=== PATIENT | male | born 1970 | race Native Hawaiian/Other Pacific Islander ===

== ENCOUNTER 2019-01-24 14:39 | Emergency (ER) | payer OTHER, MEDICAID, SELFPAY ==
[2019-01-24 15:06] VITALS: BP 133/84; PULSE 111; RESP 16; TEMP 36.8; O2SAT 97; BMI 33.9
--- NOTE | 2019-01-24 15:09 | DI.RAD.S_ITS ---
PROCEDURE: XR KNEE LT 3V INDICATIONS: knee pain TECHNIQUE: 3 views of the knee were acquired. COMPARISON: None. FINDINGS: Bones: No fractures or dislocations. Mild medial compartment joint space narrowing. Tricompartmental osteoarthrosis. No suspicious bony lesions. Soft tissues: A joint effusion is present. No suspicious soft tissue calcifications. IMPRESSION: No fracture or dislocation. Moderate degenerative change of the knee. Dictated by: Florentino Nguyễn M.D. on 01/24/2019 at 15:41 Approved by: Florentino Nguyễn M.D. on 01/24/2019 at 15:42
--- NOTE | 2019-01-24 15:43 | ED_ITS ---
HPI - Extremity Problem <Meena Stearns PA-C - Last Filed: 01/24/19 19:12> General Chief complaint: Extremity Problem,Nontraumatic Stated complaint: left knee swelling/pain/chills x3 day Time Seen by Provider: 01/24/19 15:17 Source: patient Mode of arrival: Wheelchair Limitations: no limitations History of Present Illness HPI Narrative: This 48-year-old male comes in due to 3 day history of gradually worsening left knee pain and swelling. He states it is painful to walk and bend the knee. 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 He denies any bites or wounds known. He states that he has had some pain in his left hip where he can't sleep on that side, but this was going on well prior to the knee pain. He has not had pain in other joints, nor any swelling in other joints. He states he has not had fever that he knows of, but did have chills last night, and feels a little bit cold today. He has not had sweats. He denies any recent illness. He did take 800 mg ibuprofen earlier this morning. States this is not helping pain much at this point. He denies any other new symptoms on systems review aside from some gradual urinary hesitancy, no dysuria or discharge. He notes that he does have a history of gout, taking an herbal supplement go-out, because allopurinol was ineffective. He did have some dental work not long ago, no other procedures. He notes that he had a remote history of bleeding ulcer when taking high doses of ibuprofen many years ago, tolerates naproxen well. He lat er admits he stopped his colchicine just about 3 weeks ago and had not had a gout exacerbation in some time Related Data Previous Rx's Medication Instructions Recorded colchicine 0.6 mg PO DAILY #2 tab 01/24/19 naproxen 500 mg PO BID #14 tab 01/24/19 Allergies Allergy/AdvReac Type Severity Reaction Status Date / Time No Known Drug Allergies Allergy Verified 01/24/19 15:06 Review of Systems <Meena Stearns PA-C - Last Filed: 01/24/19 19:12> Review of Systems ROS Unobtainable: All systems reviewed & are unremarkable except as noted in HPI and below PFSH <Meena Stearns PA-C - Last Filed: 01/24/19 19:12> Medical History (Updated 01/24/19 @ 18:49 by Meena Stearns PA-C) Diabetes mellitus, insulin dependent (IDDM), controlled (Chronic) Fibromyalgia (Chronic) Gout (Chronic) HTN (hypertension) (Chronic) Surgical History (Updated 01/24/19 @ 16:11 by Meena Stearns PA-C) History of brain shunt (Resolved) Social History (Updated 01/24/19 @ 16:11 by Meena Stearns PA-C) Smoking Status: Never smoker Social History (Updated 01/24/19 @ 16:11 by Meena Stearns PA-C) Smoking Status: Never smoker Exam <Meena Stearns PA-C - Last Filed: 01/24/19 19:12> Narrative Exam Narrative: GENERAL APPEARANCE: Patient sitting comfortably, in no distress. LUNGS: Clear to auscultation bilaterally. HEART: Rate and rhythm regular without murmur, normal S1 and S2, no S3 or S4. DERMATOLOGIC: No wounds or exanthem. Skin over the left knee is warm to touch MUSCULOSKELETAL: Left knee moderate non circumscribed joint effusion, tender especially over the lateral patella and joint line. Limited flexion to about 30? secondary to tenderness, holds in about 10? of flexion. No other joint ef fusion visible. No other joint tenderness or range of motion limitation noted Initial Vital Signs Initial Vital Signs: Vital Signs Temperature 98.2 F 01/24/19 15:06 Pulse Rate 111 H 01/24/19 15:06 Respiratory Rate 16 01/24/19 15:06 Blood Pressure 133/84 01/24/19 15:06 Pulse Oximetry 97 01/24/19 15:06 <Jose J aCstillo DO - Last Filed: 01/25/19 06:59> Initial Vital Signs Initial Vital Signs: Vital Signs Temperature 98.2 F 01/24/19 15:06 Pulse Rate 111 H 01/24/19 15:06 Respiratory Rate 16 01/24/19 15:06 Blood Pressure 133/84 01/24/19 15:06 Pulse Oximetry 97 01/24/19 15:06 Procedures <Meena Stearns PA-C - Last Filed: 01/24/19 19:12> Joint Aspiration Joint Asp./Inject. 1: Time Out Performed: Yes Side of body: left Joint Aspirated: knee (performed by Dr. Castillo) Ultrasound Guidance: No Skin Prep: Povidone-Iodine1% Local Anesthetic: bupivacaine 0.5% Amount of anesthesia used (mL): 6 Needle Size Used: 18G Fluid Obtained: turbid Total fluid obtained (mL): 80 Amount of medication injected (mL): 5 Patient Tolerated Procedure: Well Course <Meena Stearns PA-C - Last Filed: 01/24/19 19:12> Course Additional Information: Patient felt significantly improved after Toradol and joint tap and in fact fell asleep. Lab results consistent with gout. I did speak with on-call orthopedist Dr. Crooks to review findings and cell counts. He advised most likely gout, did not advise treatment for infection at this point. G stain and cultures are pending. Patient agrees to return to ED if any acutely worsening symptoms, otherwise advised follow-up in the next few days with PCP and he is agreeable with this plan as well. Dr. Castillo did joint tap and reviewed findings. Orders Ordered: Discontinued Medications Bupivacaine HCl (Sensorcaine 0.5% (Pf)) 5 ml SUBCUT NOW ONE Stop: 01/24/19 16:30 Sodium Chloride (Normal Saline 0.9%) 1,000 mls @ 1,000 mls/hr IV BOLUS ONE Stop: 01/24/19 18:26 Last Infusion: 01/24/19 18:52 Dose: 0 mls/hr Documented by: Admin: 01/24/19 17:32 Dose: 1,000 mls/hr Documented by: ANGEL Ketorolac Tromethamine (Toradol) 30 mg IV NOW ONE Stop: 01/24/19 16:32 Last Admin: 01/24/19 17:01 Dose: 30 mg Documented by: NANDO Pantoprazole Sodium (Protonix) 40 mg IV NOW ONE Stop: 01/24/19 16:32 Last Admin: 01/24/19 17:01 Dose: 40 mg Documented by: NANDO Vital Signs Vital signs: Vital Signs - 8 hr 01/24/19 15:06 01/24/19 16:59 01/24/19 18:53 Temperature 98.2 F 99.2 F Pulse Rate 111 H 96 H Respiratory Rate 16 16 Blood Pressure 133/84 Blood Pressure [Left Arm] 130/90 Pulse Oximetry 97 98 <Jose J Castillo DO - Last Filed: 01/25/19 06:59> Orders Ordered: Discontinued Medications Bupivacaine HCl (Sensorcaine 0.5% (Pf)) 5 ml SUBCUT NOW ONE Stop: 01/24/19 16:30 Sodium Chloride (Normal Saline 0.9%) 1,000 mls @ 1,000 mls/hr IV BOLUS ONE Stop: 01/24/19 18:26 Last Infusion: 01/24/19 18:52 Dose: 0 mls/hr Documented by: Admin: 01/24/19 17:32 Dose: 1,000 mls/hr Documented by: ANGEL Ketorolac Tromethamine (Toradol) 30 mg IV NOW ONE Stop: 01/24/19 16:32 Last Admin: 01/24/19 17:01 Dose: 30 mg Documented by: NANDO Pantoprazole Sodium (Protonix) 40 mg IV NOW ONE Stop: 01/24/19 16:32 Last Admin: 01/24/19 17:01 Dose: 40 mg Documented by: NANDO Vital Signs Vital signs: Vital Signs - 8 hr 01/24/19 15:06 01/24/19 16:59 01/24/19 18:53 Temperature 98.2 F 99.2 F Pulse Rate 111 H 96 H Respiratory Rate 16 16 Blood Pressure 133/84 Blood Pressure [Left Arm] 130/90 Pulse Oximetry 97 98 MDM - Extremity (Nontraumatic) <Meena Stearns PA-C - Last Filed: 01/24/19 19:12> Lab Data Result diagrams: 01/24/19 16:45 01/24/19 16:45 Labs: Lab Results 01/24/19 01/24/19 01/24/19 Range/Units 16:45 16:45 16:45 WBC 11.1 H (4.5-11.0) X10^3/uL RBC 5.44 (4.5-5.9) X10^6/uL Hgb 16.5 (13.5-17.5) g/dL Hct 48.6 (41-53) % MCV 89.3 (80-100) fL MCH 30.3 (26-34) PG MCHC 33.9 (30-36) % RDW 13.2 (11.6-14.8) % Plt Count 284 (150-400) X10^3/uL Neut % (Auto) 76.6 H (50-75) % Lymph % (Auto) 11.6 L (25-40) % [place] % (Auto) 9.2 (3-14) % Eos % (Auto) 1.8 L (2-4) % Baso % (Auto) 0.8 (0-2) % Neut # (Auto) 8500 H (5077-1033) /uL Lymph # (Auto) 1300 (7038-5578) /uL [place] # (Auto) 1000 H (0-900) /uL Eos # (Auto) 200 (0-450) /uL Baso # (Auto) 100 (0-100) /uL ESR 25 H (0-15) MM/HR Sodium 138 (137-145) mmol/L Potassium 4.4 (3.4-5.1) mmol/L Chloride 100 (98-107) mmol/L Carbon Dioxide 24 (22-32) mmol/L BUN 15 (9-20) mg/dL Creatinine 1.20 (0.66-1.25) mg/dL Estimated GFR > 60.0 (>60) mL/min BUN/Creatinine Ratio 12.5 (6-22) Glucose 366 H (70-100) mg/dL Uric Acid 9.4 H (3.5-8.5) mg/dL Calcium 9.7 (8.4-10.2) mg/dL Total Bilirubin 0.9 (0.2-1.3) mg/dL AST 24 (17-59) IU/L ALT 19 L (21-72) IU/L Alkaline Phosphatase 80 (38-126) U/L C-Reactive Protein 3.8 H (<1.0) mg/dL Total Protein 8.2 (6.3-8.2) g/dL Albumin 4.3 (3.5-5.0) g/dL Globulin 3.9 (1.7-4.1) g/dL Albumin/Globulin Ratio 1.1 (1.0-2.8) Fluid Color Fluid Appearance Fluid RBC /uL Fld Tot Nucleated Cell /uL Fluid Polynuclear WBCs % Fluid Mononuclear WBCs % Fluid Eosinophils % Fluid Other Cells Fluid Crystals Body Fluid Clot 10/10/19 10/10/19 10/10/19 Range/Units 16:45 16:45 16:45 WBC (4.5-11.0) X10^3/uL RBC (4.5-5.9) X10^6/uL Hgb (13.5-17.5) g/dL Hct (41-53) % MCV (80-100) fL MCH (26-34) PG MCHC (30-36) % RDW (11.6-14.8) % Plt Count (150-400) X10^3/uL Neut % (Auto) (50-75) % Lymph % (Auto) (25-40) % [place] % (Auto) (3-14) % Eos % (Auto) (2-4) % Baso % (Auto) (0-2) % Neut # (Auto) (1269-7951) /uL Lymph # (Auto) (3173-6093) /uL [place] # (Auto) (0-900) /uL Eos # (Auto) (0-450) /uL Baso # (Auto) (0-100) /uL ESR (0-15) MM/HR Sodium (137-145) mmol/L Potassium (3.4-5.1) mmol/L Chloride (98-107) mmol/L Carbon Dioxide (22-32) mmol/L BUN (9-20) mg/dL Creatinine (0.66-1.25) mg/dL Estimated GFR (>60) mL/min BUN/Creatinine Ratio (6-22) Glucose (70-100) mg/dL Uric Acid (3.5-8.5) mg/dL Calcium (8.4-10.2) mg/dL Total Bilirubin (0.2-1.3) mg/dL AST (17-59) IU/L ALT (21-72) IU/L Alkaline Phosphatase (38-126) U/L C-Reactive Protein (<1.0) mg/dL Total Protein (6.3-8.2) g/dL Albumin (3.5-5.0) g/dL Globulin (1.7-4.1) g/dL Albumin/Globulin Ratio (1.0-2.8) Fluid Color Yellow Fluid Appearance Slightly cloudy Fluid RBC 2787 /uL Fld Tot Nucleated Cell 97101 /uL Fluid Polynuclear WBCs 82 % Fluid Mononuclear WBCs 18 % Fluid Eosinophils 0 % Fluid Other Cells Not Reportable Fluid Crystals Cancelled Monosodium urates Body Fluid Clot No clots present Imaging Data knee: Radiologist's impression: 16 Meena Stearns PA-C Find Patient Imaging - Aron Aponte 48 M 1970 ACTIVITY DATE EXAM STATUS AUTHOR 01/24/19 15:09 Signed Call,[address] [address] XRay Report Signed Patient: Aron AponteMR#: [id number] : 1970Acct:[id number] Age/Sex: 48 / MDate of Service: 01/24/19 Loc: ED Accession Number: [id number] Procedure: XR knee LT 3V Ordering Provider: Jose J Castillo D.O. PROCEDURE: XR KNEE LT 3V INDICATIONS: knee pain TECHNIQUE: 3 views of the knee were acquired. COMPARISON: None. FINDINGS: Bones: No fractures or dislocations. Mild medial compartment joint space narro wing. Tricompartmental osteoarthrosis. No suspicious bony lesions. Soft tissues: A joint effusion is present. No suspicious soft tissue calcifications. IMPRESSION: No fracture or dislocation. Moderate degenerative change of the knee. Dictated by: Florentino Nguyễn M.D. on 01/24/2019 at 15:41 Approved by: Florentino Nguyễn M.D. on 01/24/2019 at 15:42 <Jose J Castillo DO - Last Filed: 01/25/19 06:59> Lab Data Labs: Lab Results 01/24/19 01/24/19 01/24/19 Range/Units 16:45 16:45 16:45 WBC 11.1 H (4.5-11.0) X10^3/uL RBC 5.44 (4.5-5.9) X10^6/uL Hgb 16.5 (13.5-17.5) g/dL Hct 48.6 (41-53) % MCV 89.3 (80-100) fL MCH 30.3 (26-34) PG MCHC 33.9 (30-36) % RDW 13.2 (11.6-14.8) % Plt Count 284 (150-400) X10^3/uL Neut % (Auto) 76.6 H (50-75) % Lymph % (Auto) 11.6 L (25-40) % [place] % (Auto) 9.2 (3-14) % Eos % (Auto) 1.8 L (2-4) % Baso % (Auto) 0.8 (0-2) % Neut # (Auto) 8500 H (6670-9780) /uL Lymph # (Auto) 1300 (7827-2979) /uL [place] # (Auto) 1000 H (0-900) /uL Eos # (Auto) 200 (0-450) /uL Baso # (Auto) 100 (0-100) /uL ESR 25 H (0-15) MM/HR Sodium 138 (137-145) mmol/L Potassium 4.4 (3.4-5.1) mmol/L Chloride 100 (98-107) mmol/L Carbon Dioxide 24 (22-32) mmol/L BUN 15 (9-20) mg/dL Creatinine 1.20 (0.66-1.25) mg/dL Estimated GFR > 60.0 (>60) mL/min BUN/Creatinine Ratio 12.5 (6-22) Glucose 366 H (70-100) mg/dL Uric Acid 9.4 H (3.5-8.5) mg/dL Calcium 9.7 (8.4-10.2) mg/dL Total Bilirubin 0.9 (0.2-1.3) mg/dL AST 24 (17-59) IU/L ALT 19 L (21-72) IU/L Alkaline Phosphatase 80 (38-126) U/L C-Reactive Protein 3.8 H (<1.0) mg/dL Total Protein 8.2 (6.3-8.2) g/dL Albumin 4.3 (3.5-5.0) g/dL Globulin 3.9 (1.7-4.1) g/dL Albumin/Globulin Ratio 1.1 (1.0-2.8) Fluid Color Fluid Appearance Fluid RBC /uL Fld Tot Nucleated Cell /uL Fluid Polynuclear WBCs % Fluid Mononuclear WBCs % Fluid Eosinophils % Fluid Other Cells Fluid Crystals Body Fluid Clot 01/24/19 01/24/19 01/24/19 Range/Units 16:45 16:45 16:45 WBC (4.5-11.0) X10^3/uL RBC (4.5-5.9) X10^6/uL Hgb (13.5-17.5) g/dL Hct (41-53) % MCV (80-100) fL MCH (26-34) PG MCHC (30-36) % RDW (11.6-14.8) % Plt Count (150-400) X10^3/uL Neut % (Auto) (50-75) % Lymph % (Auto) (25-40) % [place] % (Auto) (3-14) % Eos % (Auto) (2-4) % Baso % (Auto) (0-2) % Neut # (Auto) (8888-4432) /uL Lymph # (Auto) (4496-5285) /uL [place] # (Auto) (0-900) /uL Eos # (Auto) (0-450) /uL Baso # (Auto) (0-100) /uL ESR (0-15) MM/HR Sodium (137-145) mmol/L Potassium (3.4-5.1) mmol/L Chloride (98-107) mmol/L Carbon Dioxide (22-32) mmol/L BUN (9-20) mg/dL Creatinine (0.66-1.25) mg/dL Estimated GFR (>60) mL/min BUN/Creatinine Ratio (6-22) Glucose (70-100) mg/dL Uric Acid (3.5-8.5) mg/dL Calcium (8.4-10.2) mg/dL Total Bilirubin (0.2-1.3) mg/dL AST (17-59) IU/L ALT (21-72) IU/L Alkaline Phosphatase (38-126) U/L C-Reactive Protein (<1.0) mg/dL Total Protein (6.3-8.2) g/dL Albumin (3.5-5.0) g/dL Globulin (1.7-4.1) g/dL Albumin/Globulin Ratio (1.0-2.8) Fluid Color Yellow Fluid Appearance Slightly cloudy Fluid RBC 2787 /uL Fld Tot Nucleated Cell 03411 /uL Fluid Polynuclear WBCs 82 % Fluid Mononuclear WBCs 18 % Fluid Eosinophils 0 % Fluid Other Cells Not Reportable Fluid Crystals Cancelled Monosodium urates Body Fluid Clot No clots present Discharge Plan Departure Patient Disposition: Home Clinical Impression: Gout Qualifiers: Gout site: knee Gout etiology: idiopathic Chronicity: acute Laterality: left Qualified Code(s): M10.062 - Idiopathic gout, left knee Discharge Date/Time: 01/24/19 19:00 Instructions: DI for Gout Activity Restrictions/Additional Instructions: I have sent in a prescription for naproxen for you as well as a medicine called colchicine to help with the a gout attack. Please take both doses of the colchicine tonight. Please call your clinic 1st thing in the morning and let them know you were seen in the emergency room and we want you to be seen for follow-up in the next few days. You should discontinue the dietary supplement and discuss restarting your gout medicine when you are better. As we talked about, you should return to the closest ED if you have any acutely worsening symptoms in the interim as some of your fluid analysis on the knee is still pending. Prescriptions: New naproxen 500 mg tablet 500 mg PO BID Qty: 14 RF: 0 colchicine 0.6 mg tablet 0.6 mg PO DAILY Qty: 2 RF: 0 Referrals: [facility] [Other]
[2019-01-24 16:57] LABS: Add Manual Diff / Slide Review NO; Basophils Absolute Auto 100 /uL (0-100); Basophils Percent Auto 0.8 % (0-2); Eosinophils Absolute Auto 200 /uL (0-450); Eosinophils Percent Auto 1.8 % (2-4); Hematocrit 48.6 % (41-53); Hemoglobin 16.5 g/dL (13.5-17.5); Lymphocytes Absolute Auto 1300 /uL (1100-4500); Lymphocytes Percent Auto 11.6 % (25-40); Mean Corpuscular HGB Conc 33.9 % (30-36); Mean Corpuscular Hemoglobin 30.3 PG (26-34); Mean Corpuscular Volume 89.3 fL (80-100); Monocytes Absolute Auto 1000 /uL (0-900); Monocytes Percent Auto 9.2 % (3-14); Neutrophils Absolute Auto 8500 /uL (1500-7000); Neutrophils Percent Auto 76.6 % (50-75); Platelet Count 284 X10^3/uL (150-400); Red Blood Cell Count 5.44 X10^6/uL (4.5-5.9); Red Cell Distribution Width 13.2 % (11.6-14.8); White Blood Cell Count 11.1 X10^3/uL (4.5-11.0)
[2019-01-24 16:59] VITALS: TEMP 37.3
[2019-01-24] MEDS: KETOROLAC 60 MG/2 ML VIAL 30 MG IV (17:01)
[2019-01-24] MEDS: PANTOPRAZOLE 40 MG VIAL IV (17:01)
[2019-01-24 17:17] LABS: Uric Acid 9.4 mg/dL (3.5-8.5)
[2019-01-24 17:18] LABS: Erythrocyte Sedimentation Rate 25 MM/HR (0-15)
[2019-01-24 17:21] LABS: Alanine Aminotransferase 19 IU/L (21-72); Albumin 4.3 g/dL (3.5-5.0); Albumin Globulin Ratio 1.1 (1.0-2.8); Alkaline Phosphatase 80 U/L (38-126); Aspartate Aminotransferase 24 IU/L (17-59); BUN Creatinine Ratio 12.5 (6-22); Bilirubin Total 0.9 mg/dL (0.2-1.3); Blood Urea Nitrogen 15 mg/dL (9-20); C-Reactive Protein Quant 3.8 mg/dL (<1.0); Calcium 9.7 mg/dL (8.4-10.2); Carbon Dioxide 24 mmol/L (22-32); Chloride 100 mmol/L (98-107); Estimated Glomerular Filt Rate > 60.0 mL/min (>60); Globulin 3.9 g/dL (1.7-4.1); Glucose 366 mg/dL (70-100); HEMOLYSIS < 15 (0-50); Potassium 4.4 mmol/L (3.4-5.1); Sodium 138 mmol/L (137-145); Total Protein 8.2 g/dL (6.3-8.2)
[2019-01-24] MEDS: SODIUM CHLORIDE 0.9% 1,000 ML 1000 ML IV (17:32)
[2019-01-24 17:35] LABS: Crystals Body Fluid - IN-HOUSE Monosodium urates
[2019-01-24 17:37] LABS: Body Fluid Appearance SLIGHTLY CLOUDY; Body Fluid Clotted? NO CLOTS PRESENT; Body Fluid Color YELLOW
--- NOTE | 2019-01-24 17:37 | PC.NURSE ---
bupivacaine administered by MD Castillo
[2019-01-24 17:38] LABS: Body Fluid Red Blood Cells 2787 /uL; Body Fluid Tot Nucleated Cells 44068 /uL
[2019-01-24 18:27] LABS: Eosinophils Body Fluid 0 %; Mononuclear WBC Body Fluid 18 %; Polynuclear WBC Body Fluid 82 %
[2019-01-24 18:53] VITALS: BP 130/90; PULSE 96; RESP 16; O2SAT 98
== END 2019-01-24 19:00 | disposition home or self-care (01) ==
PROVIDERS: Emergency Medicine; Emergency Provider Internal Medicine
DX: M10.062 Idiopathic gout, left knee (principal); I10 Essential (primary) hypertension; E11.9 Type 2 diabetes mellitus without complications
CPT/HCPCS: 20610; 36415; 73562; 80053; 84550; 85025; 85651; 86140; 87040; 87070; 87075; 87205; 89051; 96361; 96374; 96375; 99283; 99284; C9113; J1885

== ENCOUNTER 2019-03-28 16:30 | Emergency (ER) | payer OTHER, MEDICAID, SELFPAY ==
[2019-03-28 16:33] VITALS: BP 128/86; PULSE 111; RESP 16; TEMP 37.2; O2SAT 98; BMI 36.9
--- NOTE | 2019-03-28 17:54 | ED.SKABFB ---
HPI - Skin/Abscess/Foreign Bdy <Meena Stearns PA-C - Last Filed: 03/28/19 21:18> General Chief complaint: Skin/Abscess/Foreign Body Stated complaint: states large infection back of head Time Seen by Provider: 03/28/19 16:55 Source: patient and family Mode of arrival: Ambulatory Limitations: no limitations History of Present Illness HPI narrative: This 48-year-old male comes to ED secondary to concern for worsening skin infection on his scalp. He does get ingrown hairs, noticed a sore and bump there 3 days ago and thought due to this, however it has been progressively becoming more swollen and painful. His states that she put hot packs on this and has not been able to express any drainage. Pain is worse with pressure on that side of the scalp. He also notes that he has had chills (no temperatures taken), as well as swollen glands, some cough, nasal and sinus congestion and pressure, fatigue and generalized body aches in the last week. He denies any recent travel or known exposures, states his blood sugars have been okay at home. He denies chest pain or dyspnea or other new complaints on systems review. He has a history of head injury and scarring and the middle part of his posterior scalp is always swollen around the scar. Related Data Previous Rx's Medication Instructions Recorded colchicine 0.6 mg PO DAILY #2 tab 01/24/19 naproxen 500 mg PO BID #14 tab 01/24/19 doxycycline monohydrate 100 mg PO BID #20 cap 03/28/19 naproxen 500 mg PO BID PRN #20 tab 03/28/19 Allergies Allergy/AdvReac Type Severity Reaction Status Date / Time No Known Drug Allergies Allergy Verified 03/28/19 16:33 Review of Systems <Meena Stearns PA-C - Last Filed: 03/28/19 21:18> Review of Systems ROS Unobtainable: All systems reviewed & are unremarkable except as noted in HPI and below Patient History <Meena Stearns PA-C - Last Filed: 03/28/19 21:18> Medical History Diabetes mellitus, insulin dependent (IDDM), controlled (Chronic) Fibromyalgia (Chronic) Gout (Chronic) History of head injury (Chronic) HTN (hypertension) (Chronic) Surgical History (Updated 01/24/19 @ 16:11 by Meena Stearns PA-C) History of brain shunt (Resolved) Social History Smoking Status: Never smoker Smoking Status: Never smoker alcohol intake frequency: holidays/special occasions only Substance Use Type: does not use Exam <Meena Stearns PA-C - Last Filed: 03/28/19 21:18> Narrative Exam Narrative: GENERAL APPEARANCE: Patient resting comfortably, in no distress. HEAD: Minimal generalized sinus tenderness EYES: PERRL, EOMI. EARS: Normal auditory canals, TMS intact with normal light reflexes. ORAL CAVITY: Normal oropharynx. THROAT: No erythema or exudate, PND noted NECK/THYROID: Neck supple, full range of motion, tender anterior cervical lymphadenopathy. LUNGS: Clear to auscultation bilaterally, no cough on exam. HEART: RRR without murmur, nl S1, S2, no S3 or S4. DERMATOLOGIC: Left posterior lateral scalp there is a 1.5 cm indurated nodular lesion, mild surrounding erythema and tenderness. No clear fluctuance. Conclude with this in the posterior midline there is a large surgical scar with surrounding induration Initial Vital Signs Initial Vital Signs: Vital Signs Temperature 98.9 F 03/28/19 16:33 Pulse Rate 111 H 03/28/19 16:33 Respiratory Rate 16 03/28/19 16:33 Blood Pressure 128/86 03/28/19 16:33 Pulse Oximetry 98 03/28/19 16:33 <aTpan Roberts DO - Last Filed: 03/28/19 21:46> Initial Vital Signs Initial Vital Signs: Vital Signs Temperature 98.9 F 03/28/19 16:33 Pulse Rate 111 H 03/28/19 16:33 Respiratory Rate 16 03/28/19 16:33 Blood Pressure 128/86 03/28/19 16:33 Pulse Oximetry 98 03/28/19 16:33 Course <Meena Stearns PA-C - Last Filed: 03/28/19 21:18> Course Additional Information: I requested attending Dr. Roberts evaluate this scalp lesion as well as it is confluent with patient's large, indurated surgical scar. He evaluated this and did ultrasound, and agrees induration with no fluid or abscess. Patient will start antibiotic and agrees to follow up with PCP in about 3 days for recheck. He will return to the ED if any acutely worsening symptoms in the interim. Orders Ordered: ED Orders 03/28/19 18:10 Influenza A & B (PCR) Stat Vital Signs Vital signs: Vital Signs - 8 hr 03/28/19 16:33 Temperature 98.9 F Pulse Rate 111 H Respiratory Rate 16 Blood Pressure 128/86 Pulse Oximetry 98 <Tapan Roberts DO - Last Filed: 03/28/19 21:46> Orders Ordered: ED Orders 03/28/19 18:10 Influenza A & B (PCR) Stat Vital Signs Vital signs: Vital Signs - 8 hr 03/28/19 16:33 Temperature 98.9 F Pulse Rate 111 H Respiratory Rate 16 Blood Pressure 128/86 Pulse Oximetry 98 MDM - Skin/Abscess/Foreign Bdy <Meena Stearns PA-C - Last Filed: 03/28/19 21:18> Lab Data Labs: Lab Results 03/28/19 Range/Units 18:10 Influenza A (RT-PCR) Flu a negative (NEGATIVE) Influenza B (RT-PCR) Flu b negative (NEGATIVE) <Tapan Roberts DO - Last Filed: 03/28/19 21:46> Lab Data Labs: Lab Results 03/28/19 Range/Units 18:10 Influenza A (RT-PCR) Flu a negative (NEGATIVE) Influenza B (RT-PCR) Flu b negative (NEGATIVE) MDM Narrative Medical decision making narrative: I was asked to evaluate the patient by the APC. He does have a dime size area of ulceration to the left side of his head behind his left ear. Bedside ultrasound around this area does not show any signs of abscess. I suspect this just induration. We did discuss treatment. I recommended antibiotics and follow-up Discharge Plan Departure Patient Disposition: Home Clinical Impression: Viral URI Cellulitis Qualifiers: Site of cellulitis: head Qualified Code(s): L03.811 - Cellulitis of head [any part, except face] Discharge Date/Time: 03/28/19 19:32 Instructions: DI for Cellulitis -- Adult, DI for Viral Upper Respiratory Infection -- Adult Activity Restrictions/Additional Instructions: Please parts picker and start the antibiotic this evening (sent to [facility] for you along with the Naproxen). You can continue hot compresses, however I agree with you both that right now, there does not appear to be abscess or fluid there to drain on the back of your scalp. The skin does look infected. Please call your PCP 1st thing tomorrow morning, let them know you were seen in the emergency room and we would like you to follow-up on Monday to assess your progress on the antibiotic. As we talked about, you should return if you have any acutely worsening symptoms over the weekend, or new symptoms such as high fever. Your test was negative for the flu today, so your upper respiratory symptoms are most likely due to a virus. You can continue NyQuil and other [id number] medicine as needed. Prescriptions: New naproxen 500 mg tablet 500 mg PO BID PRN (Reason: pain/swelli) Qty: 20 RF: 0 doxycycline monohydrate 100 mg capsule 100 mg PO BID Qty: 20 RF: 0 No Action naproxen 500 mg tablet 500 mg PO BID Qty: 14 RF: 0 colchicine 0.6 mg tablet 0.6 mg PO DAILY Qty: 2 RF: 0 Referrals: [facility] [Other]
[2019-03-28 18:47] LABS: Influenza A - CEPHEID Flu A NEGATIVE (NEGATIVE); Influenza B - CEPHEID Flu B NEGATIVE (NEGATIVE)
== END 2019-03-28 19:32 | disposition home or self-care (01) ==
PROVIDERS: Emergency Provider Internal Medicine
DX: J06.9 Acute upper respiratory infection, unspecified (principal); L03.811 Cellulitis of head [any part, except face]
CPT/HCPCS: 36415; 87502; 99283

== ENCOUNTER 2019-06-09 13:38 | Inpatient (IN) | payer OTHER, MEDICAID, SELFPAY ==
[2019-06-09] VITALS (8 sets, daily range): BP systolic 116–146; BP diastolic 60–83; PULSE 76–104; RESP 15–20; TEMP 36.2–36.5; O2SAT 95–99; BMI 35.6
--- NOTE | 2019-06-09 14:41 | PC.NURSE ---
pt reports, with neuropathy, fever yesterday, due to neuropathy, pt noted left lower leg redness and swelling. also with buttom of 5th digit with sore, onset a week ago. also reports decrease in urination, drinking plenty of fluids and urine is dark in color, urine requested.
[2019-06-09 14:45] LABS: Add Manual Diff / Slide Review NO; Basophils Absolute Auto 100 /uL (0-100); Basophils Percent Auto 0.7 % (0-2); Eosinophils Absolute Auto 300 /uL (0-450); Eosinophils Percent Auto 2.5 % (2-4); Hematocrit 44.4 % (41-53); Lymphocytes Absolute Auto 1100 /uL (1100-4500); Lymphocytes Percent Auto 9.5 % (25-40); Mean Corpuscular HGB Conc 33.7 % (30-36); Mean Corpuscular Hemoglobin 29.8 PG (26-34); Mean Corpuscular Volume 88.4 fL (80-100); Monocytes Absolute Auto 1100 /uL (0-900); Monocytes Percent Auto 9.8 % (3-14); Neutrophils Absolute Auto 9000 /uL (1500-7000); Neutrophils Percent Auto 77.5 % (50-75); Platelet Count 243 X10^3/uL (150-400); Red Blood Cell Count 5.02 X10^6/uL (4.5-5.9); Red Cell Distribution Width 14.2 % (11.6-14.8); White Blood Cell Count 11.6 X10^3/uL (4.5-11.0)
[2019-06-09] MEDS: SODIUM CHLORIDE 0.9% 1224.7 ML IV (14:45)
--- NOTE | 2019-06-09 14:50 | ED.SKABFB ---
HPI - Skin/Abscess/Foreign Bdy General Chief complaint: Skin/Abscess/Foreign Body Stated complaint: left leg swelling Time Seen by Provider: 06/09/19 13:47 Source: patient Mode of arrival: Ambulatory Limitations: no limitations History of Present Illness HPI narrative: 49-year-old male nonsmoking diabetic with a history of gout presents with a chief complaint of fever and shaking chills over the course of the night and a rapid progression of a painful erythematous rash on anterior steven. Patient has a painful, blood-filled blister under his pinky toe which is growing as well. He has a diabetic neuropathy and does not recall any specific injury. He denies any runny nose, sore throat or cough. He denies any chest pain or shortness of breath. MD complaint: rash and abscess/boil Onset (ago): hour(s) Tetanus up to date: yes Location: LLE and L foot Severity: moderate Quality: burning and aching Pain Consistency: constant Relieving factors: none Exacerbating factors: palpation Associated symptoms: fever, chills and rigors Treatments prior to arrival: none Related Data Previous Rx's Medication Instructions Recorded colchicine 0.6 mg PO DAILY #2 tab 01/24/19 naproxen 500 mg PO BID #14 tab 01/24/19 doxycycline monohydrate 100 mg PO BID #20 cap 03/28/19 naproxen 500 mg PO BID PRN #20 tab 03/28/19 Allergies Allergy/AdvReac Type Severity Reaction Status Date / Time No Known Drug Allergies Allergy Verified 03/28/19 16:33 Review of Systems Constitutional Constitutional: Reports body ache(s), Reports chills, Denies fatigue, Reports fever(s), Denies frequent falls, Denies lethargy and Denies weakness Eyes Eyes: Denies change in vision, Denies eye discharge, Denies irritation and Denies loss of vision ENT Ears, Nose, Mouth, and Throat: Denies change in voice, Denies dizziness, Denies neck pain, Denies sore throat and Denies throat swelling Cardiovascular Cardiovascular: Denies chest pain, Denies irregular heart rhythm, Denies lightheadedness, Denies palpitations, Denies dyspnea, Denies dyspnea on exertion and Denies orthopnea Respiratory Respiratory: Denies cough, Denies dyspnea, Denies dyspnea on exertion and Denies wheezing Gastrointestinal Gastrointestinal: Denies abdominal pain, Denies change in bowel habits, Denies diarrhea, Denies nausea and Denies vomiting Genitourinary Genitourinary: Denies hematuria, Denies flank pain, Denies urinary incontinence and Denies urinary urgency Musculoskeletal Musculoskeletal: Denies back pain, Denies muscle weakness, Denies neck pain, Denies numbness and Denies tingling Integumentary/Breasts Skin/Breast: Denies pruritus, Reports erythema, Denies rash, Reports skin pain, Reports skin swelling and Denies wounds Neurologic Neurologic: Denies behavioral changes, Denies confusion, Denies dizziness, Denies frequent falls, Denies loss of vision, Denies numbness, Denies tingling and Denies weakness Psychiatric Psychiatric: Denies anxiety, Denies behavioral changes, Denies confusion, Denies depression, Denies homicidal ideation and Denies suicidal ideation Endocrine Endocrine: Denies fatigue, Denies flushing and Denies palpitations Hematologic/Lymphatic Hematologic/Lymphatic: Denies easy bruising Allergic/Immunologic Allergic/Immunologic: Denies urticaria, Denies throat swelling and Denies wheezing Patient History Medical History Diabetes mellitus, insulin dependent (IDDM), controlled (Chronic) Fibromyalgia (Chronic) Gout (Chronic) History of head injury (Chronic) HTN (hypertension) (Chronic) Surgical History History of brain shunt (Resolved) Social History Smoking Status: Never smoker Smoking Status: Never smoker alcohol intake frequency: holidays/special occasions only Substance Use Type: does not use Exam Narrative Exam Narrative: GENERAL: [49] year old patient appears stated age. Well-nourished, well-developed patient, in mild distress. HEAD: Atraumatic. Normocephalic. EYES: Pupils equal round and reactive. Extraocular motions intact. No scleral icterus. No injection or drainage. ENT: Nose without bleeding, purulent drainage. Throat without erythema, tonsillar hypertrophy or exudate. Airway patent. NECK: Trachea midline. Non tender CARDIOVASCULAR: Tachycardic but regular rhythm without murmurs, gallops, or rubs. RESPIRATORY: Clear to auscultation. Breath sounds equal bilaterally. No wheezes, rales, or rhonchi. GASTROINTESTINAL: Abdomen soft, non-tender, nondistended. EXTREMITIES: No edema or joint tenderness. BACK: Nontender without deformity or crepitance. No flank tenderness. NEURO: AOx3. SKIN: Left anterior steven erythematous, painful and warm, well-circumscribed anterior steven consistent with cellulitis. No rash or erythema of visible areas Initial Vital Signs Initial Vital Signs: Vital Signs Temperature 97.2 F L 06/09/19 13:42 Pulse Rate 104 H 06/09/19 13:42 Respiratory Rate 18 06/09/19 13:42 Blood Pressure 119/76 06/09/19 13:42 Pulse Oximetry 99 06/09/19 13:42 Course Orders Ordered: ED Orders 06/09/19 14:04 Complete Blood Count AUTO DIFF Stat Comprehensive Metabolic Panel Stat Lactate (Lactic Acid) Stat Procalcitonin Stat 06/09/19 14:57 XR foot LT min 3V Stat 06/09/19 15:26 Blood Culture Stat Sodium Chloride (Normal Saline 0.9%) 3,674.1 mls @ 1,224.7 mls/hr 30 ml/kg infuse over 3 hr (3674.1 ml) IV NOW ONE Stop: 06/09/19 16:48 Last Infusion: 06/09/19 16:11 Dose: 250 mls/hr Documented by: Admin: 06/09/19 14:45 Dose: 1,224.7 mls/hr Documented by: THOM Vancomycin HCl/Dextrose (Vancomycin) 2,000 mg in 400 mls @ 200 mls/hr IV NOW ONE Stop: 06/09/19 16:56 Last Admin: 06/09/19 15:13 Dose: 200 mls/hr Documented by: THOM Levofloxacin (Levaquin) 750 mg in 150 mls @ 100 mls/hr IV NOW ONE Stop: 06/09/19 16:59 Last Admin: 06/09/19 16:32 Dose: 100 mls/hr Documented by: THOM Vital Signs Vital signs: Vital Signs - 8 hr 06/09/19 13:42 06/09/19 14:38 Temperature 97.2 F L Pulse Rate 104 H 86 Respiratory Rate 18 16 Blood Pressure 119/76 Blood Pressure [Right Arm] 128/83 Pulse Oximetry 99 98 MDM - Skin/Abscess/Foreign Bdy Lab Data Result diagrams: 06/09/19 14:04 06/09/19 14:04 Labs: Lab Results 06/09/19 06/09/19 06/09/19 Range/Units 14:04 14:04 14:04 WBC 11.6 H (4.5-11.0) X10^3/uL RBC 5.02 (4.5-5.9) X10^6/uL Hgb 15.0 (13.5-17.5) g/dL Hct 44.4 (41-53) % MCV 88.4 (80-100) fL MCH 29.8 (26-34) PG MCHC 33.7 (30-36) % RDW 14.2 (11.6-14.8) % Plt Count 243 (150-400) X10^3/uL Neut % (Auto) 77.5 H (50-75) % Lymph % (Auto) 9.5 L (25-40) % [place] % (Auto) 9.8 (3-14) % Eos % (Auto) 2.5 (2-4) % Baso % (Auto) 0.7 (0-2) % Neut # (Auto) 9000 H (1597-9187) /uL Lymph # (Auto) 1100 (9821-5561) /uL [place] # (Auto) 1100 H (0-900) /uL Eos # (Auto) 300 (0-450) /uL Baso # (Auto) 100 (0-100) /uL Sodium 135 L (137-145) mmol/L Potassium 4.5 (3.4-5.1) mmol/L Chloride 100 (98-107) mmol/L Carbon Dioxide 21 L (22-32) mmol/L BUN 37 H (9-20) mg/dL Creatinine 1.50 H (0.66-1.25) mg/dL Estimated GFR 49.5 L (>60) mL/min BUN/Creatinine Ratio 24.7 H (6-22) Glucose 354 H (70-100) mg/dL Lactate (0.7-2.1) mmol/L Calcium 9.3 (8.4-10.2) mg/dL Total Bilirubin 0.6 (0.2-1.3) mg/dL AST 26 (17-59) IU/L ALT 40 (<50) IU/L Alkaline Phosphatase 166 H (38-126) U/L Total Protein 8.4 H (6.3-8.2) g/dL Albumin 4.0 (3.5-5.0) g/dL Globulin 4.4 H (1.7-4.1) g/dL Albumin/Globulin Ratio 0.9 L (1.0-2.8) Procalcitonin 0.55 H (<0.5) ng/mL 06/09/19 Range/Units 14:04 WBC (4.5-11.0) X10^3/uL RBC (4.5-5.9) X10^6/uL Hgb (13.5-17.5) g/dL Hct (41-53) % MCV (80-100) fL MCH (26-34) PG MCHC (30-36) % RDW (11.6-14.8) % Plt Count (150-400) X10^3/uL Neut % (Auto) (50-75) % Lymph % (Auto) (25-40) % [place] % (Auto) (3-14) % Eos % (Auto) (2-4) % Baso % (Auto) (0-2) % Neut # (Auto) (6907-1964) /uL Lymph # (Auto) (9130-9606) /uL [place] # (Auto) (0-900) /uL Eos # (Auto) (0-450) /uL Baso # (Auto) (0-100) /uL Sodium (137-145) mmol/L Potassium (3.4-5.1) mmol/L Chloride (98-107) mmol/L Carbon Dioxide (22-32) mmol/L BUN (9-20) mg/dL Creatinine (0.66-1.25) mg/dL Estimated GFR (>60) mL/min BUN/Creatinine Ratio (6-22) Glucose (70-100) mg/dL Lactate 2.0 (0.7-2.1) mmol/L Calcium (8.4-10.2) mg/dL Total Bilirubin (0.2-1.3) mg/dL AST (17-59) IU/L ALT (<50) IU/L Alkaline Phosphatase (38-126) U/L Total Protein (6.3-8.2) g/dL Albumin (3.5-5.0) g/dL Globulin (1.7-4.1) g/dL Albumin/Globulin Ratio (1.0-2.8) Procalcitonin (<0.5) ng/mL Discharge Plan Departure Patient Disposition: Admitted As Inpatient Clinical Impression: Cellulitis of left anterior lower leg, Acute kidney injury Admit Date/Time: 06/09/19 16:07 Admit Provider: Katie Cook
[2019-06-09 14:57] LABS: Alanine Aminotransferase 40 IU/L (<50); Albumin Globulin Ratio 0.9 (1.0-2.8); Alkaline Phosphatase 166 U/L (38-126); Aspartate Aminotransferase 26 IU/L (17-59); BUN Creatinine Ratio 24.7 (6-22); Bilirubin Total 0.6 mg/dL (0.2-1.3); Blood Urea Nitrogen 37 mg/dL (9-20); Calcium 9.3 mg/dL (8.4-10.2); Carbon Dioxide 21 mmol/L (22-32); Chloride 100 mmol/L (98-107); Estimated Glomerular Filt Rate 49.5 mL/min (>60); Globulin 4.4 g/dL (1.7-4.1); Glucose 354 mg/dL (70-100); HEMOLYSIS < 15 (0-50); Potassium 4.5 mmol/L (3.4-5.1); Sodium 135 mmol/L (137-145); Total Protein 8.4 g/dL (6.3-8.2)
--- NOTE | 2019-06-09 14:57 | DI.RAD.S_ITS ---
PROCEDURE: XR FOOT LT MIN 3V INDICATIONS: osteo? TECHNIQUE: 3 views of the foot were acquired. COMPARISON: None. FINDINGS: Bones: No displaced fractures or dislocations are identified. No suspicious osseous lesions are evident. No definite osseous erosions are appreciated. Moderate degenerative changes of the midfoot and hindfoot joints are present. No periosteal reaction is appreciated. Soft tissues: A soft tissue wound is seen overlying the plantar lateral aspect of the forefoot at the 5th metatarsophalangeal joint. No radiopaque foreign bodies are evident. IMPRESSION: 1. No osseous erosions or convincing x-ray findings of osteomyelitis. MRI with contrast would be helpful for better characterization, if indicated. 2. Soft tissue wound along the plantar lateral aspect of the 5th metatarsophalangeal joint. Dictated by: Forest Mckeon M.D. on 06/09/2019 at 14:18 Approved by: Forest Mckeon M.D. on 06/09/2019 at 14:20
[2019-06-09] MEDS: VANCOMYCIN 2,000 MG/400 ML PIGGYBACK 200 MG IV (15:13)
[2019-06-09 15:14] LABS: Procalcitonin 0.55 ng/mL (<0.5)
[2019-06-09] MEDS: levoFLOXacin 750 MG/150 ML PIGGYBACK 100 MG IV (16:32)
[2019-06-09 16:48] LABS: Bacteria Urine None Seen; RBC Urine None Seen (0-5/HPF)
[2019-06-09 16:49] LABS: Appearance Urine UA CLEAR; Bilirubin Urine UA NEGATIVE (NEGATIVE); Color Urine UA YELLOW; Glucose Urine UA 2+ g/dL (Negative); Ketones Urine UA NEGATIVE (NEGATIVE); Leukocyte Esterase Urine UA NEGATIVE (NEGATIVE); Nitrite Urine UA NEGATIVE (Negative); Occult Blood Urine UA NEGATIVE (Negative); Protein Urine UA 1+ (Negative); Specific Gravity Urine UA 1.015 (1.000-1.035); Urobilinogen Urine UA 0.2 E.U./dL (0.2)
[2019-06-09 17:04] LABS: Amorphous Sediment Urine 1+; Culture Indicated Urine Cult Not Indicated; Squamous Epithelial Cell Urine 0-1 /HPF (0-5/HPF); WBC Urine 0-1/HPF (0-5/HPF)
--- NOTE | 2019-06-09 18:39 | PC.ADMIT ---
[id number] [place] Admission Note: The patient,Aron Aponte,49 y/o, was given written information regarding hospital policies, unit procedures and contact persons. Pt arrived from ED via stretcher at approx 1705. Able to transfer from stretcher to bed SBA. Enc non-wt bearing to Left lateral plantar until hospitalist writes orders. IVF and IVF vanco and levaquin connected to pump and resumed infusion. Oriented to room and call system. 2 RN skin check complete photo of left foot wound taken. Left steven cellulitis noted with erythema, edema and warm to the touch. Supportive significant other at bedside. Patient's smoking status: Never smoker. Vital Signs - 8 hr 06/09/19 13:42 06/09/19 14:38 06/09/19 15:00 Temperature 97.2 F L Pulse Rate 104 H 86 84 Respiratory Rate 18 16 20 Blood Pressure 119/76 Blood Pressure [Right Arm] 128/83 135/81 Pulse Oximetry 99 98 97 06/09/19 15:30 06/09/19 16:01 06/09/19 16:30 Temperature Pulse Rate 83 81 76 Respiratory Rate 16 16 16 Blood Pressure Blood Pressure [Right Arm] 146/77 H 123/60 122/73 Pulse Oximetry 97 98 97 06/09/19 17:05 Temperature 97.7 F Pulse Rate 81 Respiratory Rate 16 Blood Pressure 116/74 Blood Pressure [Right Arm] Pulse Oximetry 98
[2019-06-09 20:08] LABS: Hemoglobin A1C% w Est Avg Glu 10.4 % (4.0-6.0)
[2019-06-09] MEDS: SODIUM CHLORIDE 0.9% 1,000 ML 100 ML IV (20:38)
[2019-06-09] MEDS: INSULIN GLARGINE 100 UNIT/ML 3ML PEN 20 UNIT SUBCUT (20:39)
[2019-06-09] MEDS: INSULIN ASPART 100 UNIT/ML INSULN PEN SUBCUT (20:39)
--- NOTE | 2019-06-09 23:20 | P.HP_ITS ---
History of Present Illness History of Present Illness Date Patient Seen: 06/09/19 Time Patient Seen: 19:50 Chief complaint: left leg swelling Narrative: Mr. Aron Aponte is a 49-year-old male with history of type 2 diabetes, insulin dependent with neuropathy, hypertension, gastroesophageal reflux disorder with history of ulcer and fibromyalgia who presents to the ER today for redness pain and swelling of his left lower leg. The patient reports 3 months ago having a small purple spot developed on the outside of his left foot that is progressively grown and now appears callused and is nontender secondary to neuropathy. Last night the patient developed increasing redness warmth and pain to his left lower extremity. The patient endorses having fevers and chills though he states that started 3 days ago and his fever broke yesterday. He can knowledge is that his blood sugars have been markedly elevated despite decreased appetite. He states he checks his feet approximately once per week due to difficult visualization secondary to physical stature. He denies any complaints of headaches or dizziness and does report decreased vision for which she has an appointment set up with ophthalmology. He denies nasal congestion or sore throat. Denies complaints of chest pain or palpitations and has no shortness of breath cough or wheezing. Denies complaints of abdominal pain and has no heartburn taking Nexium daily. He denies changes in bowel or bladder habits with no frequency, urgency or burning. The patient is independent in all activities daily living and requires no assistive devices. The patient does not presently have a primary care provider and is scheduled to be seen at [facility]. Upon arrival to the ER the patient is found have a temperature 97.2?, heart rate 104, blood pressure 119/76 with respirations of 16 saturating 98% on room air. And x-rays taken of the left foot to evaluate for osteomyelitis which finds no obvious lesions or erosions, soft tissue wound did on the plantar lateral aspect of the 5th metatarsal phalangeal joint. On laboratory analysis the patient has white count of 11.6 with a mild left shift, hemoglobin of 15.6 and hematocrit of 44.4 with platelets of 243. His electrolytes are within normal and has a BUN of 37 and creatinine of 1.5 for an EGFR of 49.5. His nonfasting glucose is 354. He has lactate of 2.0. His urinalysis is only significant for 1+ protein and negative for infection. In the ER the patient started on vancomycin 2000 mg IV and Levaquin 750 mg IV. The patient is admitted to the medicine service for diabetic cellulitis and IV antibiotic therapy. Patient History Medical History (Updated 06/09/19 @ 23:44 by NIKKI Mcfarland) Acid reflux (Acute) Diabetes type 2, uncontrolled (Acute) Fibromyalgia (Chronic) Gastric ulcer (Acute) Gout (Chronic) History of head injury (Chronic) HTN (hypertension) (Chronic) Surgical History History of brain shunt (Resolved) Family & Social History Family History (Updated 06/09/19 @ 23:45 by NIKKI Mcfarland) Father Morbid obesity Diabetes mellitus Mother Cancer Heart disease Social History: Prior Living Arrangements Apartment/Condo Safety & Behavioral: Feels Safe in Current Yes Environment Been Physically Hurt or No Threatened By a Person Tobacco & Substance use: Smoking Status Never smoker alcohol intake frequency holiday/special occasion Substance Use Type does not use Comment: The patient is and lives with a roommate in a two-story condominium. Patient states his father had diabetes and his weight went up to over 700 lb, had gastric bypass with reduction of 300 lb. His mother had history of heart disease and cancer unknown source but into her spine. He has 11 brothers with a history of alcoholism he has 4 children 3 boys and 1 girl all in good health Occupation: Works construction presently unemployed Smoking: The patient denies ever using tobacco products. Alcohol: Occasional drinker on holidays and special occasions. Substance use: Patient denies recreation pharmaceuticals herbal or cannabis products. Advanced directives: The patient does not have a formal advanced directive but states his desire to be FULL CODE. He declines to designated surrogate decision maker at this time. Meds Home Medications and Allergies Home Medications Medication Instructions Recorded Confirmed Type esomeprazole magnesium [Nexium] 20 mg PO DAILY 06/09/19 06/09/19 History insulin aspart U-100 [Novolog 6 unit SUBCUT TID 06/09/19 06/09/19 History U-100 Insulin aspart] insulin glargine [Lantus U-100 20 unit SUBCUT BID 06/09/19 06/09/19 History Insulin] lisinopril 5 mg PO DAILY 06/09/19 06/09/19 History metformin 1,000 mg PO BID 06/09/19 06/09/19 History naproxen 500 mg PO BID PRN 06/09/19 06/09/19 History Allergies Allergy/AdvReac Type Severity Reaction Status Date / Time No Known Drug Allergies Allergy Verified 03/28/19 16:33 Review of Systems Review of Systems ROS: Yes All systems reviewed with the patient and are negative except as otherwise documented Exam Vital Signs (past 8 hours): - 06/09/19 15:30 06/09/19 16:01 06/09/19 16:30 Temperature Pulse Rate 83 81 76 Respiratory Rate 16 16 16 Blood Pressure Blood Pressure [Right Arm] 146/77 H 123/60 122/73 Pulse Oximetry 97 98 97 06/09/19 17:05 06/09/19 20:46 Temperature 97.7 F 97.3 F L Pulse Rate 81 84 Respiratory Rate 16 15 Blood Pressure 116/74 123/80 Blood Pressure [Right Arm] Pulse Oximetry 98 95 Oxygen Delivery Method Room Air Narrative Exam Narrative: GENERAL APPEARANCE: well developed, obese male with BMI of 35.6 in no acute distress. HEENT: Normocephalic, PERRLA, conjunctiva clear, EOMs intact without nystagmus, no sinus tenderness to percussion, no rhinorrhea, mucous membranes are moist and pink without lesions. NECK/THYROID: neck supple, no JVD, no carotid bruit, no thyromegaly, trachea midline. LYMPH NODES: no cervical or supraclavicular lymphadenopathy. SKIN: Multiple body tattoos, pink, warm and dry, 1.5 cm callused, discolored lesion plantar lateral left 5th MP joint HEART: regular rate and rhythm, S1-S2, no murmur, no rubs or gallops, brisk capillary refill, no edema LUNGS: clear to auscultation bilaterally, no coarseness crackles or wheezing, no cough present CHEST: Symmetrical movement, no accessory muscle use, good tidal volume. ABDOMEN: Soft, round, nontender, no organomegaly, no flank or suprapubic tenderness, active bowel tones. EXTREMITIES: moves all extremities, strength is 5/5 and symmetrical, no defor mities or joint effusions. NEUROLOGIC: AAO x4,cranial nerves II-XII grossly intact, decreased sensation bilateral feet. PSYCH: Good eye contact, linear thought process, cooperative, appropriate with stable behavior Objective Labs Result Diagrams: 06/09/19 14:04 06/09/19 14:04 Labs: Laboratory Results - last 24 hr 06/09/19 06/09/19 06/09/19 14:04 14:04 14:04 WBC 11.6 H RBC 5.02 Hgb 15.0 Hct 44.4 MCV 88.4 MCH 29.8 MCHC 33.7 RDW 14.2 Plt Count 243 Neut % (Auto) 77.5 H Lymph % (Auto) 9.5 L [place] % (Auto) 9.8 Eos % (Auto) 2.5 Baso % (Auto) 0.7 Neut # (Auto) 9000 H Lymph # (Auto) 1100 [place] # (Auto) 1100 H Eos # (Auto) 300 Baso # (Auto) 100 Sodium 135 L Potassium 4.5 Chloride 100 Carbon Dioxide 21 L BUN 37 H Creatinine 1.50 H Estimated GFR 49.5 L BUN/Creatinine Ratio 24.7 H Glucose 354 H Hemoglobin A1c Lactate Calcium 9.3 Total Bilirubin 0.6 AST 26 ALT 40 Alkaline Phosphatase 166 H Total Protein 8.4 H Albumin 4.0 Globulin 4.4 H Albumin/Globulin Ratio 0.9 L Procalcitonin 0.55 H Urine Color Urine Appearance Urine pH Ur Specific [place] Urine Protein Urine Glucose (UA) Urine Ketones Urine Occult Blood Urine Nitrate Urine Bilirubin Urine Urobilinogen Ur Leukocyte Esterase Urine RBC Urine WBC Ur Squamous Epith Cells Amorphous Sediment Urine Bacteria Ur Culture Indicated? 06/09/19 06/09/19 06/09/19 14:04 14:40 16:47 WBC RBC Hgb Hct MCV MCH MCHC RDW Plt Count Neut % (Auto) Lymph % (Auto) [place] % (Auto) Eos % (Auto) Baso % (Auto) Neut # (Auto) Lymph # (Auto) [place] # (Auto) Eos # (Auto) Baso # (Auto) Sodium Potassium Chloride Carbon Dioxide BUN Creatinine Estimated GFR BUN/Creatinine Ratio Glucose Hemoglobin A1c 10.4 H Lactate 2.0 Calcium Total Bilirubin AST ALT Alkaline Phosphatase Total Protein Albumin Globulin Albumin/Globulin Ratio Procalcitonin Urine Color Yellow Urine Appearance Clear Urine pH 5.0 Ur Specific [place] 1.015 Urine Protein 1+ H Urine Glucose (UA) 2+ H Urine Ketones Negative Urine Occult Blood Negative Urine Nitrate Negative Urine Bilirubin Negative Urine Urobilinogen 0.2 Ur Leukocyte Esterase Negative Urine RBC None seen Urine WBC 0-1/hpf Ur Squamous Epith Cells 0-1 /hpf Amorphous Sediment 1+ Urine Bacteria None seen Ur Culture Indicated? Cult not indicated Assessment & Plan Assessment & Plan narrative: This is a 49 year male patient diagnosed with diabetes in 2009 treated with metformin, prandial insulin and Lantus 20 units twice daily who developed self of lesion of the left foot and subsequent cellulitis left lower leg. 1. Acute cellulitis, present on admission, active Onset of symptoms last night with progressive redness pain and warmth extending up to the distal 3rd the left lower leg. No other history of trauma. Developed lesion lateral plantar surface of the left foot at the 5th MP joint 3 months ago that has been purple and progressively enlarging and callused, po ssible flocculent area on the medial plantar edge. Patient is started on vancomycin 2000 mg IV in the Emergency Department which is continued every 12 hours. Patient started on Levaquin 750 mg IV in the emergency department which is continue daily. Will request a surgical consult for possible debridement of callus. 2. Type 2 diabetes insulin dependent, uncontrolled, present on admission, active The patient presents with a serum glucose of 354. Who is diagnosed with diabetes in 2009. His home regimen is NovoLog 6 units with meals, Lantus 20 units twice daily and metformin 1000 mg twice daily. Metformin is discontinued due to current renal function with creatinine 1.5. Ordered fingerstick blood sugars AC and HS. Ordered Lantus 20 units twice daily with correctional insulin medium dose range. Will evaluate response to glycemic control and increase Lantus as needed. Obtain hemoglobin A1c. Patient demonstrates knowledge deficit regarding diabetes and will need diabetic teaching. 3. Acute kidney injury versus possible development of chronic kidney disease secondary to diabetes present on admission, active. Prior creatinine in January 2019 was 1.2 with an EGFR of > 60. Today patient wi th a BUN of 37 and creatinine 1.5. Patient states he has been told not to take ibuprofen related to gastric ulcer but has been taking naproxen 2 tablets daily for the last 3 months. Metformin is discontinued related to decreased renal function. Elevated creatinine may be related to uncontrolled diabetes versus dehydration, will rehydrate the patient with normal saline 100 cc an hour. Will follow renal function on chemistries. May consider renal ultrasound of kidneys if no improvement. 4. Hypertension, present on admission, stable. Blood pressure admission is 119/76, patient denies history of hypertension. Will continue patient's home regimen of lisinopril 5 mg daily. 5. Gastroesophageal reflux disorder, stable. Patient has been taking as omeprazole 20 mg daily since having been diagnosed with gastric ulcer. Ulcer appears to have been related to ibuprofen use and now currently using n aproxen which will be discontinued R/T gastric irritant and renal function. Nexium is held related to associated wrist with HIRAM and progression to chronic kidney disease. Will treat with Maalox or Tums as needed. VTE prophylaxis: SCD right leg, Lovenox. Diet: Moderate carbohydrate IV fluid: Normal saline 100 cc/hour The patient is admitted to the hospital related to severity of symptoms and rapid progression in the setting of uncontrolled diabetes. Patient is admitted as observation with expected length of stay to be less than 2 midnights. Scores GCS [place] coma scale eye opening: Spontaneous [place] coma scale verbal response: [place] coma scale motor response: Obey commands [place] coma scale total score: 15 SOFA PaO2/FIO2: >=400 mmHg Platelets: >= 150 Bilirubin: < 1.2 mg/dL Hypotension: MAP >= 70 mmHg [place] Coma Scale: 15 Renal: Creatinine 1.2-1.9 mg/dL SOFA Score: 1
[2019-06-10 00:05] VITALS: BP 101/63; PULSE 84; RESP 16; TEMP 37.6; O2SAT 96
[2019-06-10] MEDS: VANCOMYCIN 2,000 MG/400 ML PIGGYBACK 200 MG IV ×2 (02:53→14:36)
[2019-06-10 05:26] VITALS: BP 112/72; PULSE 72; RESP 16; TEMP 37.2; O2SAT 96
[2019-06-10 07:17] LABS: Add Manual Diff / Slide Review NO; Basophils Absolute Auto 100 /uL (0-100); Basophils Percent Auto 0.6 % (0-2); Eosinophils Absolute Auto 300 /uL (0-450); Eosinophils Percent Auto 3.1 % (2-4); Hematocrit 42.2 % (41-53); Lymphocytes Absolute Auto 1200 /uL (1100-4500); Lymphocytes Percent Auto 12.9 % (25-40); Mean Corpuscular HGB Conc 33.1 % (30-36); Mean Corpuscular Hemoglobin 29.5 PG (26-34); Mean Corpuscular Volume 89.2 fL (80-100); Monocytes Absolute Auto 900 /uL (0-900); Monocytes Percent Auto 9.3 % (3-14); Neutrophils Absolute Auto 7100 /uL (1500-7000); Neutrophils Percent Auto 74.1 % (50-75); Platelet Count 250 X10^3/uL (150-400); Red Blood Cell Count 4.73 X10^6/uL (4.5-5.9); Red Cell Distribution Width 14.4 % (11.6-14.8); White Blood Cell Count 9.6 X10^3/uL (4.5-11.0)
[2019-06-10 07:30] LABS: BUN Creatinine Ratio 22.5 (6-22); Blood Urea Nitrogen 27 mg/dL (9-20); Calcium 9.1 mg/dL (8.4-10.2); Carbon Dioxide 23 mmol/L (22-32); Chloride 105 mmol/L (98-107); Estimated Glomerular Filt Rate > 60.0 mL/min (>60); Glucose 237 mg/dL (70-100); HEMOLYSIS < 15 (0-50); Potassium 4.4 mmol/L (3.4-5.1); Sodium 137 mmol/L (137-145)
--- NOTE | 2019-06-10 07:39 | DI.CT.S_ITS ---
PROCEDURE: CT LE LT W CON INDICATIONS: cellulitis L LE TECHNIQUE: After the administration of intravenous contrast, 3 mm axial sections acquired of the left foot, left tibia/fibula, with coronal and sagittal reformats. COMPARISON: None. FINDINGS: Image quality: Excellent. Bones: No focal osseous bone destruction. No acute fracture identified. There are probably chronic erosions at the first MTP joint Soft tissues: Large soft tissue wound/ulceration present along the lateral aspect of the forefoot at the level of the fifth MTP joint. No underlying osseous abnormality identified. There is diffuse subcutaneous cellulitis and stranding IMPRESSION: Soft tissue changes including large ulceration/wound involving the lateral forefoot. No definite focal osseous destruction to suggest osteomyelitis. If there is persistent clinical concern, recommend continued surveillance with short interval (1-2 week) radiographs, versus contrast-enhanced MRI. First MTP joint erosions, which actually age-indeterminate possibly related to inflammatory arthropathy or gout. Please correlate with laboratory data Dictated by: Stu Hernandez M.D. on 06/10/2019 at 8:17 Approved by: Stu Hernandez M.D. on 06/10/2019 at 8:34
[2019-06-10 08:13] LABS: Procalcitonin 0.35 ng/mL (<0.5)
[2019-06-10 09:00] VITALS: BP 122/78; PULSE 80; RESP 17; TEMP 37.2; O2SAT 98
[2019-06-10] MEDS: ENOXAPARIN 40 MG/0.4 ML SYRINGE SUBCUT (09:07)
[2019-06-10] MEDS: INSULIN GLARGINE 100 UNIT/ML 3ML PEN 22 UNIT SUBCUT ×2 (09:08→22:51)
[2019-06-10] MEDS: lisinopriL 5 MG TABLET PO (09:08)
[2019-06-10] MEDS: INSULIN ASPART 100 UNIT/ML INSULN PEN 6 UNIT SUBCUT ×3 (09:08→16:56)
[2019-06-10] MEDS: INSULIN ASPART 100 UNIT/ML INSULN PEN SUBCUT ×2 (09:08→12:36)
--- NOTE | 2019-06-10 09:13 | CM.DANOTE ---
DCP: Case received, EMR reviewed and met with patient. Introduced self and role. Was able to converse with patient and obtain baseline activity and health information. DCP assessment completed with information currently available. Patient is a 49 year old male who admitted yesterday afternoon to the care of the hospitalist team. PCP: [facility] in [place]. Payer: [facility] [employer]. Patient came to the hospital via private vehicle secondary to redness which occurred on his left foot and steven. Patient holds diagnosis of cellulitis to his left forefoot. He has history of diabetes, and is insulin dependent. 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 Spoke to patient about primary MD. He stated he goes to the [facility], but his regular provider just retired, and he is in the process of seeing another provider. Discussed antibiotics, and options in case he needs to have several weeks of IV antibiotics. Patient mentioned that he has friends that are RNs. P: DCP to follow closely, and see how long he will need IV antibiotics. Will be available for any resources needed. Lizzy Walsh, RN/Cleater
[2019-06-10] MEDS: ACETAMINOPHEN 325 MG TABLET 975 MG PO ×2 (09:59→21:12)
[2019-06-10 12:00] VITALS: BP 125/76; PULSE 79; RESP 16; TEMP 36.8; O2SAT 97
[2019-06-10] MEDS: SODIUM CHLORIDE 0.9% 1,000 ML 100 ML IV (12:35)
[2019-06-10 15:20] VITALS: BP 106/73; PULSE 75; RESP 19; TEMP 36.7; O2SAT 97
[2019-06-10] MEDS: levoFLOXacin 750 MG/150 ML PIGGYBACK 100 MG IV (16:52)
--- NOTE | 2019-06-10 17:15 | P.PN_ITS ---
Subjective Subjective Date Patient Seen: 06/10/19 Interval history: Aron Aponte is a 49-year-old male with a past medical history significant for hypertension, GERD, gout, and diabetes mellitus type 2, insulin using, with complication of retinopathy and peripheral neuropathy who developed abrupt onset left lower extremity cellulitis. The patient is resting in bed comfortably. He reports left lower extremity discomfort inform of throbbing especially when he is up ambulating. Recommended patient elevate lower extremity above level of heart frequently. He has no other complaints and denies shortness of breath, chest pain, abdominal pain, nausea, vomiting, fever, chills, dysuria, diarrhea or constipation. Discussed pathophysiology of diabetes and diabetic management including diet lifestyle modification in detail. Plan for dietitian consultation. He is voiding without difficulty. He is up ambulating independently. Exam Vital Signs (past 8 hours): - 06/10/19 12:00 06/10/19 15:20 Temperature 98.3 F 98.1 F Pulse Rate 79 75 Respiratory Rate 16 19 Blood Pressure 125/76 106/73 Pulse Oximetry 97 97 Oxygen Delivery Method Room Air Oxygen Flow Rate 0 Narrative Exam Narrative: General: Middle-aged gentleman sitting in bed and in no acute distress, well- developed, well-nourished, appropriately interactive. HEENT: Normocephalic, atraumatic. External ears without defect. Pupils equal, round, and reactive to light. Anicteric sclerae, moist conjunctivae, and no lid lag. Neck: Supple with full range of motion. No lymphadenopathy or thyromegaly. Cardiovascular: Regular rate and rhythm without murmurs, rubs, or gallops appreciated. Pulmonary: Clear to auscultation bilaterally without crackles, wheezes, or rhonchi. Normal respiratory effort with no use of accessory muscles. Abdomen: Soft, bowel sounds present, nontender, nondistended. No hepatosplenomegaly or masses appreciated. Extremities: No clubbing, cyanosis, or edema. Left foot with erythema and warmth starting at pretibial area down to foot with purplish discoloration on dorsum of foot and purple/white discoloration on lateral plantar aspect of left foot under 5th metatarsal. Neurological: Cranial nerves grossly intact. Psychiatric: Normal mood and affect. Alert and oriented to person, place, and t sade. Objective Labs Result Diagrams: 06/10/19 06:49 06/11/19 05:52 Labs: Laboratory Results - last 24 hr 06/09/19 06/10/19 06/10/19 14:40 06:49 06:49 WBC 9.6 RBC 4.73 Hgb 14.0 Hct 42.2 MCV 89.2 MCH 29.5 MCHC 33.1 RDW 14.4 Plt Count 250 Neut % (Auto) 74.1 Lymph % (Auto) 12.9 L Bullock % (Auto) 9.3 Eos % (Auto) 3.1 Baso % (Auto) 0.6 Neut # (Auto) 7100 H Lymph # (Auto) 1200 Bullock # (Auto) 900 Eos # (Auto) 300 Baso # (Auto) 100 Sodium 137 Potassium 4.4 Chloride 105 Carbon Dioxide 23 BUN 27 H Creatinine 1.20 Estimated GFR > 60.0 BUN/Creatinine Ratio 22.5 H Glucose 237 H D Hemoglobin A1c 10.4 H Calcium 9.1 Procalcitonin 06/10/19 06:49 WBC RBC Hgb Hct MCV MCH MCHC RDW Plt Count Neut % (Auto) Lymph % (Auto) Bullock % (Auto) Eos % (Auto) Baso % (Auto) Neut # (Auto) Lymph # (Auto) Bullock # (Auto) Eos # (Auto) Baso # (Auto) Sodium Potassium Chloride Carbon Dioxide BUN Creatinine Estimated GFR BUN/Creatinine Ratio Glucose Hemoglobin A1c Calcium Procalcitonin 0.35 Assessment & Plan Assessment & Plan narrative: Aron Aponte is a 49-year-old male with a past medical history significant for hypertension, GERD, gout, and diabetes mellitus type 2, insulin using, with complication of retinopathy and peripheral neuropathy who developed abrupt onset left lower extremity cellulitis. 1. Acute left lower extremity cellulitis, present on admission. Active. -Patient presented with sudden onset progressive redness pain and warmth extending up to the distal 3rd the left lower leg. No known trauma. However, patient developed lesion lateral plantar surface of the left foot at the 5th MP joint 3 months ago that has been purple and progressively enlarging and callu sed, possible flocculent area on the medial plantar edge. -Initial WBC mildly elevated 11.6 and procalcitonin mildly elevated at 0.55. WBC and procalcitonin have normalized. -Blood cultures x2 have no growth. -Left foot x-ray did not demonstrate any osseous erosions or convincing x-ray findings of osteomyelitis and soft tissue wound along the plantar lateral aspect of the 5th metatarsophalangeal joint. -CT left lower extremity with contrast demonstrated soft tissue changes including large ulceration/wound involving the lateral forefoot. No definite focal osseous destruction to suggest osteomyelitis. First MTP joint erosions, which actually age-indeterminate possibly related to inflammatory arthropathy or gout. -Received vancomycin with dosing per pharmacist and Levaquin 750 mg IV x1 in ED. Continue Levaquin 750 mg IV daily and vancomycin with dosing per pharmacist. 2. Diabetes mellitus type II, insulin using, present on admission. Stable. -Hemoglobin A1c 10.4% indicative of poor glycemic control. Diabetes diagnosed in 2009. Patient has complication of retinopathy and peripheral neuropathy inform of numbness. -Continue [facility] blood glucose checks and medium dose correction scale insulin. -Continue Lantus increased from 20 units twice daily to 22 units twice daily and NovoLog 6 units 3 times daily with meals. -Held metformin. -Continue heart healthy/carbohydrate consistent diet. -Ordered dietitian consult, pending. 3. Probable acute kidney injury, present on admission. Active. -Initial creatinine 1.5. Baseline creatinine 1.2 in 01/2019. Creatinine now normalized at 1.2. -Likely secondary to hypermetabolic state from acute infection as above. -Continued IV fluids until adequately hydrated then discontinued. -Continue to avoid nephrotoxic agents and optimize renal function. Patient states he has been told not to take ibuprofen related to previous gastric ulcer but has been taking naproxen 2 tablets daily for the last 3 months. Reiterated and discouraged NSAID use. -Continue to monitor renal function daily. 4. Hypertension, chronic, present on admission. Stable. -Blood pressure admission is 119/76. -Continue home lisinopril 5 mg daily. 5. Gastroesophageal reflux disorder, chronic, present on admission. Stable. -Patient has history of peptic ulcer disease with gastric ulcer related to NSAID use. -Continue Protonix 20 mg daily. Plan to discuss cardiovascular disease and CKD associated PPI use long-term. Consider H2 serg. 6. Gout, chronic, present on admission. Stable. -Ordered uric acid level, pending. -CT left lower extremity with contrast demonstrated soft tissue changes including large ulceration/wound involving the lateral forefoot. No definite focal osseous destruction to suggest osteomyelitis. First MTP joint erosions, which actually age-indeterminate possibly related to inflammatory arthropathy or gout. -Consider Febuxostat 40 mg daily as an outpatient (not on formulary) as patient reports GI intolerance to allopurinol. Code status: Full code VTE prophylaxis: SCD right leg, Lovenox. Disposition: Patient likely to discharge home in 1-2 days after cellulitis has been treated and improving.
[2019-06-10 19:19] VITALS: BP 118/69; PULSE 76; RESP 19; TEMP 36.8; O2SAT 97
[2019-06-11 00:45] VITALS: BP 122/77; PULSE 76; RESP 19; TEMP 37.4; O2SAT 96
[2019-06-11 03:03] LABS: Vancomycin Trough 15.4 ug/mL (10-20)
[2019-06-11] MEDS: VANCOMYCIN 2,000 MG/400 ML PIGGYBACK 200 MG IV ×2 (03:05→14:22)
[2019-06-11 06:20] VITALS: BP 121/88; PULSE 76; RESP 16; TEMP 36.9; O2SAT 97
[2019-06-11 06:23] LABS: BUN Creatinine Ratio 18.2 (6-22); Blood Urea Nitrogen 20 mg/dL (9-20); Calcium 9.8 mg/dL (8.4-10.2); Carbon Dioxide 20 mmol/L (22-32); Chloride 108 mmol/L (98-107); Estimated Glomerular Filt Rate > 60.0 mL/min (>60); Glucose 140 mg/dL (70-100); HEMOLYSIS < 15 (0-50); Potassium 4.3 mmol/L (3.4-5.1); Sodium 138 mmol/L (137-145); Uric Acid 9.3 mg/dL (3.5-8.5)
[2019-06-11 08:00] VITALS: BP 125/79; PULSE 78; RESP 16; TEMP 37.1; O2SAT 96
[2019-06-11] MEDS: PANTOPRAZOLE 20 MG TABLET PO (08:33)
[2019-06-11] MEDS: INSULIN ASPART 100 UNIT/ML INSULN PEN 6 UNIT SUBCUT ×3 (08:36→17:19)
[2019-06-11] MEDS: INSULIN GLARGINE 100 UNIT/ML 3ML PEN 22 UNIT SUBCUT ×2 (08:37→21:31)
[2019-06-11] MEDS: ACETAMINOPHEN 325 MG TABLET 975 MG PO ×2 (09:01→15:30)
[2019-06-11] MEDS: lisinopriL 5 MG TABLET PO (09:01)
[2019-06-11] MEDS: ENOXAPARIN 40 MG/0.4 ML SYRINGE SUBCUT (09:01)
--- NOTE | 2019-06-11 10:25 | P.PN_ITS ---
Subjective Subjective Date Patient Seen: 06/11/19 Interval history: Aron Aponte is a 49-year-old male with a past medical history significant for hypertension, GERD, gout, and diabetes mellitus type 2, insulin using, with complication of retinopathy and peripheral neuropathy who developed abrupt onset left lower extremity cellulitis. The patient is resting in bed comfortably. He reports left lower extremity continues to ache/throb when he bears weight and is unchanged. His cellulitis is resolving. Wound care physician Dr. Cerna is present during exam and plans to debride and culture left lateral foot lesion/hemorrhagic bullae. Continue to elevate left lower extremity above level of heart frequently. He has no other complaints and denies shortness of breath, chest pain, abdominal pain, nausea, vomiting, fever, chills, dysuria, diarrhea or constipation. He is voiding w ithout difficulty. He has not had a bowel movement since admission and a bowel regimen has been implemented. He is up ambulating independently. Exam Vital Signs (past 8 hours): - 06/11/19 06:20 06/11/19 08:00 Temperature 98.4 F 98.7 F Pulse Rate 76 78 Respiratory Rate 16 16 Blood Pressure 121/88 125/79 Pulse Oximetry 97 96 Oxygen Delivery Method Room Air Oxygen Flow Rate 0 Narrative Exam Narrative: General: Middle-aged gentleman sitting in bed and in no acute distress, well- developed, well-nourished, appropriately interactive. HEENT: Normocephalic, atraumatic. External ears without defect. Pupils equal, round, and reactive to light. Anicteric sclerae, moist conjunctivae, and no lid lag. Neck: Supple with full range of motion. No lymphadenopathy or thyromegaly. Cardiovascular: Regular rate and rhythm without murmurs, rubs, or gallops appreciated. Pulmonary: Clear to auscultation bilaterally without crackles, wheezes, or rhonchi. Normal respiratory effort with no use of accessory muscles. Abdomen: Soft, bowel sounds present, nontender, nondistended. No hepatosplenomegaly or masses appreciated. Extremities: No clubbing, cyanosis, or edema. Left lower extremity cellulitis retracting/resolving with erythema and warmth now contained to pretibial area. Continues to have a purple/white lesion that is fluid filled and possibly a hemorrhagic bullae with foul smell on lateral plantar aspect of left foot under 5th metatarsal. There is bilateral brown discoloration on dorsum of foot that appears to be a dermartitis and not infection. Neurological: Cranial nerves grossly intact. Psychiatric: Normal mood and affect. Alert and oriented to person, place, and time. Objective Labs Result Diagrams: 06/10/19 06:49 06/11/19 05:52 Labs: Laboratory Results - last 24 hr 06/11/19 06/11/19 06/11/19 02:30 05:52 05:52 Sodium 138 Potassium 4.3 Chloride 108 H Carbon Dioxide 20 L BUN 20 Creatinine 1.10 Estimated GFR > 60.0 BUN/Creatinine Ratio 18.2 Glucose 140 H Uric Acid 9.3 H Calcium 9.8 Procalcitonin 0.20 Vancomycin Trough 15.4 Assessment & Plan Assessment & Plan narrative: Aron Aponte is a 49-year-old male with a past medical history significant for hypertension, GERD, gout, and diabetes mellitus type 2, insulin using, with complication of retinopathy and peripheral neuropathy who developed abrupt onset left lower extremity cellulitis. 1. Acute left lower extremity cellulitis, present on admission. Resolved -Patient presented with sudden onset progressive redness pain and warmth extending up to the distal 3rd the left lower leg. No known trauma. However, patient developed lesion lateral plantar surface of the left foot at the 5th MP joint 3 months ago that has been purple and progressively enlarging and callused and appears to be hemorrhagic bullae. -Initial WBC mildly elevated 11.6 and procalcitonin mildly elevated at 0.55. WBC and procalcitonin have normalized. -Blood cultures x 2 have no growth. -Left foot x-ray did not demonstrate any osseous erosions or convincing x-ray findings of osteomyelitis and soft tissue wound along the plantar lateral aspect of the 5th metatarsophalangeal joint. -CT left lower extremity with contrast demonstrated soft tissue changes including large ulceration/wound involving the lateral forefoot. No definite focal osseous destruction to suggest osteomyelitis. First MTP joint erosions, which actually age-indeterminate possibly related to inflammatory arthropathy or gout. -Received vancomycin with dosing per pharmacist and Levaquin 750 mg IV x1 in ED. Continue Levaquin 750 mg IV daily and vancomycin with dosing per pharmacist. -Consulted wound care, Dr. Cerna, for possible debridement of left lateral hemorrhagic bullae/traumatic wound and he plans to debride tomorrow morning and send it for culture. Also will need to offload left foot for healing over the next several weeks/months. 2. Diabetes mellitus type II, insulin using, present on admission. Stable. -Hemoglobin A1c 10.4% indicative of poor glycemic control. Diabetes diagnosed in 2009. Patient has complication of retinopathy and peripheral neuropathy inform of numbness. -Continue [facility] blood glucose checks and medium dose correction scale insulin. -Continue Lantus 22 units twice daily and NovoLog 6 units 3 times daily with meals. -Held metformin. -Continue heart healthy/carbohydrate consistent diet. -Consulted dietitian and we appreciate her time and recommendations. 3. Probable acute kidney injury, present on admission. Resolved. -Initial creatinine 1.5. Baseline creatinine 1.2 in 01/2019. Creatinine now normalized at 1.1. -Likely secondary to hypermetabolic state from acute infection as above. -Continued IV fluids until adequately hydrated then discontinued. -Continue to avoid nephrotoxic agents and optimize renal function. Patient states he has been told not to take ibuprofen related to previous gastric ulcer but has been taking naproxen 2 tablets daily for the last 3 months. Reiterated and discouraged NSAID use. -Continue to monitor renal function daily. 4. Hypertension, chronic, present on admission. Stable. -Blood pressure admission is 119/76. -Continue home lisinopril 5 mg daily. 5. Gastroesophageal reflux disorder, chronic, present on admission. Stable. -Patient has history of peptic ulcer disease with gastric ulcer related to NSAID use. -Continue Protonix 20 mg daily. Discussed cardiovascular disease and CKD associated with PPI use long-term. Consider H2 serg. 6. Gout, chronic, present on admission. Stable. -Does not represent acute gout flare. -Uric acid level highly elevated at 9.3. -CT left lower extremity with contrast demonstrated soft tissue changes including large ulceration/wound involving the lateral forefoot. No definite focal osseous destruction to suggest osteomyelitis. First MTP joint erosions, which actually age-indeterminate possibly related to inflammatory arthropathy or gout. -Consider Febuxostat 40 mg daily as an outpatient (not on formulary) as patient reports GI intolerance to allopurinol. Code status: Full code VTE prophylaxis: Lovenox Disposition: Patient likely to discharge home likely tomorrow after debridement by Wound Care.
--- NOTE | 2019-06-11 10:56 | PC.NURSE ---
Addendum entered by Mariama Bass R.N. 06/11/19 14:33: Earlier in shift prior to pt having a shower. The RLE Calf SCD was only on per pt request as was causing increased discomfort to LLE . After the shower, pt stated it was okay to have Bilateral Calf SCD's on, therefore placed both on at 1430. Original Note: Day Shift- Pt A&OX4, pleasant and cooperative, able to make his needs known using call light. Rated 4/10 aching pain to LLE, tender ankles. LLE elevated on 3 pillows, encouraged at heart level and above. PRN Tylenol given at 0900 with satisfactory effect. Left lower leg mid steven level and distally is warm to touch compared to touching just below knee area. Area is edematous, tight with some wrinkles in skin present, Dark brown, slightly red, pt states appears better than yesterday. Left outer foot hardened skin area with dark coloring TIARA. Dry skin to bilateral feet and LE. Pt reported having a GI intolerance to Allopurinol causing cramping and diarrhea. Pt has been taking an OTC hearbal medication for called called 'Gout-out' for the last 4-[address] barnett around 0815, made aware of intolerance to Allopurinol and pt taking a herbal supplement, also pt's request for his Nexium as he takes at home. Pt requesting shower today, [employer] aware. no other voiced concerns. Pt in room watching TV or has phone with ear phones with him.
[2019-06-11 12:00] VITALS: BP 121/76; PULSE 76; RESP 17; TEMP 37; O2SAT 97
[2019-06-11] MEDS: INSULIN ASPART 100 UNIT/ML INSULN PEN SUBCUT ×2 (12:40→17:19)
--- NOTE | 2019-06-11 12:47 | DIET.PN ---
Dietary Progress Note Assessment: 49y [place] male admitted for L leg cellulitis referred to nutrition for poor DM2 control. Pt dx c DM2 10y ago, was up to 500# but lost 200# by watching diet and walking. Pt reports several months ago he purchased [place] canned Fruit Punch to keep upstairs in his townhouse so he doesn't have to walk downstairs to get water. He admits to not reading labels on this product and will switch to a carb free alternate. Pt is one of 10 brothers, growing up, each boy would get a whole chicken for dinner, size in [place] culture reflective of prosperity. Pt's father from complications of obesity and DM2, was one of first gastric bypass patients. Pt feels this is wake up call to get him back on track, does not want to like his father. Pt has 3 children who motivate him to be healthier. Pt would like to hike c his girlfriend. He experimented c ketogenic diet and lost 24# last year. Currently taking metformin, Lantus 22U bid, Novolog 6U tid c meals HT: 185.4cm WT: 135.6kg BMI: 39.4 Labs: A1c 10.4 H, BG on admit 237 H, BG inpatient 114-124 Nutrition Diagnosis: altered nutrition related laboratory values (A1c, BG) r/t undesirable food choices aeb pt A1c 10.4, BG on admit 237, pt dx c L leg cellulitis, pt reports drinking [place] Fruit Punch instead of water. Interventions: 1. Discussed problems with chronically high BG relating to his current cellulitis, neuropathy, and retinopathy 2. Discussed cultural and familial barriers and motivators for good health and BG control 3. Encouraged pt to get back on track and start exercise routine to work up to his goal of hiking c his GF 4. Discussed palatability of processed foods, it tastes good but is all bells and whistles with no substance. 5. Recc ONS aaron bid to support cellulitis Diet Order: HH/CCD4 Monitoring/Evaluations: as desired
[2019-06-11] MEDS: SODIUM CHLORIDE 0.9% 250 ML 21 ML IV (14:22)
--- NOTE | 2019-06-11 14:30 | P.CONS_ITS ---
History of Present Illness Consult details Date Patient Seen: 06/11/19 Time Patient Seen: 16:30 Chief complaint: left leg swelling Reason for consult: L DFU, evaluate for debridement Requesting provider: Katie Cook Narrative: 49-year-old male with poorly-controlled type 2 diabetes and associated foot neuropathy who noted an enlarging, intact, fluid-filled, left lateral foot callus and associated redness, swelling, and heat of the LLE. Treatment currently includes IV vancomycin, and IV Levaquin. Improving. Meds Home Medications and Allergies Home Medications Medication Instructions Recorded Confirmed Type esomeprazole magnesium [Nexium] 20 mg PO DAILY 06/09/19 06/09/19 History insulin aspart U-100 [Novolog 6 unit SUBCUT TID 06/09/19 06/09/19 History U-100 Insulin aspart] lisinopril 5 mg PO DAILY 06/09/19 06/09/19 History metformin 1,000 mg PO BID 06/09/19 06/09/19 History naproxen 500 mg PO BID PRN 06/09/19 06/09/19 History Lantus U-100 Insulin 22 unit SUBCUT BID #0 ml 06/12/19 06/09/19 Rx ciprofloxacin HCl 500 mg PO BID #14 tab 06/12/19 Rx clindamycin HCl 300 mg PO Q8H #21 cap 06/12/19 Rx Allergies Allergy/AdvReac Type Severity Reaction Status Date / Time allopurinol AdvReac Diarrhea Verified 06/11/19 08:43 Review of Systems Review of Systems ROS: Yes All systems reviewed with the patient and are negative except as otherwise documented Constitutional Constitutional: Reports fever(s) (Resolved) and Reports poor appetite Eyes Eyes: Reports change in vision (decreased acuity over time) Integumentary/Breasts Skin/Breast: Reports erythema (LLE) and Reports skin swelling (LLE) Endocrine Endocrine: Reports other Comments: Increasing blood sugars Exam Vital Signs (past 8 hours): Oxygen Delivery Method Room Air Oxygen Flow Rate 0 Narrative Exam Narrative: Constitutional: VS reviewed (see above). NAD. Conversant. Eyes: Sclerae anicteric. Ears, Nose, Mouth, and Throat: Normal hearing Respiratory: Normal respiratory effort. Cardiovascular: RRR; LLE edema is present. L DP/PT biphasic to handheld Doppler. The bilateral LE are hyperpigmented. CR < 3 seconds. LLE exhibits increased warmth to palpation. Musculoskeletal: Ambulates without assistance. Steady. No digital cyanosis or clubbing. No prior amputations. Neurological: CN II-XII intact. No LOPS noted bilaterally to Warren-Scott monofilament. Psychiatric: Insight and judgment intact. A&OX3. Mood good and affect appropriate. Integumentary (Hair, Skin): There is an intact area of serosanguineous fluid-filled callus in the area of the left lateral 5th MTH. Initial wound encounter measurements are 4.3 cm length x 4.4 cm width x 0.0 cm depth. The patient reports a wound pain of level 0/10. The periwound skin moisture is normal. The periwound skin exhibited: Edema, Erythema. The temperature of the periwound skin is Warm. Objective Labs Result Diagrams: 06/12/19 09:48 06/12/19 09:48 Labs: 06/10/19: CT left lower extremity demonstrated diffuse subcutaneous cellulitis. No evidence of osteomyelitis 06/09/19: WBC 9.6 (decreasing), lactate 2.0, procalcitonin 0.35, creatinine 1.2, A1c 10.4. 06/09/19: X-ray left foot without evidence of osteomyelitis. Assessment & Plan Assessment & Plan narrative: Type 2 diabetes mellitus under poor control associated with a left lateral 5th MTH De [place] grade 0 ulcer. The following factors have been identified that may impair wound healing: Devitalized tissue Infection Ongoing local pressure Diabetes Lower leg edema Goals: Reduce impediments to healing. Remove devitalized tissue in the wound that can inhibit wound healing. Treat infection. Establish a viable wound margin. Manage comorbidities. Wound closure. Plan: Debridement is indicated to remove devitalized tissue. Will make arrangements and gather needed materials and I'll plan to do this at the bedside tomorrow. Debridement is indicated to alter wound edge to promote healing. Leg elevation to control edema. Offloading: will arrange for forefoot wedge shoe. Educated regarding importance of appropriate footwear, self foot inspection, and early intervention for any color changes, callus, swelling, or open skin. Educated regarding importance of blood glucose control to optimize healing and prevent complications of diabetes. Agree with current antibiotics per hospitalist to treat infection. Wound sample for micro analysis will be taken to better target antibiotic therapy. Follow up in [facility] after discharge. Will arrange for preventive diabetic foot care and appropriate footwear/inserts with podiatry.
[2019-06-11 15:37] VITALS: BP 124/75; PULSE 84; RESP 20; TEMP 36.1; O2SAT 98
[2019-06-11] MEDS: levoFLOXacin 750 MG/150 ML PIGGYBACK 100 MG IV (17:35)
[2019-06-11 19:59] VITALS: BP 110/79; PULSE 82; RESP 18; TEMP 36.8; O2SAT 97
[2019-06-11] MEDS: SODIUM CHLORIDE 0.9% FLUSH 10 ML IV (21:32)
--- NOTE | 2019-06-11 23:21 | PC.NURSE ---
LLE elevated. SCD on R. leg only. pain 3-10. pt tolerating pain. SBA.call light in reach.
[2019-06-12 00:05] VITALS: BP 121/73; PULSE 84; RESP 16; TEMP 37.3; O2SAT 96
[2019-06-12] MEDS: VANCOMYCIN 2,000 MG/400 ML PIGGYBACK 200 MG IV ×2 (02:56→14:43)
[2019-06-12 03:00] VITALS: BP 121/74; PULSE 79; RESP 16; TEMP 37.3; O2SAT 98
[2019-06-12] MEDS: PANTOPRAZOLE 20 MG TABLET PO (06:21)
[2019-06-12 06:35] LABS: Add Manual Diff / Slide Review NO; Basophils Absolute Auto 200 /uL (0-100); Basophils Percent Auto 1.2 % (0-2); Eosinophils Absolute Auto 300 /uL (0-450); Eosinophils Percent Auto 2.5 % (2-4); Lymphocytes Absolute Auto 1700 /uL (1100-4500); Lymphocytes Percent Auto 13.3 % (25-40); Mean Corpuscular HGB Conc 33.4 % (30-36); Mean Corpuscular Hemoglobin 29.6 PG (26-34); Mean Corpuscular Volume 88.8 fL (80-100); Monocytes Absolute Auto 900 /uL (0-900); Neutrophils Absolute Auto 9800 /uL (1500-7000); Platelet Count 348 X10^3/uL (150-400); Red Blood Cell Count 4.73 X10^6/uL (4.5-5.9); Red Cell Distribution Width 14.4 % (11.6-14.8); White Blood Cell Count 12.9 X10^3/uL (4.5-11.0)
[2019-06-12 06:46] LABS: BUN Creatinine Ratio 13.3 (6-22); Blood Urea Nitrogen 20 mg/dL (9-20); Calcium 9.6 mg/dL (8.4-10.2); Carbon Dioxide 21 mmol/L (22-32); Chloride 107 mmol/L (98-107); Estimated Glomerular Filt Rate 49.5 mL/min (>60); Glucose 163 mg/dL (70-100); HEMOLYSIS < 15 (0-50); Potassium 4.5 mmol/L (3.4-5.1); Sodium 139 mmol/L (137-145)
--- NOTE | 2019-06-12 06:52 | PC.NURSE ---
Pt alert and oriented x4. Denies pain. Scd on right left. Left left elevated above heart. CMS intact. Pt has no complaints
[2019-06-12 07:34] VITALS: BP 112/73; PULSE 72; RESP 16; TEMP 36.7; O2SAT 97
[2019-06-12] MEDS: INSULIN ASPART 100 UNIT/ML INSULN PEN SUBCUT ×2 (08:42→12:35)
[2019-06-12] MEDS: INSULIN ASPART 100 UNIT/ML INSULN PEN 6 UNIT SUBCUT ×3 (08:43→17:22)
[2019-06-12] MEDS: INSULIN GLARGINE 100 UNIT/ML 3ML PEN 22 UNIT SUBCUT (08:43)
[2019-06-12] MEDS: lisinopriL 5 MG TABLET PO (08:49)
[2019-06-12] MEDS: ACETAMINOPHEN 325 MG TABLET 975 MG PO (08:49)
[2019-06-12] MEDS: SODIUM CHLORIDE 0.9% FLUSH 10 ML IV ×2 (08:50→14:43)
[2019-06-12] MEDS: ENOXAPARIN 40 MG/0.4 ML SYRINGE SUBCUT (08:50)
--- NOTE | 2019-06-12 09:30 | PM.DS.1 ---
History of Present Illness History of Present Illness Date Patient Seen: 06/09/19 Chief complaint: left leg swelling Narrative: Written by Caleb JORDAN: Mr. Aron Aponte is a 49-year-old male with history of type 2 diabetes, insulin dependent with neuropathy, hypertension, gastroesophageal reflux disorder with history of ulcer and fibromyalgia who presents to the ER today for redness pain and swelling of his left lower leg. The patient reports 3 months ago having a small purple spot developed on the outside of his left foot that is progressively grown and now appears callused and is nontender secondary to neuropathy. Last night the patient developed increasing redness warmth and pain to his left lower extremity. The patient endorses having fevers and chills though he states that started 3 days ago and his fever broke yesterday. He can knowledge is that his blood sugars have been markedly elevated despite decreased appetite. He states he checks his feet approximately once per week due to difficult visualization secondary to physical stature. He denies any complaints of headaches or dizziness and does report decreased vision for which she has an appointment set up with ophthalmology. He denies nasal congestion or sore throat. Denies complaints of chest pain or palpitations and has no shortness of breath cough or wheezing. Denies complaints of abdominal pain and has no heartburn taking Nexium daily. He denies changes in bowel or bladder habits with no frequency, urgency or burning. The patient is independent in all activities daily living and requires no assistive devices. The patient does not presently have a primary care provider and is scheduled to be seen at [facility]. Upon arrival to the ER the patient is found have a temperature 97.2?, heart rate 104, blood pressure 119/76 with respirations of 16 saturating 98% on room air. And x-rays taken of the left foot to evaluate for osteomyelitis which finds no obvious lesions or erosions, soft tissue wound did on the plantar lateral aspect of the 5th metatarsal phalangeal joint. On laboratory analysis the patient has white count of 11.6 with a mild left shift, hemoglobin of 15.6 and hematocrit of 44.4 with platelets of 243. His electrolytes are within normal and has a BUN of 37 and creatinine of 1.5 for an EGFR of 49.5. His nonfasting glucose is 354. He has lactate of 2.0. His urinalysis is only significant for 1+ protein and negative for infection. In the ER the patient started on vancomycin 2000 mg IV and Levaquin 750 mg IV. The patient is admitted to the medicine service for diabetic cellulitis and IV antibiotic therapy. Discharge Providers Provider Date of admission: 06/09/19 16:07 Discharge Date: 06/12/19 Consults: 06/09/19 19:34 Consult to Dietitian, Adult Routine Comment: Reason For Exam: Diabetic with hyperglycemia and current infection Consult to Discharge Planning Routine Comment: 06/11/19 17:33 Consult to Wound Care Routine Comment: Consulting Provider: [facility] Discharge provider: Katie Cook DO Summary Hospital Course Discharge Diagnosis: 1. Acute left lower extremity cellulitis, present on admission. Resolving. 2. Diabetes mellitus type II, insulin using, present on admission. Stable. 3. Probable chronic kidney disease stage III versus acute kidney injury, present on admission. Stable. 4. Hypertension, chronic, present on admission. Stable. 5. Gastroesophageal reflux disorder, chronic, present on admission. Stable. 6. Gout, chronic, present on admission. Stable. Hospital Course: Aron Aponte is a 49-year-old male with a past medical history significant for hypertension, GERD, gout, and diabetes mellitus type 2, insulin using, with complication of retinopathy and peripheral neuropathy who developed abrupt onset left lower extremity cellulitis. 1. Acute left lower extremity cellulitis, present on admission. Resolving. -Patient presented with sudden onset progressive redness pain and warmth extending up to the distal 3rd the left lower leg. No known trauma. However, patient developed lesion lateral plantar surface of the left foot at the 5th MP joint 3 months ago that has been purple and progressively enlarging and callused and appears to be hemorrhagic bullae. -Initial WBC mildly elevated 11.6 and procalcitonin mildly elevated at 0.55. WBC and procalcitonin have normalized. -Blood cultures x 2 have no growth. -Left foot x-ray did not demonstrate any osseous erosions or convincing x-ray findings of osteomyelitis and soft tissue wound along the plantar lateral aspect of the 5th metatarsophalangeal joint. -CT left lower extremity with contrast demonstrated soft tissue changes including large ulceration/wound involving the lateral forefoot. No definite focal osseous destruction to suggest osteomyelitis. First MTP joint erosions, which actually age-indeterminate possibly related to inflammatory arthropathy or gout. -Continued conservative measures and elevated extremity is frequently at as possible and as long as tolerated. -Received vancomycin with dosing per pharmacist and Levaquin 750 mg IV x1 in ED. Continued Levaquin 750 mg IV daily and vancomycin with dosing per pharmacist. Patient was discharged on ciprofloxacin 500 mg twice daily and clindamycin 300 mg every 8 hours for 7 days to complete 10 day total course of antibiotics per wound care physician recommendation. -Consulted wound care, Dr. Cerna, who performed debridement of left lateral hemorrhagic bullae/traumatic wound. Plan for dressing change every other day if saturated in follow-up in wound care clinic with Dr. Cerna on 06/14/2019. Provided patient offloading boot. 2. Diabetes mellitus type II, insulin using, present on admission. Stable. -Hemoglobin A1c 10.4% indicative of poor glycemic control. Diabetes diagnosed in 2009. Patient has complication of retinopathy and peripheral neuropathy in the form of numbness. Patient may also have underlying CKD as below. -Continued ACHS blood glucose checks and medium dose correction scale insulin. -Continued Lantus increased from 20 units to 22 units twice daily and continued NovoLog 6 units 3 times daily with meals with improved blood glucose control. -Held metformin and restarted time of discharge -Continued heart healthy/carbohydrate consistent diet. -Consulted dietitian and we appreciate her time and recommendations. 3. Probable chronic kidney disease stage III versus acute kidney injury, present on admission. Stable. -Initial creatinine 1.5. Baseline creatinine 1.2 in 01/2019. Creatinine normalized with IV fluids then trended back up to 1.4 once IV fluids discontinued. Possibly due to chronic kidney disease from diabetes and NSAID use versus acute kidney injury from hypermetabolic state infection as above. -Continued IV fluids until adequately hydrated then discontinued. -Continued to avoid nephrotoxic agents and optimize renal function. Patient states he has been told not to take ibuprofen related to previous gastric ulcer but has been taking naproxen 2 tablets daily for the last 3 months. Reiterated and discouraged NSAID use. -Continued to monitor renal function daily. 4. Hypertension, chronic, present on admission. Stable. -Blood pressure admission is 119/76. -Continued home lisinopril 5 mg daily. 5. Gastroesophageal reflux disorder, chronic, present on admission. Stable. -Patient has history of peptic ulcer disease with gastric ulcer related to NSAID use. -Continued Protonix 20 mg daily. Discussed cardiovascular disease and CKD associated with PPI use long-term. Recommend PCP consider H2 serg rather than PPI. 6. Gout, chronic, present on admission. Stable. -Does not represent acute gout flare. -Uric acid level highly elevated at 9.3. -CT left lower extremity with contrast demonstrated soft tissue changes including large ulceration/wound involving the lateral forefoot. No definite focal osseous destruction to suggest osteomyelitis. First MTP joint erosions, which actually age-indeterminate possibly related to inflammatory arthropathy or gout. -Recommend Febuxostat 40 mg daily for uric acid lowering as an outpatient (not on formulary) as patient reports GI intolerance to allopurinol per PCP. Exam Vital Signs (past 8 hours): - 06/12/19 03:00 06/12/19 07:34 Temperature 99.2 F 98.1 F Pulse Rate 79 72 Respiratory Rate 16 16 Blood Pressure 121/74 112/73 Pulse Oximetry 98 97 Oxygen Delivery Method Room Air Oxygen Flow Rate 0 Narrative Exam Narrative: General: Middle-aged gentleman sitting in bed and in no acute distress, well-developed, well-nourished, appropriately interactive. HEENT: Normocephalic, atraumatic. External ears without defect. Pupils equal, round, and reactive to light. Anicteric sclerae, moist conjunctivae, and no lid lag. Neck: Supple with full range of motion. No lymphadenopathy or thyromegaly. Cardiovascular: Regular rate and rhythm without murmurs, rubs, or gallops appreciated. Pulmonary: Clear to auscultation bilaterally without crackles, wheezes, or rhonchi. Normal respiratory effort with no use of accessory muscles. Abdomen: Soft, bowel sounds present, nontender, nondistended. No hepatosplenomegaly or masses appreciated. Extremities: No clubbing, cyanosis, or edema. Left lower extremity cellulitis nearly resolved with slight erythema and warmth contained to pretibial area. Left foot with dressing in place C/D/I. There is bilateral brown discoloration on dorsum of foot that appears to be a dermartitis and not infection. Neurological: Cranial nerves grossly intact. Psychiatric: Normal mood and affect. Alert and oriented to person, place, and time. Objective Labs Result Diagrams: 06/12/19 09:48 06/12/19 09:48 Labs: Laboratory Results - last 24 hr 06/12/19 06/12/19 06:13 06:13 WBC 12.9 H RBC 4.73 Hgb 14.0 Hct 42.0 MCV 88.8 MCH 29.6 MCHC 33.4 RDW 14.4 Plt Count 348 Neut % (Auto) 76.0 H Lymph % (Auto) 13.3 L Tyler % (Auto) 7.0 Eos % (Auto) 2.5 Baso % (Auto) 1.2 Neut # (Auto) 9800 H Lymph # (Auto) 1700 Tyler # (Auto) 900 Eos # (Auto) 300 Baso # (Auto) 200 H Sodium 139 Potassium 4.5 Chloride 107 Carbon Dioxide 21 L BUN 20 Creatinine 1.50 H Estimated GFR 49.5 L BUN/Creatinine Ratio 13.3 Glucose 163 H Calcium 9.6 Discharge Plan Discharge Plan Patient Disposition: Home Discharge comment: You have an appt. @ the wound care clinic on 06/14 @ 1:00pm. They are located at [address] [place] [address]. You are being discharged home. You had cellulitis and a foot wound of your left lower extremity which was debrided by wound care. Continue to keep your dressing dry and if is not saturated and it remains dry you may leave it in place until Monday when you see the wound care doctor, Dr. Cerna, for follow-up. You may by cast cover at the pharmacy to keep your dressing dry. If your dressing gets saturated and/or wet please replace your dressing as nursing has instructed you. You have been prescribed ciprofloxacin 500 mg twice daily and clindamycin 300 mg every 8 hours or 7 additional days (to start tomorrow) to complete 10 days total. Please follow-up with your primary care physician in the next 1-2 weeks regarding your hospitalization and for continued diabetic management. Your Lantus has been increased from 20 units twice daily to 22 units twice daily. Continue nutritional insulin with NovoLog as you have previously. Please follow-up at the wound care clinic on Monday06/14/19 at your scheduled appointment. Discharge orders & Medications Prescriptions: New ciprofloxacin HCl 500 mg tablet 500 mg PO BID Qty: 14 RF: 0 clindamycin HCl 300 mg capsule 300 mg PO Q8H Qty: 21 RF: 0 Continued metformin 1,000 mg Tablet 1,000 mg PO BID RF: 0 lisinopril 5 mg Tablet 5 mg PO DAILY RF: 0 esomeprazole magnesium [Nexium] 20 mg Capsule,Delayed Release(Dr/Ec) 20 mg PO DAILY RF: 0 naproxen 500 mg tablet 500 mg PO BID PRN (Reason: Pain (Scale Score 1-3)) RF: 0 insulin aspart U-100 [Novolog U-100 Insulin aspart] 100 unit/mL Solution 6 unit SUBCUT TID RF: 0 Changed Lantus U-100 Insulin 100 unit/mL Solution 22 unit SUBCUT BID Qty: 0 RF: 0 Diet/Activity/Treatments Diet: Carb-consistent/Diabetic, Low-fat, Low-sodium and Low-cholesterol Activity: Activity as tolerated with offloading boot Visit Report/Discharge Packet Instructions: DI for Cellulitis -- Adult, The Mediterranean Diet and Good Health, DI for Diabetic Foot Ulcer, How To Perform RICE (Rest, Ice, Compress, Elevate)
[2019-06-12 10:16] LABS: Hematocrit 42.9 % (41-53); Hemoglobin 14.3 g/dL (13.5-17.5); Mean Corpuscular HGB Conc 33.4 % (30-36); Mean Corpuscular Hemoglobin 29.7 PG (26-34); Platelet Count 371 X10^3/uL (150-400); Red Blood Cell Count 4.82 X10^6/uL (4.5-5.9); Red Cell Distribution Width 14.2 % (11.6-14.8); White Blood Cell Count 13.4 X10^3/uL (4.5-11.0)
[2019-06-12 10:17] LABS: Add Manual Diff / Slide Review YES
[2019-06-12 10:20] LABS: BUN Creatinine Ratio 16.4 (6-22); Blood Urea Nitrogen 23 mg/dL (9-20); Carbon Dioxide 23 mmol/L (22-32); Chloride 105 mmol/L (98-107); Estimated Glomerular Filt Rate 53.6 mL/min (>60); Glucose 200 mg/dL (70-100); HEMOLYSIS < 15 (0-50); Potassium 4.8 mmol/L (3.4-5.1); Sodium 138 mmol/L (137-145)
[2019-06-12 10:53] LABS: Neutrophils Absolute Manual 10720 /uL (3000-5900); RBC Morphology Norm; Total Cells Counted 100; Toxic Vacuolation Present
[2019-06-12 10:57] LABS: Procalcitonin 0.13 ng/mL (<0.5)
[2019-06-12 11:51] VITALS: BP 118/68; PULSE 76; RESP 16; TEMP 37; O2SAT 95
--- NOTE | 2019-06-12 13:00 | PM.PROC.1 ---
Procedures Date/Time Date of procedure: 06/12/19 Time of procedure: 13:00 General Procedure description: Diabetic ulcer is located on the left foot 5th lateral MTH and measures 4.3cm length x 4.4cm width x no depth. A skin/subcutaneous tissue level surgical debridement was performed by Rao Cerna MD. Removal of overlying callus revealed mostly intact dermis with a central area of devitalized granulation tissue. Dermis, Epidermis, and Subcutaneous were removed along with devitalized tissue: slough. The following instrument(s) were used: curette, forceps, and scissors. Pain control was achieved using EMLA lidocaine/prilocaine 2.5%/2.5%. A time out was conducted prior to the start of the procedure. A minimal amount of bleeding was controlled with pressure. The procedure was tolerated well with a pain level of 0 throughout and a pain level of 0 following the procedure. Post Debridement Measurements: 4.4 cm length x 4.5cm width x 0.1cm depth. Complications: none
--- NOTE | 2019-06-12 15:33 | PC.NURSE ---
Addendum entered by Mariama Bass R.N. 06/12/19 16:15: FREDERICK PIV infiltrated with vancomycin infusing. Per Dr. Cook at 1405, okay to not place new PIV, pt going home, stop IV antibiotics. Original Note: Day Shift- Pt A&OX4, pleasant and appropriate. Able to make needs known using call light. Rates LLE pain 3/10, no burning, just aching and throbbing which increases when LLE placed on floor. Yesterday LLE was 4/10 on rest and burning intermittently. Pt states LLE feels better today. PRN Tylenol given at 0850 with good effect. Pt good with keeping LLE elevated on pillows, usually 3 pillows while in bed. Calf SCD to RLE only throughout shift. Around 1315, Dr. Cerna finished seeing pt, would cultures taken by Dr. Cerna from left lateral foot were sent to lab. Pt stated feeling okay after debridement. Gauze and coban wrap CDI in place. Evening RN aware to get proper size for forefoot offloading shoe as On unit only has large size, pt states his regular shoe size is size 13. Aware to follow up with wound clinic for wound management. Pt aware that plans are to discharge him home today after being seen by Dr. Cook.
[2019-06-12 16:14] VITALS: BP 119/76; PULSE 77; RESP 20; TEMP 36.7; O2SAT 96
--- NOTE | 2019-06-12 20:29 | PC.NURSE ---
Kya shift discharge note: Patient discharged home per MD order, F/U appointment with wound care made for Monday at 1300. Educated regarding cast cover to keep dressing CDI, also instructed regarding measures to take if dressing becomes saturated/wet prior to appointment. XL boot for front off leading to LLE. Discussed importance of F/U with PMD, antibiotic treatment at home, and new medication change to Insulin. Verbalized understanding of discharge instructions. Home via WC with SO/private vehicle.
== END 2019-06-12 19:00 | disposition home or self-care (01) | DRG 364 ==
LOC: ED 13:47 → AC 16:08
PROVIDERS: Nurse Practitioner Adult Health; Admitting Provider Internal Medicine; Emergency Provider Emergency Medicine; Referring Provider Internal Medicine; Visit Provider Internal Medicine
DX: L03.116 Cellulitis of left lower limb (principal); E11.65 Type 2 diabetes mellitus with hyperglycemia; E11.40 Type 2 diabetes mellitus with diabetic neuropathy, unspecified; N17.9 Acute kidney failure, unspecified; E66.9 Obesity, unspecified; Z68.38 Body mass index [BMI] 38.0-38.9, adult; K21.9 Gastro-esophageal reflux disease without esophagitis; M79.7 Fibromyalgia; N18.3 Chronic kidney disease, stage 3 (moderate); I12.9 Hypertensive chronic kidney disease with stage 1 through stage 4 chronic kidney disease, or unspecified chronic kidney disease; Z79.4 Long term (current) use of insulin
CPT/HCPCS: 36415; 73630; 73700; 73701; 80048; 80053; 80202; 81001; 82962; 83036; 83605; 84145; 84550; 85025; 87040; 87070; 87075; 87077; 87147; 87205; 96365; 96366; 96368; 99284; J1650; J1956; Q9967

== ENCOUNTER → 2019-06-14 13:21 | Outpatient (CLI) | payer OTHER, MEDICAID, SELFPAY ==
[2019-06-09 17:08] VITALS: BMI 35.6
== END ==
PROVIDERS: Referring Provider Internal Medicine; Visit Provider Family Medicine
DX: E11.621 Type 2 diabetes mellitus with foot ulcer (principal); L97.521 Non-pressure chronic ulcer of other part of left foot limited to breakdown of skin; Z79.4 Long term (current) use of insulin; Z79.84 Long term (current) use of oral hypoglycemic drugs; N18.3 Chronic kidney disease, stage 3 (moderate); D72.829 Elevated white blood cell count, unspecified
CPT/HCPCS: 99203; 99215

== ENCOUNTER → 2019-06-17 13:33 | Outpatient (CLI) | payer OTHER, MEDICAID, SELFPAY ==
[2019-06-09 17:08] VITALS: BMI 35.6
[2019-06-17 14:27] LABS: Hematocrit 47.5 % (41-53); Hemoglobin 15.9 g/dL (13.5-17.5); Mean Corpuscular HGB Conc 33.5 % (30-36); Mean Corpuscular Hemoglobin 29.6 PG (26-34); Mean Corpuscular Volume 88.4 fL (80-100); Platelet Count 690 X10^3/uL (150-400); Red Blood Cell Count 5.37 X10^6/uL (4.5-5.9); Red Cell Distribution Width 14.4 % (11.6-14.8)
[2019-06-17 14:28] LABS: Add Manual Diff / Slide Review YES
[2019-06-17 14:34] LABS: Blood Urea Nitrogen 33 mg/dL (9-20); Calcium 10.6 mg/dL (8.4-10.2); Carbon Dioxide 24 mmol/L (22-32); Chloride 104 mmol/L (98-107); Estimated Glomerular Filt Rate 49.5 mL/min (>60); Glucose 217 mg/dL (70-100); HEMOLYSIS < 15 (0-50); Sodium 141 mmol/L (137-145)
[2019-06-17 15:05] LABS: Neutrophils Absolute Manual 7100 /uL (3000-5900); Total Cells Counted 100
[2019-06-17 15:06] LABS: RBC Morphology Normal Morphology
== END ==
PROVIDERS: Referring Provider Family Medicine; Visit Provider Family Medicine
DX: D72.829 Elevated white blood cell count, unspecified (principal); N18.3 Chronic kidney disease, stage 3 (moderate)
CPT/HCPCS: 36415; 80048; 85025

== ENCOUNTER → 2019-06-21 10:17 | Outpatient (CLI) | payer OTHER, MEDICAID, SELFPAY ==
[2019-06-09 17:08] VITALS: BMI 35.6
== END ==
PROVIDERS: Referring Provider Internal Medicine; Visit Provider Family Medicine
DX: E11.621 Type 2 diabetes mellitus with foot ulcer (principal); E11.40 Type 2 diabetes mellitus with diabetic neuropathy, unspecified; Z79.84 Long term (current) use of oral hypoglycemic drugs
CPT/HCPCS: 99212; 99213

== ENCOUNTER 2019-12-01 01:31 | Inpatient (IN) | payer OTHER, SELFPAY ==
[2019-06-09 17:08] VITALS: BMI 35.6
[2019-12-01] VITALS (27 sets, daily range): BP systolic 103–173; BP diastolic 57–97; PULSE 71–119; RESP 9–22; TEMP 36.1–37.7; O2SAT 2–99; BMI 40.6; BMI 42.0
--- NOTE | 2019-12-01 | PATH_ITS ---
[facility] Accession Number: [id number] . 01 Material submitted: . gallbladder - GALLBLADDER AND CONTENTS . 01 Clinical history: . FEELS LIKE SOMETHING EXPLODED IN STOMACH/SOB . 02 Diagnosis: Gallbladder and Contents, Cholecystectomy: Acute necrotizing cholecystitis and serositis. Cholelithiasis. Negative for dysplasia and malignancy. MRV 12/04/2019 1333 Local . 02 Electronically signed: . Kathy Magana MD, Pathologist NPI- [id number] . 01 Gross description: . Received in formalin, labeled with the patient's name, MRN and gallbladder and contents, is a 7.0 x 3.5 x 2.2 cm green-browne previously opened gallbladder. The serosal surface is green-browne and smooth. The specimen is opened to reveal multiple green-black calculi ranging in size from 0.1 cm to 0.3 cm in greatest dimension. The entire mucosal surface is green-browne and wrinkled. The gallbladder wall measures up to 0.7 cm. Emt Basic sections of the gallbladder body, gallbladder fundus and shave of the cystic duct margin (inked black) are submitted in cassette A1. (SD/cmc10 [id number]) /MRV 12/03/2019 1235 Local . 02 Pathologist provided ICD-10: K81.0 . 02 CPT . 504953 Performed at: 01 [facility] [address] [id number] MD Aron Graham MD Phone: [phone] Performed at: 02 [facility] [address] [place], [place] [id number] MD Kathy Magana MD Phone: [phone]
--- NOTE | 2019-12-01 01:39 | DI.US.S_ITS ---
PROCEDURE: US ABDOMEN LIMITED INDICATIONS: EPIGASTRIC PAIN TECHNIQUE: Real-time focused scanning was performed of the abdomen, with image documentation. COMPARISON: None. FINDINGS: The liver is prominent in size and demonstrates no focal lesions. Prominent sludge is seen within the gallbladder. No sudhir shadowing stones are seen. The gallbladder wall is not thickened. The sonographic Dunn sign is positive. Mild biliary dilatation is seen, with the common hepatic duct measuring 9 mm. The pancreas is not seen. IMPRESSION: Prominent sludge is seen within the gallbladder, with a positive sonographic Dunn sign. There is mild biliary dilatation seen. Acute cholecystitis is suspected. Please correlate with physical examination findings, patient presentation, and laboratory values. Hepatomegaly. Note: No significant discrepancy from the preliminary report. Dictated by: Harry Perez M.D. on 12/01/2019 at 8:33 Approved by: Harry Perez M.D. on 12/01/2019 at 8:35
--- NOTE | 2019-12-01 01:50 | ED.ABDPAIN ---
HPI - Abdominal Pain General Chief Complaint: Abdominal Pain Stated Complaint: feels like something exploded in stomach/sob Time Seen by Provider: 12/01/19 01:31 Source: patient Mode of arrival: Ambulatory Limitations: no limitations History of Present Illness HPI narrative: 49-year-old male nonsmoker with history of hypertension, diabetes and GERD presents with the chief complaint of a sudden onset epigastric pain and right upper quadrant pain with radiation to the back. He states it is a bit worse with motion and improves with rest. He has nausea but denies any vomiting. He denies any change in bowel habits. He denies any change with Pepto-Bismol. He has had no dysuria, frequency or urgency. MD complaint: abdominal pain Onset (ago): hour(s) Pain Consistency: constant Location: RUQ and epigastric Severity: moderate Quality: cramping Radiation: back Relieving factors: rest Exacerbating factors: movement Associated symptoms: nausea Related Data Home Medications Medication Instructions Recorded Confirmed esomeprazole magnesium [Nexium] 20 mg PO DAILY 06/09/19 12/01/19 insulin aspart U-100 [Novolog 6 unit SUBCUT TID 06/09/19 12/01/19 U-100 Insulin aspart] lisinopril 5 mg PO DAILY 06/09/19 12/01/19 metformin 1,000 mg PO BID 06/09/19 12/01/19 naproxen 500 mg PO BID PRN 06/09/19 12/01/19 Previous Rx's Medication Instructions Recorded Lantus U-100 Insulin 22 unit SUBCUT BID #0 ml 06/12/19 Allergies Allergy/AdvReac Type Severity Reaction Status Date / Time allopurinol AdvReac Diarrhea Verified 06/11/19 08:43 Review of Systems Constitutional Constitutional: Denies chills, Denies fatigue, Denies fever(s), Denies frequent falls, Denies lethargy and Denies weakness Eyes Eyes: Denies change in vision, Denies eye discharge, Denies irritation and Denies loss of vision ENT Ears, Nose, Mouth, and Throat: Denies change in voice, Denies dizziness, Denies neck pain, Denies sore throat and Denies throat swelling Cardiovascular Cardiovascular: Denies chest pain, Denies irregular heart rhythm, Denies lightheadedness, Denies palpitations, Denies dyspnea, Denies dyspnea on exertion and Denies orthopnea Respiratory Respiratory: Denies cough, Denies dyspnea, Denies dyspnea on exertion and Denies wheezing Gastrointestinal Gastrointestinal: Reports abdominal pain, Denies change in bowel habits, Denies diarrhea, Reports nausea and Denies vomiting Musculoskeletal Musculoskeletal: Denies neck pain and Denies numbness Integumentary/Breasts Skin/Breast: Denies pruritus, Denies erythema, Denies rash and Denies wounds Neurologic Neurologic: Denies behavioral changes, Denies confusion, Denies dizziness, Denies frequent falls, Denies loss of vision, Denies numbness and Denies weakness Psychiatric Psychiatric: Denies anxiety, Denies behavioral changes, Denies confusion, Denies depression, Denies homicidal ideation and Denies suicidal ideation Endocrine Endocrine: Denies fatigue, Denies flushing and Denies palpitations Hematologic/Lymphatic Hematologic/Lymphatic: Denies easy bruising Allergic/Immunologic Allergic/Immunologic: Denies urticaria, Denies throat swelling and Denies wheezing Patient History Medical History Acid reflux (Acute) Diabetes type 2, uncontrolled (Acute) Fibromyalgia (Chronic) Gastric ulcer (Acute) Gout (Chronic) History of head injury (Chronic) HTN (hypertension) (Chronic) Surgical History History of brain shunt (Resolved) Family History Father Morbid obesity Diabetes mellitus Mother Cancer Heart disease Social History household members: friend(s) Smoking Status: Never smoker Smoking Status: Never smoker alcohol intake frequency: holidays/special occasions only Substance Use Type: does not use Exam Narrative Exam Narrative: GENERAL: [49] year old patient appears stated age. Well-nourished, well-developed patient, in obviously uncomfortable, rubbing his upper abdomen HEAD: Atraumatic. Normocephalic. EYES: Pupils equal round and reactive. Extraocular motions intact. No scleral icterus. No injection or drainage. ENT: Nose without bleeding, purulent drainage. Throat without erythema, tonsillar hypertrophy or exudate. Airway patent. NECK: Trachea midline. Non tender CARDIOVASCULAR: Regular rate and rhythm without murmurs, gallops, or rubs. RESPIRATORY: Clear to auscultation. Breath sounds equal bilaterally. No wheezes, rales, or rhonchi. GASTROINTESTINAL: Abdomen soft, tender in the epigastrium and right upper quadrant, nondistended. EXTREMITIES: No edema or joint tenderness. BACK: Nontender without deformity or crepitance. No flank tenderness. NEURO: AOx3. SKIN: No rash or erythema of visible areas Initial Vital Signs Initial Vital Signs: Vital Signs Temperature 97.4 F L 12/01/19 01:38 Pulse Rate 119 H 12/01/19 01:38 Respiratory Rate 22 12/01/19 01:38 Blood Pressure 141/93 H 12/01/19 01:38 Pulse Oximetry 97 12/01/19 01:38 Course Orders Ordered: ED Orders 12/01/19 01:39 US abdomen limited Stat 12/01/19 01:44 EKG-12 Lead Routine 12/01/19 01:48 Complete Blood Count AUTO DIFF Stat Comprehensive Metabolic Panel Stat Lactate (Lactic Acid) Stat Lipase Stat Acetaminophen (Tylenol) 650 mg PO Q4HR PRN PRN Reason: Fever/Mild Pain (1-3) Bisacodyl (Dulcolax) 10 mg AK DAILY PRN PRN Reason: Constipation Dextrose (D50w) 25 gm IV PRN PRN; Protocol PRN Reason: Hypoglycemia Docusate Sodium (Colace) 100 mg PO BID PRN PRN Reason: Constipation Hydralazine HCl (Apresoline) 10 mg IV Q6HR PRN PRN Reason: Hypertension Hydromorphone HCl (Dilaudid) 0.5 mg IV Q4H PRN PRN Reason: Pain, Moderate (4-6) Hydromorphone HCl (Dilaudid) 1 mg IV Q4HR PRN PRN Reason: Pain, Severe (7-10) Last Admin: 12/01/19 04:43 Dose: 1 mg Documented by: MPFEFFE Lactated Ringer's (Lactated Ringers) 1,000 mls @ 100 mls/hr IV CONT ULYSSES Last Admin: 12/01/19 04:19 Dose: 100 mls/hr Documented by: MPFEFFE Piperacillin/Tazobactam/Dextrose (Zosyn) 3.375 gm in 50 mls @ 100 mls/hr IV Q6H ULYSSES Famotidine (Pepcid) 20 mg in 50 mls @ 200 mls/hr IV Q24H [facility] Insulin Aspart (Novolog Flexpen) 0 unit SUBCUT ACHS ULYSSES; Protocol Insulin Glargine (Lantus Solostar (Pen)) 22 unit SUBCUT BID [facility] Naloxone HCl (Narcan) 0.2 mg IV Q2MIN PRN PRN Reason: Opiate Reversal Ondansetron HCl (Zofran) 4 mg IV Q4HR PRN PRN Reason: Nausea And Vomiting Last Admin: 12/01/19 02:03 Dose: 4 mg Documented by: GARRETT Ondansetron HCl (Zofran) 4 mg IV Q8HR PRN PRN Reason: Nausea And Vomiting Pantoprazole Sodium (Protonix) 40 mg IV DAILY ULYSSES Last Admin: 12/01/19 04:50 Dose: 40 mg Documented by: JULIO Discontinued Medications Hydromorphone HCl (Dilaudid) 0.5 mg IV NOW ONE Stop: 12/01/19 01:39 Last Admin: 12/01/19 02:02 Dose: 0.5 mg Documented by: GARRETT Hydromorphone HCl (Dilaudid) 0.5 mg IV NOW ONE Stop: 12/01/19 03:01 Last Admin: 12/01/19 03:04 Dose: 0.5 mg Documented by: GARRETT Hydromorphone HCl (Dilaudid) 1 mg IV Q4HR [facility] Lactated Ringer's (Lactated Ringers) 1,000 mls @ 1,000 mls/hr IV BOLUS ONE Stop: 12/01/19 02:37 Last Infusion: 12/01/19 03:44 Dose: 0 mls/hr Documented by: Admin: 12/01/19 02:02 Dose: 1,000 mls/hr Documented by: GARRETT Piperacillin/Tazobactam/Dextrose (Zosyn) 3.375 gm in 50 mls @ 100 mls/hr IV NOW ONE Stop: 12/01/19 03:12 Last Infusion: 12/01/19 03:44 Dose: 100 mls/hr Documented by: Admin: 12/01/19 03:06 Dose: 100 mls/hr Documented by: GARRETT Insulin Human Regular (Humulin R) 8 unit SUBCUT NOW ONE Stop: 12/01/19 02:43 Last Admin: 12/01/19 03:06 Dose: 8 unit Documented by: GARRETT Cosigned by: SANTIFARJan Reevaluation(s) Reevaluation #1: patient much better after Dilaudid Consultations Consultation #1: call to Dr. Dai (Gen Surgery). She agrees patient needs admission for surgery and asks for Zosyn, COVID, but given elevated blood sugar she asks that we admit to medicine for glycemic control Consultation #2: hospitalist happy to accept Vital Signs Vital signs: Vital Signs - 8 hr 12/01/19 01:38 12/01/19 01:54 12/01/19 02:00 Temperature 97.4 F L Pulse Rate 119 H 109 H 100 H Respiratory Rate 22 Blood Pressure 141/93 H Pulse Oximetry 97 95 97 12/01/19 02:01 12/01/19 02:30 12/01/19 02:31 Temperature Pulse Rate 107 H 96 H 99 H Respiratory Rate Blood Pressure 139/85 123/69 Pulse Oximetry 97 97 99 12/01/19 03:00 12/01/19 03:01 12/01/19 03:30 Temperature Pulse Rate 98 H 94 H 97 H Respiratory Rate Blood Pressure 168/97 H Pulse Oximetry 94 93 92 12/01/19 03:31 Temperature Pulse Rate 96 H Respiratory Rate Blood Pressure 173/86 H Pulse Oximetry 93 MDM - Abdominal Pain Lab Data Result diagrams: 12/01/19 01:48 12/01/19 01:48 Labs: Lab Results 12/01/19 12/01/19 12/01/19 Range/Units 01:48 01:48 01:48 WBC 14.6 H (4.5-11.0) X10^3/uL RBC 5.37 (4.5-5.9) X10^6/uL Hgb 15.6 (13.5-17.5) g/dL Hct 47.4 (41-53) % MCV 88.2 (80-100) fL MCH 29.1 (26-34) PG MCHC 33.0 (30-36) % RDW 13.6 (11.6-14.8) % Plt Count 289 (150-400) X10^3/uL Neut % (Auto) 82.4 H (50-75) % Lymph % (Auto) 8.9 L (25-40) % Sharp % (Auto) 7.3 (3-14) % Eos % (Auto) 0.9 L (2-4) % Baso % (Auto) 0.5 (0-2) % Neut # (Auto) 94799 H (6958-5547) /uL Lymph # (Auto) 1300 (7966-1037) /uL Sharp # (Auto) 1100 H (0-900) /uL Eos # (Auto) 100 (0-450) /uL Baso # (Auto) 100 (0-100) /uL Sodium 134 L (137-145) mmol/L Potassium 4.4 (3.4-5.1) mmol/L Chloride 101 (98-107) mmol/L Carbon Dioxide 23 (22-32) mmol/L BUN 17 (9-20) mg/dL Creatinine 1.27 H (0.66-1.25) mg/dL Estimated GFR > 60.0 (>60) mL/min BUN/Creatinine Ratio 13.4 (6-22) Glucose 335 H (70-100) mg/dL Lactate 1.3 (0.7-2.1) mmol/L Calcium 9.4 (8.4-10.2) mg/dL Total Bilirubin 0.9 (0.2-1.3) mg/dL AST 30 (17-59) IU/L ALT 19 (<50) IU/L Alkaline Phosphatase 115 (38-126) U/L Total Protein 8.3 H (6.3-8.2) g/dL Albumin 4.2 (3.5-5.0) g/dL Globulin 4.1 (1.7-4.1) g/dL Albumin/Globulin Ratio 1.0 (1.0-2.8) Lipase 121 (23-300) U/L Discharge Plan Departure Patient Disposition: Admitted As Inpatient Clinical Impression: Acute acalculous cholecystitis, Acute hyperglycemia Discharge Date/Time: 12/01/19 04:10 Admit Date/Time: 12/01/19 03:39 Admit Provider: Caleb Mancuso
[2019-12-01 02:00] LABS: Add Manual Diff / Slide Review NO; Basophils Absolute Auto 100 /uL (0-100); Basophils Percent Auto 0.5 % (0-2); Eosinophils Absolute Auto 100 /uL (0-450); Eosinophils Percent Auto 0.9 % (2-4); Hematocrit 47.4 % (41-53); Hemoglobin 15.6 g/dL (13.5-17.5); Lymphocytes Absolute Auto 1300 /uL (1100-4500); Lymphocytes Percent Auto 8.9 % (25-40); Mean Corpuscular Hemoglobin 29.1 PG (26-34); Mean Corpuscular Volume 88.2 fL (80-100); Monocytes Absolute Auto 1100 /uL (0-900); Monocytes Percent Auto 7.3 % (3-14); Neutrophils Absolute Auto 12000 /uL (1500-7000); Neutrophils Percent Auto 82.4 % (50-75); Platelet Count 289 X10^3/uL (150-400); Red Blood Cell Count 5.37 X10^6/uL (4.5-5.9); Red Cell Distribution Width 13.6 % (11.6-14.8); White Blood Cell Count 14.6 X10^3/uL (4.5-11.0)
[2019-12-01] MEDS: HYDROMORPHONE 0.5 MG INJ IV ×2 (02:02→03:04)
[2019-12-01] MEDS: LACTATED RINGERS 1,000 ML 1000 ML IV (02:02)
[2019-12-01] MEDS: ONDANSETRON 4 MG/2 ML INJ IV (02:03)
[2019-12-01 02:06] LABS: Alanine Aminotransferase 19 IU/L (<50); Albumin 4.2 g/dL (3.5-5.0); Alkaline Phosphatase 115 U/L (38-126); Aspartate Aminotransferase 30 IU/L (17-59); BUN Creatinine Ratio 13.4 (6-22); Bilirubin Total 0.9 mg/dL (0.2-1.3); Blood Urea Nitrogen 17 mg/dL (9-20); Calcium 9.4 mg/dL (8.4-10.2); Carbon Dioxide 23 mmol/L (22-32); Chloride 101 mmol/L (98-107); Estimated Glomerular Filt Rate > 60.0 mL/min (>60); Globulin 4.1 g/dL (1.7-4.1); Glucose 335 mg/dL (70-100); HEMOLYSIS < 15 (0-50); Lactate (Lactic Acid) 1.3 mmol/L (0.7-2.1); Lipase 121 U/L (23-300); Potassium 4.4 mmol/L (3.4-5.1); Sodium 134 mmol/L (137-145); Total Protein 8.3 g/dL (6.3-8.2)
[2019-12-01] MEDS: INSULIN REGULAR 100 UNIT/ML 3 ML VIAL 8 UNIT SUBCUT (03:06)
[2019-12-01] MEDS: PIPERACILLIN-TAZO 3.375 GM/50 ML FROZ.PIGGY IV ×4 (03:06→21:25)
--- NOTE | 2019-12-01 03:48 | PM.HP.1 ---
History of Present Illness History of Present Illness Date Patient Seen: 12/01/19 Time Patient Seen: 04:16 Chief complaint: feels like something exploded in stomach/sob Narrative: Mr. Aron Aponte is a 49-year-old male with history of type 2 diabetes, insulin dependent with neuropathy, hypertension, gastroesophageal reflux disorder with history of ulcer and fibromyalgia who presents to the ER with right upper quadrant pain radiating to the back. The patient states his pain started abruptly after eating toast drinking tea for lunch. The patient describes the pain as right upper quadrant and epigastric area as an intense sharp pain that radiates to the back. The pain is worsened by deep inspiration coating the feeling of shortness of breath. The patient states he has not taken his diabetic medications this morning because he had not been feeling well and missed it. He further states that he has had loose stools over the last 3 days with associated nausea but no vomiting. Patient denies complaints of fevers or chills or recent COVID-19 exposures. He reports no headaches or dizziness, nasal congestion or sore throat. He denies complaints of chest pain or palpitations, shortness of breath cough or wheezing. He has abdominal pain and diarrhea as above. She reports no urinary symptoms. Upon arrival to the ER the patient is afebrile a temperature 97.4?, heart rate of 119, blood pressure 141/93, respirations 22 saturating 97% on room air. An ultrasound of the abdomen is obtained finding multiple tiny gallstones and sludge within the gallbladder lumen with portions of gallbladder wall thickening, positive sonographic Dunn sign consistent with acute cholecystitis,no ductal dilatation with common duct at 7.2 mm in diameter and finding mild hepatomegaly with hepatic steatosis. On laboratory analysis the patient has elevated white count at 14.6 with elevated neutrophils at 82.4%, hemoglobin of 15.6, hematocrit of 47.4 and platelets of 289. His sodium 134, potassium 4.4. His BUN is 17 and creatinine is 1.27. His nonfasting glucose is 335. His total bilirubin is 0.9 with an AST of 30, ALT of 19 and alkaline phosphatase of 115. His lipase is 121 and albumin is 4.2. Lactic acid is 1.3. Dr. Callejas is contacted by the ER and increase to consult. While in the ER the patient receives 2 doses of Dilaudid 0.5 mg, 8 units of regular insulin IV x1, 1 L of lactated Ringer's IV bolus and Zosyn 3.375 g IV. The patient is admitted to medicine service for acute cholecystitis. Patient History Medical History Acid reflux (Acute) Diabetes type 2, uncontrolled (Acute) Fibromyalgia (Chronic) Gastric ulcer (Acute) Gout (Chronic) History of head injury (Chronic) HTN (hypertension) (Chronic) Surgical History History of brain shunt (Resolved) Family & Social History Family History Father Morbid obesity Diabetes mellitus Mother Cancer Heart disease Safety & Behavioral: Feels Safe in Current Yes Environment Tobacco & Substance use: Smoking Status Never smoker alcohol intake frequency holiday/special occasion Substance Use Type does not use Meds Home Medications and Allergies Home Medications Medication Instructions Recorded Confirmed Type esomeprazole magnesium [Nexium] 20 mg PO DAILY 06/09/19 12/01/19 History insulin aspart U-100 [Novolog 6 unit SUBCUT TID 06/09/19 12/01/19 History U-100 Insulin aspart] lisinopril 5 mg PO DAILY 06/09/19 12/01/19 History metformin 1,000 mg PO BID 06/09/19 12/01/19 History naproxen 500 mg PO BID PRN 06/09/19 12/01/19 History Lantus U-100 Insulin 22 unit SUBCUT BID #0 ml 06/12/19 12/01/19 Rx Allergies Allergy/AdvReac Type Severity Reaction Status Date / Time allopurinol AdvReac Diarrhea Verified 06/11/19 08:43 Review of Systems Review of Systems ROS: Yes All systems reviewed with the patient and are negative except as otherwise documented Exam Vital Signs (past 8 hours): - 12/01/19 01:38 12/01/19 01:54 12/01/19 02:00 Temperature 97.4 F L Pulse Rate 119 H 109 H 100 H Respiratory Rate 22 Blood Pressure 141/93 H Pulse Oximetry 97 95 97 12/01/19 02:01 12/01/19 02:30 12/01/19 02:31 Temperature Pulse Rate 107 H 96 H 99 H Respiratory Rate Blood Pressure 139/85 123/69 Pulse Oximetry 97 97 99 12/01/19 03:00 12/01/19 03:01 12/01/19 03:30 Temperature Pulse Rate 98 H 94 H 97 H Respiratory Rate Blood Pressure 168/97 H Pulse Oximetry 94 93 92 12/01/19 03:31 Temperature Pulse Rate 96 H Respiratory Rate Blood Pressure 173/86 H Pulse Oximetry 93 Oxygen Delivery Method Room Air Narrative Exam Narrative: GENERAL APPEARANCE: well developed, obese male with BMI of 42.0, who is uncomfortable appearing. HEENT: Normocephalic, PERRLA, conjunctiva clear, EOMs intact without nystagmus, no sinus tenderness to percussion, no rhinorrhea, mucous membranes are moist and pink without lesions. NECK/THYROID: neck supple, no JVD, no carotid bruit, no thyromegaly, trachea midline. LYMPH NODES: no cervical or supraclavicular lymphadenopathy. SKIN: Multiple body tattoos, pink, warm and dry. HEART: regular rate and rhythm, S1-S2, no murmur, no rubs or gallops, brisk capillary refill, no edema LUNGS: clear to auscultation bilaterally, no coarseness crackles or wheezing, no cough present CHEST: Symmetrical movement, no accessory muscle use, shallow tidal volume. ABDOMEN: Round, epigastric and right upper quadrant abdominal pain with positive Dunn sign, mild right flank tenderness, active bowel tones. EXTREMITIES: moves all extremities, strength is 5/5 and symmetrical, no deformities or joint effusions. NEUROLOGIC: AAO x4,cranial nerves II-XII grossly intact, neuropathy bilateral feet. PSYCH: Good eye contact, linear thought process, cooperative, appropriate with stable behavior Objective Labs Result Diagrams: 12/01/19 01:48 12/01/19 01:48 Labs: Laboratory Results - last 24 hr 12/01/19 12/01/19 12/01/19 01:48 01:48 01:48 WBC 14.6 H RBC 5.37 Hgb 15.6 Hct 47.4 MCV 88.2 MCH 29.1 MCHC 33.0 RDW 13.6 Plt Count 289 Neut % (Auto) 82.4 H Lymph % (Auto) 8.9 L [place] % (Auto) 7.3 Eos % (Auto) 0.9 L Baso % (Auto) 0.5 Neut # (Auto) 78407 H Lymph # (Auto) 1300 [place] # (Auto) 1100 H Eos # (Auto) 100 Baso # (Auto) 100 Sodium 134 L Potassium 4.4 Chloride 101 Carbon Dioxide 23 BUN 17 Creatinine 1.27 H Estimated GFR > 60.0 BUN/Creatinine Ratio 13.4 Glucose 335 H Lactate 1.3 Calcium 9.4 Total Bilirubin 0.9 AST 30 ALT 19 Alkaline Phosphatase 115 Total Protein 8.3 H Albumin 4.2 Globulin 4.1 Albumin/Globulin Ratio 1.0 Lipase 121 Assessment & Plan Assessment & Plan narrative: This is a 49-year-old male patient with a sudden onset right upper quadrant and epigastric abdominal pain after eating lunch after having had 3 days of loose stools and nausea without vomiting. 1. Acute cholecystitis, present on admission, active -patient presents with right upper quadrant and epigastric pain with positive Dunn sign with associated nausea and diarrhea. -abdominal ultrasound finds acute cholecystitis with no ductal dilatation with findings of mild hepatomegaly with hepatic steatosis. -elevated white count at 14.6 with neutrophils of 82.4%, liver functions all within normal limits, lipase is 121 lactic acid 1.3. -Dr. Dai contacted through the emergency department agrees to consult and we appreciate her evaluation and recommendations. -patient is NPO, order lactated Ringer's 100 cc/hour. -ordered delighted 0.5-1 mg IV every 4 hours as needed for pain. 2. Type 2 diabetes insulin dependent, uncontrolled, present on admission, active -The patient presents with a serum glucose of 335 and states he did not take his Lantus or insulin this morning. -he has otherwise been compliant with his home regimen is NovoLog 6 units with meals, Lantus 22 units twice daily and metformin 1000 mg twice daily, metformin is held due to NPO status. -the patient received 8 units of regular insulin IV while in the ER. -Ordered fingerstick blood sugars q.6 hours while NPO. -Ordered Lantus 22 units twice daily with correctional insulin medium dose range. -Will evaluate response to glycemic control and increase Lantus as needed. -Obtain hemoglobin A1c. 3. Elevated creatinine, present on admission, stable -patient's previous creatinine was 1.5 and today is found to be 1.27. EGFR is calculated greater than 60, creatinine clearance is is calculated at 138.29 mL per minute. -the patient has discontinued all nonsteroidal anti-inflammatories. -Will follow renal function on chemistries. 4. Hypertension, present on admission, stable. -Blood pressure admission is 141/93 in the setting of marked pain. -blood pressure improved with pain management -ordered hydralazine 10 mg IV as needed for systolic blood pressures stained greater than 180 or diastolic greater than 100. -continue patient's home regimen of lisinopril 5 mg daily when taking POs 5. Gastroesophageal reflux disorder, stable. -Patient has been taking as omeprazole 20 mg daily since having been diagnosed with gastric ulcer. -order Protonix 40 mg x1 now -will transition to famotidine 20 mg IV daily until taking POs. VTE prophylaxis: SCDs, chemical prophylaxis contraindicated due to pending surgery Diet: NPO IV fluid: Lactated Ringer's 100 cc/hour Code status: Full code, the patient designates his girlfriend Kathy Rivers to be his surrogate decision maker. The patient is admitted to the hospital due to the severity of his symptoms and pending surgery. The patient is admitted as an inpatient with expected length of stay to be greater than 2 midnights. COVID-19 COVID-19 status: Negative Result date/Date tested (Pos, Neg/Pending): 12/01/19 Scores [facility] [place] coma scale eye opening: Spontaneous [place]arez coma scale verbal response: Orientated [place] coma scale motor response: Obey commands Juarez coma scale total score: 15
[2019-12-01] MEDS: LACTATED RINGERS 1,000 ML 100 ML IV ×2 (04:19→17:54)
[2019-12-01] MEDS: HYDROMORPHONE 1 MG INJ IV ×2 (04:43→07:59)
[2019-12-01] MEDS: PANTOPRAZOLE 40 MG VIAL IV ×2 (04:50→08:08)
--- NOTE | 2019-12-01 05:48 | PC.NURSE ---
49 yrs. old male admitted to room 215 @ 0400, diagnosed with acute cholecystitis. Oriented to his room, showed how to use his call light, TV & bed controls. Instructed not to get up OOB without any assistance. Denies any fall for the last 3 months, pt. alert & oriented x4. Will cont. POC & monitor.
[2019-12-01 06:25] LABS: COVID19 -Nasal RAPID Negative (Negative)
[2019-12-01 07:21] LABS: Add Manual Diff / Slide Review NO; Basophils Absolute Auto 400 /uL (0-100); Basophils Percent Auto 3.1 % (0-2); Eosinophils Absolute Auto 400 /uL (0-450); Hematocrit 45.8 % (41-53); Hemoglobin 15.2 g/dL (13.5-17.5); Lymphocytes Absolute Auto 700 /uL (1100-4500); Lymphocytes Percent Auto 5.7 % (25-40); Mean Corpuscular HGB Conc 33.2 % (30-36); Mean Corpuscular Hemoglobin 29.3 PG (26-34); Mean Corpuscular Volume 88.3 fL (80-100); Monocytes Absolute Auto 600 /uL (0-900); Monocytes Percent Auto 5.1 % (3-14); Neutrophils Absolute Auto 10100 /uL (1500-7000); Neutrophils Percent Auto 83.1 % (50-75); Platelet Count 248 X10^3/uL (150-400); Red Blood Cell Count 5.19 X10^6/uL (4.5-5.9); Red Cell Distribution Width 13.7 % (11.6-14.8); White Blood Cell Count 12.2 X10^3/uL (4.5-11.0)
[2019-12-01 07:31] LABS: BUN Creatinine Ratio 12.8 (6-22); Blood Urea Nitrogen 16 mg/dL (9-20); Calcium 9.2 mg/dL (8.4-10.2); Carbon Dioxide 26 mmol/L (22-32); Chloride 102 mmol/L (98-107); Estimated Glomerular Filt Rate > 60.0 mL/min (>60); Glucose 304 mg/dL (70-100); HEMOLYSIS < 15 (0-50); Potassium 4.6 mmol/L (3.4-5.1); Sodium 135 mmol/L (137-145)
[2019-12-01] MEDS: INSULIN ASPART 100 UNIT/ML INSULN PEN SUBCUT ×4 (08:47→20:45)
[2019-12-01] MEDS: INSULIN GLARGINE 100 UNIT/ML 3ML PEN 22 UNIT SUBCUT ×2 (08:48→20:44)
--- NOTE | 2019-12-01 08:59 | P.CONS_ITS ---
History of Present Illness Consult details Date Patient Seen: 12/01/19 Time Patient Seen: 08:59 Chief complaint: feels like something exploded in stomach/sob Reason for consult: Acute cholecystitis Narrative: This is a 49 yo man with history of poorly controlled insulin dependent DM2, gout, morbid obesity (BMI 42), hypertension, acid reflux, who came into the ER overnight with acute abdominal pain. Says he began having right upper quadrant pain late at night on Monday, and it was worse on Monday morning, and so on Monday night he decided to come into the ER. In the ER he was found to have a white so blood count of 14, and a right upper quadrant ultrasound consistent with acute cholecystitis. At the time his blood sugar was 350. He was admitted to the hospitalist for management of his hyperglycemia, and antibiotics, with plan for surgery once his hyperglycemia was controlled. This morning he continued to have severe right upper quadrant pain, and his blood sugar is 300. He denies jaundice or fevers at home. He denies any previous episodes of similar symptoms. He says his blood sugar at home was usually around 170. ROS: Eyes: Denies change in vision, Denies eye discharge, Denies irritation and Denies loss of vision Ears, Nose, Mouth, and Throat: Denies change in voice, Denies dizziness, Denies neck pain, Denies sore throat and Denies throat swelling Cardiovascular: Denies chest pain, Denies irregular heart rhythm, Denies lightheadedness, Denies palpitations, Denies dyspnea, Denies dyspnea on exertion and Denies orthopnea Respiratory: Denies cough, Denies dyspnea, Denies dyspnea on exertion and Denies wheezing Gastrointestinal: Reports abdominal pain, Denies change in bowel habits, Denies diarrhea, Reports nausea and Denies vomiting Musculoskeletal: Denies neck pain and Denies numbness Skin/Breast: Denies pruritus, Denies erythema, Denies rash and Denies wounds Neurologic: Denies behavioral changes, Denies confusion, Denies dizziness, Denies frequent falls, Denies loss of vision, Denies numbness and Denies weakness Psychiatric: Denies anxiety, Denies behavioral changes, Denies confusion, Denies depression, Denies homicidal ideation and Denies suicidal ideation Endocrine: Denies fatigue, Denies flushing and Denies palpitations Hematologic/Lymphatic: Denies easy bruising Allergic/Immunologic: Denies urticaria, Denies throat swelling and Denies wheezing PE: GENERAL: Alert, in moderate distress due to pain. Morbidly obese. Appears stated age. Answers questions promptly and appropriately. Vital signs noted. HENT: Normocephalic, atraumatic. Hearing intact. EYES: Conjunctiva pink, sclera white, no periorbital swelling. CARDIOVASCULAR: Regular rate. No pedal edema. RESPIRATORY: Non-tachypneic, breathing comfortably on room air. GASTROINTESTINAL: Abdomen soft and non-distended; focal tenderness in the right upper quadrant, with tenderness in the lower abdomen as well GENITALURINARY: Right flank tenderness. MUSCULOSKELETAL: Equal tone and mass bilaterally. SKIN: Warm, dry, soft, appropriate color for ethnicity. No jaundice. No other lesions, rashes, or wounds. NEURO: Alert and Oriented X 3. No gross sensory deficits, or cognitive issues. PSYCH: Appropriate affect and mood. Meds Home Medications and Allergies Home Medications Medication Instructions Recorded Confirmed Type esomeprazole magnesium [Nexium] 20 mg PO DAILY 06/09/19 12/01/19 History insulin aspart U-100 [Novolog 6 unit SUBCUT TID 06/09/19 12/01/19 History U-100 Insulin aspart] lisinopril 5 mg PO DAILY 06/09/19 12/01/19 History metformin 1,000 mg PO BID 06/09/19 12/01/19 History naproxen 500 mg PO BID PRN 06/09/19 12/01/19 History Lantus U-100 Insulin 22 unit SUBCUT BID #0 ml 06/12/19 12/01/19 Rx Allergies Allergy/AdvReac Type Severity Reaction Status Date / Time allopurinol AdvReac Diarrhea Verified 06/11/19 08:43 Exam Vital Signs (past 8 hours): - 12/01/19 01:38 12/01/19 01:54 12/01/19 02:00 Temperature 97.4 F L Pulse Rate 119 H 109 H 100 H Respiratory Rate 22 Blood Pressure 141/93 H Pulse Oximetry 97 95 97 12/01/19 02:01 12/01/19 02:30 12/01/19 02:31 Temperature Pulse Rate 107 H 96 H 99 H Respiratory Rate Blood Pressure 139/85 123/69 Pulse Oximetry 97 97 99 12/01/19 03:00 12/01/19 03:01 12/01/19 03:30 Temperature Pulse Rate 98 H 94 H 97 H Respiratory Rate Blood Pressure 168/97 H Pulse Oximetry 94 93 92 12/01/19 03:31 12/01/19 04:19 12/01/19 08:00 Temperature 99.9 F H 97.7 F Pulse Rate 96 H 100 H 89 Respiratory Rate 18 15 Blood Pressure 173/86 H 115/87 124/79 Pulse Oximetry 93 97 97 Oxygen Delivery Method Room Air Oxygen Flow Rate 0 Objective Imaging US - abdomen: Radiologist's impression: Right upper quadrant ultrasound: Acute cholecystitis, cholelithiasis, CBD is 7.2 mm, no intrahepatic dilatation, no bile duct filling defects Labs Result Diagrams: 12/01/19 07:13 12/01/19 07:13 Labs: Laboratory Results - last 24 hr 12/01/19 12/01/19 12/01/19 01:48 01:48 01:48 WBC 14.6 H RBC 5.37 Hgb 15.6 Hct 47.4 MCV 88.2 MCH 29.1 MCHC 33.0 RDW 13.6 Plt Count 289 Neut % (Auto) 82.4 H Lymph % (Auto) 8.9 L Pendleton % (Auto) 7.3 Eos % (Auto) 0.9 L Baso % (Auto) 0.5 Neut # (Auto) 76416 H Lymph # (Auto) 1300 Pendleton # (Auto) 1100 H Eos # (Auto) 100 Baso # (Auto) 100 Sodium 134 L Potassium 4.4 Chloride 101 Carbon Dioxide 23 BUN 17 Creatinine 1.27 H Estimated GFR > 60.0 BUN/Creatinine Ratio 13.4 Glucose 335 H Lactate 1.3 Calcium 9.4 Total Bilirubin 0.9 AST 30 ALT 19 Alkaline Phosphatase 115 Total Protein 8.3 H Albumin 4.2 Globulin 4.1 Albumin/Globulin Ratio 1.0 Lipase 121 COVID-19 PCR 12/01/19 12/01/19 12/01/19 04:11 07:13 07:13 WBC 12.2 H RBC 5.19 Hgb 15.2 Hct 45.8 MCV 88.3 MCH 29.3 MCHC 33.2 RDW 13.7 Plt Count 248 Neut % (Auto) 83.1 H Lymph % (Auto) 5.7 L Pendleton % (Auto) 5.1 Eos % (Auto) 3.0 Baso % (Auto) 3.1 H Neut # (Auto) 81702 H Lymph # (Auto) 700 L Pendleton # (Auto) 600 Eos # (Auto) 400 Baso # (Auto) 400 H Sodium 135 L Potassium 4.6 Chloride 102 Carbon Dioxide 26 BUN 16 Creatinine 1.25 Estimated GFR > 60.0 BUN/Creatinine Ratio 12.8 Glucose 304 H Lactate Calcium 9.2 Total Bilirubin AST ALT Alkaline Phosphatase Total Protein Albumin Globulin Albumin/Globulin Ratio Lipase COVID-19 PCR Negative Assessment & Plan Assessment and plan (1) Acute acalculous cholecystitis: Status: Acute (2) Acute hyperglycemia: Status: Acute (3) Poorly controlled type 2 diabetes mellitus: Status: Acute (4) Morbid obesity with BMI of 40.0-44.9, adult: Status: Acute (5) Gout: Status: Chronic Assessment & Plan narrative: This is a 49-year-old man with acute cholecystitis, in the setting of poorly controlled type 2 diabetes and severe morbid obesity. Risks and benefits of laparoscopic possible open cholecystectomy have been discussed. We discussed the fact that his morbid obesity and poorly controlled diabetes increase the risk of a cardiac complication, infectious complication, prolonged hospital stay, need for additional procedures. Explained that his abdominal girth and thickness make the surgery itself more difficult, and therefore more risky. However, leaving an infected gallbladder in him in the setting of his type 2 diabetes me increase the risk of morbidity and mortality due to infection. If we can get his blood sugar control, it is reasonable to proceed with surgery. Risks and benefit of the procedure itself have been discussed including risk of bleeding, infection, damage to nearby structures, bile leak, bile duct injury, need for prolonged hospital stay, need for open herminio kaci, need for transfer to an outside hospital, postcholecystectomy syndrome, risks of anesthesia. The patient desires to proceed with surgery. 35 minutes were spent face to face with the patient. More than 50% of the time was spent in counseling and co-ordination of care regarding all of the above, including surgery plan for this morning, medical history, and need to control blood sugar prior to surgery, and all of the risks of surgery as discussed above. Plan: Blood sugar control by hospitalist Ke NPO IV fluid Laparoscopic cholecystectomy planned for 10:00 a.m. COVID-19 COVID-19 status: Negative Result date/Date tested (Pos, Neg/Pending): 12/01/19 Time Spent With Patient Time with patient: 25 - 35 minutes
[2019-12-01] MEDS: LACTATED RINGERS 1,000 ML 42 ML IV ×3 (09:55→10:54)
--- NOTE | 2019-12-01 09:55 | PC.NURSE ---
Patient resting in bed, assessment complete, CBG still elevated, 258 at 0930, Dr. Fraga ordered 4 units Novolog. Administered at 0945. PACU up to retrieve patient for Sx at 0955. Patient saline locked, patients personal watch and cellphone placed bedside. VSS 133/90, 94%, HR 90, RR 16. Lung sounds clear, abdomen soft, patient c/o tenderness RUQ.
[2019-12-01] MEDS: Non-Formulary Medication (Indocyanine 25 MG) 25 EACH IV (10:05)
--- NOTE | 2019-12-01 10:18 | SUR.HOLD ---
0976 pt brought down to OR, consented for surgery and anesthesia. Glucose and BP check; didn't have time to complete the checklist prior to him being taken into the OR.
[2019-12-01] MEDS: BUPIVACAINE 0.25% W/ EPI 30 ML VIAL INJ ×2 (10:35→12:37)
--- NOTE | 2019-12-01 12:43 | CM.DANOTE ---
DCP: Case received, EMR reviewed and checked on patient. He was sleeping this morning, and upon checking on patient again, he went down to surgery. Was able to obtain some information on patient looking at recent notes in EMR. DCP assessment completed with information that is currently available. Patient is a 49 year old male who admitted early this morning to the care of the hospitalist/surgical team. PCP: Unknown at this time, but he resides in [place], and could possibly have a provider in that area. Payer: confirmed: [facility] [employer]. Patient came to the hospital via family vehicle secondary to having severe epigastric pain. Patient has history of diabetes, as well. He has been here before, is familiar to this case packer. Patient was diagnosed with acute cholecystitis. He is currently in surgery, he is to have laparoscopic surgery done today. Attempted to meet with patient today, but he is currently in surgery. Placed name of case packer on white board in room. Patient resides in [place], and has a partner, Kathy, with same address as well. He is independent at baseline, and is employed at [employer]. Have not been able to meet with patient to inquire if he has a primary care provider in his area, but it is stated that he is diabetic, and is on medications. P: DCP to continue to follow. DCP will need to check in on patient tomorrow to see if there are any needs. Lizzy Walsh RN/Service Center Appraiser
--- NOTE | 2019-12-01 13:07 | PM.OP.1 ---
Operative Date/Time/Diagnoses Date of procedure: 12/01/19 Time of procedure: 13:08 Pre-op diagnosis: Acute cholecystitis Post-op diagnosis: other (Acute gangrenous cholecystitis with perforation of the gall bladder) Procedure & Clinicians Procedure: Laparoscopic cholecystectomy, 24981, modifier 22 Same procedure as scheduled: Yes Indications: Is a 49-year-old man who came in the hospital last night around 2:00 a.m. with about a day and a half of right upper quadrant pain. He was diagnosed with acute cholecystitis as well as morbid obesity (BMI 42), and acute on chronic hyperglycemia (blood sugar of 350), and brought to the operating room this morning after his blood sugars were controlled. Surgeon: Ramona Dai Click Yes if Unassisted: Yes Anesthesia Type: General Operative Notes Findings: Perforated, gangrenous gallbladder Specimen(s): other (Gallbladder) Estimated Blood Loss (mL): 10 Procedure in detail: The patient was brought into the operating room and placed supine on the OR table. Sequential compression devices were placed on both legs and turned on. Appropriate perioperative antibiotics were given prior to the start of surgery. General anesthesia was induced the patient was intubated. The abdomen was prepped and draped in sterile fashion. Surgical time-out was conducted. Local anesthetic was injected under the skin just superior to the umbilicus and a 5 mm vertical incision was made at this site. The umbilical stalk was grasped with a Noman and elevated. A Veress needle was passed through the fascia into proper position. The position was tested with a saline drop test which was appropriate for intra-abdominal Veress needle placement. The abdomen was then insufflated in the usual fashion. Once insufflated to 15 mm Hg the Veress needle was removed and a 5 mm optical trocar was placed under direct vision using a 5 mm 30 degree scope. Once the camera was inside the abdomen I took a look around. There was no injury from port placement. Two additional ports were placed in a similar fashion in the right upper quadrant and a 10 mm port was placed in the epigastrium. Omentum was densely adherent to the anterior border of the liver and gallbladder, entirely obscuring the gallbladder. There was bile seen in the right upper quadrant lateral to the liver. I grasped the omentum and began dissecting it away from the gallbladder. Once I was able to see the gallbladder I found that it was entirely gangrenous. After about 45 minutes of dissection, the omentum was freed from the gallbladder fundus. The gallbladder was very tense. I used a laparoscopic needle and syringe to drain the gallbladder of bile. I then grasped the gallbladder fundus and elevated it. I then continued to dissect out the gallbladder from the adhered omentum. After about half an hour of dissection, was able to see the entire gallbladder. The gallbladder hilum was socked in with dense adhesions, and the area of the cystic duct appeared foreshortened. I then elected to take the gallbladder from the top down to avoid injury to an inflamed cystic duct or injury to the common bile duct. At this point I began dissecting the gallbladder off of the liver from the fundus down. After about an hour of tedious dissection were able to reach the base of the gallbladder. There was no clear structural anatomy. The gallbladder wall was entirely gangrenous and was essentially made of slough. So it was difficult to tell any structural components. We stayed out of the hilum, and hugged the gallbladder as best we could all the way down to avoid any injury to ductal structures. As we reached the infundibulum, multiple thickened bands were clipped and divided that were going directly into the gallbladder. Some of these were likely scar tissue, lymphatics, and some of them were likely arterial branches, and cystic duct. Once the gallbladder was entirely freed, it was placed in an Endo-Catch bag and removed from the abdomen. Due to patient disease, this operation took twice the normal time. Due to increased risk, skill level, and operative time required to complete the operation safely we will include a 22 modifier in the coding for this case. I then went back and irrigated with 3 L of saline to clean up the bile which had spilled from the perforation prior to surgery, and to ensure there was no ongoing bleeding or leakage of bile. There was some oozing from the gallbladder fossa, which was controlled by electrocautery. At this point there was no active bleeding or leaking of bile from the gallbladder fossa or from the clipped structures. The epigastric port site was closed with a Alonso Cruz suture Passer using 0 Vicryl suture in the fascia. Local anesthetic was used to infiltrate the fascia and subcutaneous tissue. A 19 round Mario drain was placed to the lateral port site and secured to the skin with 3 0 nylon suture. It was positioned beneath the liver, traversing the gallbladder fossa and in the right lateral gutter next to the liver. At this point the insufflation was then removed from the abdomen and the epigastric port site was then sutured with 3 O Vicryl in the subcutaneous layers, and 4 Monocryl in the skin. The remaining port sites were closed with 4 Monocryl in the skin. Each port site was sealed with Steri-Strips, and covered with a Band-Aid. Local anesthetic was given at each of the port sites and in the fascia. This concluded the procedure. At this point the needle sponge and instrument counts were correct. The gallbladder was passed off the table for pathology. Patient was awakened from anesthesia and extubated. She was transferred to the postanesthesia care unit in stable condition. Complications: none Post-operative Condition: stable Disposition: PACU
--- NOTE | 2019-12-01 13:29 | SUR.PHASEI ---
1315 arousing spontaneously, denies pain or nausea. Abdominal sites remain CDI, belly soft. 1328 Declines ice chips, occasionally coughing, on-productive. shakes head that he is doing 'ok' and not having pain. Two silver-colored earring hoops were taped prior to going into the OR. Tape removed x2 in PACU. Glasses with patient. Report called to the floor.
--- NOTE | 2019-12-01 13:58 | SUR.PHASEI ---
[id number] Patient to room 215, bed down and locked, call light within reach. SCDs on. VSS. Phone returned to patient. Awake/drowsy, oriented, denies pain/nausea. Voiced appreciation and thanks for the care. Stable. No questions from patient or staff upon transfer. Dr. Dai spoke to thee patient prior to transfer.
[2019-12-01] MEDS: SODIUM CHLORIDE 0.9% FLUSH 10 ML IV (21:25)
[2019-12-01 22:40] LABS: RBC Urine None Seen (0-5/HPF); WBC Urine None Seen (0-5/HPF)
[2019-12-01 22:49] LABS: Appearance Urine UA CLEAR; Bilirubin Urine UA 1+ (NEGATIVE); Glucose Urine UA 2+ g/dL (Negative); Ketones Urine UA NEGATIVE (NEGATIVE); Leukocyte Esterase Urine UA NEGATIVE (NEGATIVE); Nitrite Urine UA NEGATIVE (Negative); Occult Blood Urine UA TRACE-LYSED (Negative); Protein Urine UA 1+ (Negative); Specific Gravity Urine UA 1.015 (1.000-1.035)
[2019-12-01 22:59] LABS: Color Urine UA Amber
[2019-12-01 23:00] LABS: Bacteria Urine Occasional (0-1); Granular Casts Urine 0-1/LPF; Ictotest Urine Positive (Negative)
[2019-12-01 23:01] LABS: Culture Indicated Urine Cult Not Indicated
[2019-12-01 23:18] LABS: Hemoglobin A1C% w Est Avg Glu 12.9 % (4.0-6.0)
[2019-12-02] VITALS (7 sets, daily range): BP systolic 114–135; BP diastolic 71–91; PULSE 70–79; RESP 15–19; TEMP 36.1–36.6; O2SAT 94–99
--- NOTE | 2019-12-02 00:34 | PC.NURSE ---
Addendum entered by Edna Villareal R.N. 12/02/19 06:17: States incisional pain is 5-6/10 this morning but requests only Tylenol be given. Informed if Tylenol is not effective he is able to have additional pain meds later. Addendum entered by Edna Villareal R.N. 12/02/19 03:40: 0305 CBG still elevated at 309. NIKKI Mancuso, informed and order received for additional now insulin dose and Lantus dose adjusted. Original Note: Patient seen and assessed at 2350. Is alert and oriented. Breath sounds diminished at bases; RA sat 96%. Discussed importance of CDB with splinting and repositioning to prevent postop complications; verbalizes understanding. HRR. Denies nausea. BT present but denies flatus. Lap sites with bandaid dressings are CDI. Mario drain dressing intact and drain is intact and compressed; 50cc emptied from drain. Is voiding per urinal and denies dysuria, frequency or urgency. Is able to turn himself in bed. Has not yet been up since return from surgery. Wearing bilateral calf SCD's. Denies pain. Fall risk score is moderate and bed alarm is activated.
[2019-12-02] MEDS: PIPERACILLIN-TAZO 3.375 GM/50 ML FROZ.PIGGY IV ×4 (02:41→20:32)
[2019-12-02] MEDS: INSULIN ASPART 100 UNIT/ML 10ML VIAL 10 UNIT SUBCUT (03:27)
[2019-12-02] MEDS: LACTATED RINGERS 1,000 ML 100 ML IV (04:37)
[2019-12-02] MEDS: ACETAMINOPHEN 325 MG TABLET 650 MG PO (06:15)
[2019-12-02 06:48] LABS: Add Manual Diff / Slide Review NO; Basophils Absolute Auto 0 /uL (0-100); Basophils Percent Auto 0.2 % (0-2); Eosinophils Absolute Auto 0 /uL (0-450); Eosinophils Percent Auto 0.1 % (2-4); Hematocrit 44.2 % (41-53); Hemoglobin 14.9 g/dL (13.5-17.5); Lymphocytes Absolute Auto 900 /uL (1100-4500); Lymphocytes Percent Auto 5.4 % (25-40); Mean Corpuscular HGB Conc 33.6 % (30-36); Mean Corpuscular Hemoglobin 29.8 PG (26-34); Mean Corpuscular Volume 88.6 fL (80-100); Monocytes Absolute Auto 800 /uL (0-900); Monocytes Percent Auto 5.1 % (3-14); Neutrophils Absolute Auto 14800 /uL (1500-7000); Neutrophils Percent Auto 89.2 % (50-75); Platelet Count 234 X10^3/uL (150-400); Red Blood Cell Count 4.99 X10^6/uL (4.5-5.9); Red Cell Distribution Width 13.5 % (11.6-14.8); White Blood Cell Count 16.6 X10^3/uL (4.5-11.0)
[2019-12-02 06:56] LABS: Alanine Aminotransferase 241 IU/L (<50); Albumin 3.6 g/dL (3.5-5.0); Albumin Globulin Ratio 0.9 (1.0-2.8); Alkaline Phosphatase 205 U/L (38-126); Aspartate Aminotransferase 195 IU/L (17-59); BUN Creatinine Ratio 14.4 (6-22); Bilirubin Total 1.9 mg/dL (0.2-1.3); Blood Urea Nitrogen 26 mg/dL (9-20); Calcium 8.6 mg/dL (8.4-10.2); Carbon Dioxide 23 mmol/L (22-32); Chloride 102 mmol/L (98-107); Estimated Glomerular Filt Rate 39.9 mL/min (>60); Globulin 3.9 g/dL (1.7-4.1); Glucose 322 mg/dL (70-100); HEMOLYSIS < 15 (0-50); Potassium 4.8 mmol/L (3.4-5.1); Sodium 136 mmol/L (137-145); Total Protein 7.5 g/dL (6.3-8.2)
[2019-12-02] MEDS: PANTOPRAZOLE 40 MG VIAL IV (08:19)
[2019-12-02] MEDS: INSULIN ASPART 100 UNIT/ML INSULN PEN 6 UNIT SUBCUT ×3 (08:19→18:03)
[2019-12-02] MEDS: INSULIN ASPART 100 UNIT/ML INSULN PEN SUBCUT ×4 (08:19→20:57)
[2019-12-02] MEDS: SODIUM CHLORIDE 0.9% FLUSH 10 ML IV ×2 (08:20→22:30)
[2019-12-02] MEDS: INSULIN GLARGINE 100 UNIT/ML 3ML PEN 24 UNIT SUBCUT ×2 (08:20→20:58)
--- NOTE | 2019-12-02 12:32 | PM.PNPO.1 ---
Subjective Subjective Date Patient Seen: 12/02/19 Time Patient Seen: 12:32 Interval history: No acute overnight events. Has tolerated a regular diet no nausea vomiting. Abdominal pain significantly improved from admission mostly right upper quadrant and incisional today. Exam Vital Signs (past 8 hours): - 12/02/19 08:00 Temperature 97.0 F L Pulse Rate 73 Respiratory Rate 18 Blood Pressure 133/91 H Pulse Oximetry 97 Oxygen Delivery Method Room Air Oxygen Flow Rate 0 Narrative Exam Narrative: General adult male alert oriented no acute distress Abdomen soft appropriately tender to palpation SKYLER drain with serosanguineous output nonbilious Objective Labs Result Diagrams: 12/02/19 06:15 12/02/19 06:15 Labs: Laboratory Results - last 24 hr 12/01/19 12/01/19 12/02/19 07:13 22:30 06:15 WBC 16.6 H RBC 4.99 Hgb 14.9 Hct 44.2 MCV 88.6 MCH 29.8 MCHC 33.6 RDW 13.5 Plt Count 234 Neut % (Auto) 89.2 H Lymph % (Auto) 5.4 L Archer % (Auto) 5.1 Eos % (Auto) 0.1 L Baso % (Auto) 0.2 Neut # (Auto) 78179 H Lymph # (Auto) 900 L Archer # (Auto) 800 Eos # (Auto) 0 Baso # (Auto) 0 Sodium Potassium Chloride Carbon Dioxide BUN Creatinine Estimated GFR BUN/Creatinine Ratio Glucose Hemoglobin A1c 12.9 H Calcium Total Bilirubin AST ALT Alkaline Phosphatase Total Protein Albumin Globulin Albumin/Globulin Ratio Urine Color Deandra Urine Appearance Clear Urine pH 5.0 Ur Specific Bassett 1.015 Urine Protein 1+ H Urine Glucose (UA) 2+ H Urine Ketones Negative Urine Occult Blood Trace-lysed Urine Nitrate Negative Urine Bilirubin 1+ H Ur Bilirubin Confirm Positive H Urine Urobilinogen 1.0 Ur Leukocyte Esterase Negative Urine RBC None seen Urine WBC None seen Urine Bacteria Occasional (0-1) Granular Casts 0-1/lpf Ur Culture Indicated? Cult not indicated 12/02/19 06:15 WBC RBC Hgb Hct MCV MCH MCHC RDW Plt Count Neut % (Auto) Lymph % (Auto) Archer % (Auto) Eos % (Auto) Baso % (Auto) Neut # (Auto) Lymph # (Auto) Archer # (Auto) Eos # (Auto) Baso # (Auto) Sodium 136 L Potassium 4.8 Chloride 102 Carbon Dioxide 23 BUN 26 H Creatinine 1.81 H Estimated GFR 39.9 L BUN/Creatinine Ratio 14.4 Glucose 322 H Hemoglobin A1c Calcium 8.6 Total Bilirubin 1.9 H AST 195 H ALT 241 H Alkaline Phosphatase 205 H D Total Protein 7.5 Albumin 3.6 Globulin 3.9 Albumin/Globulin Ratio 0.9 L Urine Color Urine Appearance Urine pH Ur Specific Bassett Urine Protein Urine Glucose (UA) Urine Ketones Urine Occult Blood Urine Nitrate Urine Bilirubin Ur Bilirubin Confirm Urine Urobilinogen Ur Leukocyte Esterase Urine RBC Urine WBC Urine Bacteria Granular Casts Ur Culture Indicated? Assessment & Plan Post-op Postoperative Procedures: Procedures Operation Date: 12/01/19 10:00 Actual Procedures Side Surgeon p Laparoscopic Cholecystectomy Ramona Dai MD Postoperative status narrative: 49-year-old male postoperative day 1 after a laparoscopic cholecystectomy for gangrenous cholecystitis. He is making an appropriate recovery. -continue Zosyn. Monitor leukocytosis -repeat LFTs tomorrow -drain to bulb suction -glycemic control -SCDs and heparin for VT prophylaxis Quality VTE Deep Vein Thrombosis/Pulmonary Embolism Present on Admission: No
--- NOTE | 2019-12-02 14:11 | CM.DPC ---
DCP Cont: Per MD, pt is stable after gallbladder surgery and will consult Surgeon further on any other recommendations. SW met bedside with pt and MD during bedside rounds and pt confirms that he has been able to eat some and feels somewhat better. Plan is to continue advancing pt's diet and ambulate with plan of home possibly tomorrow if stable. SW explained role and pt confirms he lives in [place] and works in [employer] and has supportive family and Sig Other who can provide assist at d/c if needed and preference is home when stable and pt does not anticipate any needs at d/c. Pt is active and independent at baseline and monitors his blood sugars and insulin at base. Plan: SW to follow for plan of home with supportive family when medically stable and any further identified needs. HEDY Pérez
--- NOTE | 2019-12-02 14:41 | P.PN_ITS ---
Subjective Subjective Date Patient Seen: 12/02/19 Interval history: Aron Aponte is a 49-year-old male with a past medical history significant for hypertension, GERD, gout, and diabetes mellitus type 2, insulin using, with complication of retinopathy and peripheral neuropathy who presented to the ED for right upper quadrant and epigastric pain with associated nausea and diarrhea. The patient is resting in bed comfortably. The patient reports mild abdominal pain in the right upper quadrant this morning that resolved with Tylenol. He has no other complaints and denies headache, chest pain, shortness of breath, abdominal pain, nausea, vomiting, fever, chills, dysuria, diarrhea or constipation. He is voiding and eliminating without difficulty. His last bowel movement was prior to admission and reported as diarrhea. He is up ambulating without assistance. Exam Vital Signs (past 8 hours): - 12/02/19 08:00 12/02/19 12:00 Temperature 97.0 F L 97.4 F L Pulse Rate 73 70 Respiratory Rate 18 18 Blood Pressure 133/91 H 135/82 Pulse Oximetry 97 97 Oxygen Delivery Method Room Air Oxygen Flow Rate 0 Narrative Exam Narrative: General: Middle-aged gentleman sitting in bed and in no acute distress, well- developed, well-nourished, appropriately interactive. HEENT: Normocephalic, atraumatic. External ears without defect. Pupils equal, round, and reactive to light. Anicteric sclerae, moist conjunctivae, and no lid lag. Neck: Supple with full range of motion. No lymphadenopathy or thyromegaly. Cardiovascular: Regular rate and rhythm without murmurs, rubs, or gallops appreciated. Pulmonary: Clear to auscultation bilaterally without crackles, wheezes, or rhonchi. Normal respiratory effort with no use of accessory muscles. Abdomen: Soft, obese, bowel sounds present, nontender, mild distention. Surgical wounds on abdomen with overlying bandage C/D/I without any drainage or surrounding erythema or edema. Extremities: No clubbing, cyanosis, or edema. Neurological: Cranial nerves grossly intact. Psychiatric: Normal mood and affect. Alert and oriented to person, place, and time. Objective Labs Result Diagrams: 12/02/19 06:15 12/02/19 06:15 Labs: Laboratory Results - last 24 hr 08/16/20 08/16/20 08/17/20 07:13 22:30 06:15 WBC 16.6 H RBC 4.99 Hgb 14.9 Hct 44.2 MCV 88.6 MCH 29.8 MCHC 33.6 RDW 13.5 Plt Count 234 Neut % (Auto) 89.2 H Lymph % (Auto) 5.4 L [place] % (Auto) 5.1 Eos % (Auto) 0.1 L Baso % (Auto) 0.2 Neut # (Auto) 05340 H Lymph # (Auto) 900 L [place] # (Auto) 800 Eos # (Auto) 0 Baso # (Auto) 0 Sodium Potassium Chloride Carbon Dioxide BUN Creatinine Estimated GFR BUN/Creatinine Ratio Glucose Hemoglobin A1c 12.9 H Calcium Total Bilirubin AST ALT Alkaline Phosphatase Total Protein Albumin Globulin Albumin/Globulin Ratio Urine Color [place] Urine Appearance Clear Urine pH 5.0 Ur Specific [place] 1.015 Urine Protein 1+ H Urine Glucose (UA) 2+ H Urine Ketones Negative Urine Occult Blood Trace-lysed Urine Nitrate Negative Urine Bilirubin 1+ H Ur Bilirubin Confirm Positive H Urine Urobilinogen 1.0 Ur Leukocyte Esterase Negative Urine RBC None seen Urine WBC None seen Urine Bacteria Occasional (0-1) Granular Casts 0-1/lpf Ur Culture Indicated? Cult not indicated 12/02/19 06:15 WBC RBC Hgb Hct MCV MCH MCHC RDW Plt Count Neut % (Auto) Lymph % (Auto) [place] % (Auto) Eos % (Auto) Baso % (Auto) Neut # (Auto) Lymph # (Auto) [place] # (Auto) Eos # (Auto) Baso # (Auto) Sodium 136 L Potassium 4.8 Chloride 102 Carbon Dioxide 23 BUN 26 H Creatinine 1.81 H Estimated GFR 39.9 L BUN/Creatinine Ratio 14.4 Glucose 322 H Hemoglobin A1c Calcium 8.6 Total Bilirubin 1.9 H AST 195 H ALT 241 H Alkaline Phosphatase 205 H D Total Protein 7.5 Albumin 3.6 Globulin 3.9 Albumin/Globulin Ratio 0.9 L Urine Color Urine Appearance Urine pH Ur Specific [place] Urine Protein Urine Glucose (UA) Urine Ketones Urine Occult Blood Urine Nitrate Urine Bilirubin Ur Bilirubin Confirm Urine Urobilinogen Ur Leukocyte Esterase Urine RBC Urine WBC Urine Bacteria Granular Casts Ur Culture Indicated? Assessment & Plan Assessment & Plan narrative: Aron Aponte is a 49-year-old male with a past medical history significant for hypertension, GERD, gout, and diabetes mellitus type 2, insulin using, with complication of retinopathy and peripheral neuropathy who presented to the ED for right upper quadrant and epigastric pain with associated nausea and diarrhea. 1. Acute gangrenous cholecystitis with?perforation, status post laparoscopic?cholecystectomy, present on admission. Active. -Patient presented with right upper quadrant and epigastric pain with positive Dunn sign with associated nausea and diarrhea. -Abdominal ultrasound demonstrated acute cholecystitis with no ductal dilatation with findings of mild hepatomegaly with hepatic steatosis. -Initial WBC elevated at 14.6 and procalcitonin negative at 0.06. WBC trending up now 16.6 and procalcitonin trending up now 0.38 which are likely peaking. LFTs initially normal and trended up also likely lagging. Continue to monitor WBC and procalcitonin daily. -Consulted general surgery, Dr. Callejas, who performed laparoscopic cholecystectomy. Continue pain control and postoperative management per General surgery. 2. Probable HIRAM versus CKD stage 3, present on admission. Stable. -Possibly due to acute kidney injury from hypermetabolic state from infection as above versus chronic kidney disease from diabetes and previous NSAID use. -Initial creatinine on admission 1.27 with eGFR >60 and CrCl 138. Baseline creatinine 1.2 in 01/2019. Creatinine trended up now 1.81. -Continued IV fluids until adequately hydrated then discontinued. -Avoid nephrotoxic agents.? -Continue to monitor creatinine daily.? 3. Diabetes mellitus type II, insulin-using, present on admission. Stable. -Hemoglobin A1c 12.9% indicative of poor glycemic control in which smoldering gallbladder disease/infection could be contributory. Diabetes diagnosed in 2009. Patient has complication of retinopathy and peripheral neuropathy in the form of numbness. Patient may also have underlying CKD as below. -Continue?home NovoLog 6 units three times daily with meals and Lantus increased from 20-24 units twice daily. Held metformin 1000 mg twice daily. -Continue [facility] blood glucose checks and increased from medium to high dose?correctional scale insulin for better coverage. -Continue carbohydrate consistent/heart healthy diet. -Consulted dietitian and we appreciate her time and recommendations. Recommend outpatient diabetic Education/ DSME. 4. Hypertension, chronic, present on admission. Stable. -Blood pressure elevated on admission in the setting of marked pain and?improved with pain control. -Ordered labetalol 10 mg IV every 4 hours as needed for SBP > 180 mmHg sustained for 15 min and HR> 60 bpm.? Held home lisinopril due to elevated creatinine. 5. GERD, chronic, present on admission. Stable. -Patient with?history of?gastric ulcer. -Continue Protonix 40 mg daily. 6. Gout, chronic, present on admission. Stable. -Does not represent acute gout flare. -Previously uric acid level was highly elevated at 9.3 in 05/2019 and recommend Febuxostat 40 mg daily for uric acid lowering as an outpatient (not on formulary) as patient reports GI intolerance to allopurinol. However, patient did not obtain and reiterated need for uric acid lowering medication and again will defer to PCP. VTE prophylaxis:? SCDs, chemical prophylaxis? Code status:? Full code, the patient designates his girlfriend Kathy Rivers to be his surrogate decision maker. Disposition: Patient likely discharge home in the next 1-2 days pending improvement infection and control of blood sugars. Quality VTE Deep Vein Thrombosis/Pulmonary Embolism Present on Admission: No
[2019-12-02] MEDS: SODIUM CHLORIDE 0.9% 250 ML 21 ML IV (14:48)
--- NOTE | 2019-12-02 15:49 | DIET.PN ---
Dietary Progress Note Assessment: Mr. Aponte is a 49 yo male with history of poorly controlled insulin dependent DM2, gout, morbid obesity (BMI 42), hypertension, acid reflux, who came into the ER 2 nights ago with acute abdominal pain. He was found to have a right upper quadrant ultrasound consistent with acute cholecystitis. He was admitted to the hospitalist for management of his hyperglycemia (BG of 350), and antibiotics, with plan for surgery once his hyperglycemia was controlled. He reports SSI and bg ranges between 120-170 at home. He reports usual body weight of ~500lb, but has lost a significant amount of weight since meeting a appeals assistant at [facility]. He is usually active with coaching football, but has not been active since June due to closing of fitness facilities and recent cellulitis. He recalls most recent A1c around 10. HT: 182.22cm WT: 141.9kg UBW: 227.3 kg BMI: 42.4 (morbid obese) Labs: A1c: 12.9 (12/01/19) BG: >300 Cr: 1.81 GFR: 39.9 MNA: 14 Baudilio: 22 Nutrition Diagnosis: Altered Nutrition related labs w/ morbid obesity related to endocrine dysfunction, impaired glucose metabolism, lack of previous exposure to accurate nutrition information as evidenced by pt report, dx of diabetes (elevated A1c), previous diet high in refined carbohydrates, lack of physical activity.? Interventions: 1. Discussed pathophysiology of diabetes. Reviewed pts A1c and its correlation to blood glucose numbers. Discussed recommended BG ranges. 2. Discussed importance of self-monitoring, how often, and when to check. 3. Discussed impact of nutrition/diet on blood sugar control.? ?? 4. Discussed the effect of carbohydrates/protein/fat on blood sugar control.? Stressed importance of consistent carbohydrate intake at each meal and provided instructions for recommended servings/portions of carbohydrates/protein per meal. Provided pt with educational material. 5. Reviewed carbohydrate counting and measuring carbohydrate content via serving sizes and reading nutrition labels.? Provided handouts.?? 6. Discussed the difference between simple versus complex carbohydrates and the effect of fiber on blood sugar control.? Discussed various methods to increase fiber content in diet. 7. Stressed importance of meal timing and not going >4-5 hours between meals. Encouraged adding protein to each meal to support glucose control. 8. Discussed healthy weight loss through diet and exercise to increase lean muscle mass.? Pt agreeable to walking daily. 9. Provided information material on outpatient diabetes education program and referral process. Pt appears interested as he has not received any formal diabetes education. Diet Order: CCD EER: [id number] (15-17cal/kg) weight loss/morbid obese; 142g pro (1.0) Monitoring/Evaluations: weight, PO's, labs, BG
[2019-12-02 16:42] LABS: Procalcitonin 0.06 ng/mL (<0.5)
[2019-12-02 16:42] LABS: Procalcitonin 0.38 ng/mL (<0.5)
--- NOTE | 2019-12-02 18:55 | PC.NURSE ---
Addendum entered by Claudine Anderson R.N. 12/02/19 22:13: Pt had relatively uneventful evening. HS CBG = 230, S/S of 2u nov. & 24u lantus regular dose given. HL intact/patent. Mario drain patent Call light w/in reach. bed alarm on for pt safety. Continue w/plan of care. Original Note: Pt watching TV, denies any discomfort at this time. Lungs clear, slightly dim @ bases, SpO2 98% RA Abdomen rounded, + BT CBG= 212 AC, S/S 2u coverage given w/regular dose of 6u Novolog. HL LFA intact/patent. Mario drain intact/patent. [place] light w/in reach, pt calls appropriately for needs.
[2019-12-02] MEDS: HEPARIN 5,000 UNIT/ML VIAL 5000 UNIT SUBCUT (20:33)
[2019-12-03] MEDS: PIPERACILLIN-TAZO 3.375 GM/50 ML FROZ.PIGGY IV ×4 (02:29→22:57)
[2019-12-03] MEDS: SODIUM CHLORIDE 0.9% FLUSH 10 ML IV ×2 (02:30→08:19)
[2019-12-03 03:26] VITALS: BP 130/75; PULSE 84; RESP 19; TEMP 36.2; O2SAT 96
[2019-12-03 06:21] LABS: Add Manual Diff / Slide Review NO; Basophils Absolute Auto 100 /uL (0-100); Basophils Percent Auto 0.5 % (0-2); Eosinophils Absolute Auto 200 /uL (0-450); Eosinophils Percent Auto 1.8 % (2-4); Hematocrit 42.4 % (41-53); Lymphocytes Absolute Auto 1300 /uL (1100-4500); Lymphocytes Percent Auto 10.1 % (25-40); Mean Corpuscular Hemoglobin 29.4 PG (26-34); Mean Corpuscular Volume 89.2 fL (80-100); Monocytes Absolute Auto 1000 /uL (0-900); Monocytes Percent Auto 7.5 % (3-14); Neutrophils Absolute Auto 10300 /uL (1500-7000); Neutrophils Percent Auto 80.1 % (50-75); Platelet Count 277 X10^3/uL (150-400); Red Blood Cell Count 4.76 X10^6/uL (4.5-5.9); White Blood Cell Count 12.9 X10^3/uL (4.5-11.0)
[2019-12-03 06:26] LABS: Alanine Aminotransferase 153 IU/L (<50); Albumin 3.5 g/dL (3.5-5.0); Albumin Globulin Ratio 0.9 (1.0-2.8); Alkaline Phosphatase 172 U/L (38-126); Aspartate Aminotransferase 68 IU/L (17-59); BUN Creatinine Ratio 19.1 (6-22); Bilirubin Total 0.9 mg/dL (0.2-1.3); Blood Urea Nitrogen 30 mg/dL (9-20); Calcium 8.6 mg/dL (8.4-10.2); Carbon Dioxide 22 mmol/L (22-32); Chloride 106 mmol/L (98-107); Globulin 3.7 g/dL (1.7-4.1); Glucose 213 mg/dL (70-100); HEMOLYSIS < 15 (0-50); Potassium 4.1 mmol/L (3.4-5.1); Sodium 136 mmol/L (137-145); Total Protein 7.2 g/dL (6.3-8.2)
[2019-12-03 07:10] VITALS: BP 128/87; PULSE 80; RESP 19; TEMP 36.2; O2SAT 98
[2019-12-03] MEDS: HEPARIN 5,000 UNIT/ML VIAL 5000 UNIT SUBCUT ×2 (08:13→20:38)
[2019-12-03] MEDS: DOCUSATE 100 MG CAPSULE PO (08:13)
[2019-12-03 08:14] VITALS: BP 128/87; PULSE 80
[2019-12-03] MEDS: lisinopriL 5 MG TABLET PO (08:14)
[2019-12-03] MEDS: INSULIN ASPART 100 UNIT/ML INSULN PEN 6 UNIT SUBCUT ×3 (08:15→16:48)
[2019-12-03] MEDS: INSULIN ASPART 100 UNIT/ML INSULN PEN SUBCUT ×2 (08:15→11:46)
[2019-12-03] MEDS: INSULIN GLARGINE 100 UNIT/ML 3ML PEN 24 UNIT SUBCUT (08:16)
[2019-12-03] MEDS: PANTOPRAZOLE 40 MG VIAL IV (08:39)
--- NOTE | 2019-12-03 08:48 | P.PN_ITS ---
Subjective Subjective Date Patient Seen: 12/03/19 Interval history: Aron Aponte is a 49-year-old male with a past medical history significant for hypertension, GERD, gout, and diabetes mellitus type 2, insulin using, with complication of retinopathy and peripheral neuropathy who presented to the ED for right upper quadrant and epigastric pain with associated nausea and diarrhea. The patient is resting in bed comfortably. He has no complaints overall. He had a bowel movement this morning that was diarrhea. He endorses mild subjective shortness of breath that he relates to being up walking yesterday. He denies headache, chest pain, abdominal pain, nausea, vomiting, fever, chills, dysuria, or constipation. He is voiding and eliminating without difficulty. He is up ambulating without assistance. Exam Vital Signs (past 8 hours): - 12/03/19 03:26 12/03/19 07:10 12/03/19 08:14 Temperature 97.1 F L 97.1 F L Pulse Rate 84 80 80 Respiratory Rate 19 19 Blood Pressure 130/75 128/87 128/87 Pulse Oximetry 96 98 Oxygen Delivery Method Room Air Oxygen Flow Rate 0 Narrative Exam Narrative: General: Middle-aged gentleman sitting in bed and in no acute distress, well- developed, well-nourished, appropriately interactive. HEENT: Normocephalic, atraumatic. External ears without defect. Pupils equal, round, and reactive to light. Anicteric sclerae, moist conjunctivae, and no lid lag. Neck: Supple with full range of motion. No lymphadenopathy or thyromegaly. Cardiovascular: Regular rate and rhythm without murmurs, rubs, or gallops appreciated. Pulmonary: Clear to auscultation bilaterally without crackles, wheezes, or rhonchi. Normal respiratory effort with no use of accessory muscles. Abdomen: Soft, obese, bowel sounds present, nontender, mild distention. Surgical wounds on abdomen with overlying bandage C/D/I without any drainage or surrounding erythema or edema, SKYLER drain with minimal serosanguineous drainage. Extremities: No clubbing, cyanosis, or edema. Neurological: Cranial nerves grossly intact. Psychiatric: Normal mood and affect. Alert and oriented to person, place, and time. Objective Labs Result Diagrams: 12/03/19 05:40 12/03/19 05:40 Labs: Laboratory Results - last 24 hr 12/01/19 12/02/19 12/03/19 01:48 06:15 05:40 WBC 12.9 H RBC 4.76 Hgb 14.0 Hct 42.4 MCV 89.2 MCH 29.4 MCHC 33.0 RDW 14.0 Plt Count 277 Neut % (Auto) 80.1 H Lymph % (Auto) 10.1 L [place] % (Auto) 7.5 Eos % (Auto) 1.8 L Baso % (Auto) 0.5 Neut # (Auto) 98152 H Lymph # (Auto) 1300 [place] # (Auto) 1000 H Eos # (Auto) 200 Baso # (Auto) 100 Sodium Potassium Chloride Carbon Dioxide BUN Creatinine Estimated GFR BUN/Creatinine Ratio Glucose Calcium Magnesium Total Bilirubin AST ALT Alkaline Phosphatase Total Protein Albumin Globulin Albumin/Globulin Ratio Procalcitonin 0.06 0.38 12/03/19 12/03/19 12/03/19 05:40 05:40 05:40 WBC RBC Hgb Hct MCV MCH MCHC RDW Plt Count Neut % (Auto) Lymph % (Auto) [place] % (Auto) Eos % (Auto) Baso % (Auto) Neut # (Auto) Lymph # (Auto) [place] # (Auto) Eos # (Auto) Baso # (Auto) Sodium 136 L Potassium 4.1 Chloride 106 Carbon Dioxide 22 BUN 30 H Creatinine 1.57 H Estimated GFR 47.0 L BUN/Creatinine Ratio 19.1 Glucose 213 H D Calcium 8.6 Magnesium 2.0 Total Bilirubin 0.9 AST 68 H ALT 153 H Alkaline Phosphatase 172 H Total Protein 7.2 Albumin 3.5 Globulin 3.7 Albumin/Globulin Ratio 0.9 L Procalcitonin 0.20 Assessment & Plan Assessment & Plan narrative: Aron Aponte is a 49-year-old male with a past medical history significant for hypertension, GERD, gout, and diabetes mellitus type 2, insulin using, with complication of retinopathy and peripheral neuropathy who presented to the ED for right upper quadrant and epigastric pain with associated nausea and diarrhea. 1. Acute gangrenous cholecystitis with perforation, status post laparoscopic cholecystectomy, present on admission. Active. -Patient presented with right upper quadrant and epigastric pain with positive Dunn sign with associated nausea and diarrhea. -Abdominal ultrasound demonstrated acute cholecystitis with no ductal dilatation with findings of mild hepatomegaly with hepatic steatosis. -Initial WBC elevated at 14.6 and procalcitonin negative at 0.06. WBC peaked at 16.6 and now trending down to 12.9. LFTs mildly elevated and trending down. Continue to monitor WBC and procalcitonin daily. -Continue Zosyn 3.375 g every 6 hours. -Consulted general surgery, Dr. Callejas, who performed laparoscopic cholecystectomy. Continue pain control and postoperative management per General surgery. 2. Probable HIRAM versus CKD stage 2, present on admission. Stable. -Possibly due to acute kidney injury from hypermetabolic state from infection as above versus chronic kidney disease from diabetes and previous NSAID use. -Initial creatinine on admission 1.27 with eGFR >60 and CrCl 138. Baseline creat inine 1.2 in 01/2019. Creatinine trended up to 1.81 and now trending down 1.57. -Continued IV fluids until adequately hydrated then discontinued. -Avoid nephrotoxic agents. -Continue to monitor creatinine daily. 3. Diabetes mellitus type II, insulin-using, present on admission. Stable. -Hemoglobin A1c 12.9% indicative of poor glycemic control in which smoldering gallbladder disease/infection could be contributory. Diabetes diagnosed in 2009. Patient has complication of retinopathy and peripheral neuropathy in the form of numbness. Patient may also have underlying CKD as below. -Continue home NovoLog 6 units three times daily with meals and Lantus increased from 22 to 24 units twice daily. Held metformin 1000 mg twice daily. -Continue [facility] blood glucose checks and increased from medium to high dose correctional scale insulin for better coverage. -Continue carbohydrate consistent/heart healthy diet. -Consulted dietitian and we appreciate her time and recommendations. Recommend outpatient Diabetic Education/ DSME. 4. Hypertension, chronic, present on admission. Stable. -Blood pressure elevated on admission in the setting of marked pain and improved with pain control. -Ordered labetalol 10 mg IV every 4 hours as needed for SBP > 180 mmHg sustained for 15 min and HR> 60 bpm. Held home lisinopril due to elevated creatinine. 5. GERD, chronic, present on admission. Stable. -Patient with history of gastric ulcer. -Continue Protonix 40 mg daily. 6. Gout, chronic, present on admission. Stable. -Does not represent acute gout flare. -Previously uric acid level was highly elevated at 9.3 in 05/2019 and recommend Febuxostat 40 mg daily for uric acid lowering as an outpatient (not on formulary) as patient reports GI intolerance to allopurinol. However, patient did not obtain and reiterated need for uric acid lowering medication and again will defer to PCP. VTE prophylaxis: SQ heparin, SCDs Code status: Full code, the patient designates his girlfriend Kathy Rivers to be his surrogate decision maker. Disposition: Patient likely discharge home tomorrow pending improvement infection and control of blood sugars. Quality VTE Deep Vein Thrombosis/Pulmonary Embolism Present on Admission: No
--- NOTE | 2019-12-03 08:49 | PM.PN.1 ---
Subjective Subjective Date Patient Seen: 12/03/19 Time Patient Seen: 10:24 Interval history: No acute events overnight. Patient is ambulating and tolerating p.o.. Denies nausea. Says he feels much better. Exam Vital Signs (past 8 hours): - 12/03/19 03:26 12/03/19 07:10 12/03/19 08:14 Temperature 97.1 F L 97.1 F L Pulse Rate 84 80 80 Respiratory Rate 19 19 Blood Pressure 130/75 128/87 128/87 Pulse Oximetry 96 98 Oxygen Delivery Method Room Air Oxygen Flow Rate 0 Narrative Exam Narrative: GENERAL: Alert, comfortable, morbidly obese. Appears stated age. Answers questions promptly and appropriately. Vital signs noted. HENT: Normocephalic, atraumatic. Hearing intact. EYES: Conjunctiva pink, sclera white, no periorbital swelling. CARDIOVASCULAR: Regular rate. No pedal edema. RESPIRATORY: Non-tachypneic, breathing comfortably on room air. GASTROINTESTINAL: Abdomen soft and non-distended, appropriate tenderness to palpation, incisions clean dry and intact, SKYLER drain with serosanguineous output GENITALURINARY: No flank tenderness. MUSCULOSKELETAL: Equal tone and mass bilaterally. SKIN: Warm, dry, soft, appropriate color for ethnicity. No other lesions, rashes, or wounds. NEURO: Alert and Oriented X 3. No gross sensory deficits, or cognitive issues. PSYCH: Appropriate affect and mood. Objective Labs Result Diagrams: 12/03/19 05:40 12/03/19 05:40 Labs: Laboratory Results - last 24 hr 12/01/19 12/02/19 12/03/19 01:48 06:15 05:40 WBC 12.9 H RBC 4.76 Hgb 14.0 Hct 42.4 MCV 89.2 MCH 29.4 MCHC 33.0 RDW 14.0 Plt Count 277 Neut % (Auto) 80.1 H Lymph % (Auto) 10.1 L [place] % (Auto) 7.5 Eos % (Auto) 1.8 L Baso % (Auto) 0.5 Neut # (Auto) 21245 H Lymph # (Auto) 1300 [place] # (Auto) 1000 H Eos # (Auto) 200 Baso # (Auto) 100 Sodium Potassium Chloride Carbon Dioxide BUN Creatinine Estimated GFR BUN/Creatinine Ratio Glucose Calcium Magnesium Total Bilirubin AST ALT Alkaline Phosphatase Total Protein Albumin Globulin Albumin/Globulin Ratio Procalcitonin 0.06 0.38 12/03/19 12/03/19 12/03/19 05:40 05:40 05:40 WBC RBC Hgb Hct MCV MCH MCHC RDW Plt Count Neut % (Auto) Lymph % (Auto) [place] % (Auto) Eos % (Auto) Baso % (Auto) Neut # (Auto) Lymph # (Auto) [place] # (Auto) Eos # (Auto) Baso # (Auto) Sodium 136 L Potassium 4.1 Chloride 106 Carbon Dioxide 22 BUN 30 H Creatinine 1.57 H Estimated GFR 47.0 L BUN/Creatinine Ratio 19.1 Glucose 213 H D Calcium 8.6 Magnesium 2.0 Total Bilirubin 0.9 AST 68 H ALT 153 H Alkaline Phosphatase 172 H Total Protein 7.2 Albumin 3.5 Globulin 3.7 Albumin/Globulin Ratio 0.9 L Procalcitonin 0.20 Assessment & Plan Assessment and plan (1) Morbid obesity with BMI of 40.0-44.9, adult: Status: Acute (2) Poorly controlled type 2 diabetes mellitus: Status: Acute (3) Gangrenous cholecystitis: Status: Acute (4) Status post laparoscopic cholecystectomy: Status: Acute (5) CKD (chronic kidney disease): Status: Acute Assessment & Plan narrative: This is a 49-year-old man with severe morbid obesity and uncontrolled type 2 diabetes who is postop day 2 from laparoscopic cholecystectomy for a gangrenous perforated gallbladder. His white count is still abnormal, and his blood sugars still in the 200s. I am concerned that sending him home he has high risk for sepsis, increasing his postoperative morbidity mortality beyond acceptable levels. I would like to see his white blood cell count come down to normal, and his blood sugar better controlled prior to discharge. I have explained this to the patient and discussed it with the hospitalist. Plan: Continue IV antibiotic Diabetic diet Blood sugar control per hospitalist Ambulate t.i.d. Drain teaching Dispo planning once white count is normal, and blood sugars are better controlled, potentially tomorrow COVID-19 COVID-19 status: Negative Result date/Date tested (Pos, Neg/Pending): 12/01/19 Time Spent With Patient Time with patient: 15-24 minutes Quality VTE Deep Vein Thrombosis/Pulmonary Embolism Present on Admission: No
--- NOTE | 2019-12-03 10:17 | CM.DPC ---
Discharge Planning/Care Management CM Discharge Assessment Start: 12/01/19 12:42 Freq: Status: Active Protocol: Document 12/01/19 12:42 (Rec: 12/01/19 12:49 [id number]) Discharge Planning Assessment Advance Directives? No Advance Directives on File No History Provided By Patient,Medical Record Prior Living Arrangements Apartment/Condo Household Members friend(s) Type of transporation used prior to Drives own vehicle admit Willing to Return to Facility? No Caregiver for Another No Barriers to Discharge No Discharge Plan Home Transportation Arrangement Friends or significant other Whiteboard Updated in Patient Room with Yes name and ext. # of Cotton Agent Review Status In Process Next Review Type Continued Stay Review 12/01/19 12:43 CM Disch. Assessment Note by Lizzy Walsh DCP: Case received, EMR reviewed and checked on patient. He was sleeping this morning, and upon checking on patient again, he went down to surgery. Was able to obtain some information on patient looking at recent notes in EMR. DCP assessment completed with information that is currently available. Patient is a 49 year old male who admitted early this morning to the care of the hospitalist/surgical team. PCP: Unknown at this time, but he resides in [place], and could possibly have a provider in that area. Payer: confirmed: [facility] [employer]. Patient came to the hospital via family vehicle secondary to having severe epigastric pain. Patient has history of diabetes, as well. He has been here before, is familiar to this case work aide. Patient was diagnosed with acute cholecystitis. He is currently in surgery, he is to have laparoscopic surgery done today. Attempted to meet with patient today, but he is currently in surgery. Placed name of case work aide on white board in room. Patient resides in [place], and has a partner, Kathy, with same address as well. He is independent at baseline, and is employed at [employer]. Have not been able to meet with patient to inquire if he has a primary care provider in his area, but it is stated that he is diabetic, and is on medications. P: DCP to continue to follow. DCP will need to check in on patient tomorrow to see if there are any needs. Lizzy Walsh RN/Retail Clerk Initialized on 12/01/19 12:43 - END OF NOTE
--- NOTE | 2019-12-03 10:17 | CM.DPC ---
DCP: continued: case received and met with pt during Team Bedside Rounds. PCP: pt confirms that he goes to the [facility] in [place] and has for some time. He has just been assigned to a new provider there: Dr. Alba (he says is not sure of full name. He has the contact information at home) He has also followed with a natural resources manager at the clinic. Pt has been up mobilizing in halls. Dr. Cook and Dr. Dai are anticipating that pt will likely be ready for d/c by tomorrow. His girlfriend Kathy will be picking him up at d/c. P: no d/c concerns are noted at this time. Home when stable for same.
[2019-12-03 11:35] VITALS: BP 119/81; PULSE 82; RESP 18; TEMP 36.2; O2SAT 97
--- NOTE | 2019-12-03 14:48 | PC.NURSE ---
Addendum entered by Zayra Arzate R.N. 12/03/19 15:18: 30 ml serous sanguinous drainage. Original Note: Day shift note: Patient instructed in drain management as ordered. BM this shift.
[2019-12-03 15:58] VITALS: BP 129/85; PULSE 80; RESP 16; TEMP 36.3; O2SAT 97
[2019-12-03 19:50] VITALS: BP 142/96; PULSE 92; RESP 17; TEMP 36.7; O2SAT 97
[2019-12-03] MEDS: INSULIN GLARGINE 100 UNIT/ML 3ML PEN 26 UNIT SUBCUT (20:38)
[2019-12-03] MEDS: OXYCODONE IR 5 MG TABLET PO (20:46)
[2019-12-04 00:19] VITALS: BP 141/84; PULSE 91; RESP 18; TEMP 36.7; O2SAT 94
[2019-12-04] MEDS: OXYCODONE IR 5 MG TABLET PO (00:49)
[2019-12-04] MEDS: SODIUM CHLORIDE 0.9% 250 ML 21 ML IV (02:53)
[2019-12-04 04:00] VITALS: BP 122/76; PULSE 98; RESP 18; TEMP 36.4; O2SAT 96
[2019-12-04] MEDS: PIPERACILLIN-TAZO 3.375 GM/50 ML FROZ.PIGGY IV ×2 (04:25→12:09)
[2019-12-04] MEDS: SODIUM CHLORIDE 0.9% FLUSH 10 ML IV ×2 (05:38→12:10)
[2019-12-04 06:04] LABS: Add Manual Diff / Slide Review NO; Basophils Absolute Auto 100 /uL (0-100); Basophils Percent Auto 0.8 % (0-2); Eosinophils Absolute Auto 300 /uL (0-450); Eosinophils Percent Auto 2.8 % (2-4); Hematocrit 42.6 % (41-53); Hemoglobin 14.2 g/dL (13.5-17.5); Lymphocytes Absolute Auto 1300 /uL (1100-4500); Lymphocytes Percent Auto 11.2 % (25-40); Mean Corpuscular HGB Conc 33.3 % (30-36); Mean Corpuscular Hemoglobin 29.6 PG (26-34); Mean Corpuscular Volume 88.7 fL (80-100); Monocytes Absolute Auto 1000 /uL (0-900); Monocytes Percent Auto 9.2 % (3-14); Neutrophils Absolute Auto 8600 /uL (1500-7000); Platelet Count 318 X10^3/uL (150-400); Red Cell Distribution Width 13.7 % (11.6-14.8); White Blood Cell Count 11.4 X10^3/uL (4.5-11.0)
[2019-12-04 06:13] LABS: Alanine Aminotransferase 95 IU/L (<50); Albumin 3.3 g/dL (3.5-5.0); Albumin Globulin Ratio 0.9 (1.0-2.8); Alkaline Phosphatase 158 U/L (38-126); Aspartate Aminotransferase 39 IU/L (17-59); BUN Creatinine Ratio 15.7 (6-22); Bilirubin Total 0.7 mg/dL (0.2-1.3); Blood Urea Nitrogen 24 mg/dL (9-20); Calcium 8.5 mg/dL (8.4-10.2); Carbon Dioxide 23 mmol/L (22-32); Chloride 107 mmol/L (98-107); Estimated Glomerular Filt Rate 48.4 mL/min (>60); Globulin 3.7 g/dL (1.7-4.1); Glucose 195 mg/dL (70-100); HEMOLYSIS < 15 (0-50); Potassium 4.2 mmol/L (3.4-5.1); Sodium 137 mmol/L (137-145)
--- NOTE | 2019-12-04 07:27 | PM.PN.1 ---
Subjective Subjective Date Patient Seen: 12/04/19 Time Patient Seen: 07:27 Interval history: No acute events overnight. Pt says he feels better. Denies nausea. Is passing gas and stool. Exam Vital Signs (past 8 hours): - 12/04/19 00:19 12/04/19 04:00 Temperature 98.0 F 97.6 F Pulse Rate 91 H 98 H Respiratory Rate 18 18 Blood Pressure 141/84 H 122/76 Pulse Oximetry 94 96 Oxygen Delivery Method Room Air Oxygen Flow Rate 0 Narrative Exam Narrative: GENERAL: Alert, comfortable, morbidly obese. Appears stated age. Answers questions promptly and appropriately. Vital signs noted. HENT: Normocephalic, atraumatic. Hearing intact. EYES: Conjunctiva pink, sclera white, no periorbital swelling. CARDIOVASCULAR: Regular rate. No pedal edema. RESPIRATORY: Non-tachypneic, breathing comfortably on room air. GASTROINTESTINAL: Abdomen soft and non-distended, appropriate tenderness to palpation, incisions clean dry and intact, SKYLER drain with serosanguineous output GENITALURINARY: No flank tenderness. MUSCULOSKELETAL: Equal tone and mass bilaterally. SKIN: Warm, dry, soft, appropriate color for ethnicity. No other lesions, rashes, or wounds. NEURO: Alert and Oriented X 3. No gross sensory deficits, or cognitive issues. PSYCH: Appropriate affect and mood. Objective Labs Result Diagrams: 12/04/19 05:40 12/04/19 05:40 Labs: Laboratory Results - last 24 hr 12/04/19 12/04/19 05:40 05:40 WBC 11.4 H RBC 4.80 Hgb 14.2 Hct 42.6 MCV 88.7 MCH 29.6 MCHC 33.3 RDW 13.7 Plt Count 318 Neut % (Auto) 76.0 H Lymph % (Auto) 11.2 L [place] % (Auto) 9.2 Eos % (Auto) 2.8 Baso % (Auto) 0.8 Neut # (Auto) 8600 H Lymph # (Auto) 1300 [place] # (Auto) 1000 H Eos # (Auto) 300 Baso # (Auto) 100 Sodium 137 Potassium 4.2 Chloride 107 Carbon Dioxide 23 BUN 24 H Creatinine 1.53 H Estimated GFR 48.4 L BUN/Creatinine Ratio 15.7 Glucose 195 H Calcium 8.5 Total Bilirubin 0.7 AST 39 ALT 95 H Alkaline Phosphatase 158 H Total Protein 7.0 Albumin 3.3 L Globulin 3.7 Albumin/Globulin Ratio 0.9 L Assessment & Plan Assessment and plan (1) Morbid obesity with BMI of 40.0-44.9, adult: Status: Acute (2) Poorly controlled type 2 diabetes mellitus: Status: Acute (3) Gangrenous cholecystitis: Status: Acute (4) Status post laparoscopic cholecystectomy: Status: Acute (5) CKD (chronic kidney disease): Status: Acute Assessment & Plan narrative: This is a 49-year-old man with severe morbid obesity and uncontrolled type 2 diabetes who is postop day 3 from laparoscopic cholecystectomy for a gangrenous perforated gallbladder. His white count is down appropriately, and his blood sugars are better, although still abnormal. His creatinine is still abnormal at 1.53, consistent with his CKD history. I feel that he is improved enough to go home without antibiotics, but with close follow up. If he goes home today he should see me in the office tomorrow with labs tomorrow as well. I have discussed this with the patient and his nurse as well as the hospitalist. Hospitalist will see him later this AM and decide on DC today or not. If he does not go home today, I will see him here tomorrow AM. Plan: PO pain med and stool softener Rx sent to pt's pharmacy No abx for home Follow up appointment to be seen tomorrow and with labs if he goes home today Continue IV antibiotic until discharge Diabetic diet Blood sugar control per hospitalist Ambulate t.i.d. Drain teaching DC home once hospital approves me medically COVID-19 COVID-19 status: Negative Result date/Date tested (Pos, Neg/Pending): 12/01/19 Time Spent With Patient Time with patient: 25 - 35 minutes Quality VTE Deep Vein Thrombosis/Pulmonary Embolism Present on Admission: No
[2019-12-04 08:00] VITALS: BP 134/80; PULSE 97; RESP 18; TEMP 36.7; O2SAT 95
--- NOTE | 2019-12-04 08:06 | P.DS_ITS ---
History of Present Illness History of Present Illness Date Patient Seen: 12/04/19 Chief complaint: feels like something exploded in stomach/sob Narrative: Written by Caleb JORDAN: Mr. Aron Aponte is a 49-year-old male with history of type 2 diabetes, insulin dependent with neuropathy, hypertension, gastroesophageal reflux disorder with history of ulcer and fibromyalgia who presents to the ER with right upper quadrant pain radiating to the back. The patient states his pain started abruptly after eating toast drinking tea for lunch. The patient describes the pain as right upper quadrant and epigastric area as an intense sharp pain that radiates to the back. The pain is worsened by deep inspiration coating the feeling of shortness of breath. The patient states he has not taken his diabetic medications this morning because he had not been feeling well and missed it. He further states that he has had loose stools over the last 3 days with associated nausea but no vomiting. Patient denies complaints of fevers or chills or recent COVID-19 exposures. He reports no headaches or dizziness, nasal congestion or sore throat. He denies complaints of chest pain or palpitations, shortness of breath cough or wheezing. He has abdominal pain and diarrhea as above. She reports no urinary symptoms. Upon arrival to the ER the patient is afebrile a temperature 97.4?, heart rate of 119, blood pressure 141/93, respirations 22 saturating 97% on room air. An ultrasound of the abdomen is obtained finding multiple tiny gallstones and sludge within the gallbladder lumen with portions of gallbladder wall thickening, positive sonographic Dunn sign consistent with acute cholecystitis,no ductal dilatation with common duct at 7.2 mm in diameter and finding mild hepatomegaly with hepatic steatosis. On laboratory analysis the patient has elevated white count at 14.6 with elevated neutrophils at 82.4%, hemoglobin of 15.6, hematocrit of 47.4 and platelets of 289. His sodium 134, potassium 4.4. His BUN is 17 and creatinine is 1.27. His nonfasting glucose is 335. His total bilirubin is 0.9 with an AST of 30, ALT of 19 and alkaline phos phatase of 115. His lipase is 121 and albumin is 4.2. Lactic acid is 1.3. Dr. Callejas is contacted by the ER and increase to consult. While in the ER the patient receives 2 doses of Dilaudid 0.5 mg, 8 units of regular insulin IV x1, 1 L of lactated Ringer's IV bolus and Zosyn 3.375 g IV. The patient is admitted to medicine service for acute cholecystitis. Discharge Providers Provider Date of admission: 12/01/19 03:39 Discharge Date: 12/04/19 Consults: 12/01/19 03:46 Consult to Dietitian, Adult Routine Comment: Reason For Exam: Morbid obesity Consult to Discharge Planning Routine Comment: Consult to General Surgery Routine Comment: Consulting Provider: Ramona Dai Reason for consultation: Acute cholecystitis Has provider been notified: Yes Discharge provider: Katie Cook DO Summary Hospital Course Discharge Diagnosis: 1. Acute gangrenous cholecystitis with perforation, status post laparoscopic cholecystectomy, present on admission. Resolved. 2. Probable HIRAM versus CKD stage 2, present on admission. Stable. 3. Diabetes mellitus type II, insulin-using, present on admission. Stable. 4. Hypertension, chronic, present on admission. Stable. 5. GERD, chronic, present on admission. Stable. 6. Gout, chronic, present on admission. Stable. Hospital Course: Aron Aponte is a 49-year-old male with a past medical history significant for hypertension, GERD, gout, and diabetes mellitus type 2, insulin using, with complication of retinopathy and peripheral neuropathy who presented to the ED for right upper quadrant and epigastric pain with associated nausea and diarrhea. 1. Acute gangrenous cholecystitis with perforation, status post laparoscopic cholecystectomy, present on admission. Resolved. -Patient presented with right upper quadrant and epigastric pain with positive Dunn sign with associated nausea and diarrhea. -Abdominal ultrasound demonstrated acute cholecystitis with no ductal dilatation with findings of mild hepatomegaly with hepatic steatosis. -Initial WBC elevated at 14.6 and procalcitonin negative at 0.06. WBC peaked at 16.6 and now trending down to 12.9. LFTs mildly elevated and trending down. Continued to monitor WBC and procalcitonin daily. -Continued Zosyn 3.375 g every 6 hours until discharge per surgery. -Consulted general surgery, Dr. Callejas, who performed laparoscopic cholecystectomy. Continued pain control and postoperative management per General surgery. Plan for outpatient follow-up with general surgery, Dr. Callejas, tomorrow 12/05/2019 with labs. 2. Probable HIRAM versus CKD stage 2, present on admission. Stable. -Possibly due to acute kidney injury from hypermetabolic state from infection as above versus chronic kidney disease from diabetes and previous NSAID use. -Initial creatinine on admission 1.27 with eGFR >60 and CrCl 138. Baseline creatinine 1.2 in 01/2019. Creatinine trended up to 1.81 and now trending down 1.53. -Continued IV fluids until adequately hydrated then discontinued. -Avoided nephrotoxic agents. -Continued to monitor creatinine daily. Plan for repeat labs and follow-up with general surgery as above and continue to monitor kidney function per primary care physician. 3. Diabetes mellitus type II, insulin-using, present on admission. Stable. -Hemoglobin A1c 12.9% indicative of poor glycemic control in which smoldering gallbladder disease/infection could be contributory. Diabetes diagnosed in 2009. Patient has complication of retinopathy and peripheral neuropathy in the form of numbness. Patient may also have underlying CKD as below. -Continued home NovoLog 6 units three times daily with meals and Lantus increased from 22 to 26 units twice daily for better glycemic control. Held metformin 1000 mg twice daily until time of discharge. -Continued [facility] blood glucose checks and high dose correctional scale insulin for better coverage. -Continued carbohydrate consistent/heart healthy diet. -Consulted dietitian and we appreciate her time and recommendations. Recommend continued outpatient dietitian and Diabetic Education/ DSME. 4. Hypertension, chronic, present on admission. Stable. -Blood pressure elevated on admission in the setting of marked pain and improved with pain control. -Ordered labetalol 10 mg IV every 4 hours as needed for SBP > 180 mmHg sustained for 15 min and HR> 60 bpm. Held home lisinopril due to elevated creatinine which was resolving and resumed at time of discharge. 5. GERD, chronic, present on admission. Stable. -Patient with history of gastric ulcer. -Continued Protonix 40 mg daily. 6. Gout, chronic, present on admission. Stable. -Does not represent acute gout flare. -Previously uric acid level was highly elevated at 9.3 in 05/2019 and recommend Febuxostat 40 mg daily for uric acid lowering as an outpatient (not on formulary) as patient reports GI intolerance to allopurinol. However, patient did not obtain and reiterated need for uric acid lowering medication and continued monitoring of uric acid levels per PCP. Exam Vital Signs (past 8 hours): - 12/04/19 00:19 12/04/19 04:00 Temperature 98.0 F 97.6 F Pulse Rate 91 H 98 H Respiratory Rate 18 18 Blood Pressure 141/84 H 122/76 Pulse Oximetry 94 96 Oxygen Delivery Method Room Air Oxygen Flow Rate 0 Narrative Exam Narrative: General: Middle-aged gentleman sitting in bed and in no acute distress, well- developed, well-nourished, appropriately interactive. HEENT: Normocephalic, atraumatic. External ears without defect. Pupils equal, round, and reactive to light. Anicteric sclerae, moist conjunctivae, and no lid lag. Neck: Supple with full range of motion. No lymphadenopathy or thyromegaly. Cardiovascular: Regular rate and rhythm without murmurs, rubs, or gallops appreciated. Pulmonary: Clear to auscultation bilaterally without crackles, wheezes, or rhonchi. Normal respiratory effort with no use of accessory muscles. Abdomen: Soft, obese, bowel sounds present, nontender, mild distention. Surgical wounds on abdomen with overlying bandage C/D/I without any drainage or surrounding erythema or edema, SKYLER drain with minimal serosanguineous drainage. Extremities: No clubbing, cyanosis, or edema. Neurological: Cranial nerves grossly intact. Psychiatric: Normal mood and affect. Alert and oriented to person, place, and time. Objective Labs Result Diagrams: 12/04/19 05:40 12/04/19 05:40 Labs: Laboratory Results - last 24 hr 12/04/19 12/04/19 05:40 05:40 WBC 11.4 H RBC 4.80 Hgb 14.2 Hct 42.6 MCV 88.7 MCH 29.6 MCHC 33.3 RDW 13.7 Plt Count 318 Neut % (Auto) 76.0 H Lymph % (Auto) 11.2 L [place] % (Auto) 9.2 Eos % (Auto) 2.8 Baso % (Auto) 0.8 Neut # (Auto) 8600 H Lymph # (Auto) 1300 [place] # (Auto) 1000 H Eos # (Auto) 300 Baso # (Auto) 100 Sodium 137 Potassium 4.2 Chloride 107 Carbon Dioxide 23 BUN 24 H Creatinine 1.53 H Estimated GFR 48.4 L BUN/Creatinine Ratio 15.7 Glucose 195 H Calcium 8.5 Total Bilirubin 0.7 AST 39 ALT 95 H Alkaline Phosphatase 158 H Total Protein 7.0 Albumin 3.3 L Globulin 3.7 Albumin/Globulin Ratio 0.9 L Discharge Plan Discharge Plan Patient Disposition: Home Discharge comment: You will be prescribed a narcotic pain medication. You may also use Tylenol/ Acetaminophen for pain after surgery. You may take it along with or instead of your prescribed pain medication. Make sure you do not take more than 3000 mg of Acetaminophen per day for many source. There may be Acetaminophen in cold medications or headache remedies. Make sure to take the stool softener to prevent constipation from the narcotic pain medication. If you are not able have a bowel movement 24 hours after surgery, or you feel constipated please take an additional laxative such as MiraLax or Senna. Avoid any straining on the toilet. Avoid heavy lifting, pulling, or pushing more than 10 lbs or doing other activities that strain the abdomen or increase the abdominal pressure such as sit-ups, core work outs, and attempt to prevent frequent coughing. If you have fevers, jaundice, intractable nausea/vomiting, or intractable pain please call the [facility] office or if symptoms are severe come into the ER. If you call after hours please choose the option to contact the surgeon lead recreation assistant rather than leaving a message. If you are sent home with a drain, you will need to record the output amount. The drain fluid should be clear and blood tinged. Please call the surgeon's office if the drain output becomes green or more bloody. Please call the [facility] office to make a follow up appointment to be seen tomorrow, 12/04, with labs drawn before your visit. Your Lantus has been increased from 22 to 26 units twice daily. Please continue lifestyle modification including diet and exercise and Diabetic Education. Discharge orders & Medications Prescriptions: New oxycodone 5 mg tablet 5 mg PO Q4-6H PRN (Reason: post operative pain) Qty: 30 RF: 0 docusate sodium 100 mg capsule 100 mg PO BID Qty: 20 RF: 0 Continued metformin 1,000 mg Tablet 1,000 mg PO BID RF: 0 lisinopril 5 mg Tablet 5 mg PO DAILY RF: 0 esomeprazole magnesium [Nexium] 20 mg Capsule,Delayed Release(Dr/Ec) 20 mg PO DAILY RF: 0 naproxen 500 mg tablet 500 mg PO BID PRN (Reason: Pain (Scale Score 1-3)) RF: 0 insulin aspart U-100 [Novolog U-100 Insulin aspart] 100 unit/mL Solution 6 unit SUBCUT TID RF: 0 Changed Lantus U-100 Insulin 100 unit/mL Solution 26 unit SUBCUT BID Qty: 0 RF: 0 Other Ambulatory Orders: Complete Blood Count AUTO DIFF (Stat) Timeframe: 20191205 Facility: [facility] - Location: Laboratory Ordered By: Ramona Dai Comprehensive Metabolic Panel (Stat) Timeframe: 20191205 Facility: [facility] - Location: Laboratory Ordered By: Ramona Dai Follow up/Referrals: Ramona Dai MD [Physician] - 12/05/19 2:30 pm (appt:12/04 @ 2:45 w/dr dai @ [facility] check in 15 minutes prior to your appointment also please have labs drawn prior to appointment ) Diet/Activity/Treatments Diet: Diet as Tolerated Skin/Wound/Dressing Care Report to your healthcare provider any signs of infection, such as:: chills, fever, night sweats, increased pain, unusual drainage and unusual redness Visit Report/Discharge Packet Instructions: DI for Bhargav-Stout Drains, DI for Laparoscopic Cholecystectomy, [facility]: Wound Care Stand Alone Forms: Surgery Discharge Visit Report Forms: Patient Portal/API, Stroke Signs & Symptoms Discharges patient from system. Discharge Date/Time: 12/04/19 13:30 Quality VTE Deep Vein Thrombosis/Pulmonary Embolism Present on Admission: No
[2019-12-04] MEDS: HEPARIN 5,000 UNIT/ML VIAL 5000 UNIT SUBCUT (08:34)
[2019-12-04] MEDS: lisinopriL 5 MG TABLET PO (08:34)
[2019-12-04] MEDS: PANTOPRAZOLE 40 MG VIAL IV (08:34)
[2019-12-04] MEDS: INSULIN ASPART 100 UNIT/ML INSULN PEN SUBCUT ×2 (08:35→12:07)
[2019-12-04] MEDS: INSULIN ASPART 100 UNIT/ML INSULN PEN 6 UNIT SUBCUT ×2 (08:36→12:07)
[2019-12-04] MEDS: INSULIN GLARGINE 100 UNIT/ML 3ML PEN 26 UNIT SUBCUT (08:36)
--- NOTE | 2019-12-04 10:22 | PC.NURSE ---
Patient is doing well this morning, his blood sugar was 171 and insulin given. Patient denies pain. 3 small incisions wnl and Mario drain is putting out milky colored drainage. He will be going home with his drain later today. Denies pain, ate [place] and toast at breakfast. Resting comfortably.
[2019-12-04 11:53] VITALS: BP 111/71; PULSE 96; RESP 18; TEMP 36.9; O2SAT 96
== END 2019-12-04 13:30 | disposition home or self-care (01) | DRG 263 ==
LOC: ED 03:00 → AC 08:58
PROVIDERS: Internal Medicine; Surgery; Admitting Provider Nurse Practitioner Adult Health; Emergency Provider Emergency Medicine; Referring Provider Emergency Medicine; Visit Provider Nurse Practitioner Adult Health
PROC: 0FT44ZZ Resection of Gallbladder, Percutaneous Endoscopic Approach (ICD-10-PCS; CPT 47562; principal; 2019-12-01 10:00)
DX: K81.0 Acute cholecystitis (principal); K82.A1 Gangrene of gallbladder in cholecystitis; K82.A2 Perforation of gallbladder in cholecystitis; E66.01 Morbid (severe) obesity due to excess calories; Z68.41 Body mass index [BMI] 40.0-44.9, adult; E11.65 Type 2 diabetes mellitus with hyperglycemia; K66.0 Peritoneal adhesions (postprocedural) (postinfection); N17.9 Acute kidney failure, unspecified; E11.40 Type 2 diabetes mellitus with diabetic neuropathy, unspecified; E11.22 Type 2 diabetes mellitus with diabetic chronic kidney disease; I12.9 Hypertensive chronic kidney disease with stage 1 through stage 4 chronic kidney disease, or unspecified chronic kidney disease; N18.2 Chronic kidney disease, stage 2 (mild); Z79.4 Long term (current) use of insulin; K21.9 Gastro-esophageal reflux disease without esophagitis; M1A.9XX0 Chronic gout, unspecified, without tophus (tophi); Z11.59 Encounter for screening for other viral diseases
CPT/HCPCS: 36415; 76705; 80048; 80053; 81001; 82962; 83036; 83605; 83690; 83735; 84145; 85025; 87635; 93005; 93010; 96361; 96365; 96372; 96375; 96376; 99284; C9113; J0330; J1100; J1170; J1644; J1885; J2405; J2543; J2704; J3010

== ENCOUNTER → 2019-12-05 13:28 | Outpatient (CLI) | payer OTHER, MEDICAID, SELFPAY ==
[2019-12-01 04:23] VITALS: BMI 42.0
[2019-12-05 13:53] LABS: Add Manual Diff / Slide Review NO; Basophils Absolute Auto 100 /uL (0-100); Basophils Percent Auto 0.7 % (0-2); Eosinophils Absolute Auto 200 /uL (0-450); Eosinophils Percent Auto 2.5 % (2-4); Hematocrit 44.7 % (41-53); Hemoglobin 14.8 g/dL (13.5-17.5); Lymphocytes Absolute Auto 1400 /uL (1100-4500); Lymphocytes Percent Auto 14.1 % (25-40); Mean Corpuscular HGB Conc 33.1 % (30-36); Mean Corpuscular Hemoglobin 29.7 PG (26-34); Mean Corpuscular Volume 89.6 fL (80-100); Monocytes Absolute Auto 1000 /uL (0-900); Monocytes Percent Auto 9.8 % (3-14); Neutrophils Absolute Auto 7300 /uL (1500-7000); Neutrophils Percent Auto 72.9 % (50-75); Platelet Count 315 X10^3/uL (150-400); Red Blood Cell Count 4.99 X10^6/uL (4.5-5.9); Red Cell Distribution Width 13.4 % (11.6-14.8)
[2019-12-05 14:01] LABS: Alanine Aminotransferase 64 IU/L (<50); Albumin 3.8 g/dL (3.5-5.0); Alkaline Phosphatase 184 U/L (38-126); Aspartate Aminotransferase 33 IU/L (17-59); BUN Creatinine Ratio 15.2 (6-22); Blood Urea Nitrogen 25 mg/dL (9-20); Calcium 8.7 mg/dL (8.4-10.2); Carbon Dioxide 24 mmol/L (22-32); Chloride 102 mmol/L (98-107); Estimated Glomerular Filt Rate 44.4 mL/min (>60); Glucose 264 mg/dL (70-100); HEMOLYSIS < 15 (0-50); Potassium 4.4 mmol/L (3.4-5.1); Sodium 135 mmol/L (137-145); Total Protein 7.8 g/dL (6.3-8.2)
== END ==
PROVIDERS: Referring Provider Surgery; Visit Provider Surgery
DX: K81.0 Acute cholecystitis (principal); Z90.49 Acquired absence of other specified parts of digestive tract
CPT/HCPCS: 36415; 80053; 85025

== ENCOUNTER 2020-04-02 10:51 | Emergency (ER) | payer OTHER, MEDICAID, SELFPAY ==
[2019-12-01 04:23] VITALS: BMI 42.0
[2020-04-02 10:55] VITALS: BP 128/84; PULSE 108; RESP 24; TEMP 36.6; O2SAT 97; BMI 39.3
--- NOTE | 2020-04-02 10:59 | DI.RAD.S_ITS ---
PROCEDURE: XR CHEST 2V INDICATIONS: shortness of breath TECHNIQUE: 2 views of the chest were acquired. COMPARISON: None. FINDINGS: Surgical changes and devices: None. Lungs and pleura: Lungs are clear. No pneumothorax. There is mild blunting of the left costophrenic angle laterally likely representing pleural thickening. The posterior costophrenic angles appear preserved. Mediastinum: Mediastinal contours are normal. Heart size is normal. Bones and chest wall: No suspicious bony abnormalities. Soft tissues appear unremarkable. IMPRESSION: 1. No definite acute cardiopulmonary disease. 2. Mild blunting of the left lateral costophrenic angle likely represents pleural thickening. Dictated by: Aron Subramanian M.D. on 04/02/2020 at 11:19 Approved by: Aron Subramanian M.D. on 04/02/2020 at 11:22
[2020-04-02 11:24] LABS: Add Manual Diff / Slide Review NO; Basophils Absolute Auto 100 /uL (0-100); Eosinophils Absolute Auto 300 /uL (0-450); Eosinophils Percent Auto 2.6 % (2-4); Hematocrit 44.9 % (41-53); Hemoglobin 14.4 g/dL (13.5-17.5); Lymphocytes Absolute Auto 1400 /uL (1100-4500); Lymphocytes Percent Auto 12.8 % (25-40); Mean Corpuscular Volume 87.6 fL (80-100); Monocytes Absolute Auto 800 /uL (0-900); Monocytes Percent Auto 7.8 % (3-14); Neutrophils Absolute Auto 8000 /uL (1500-7000); Neutrophils Percent Auto 75.8 % (50-75); Platelet Count 421 X10^3/uL (150-400); Red Blood Cell Count 5.12 X10^6/uL (4.5-5.9); Red Cell Distribution Width 14.8 % (11.6-14.8); White Blood Cell Count 10.5 X10^3/uL (4.5-11.0)
[2020-04-02 11:30] VITALS: BP 117/70; PULSE 96; RESP 18; O2SAT 98
--- NOTE | 2020-04-02 11:31 | ED_ITS ---
HPI - SOB/Dyspnea General Chief Complaint: Shortness of Breath/Dyspnea Stated Complaint: lower extremities are all swollen x 2 days Time Seen by Provider: 04/02/20 11:25 Source: patient and old records reviewed Mode of arrival: Ambulatory Limitations: no limitations History of Present Illness HPI Narrative: This is a 49-year-old male who comes in with complaint of swelling in his bilateral lower extremities x2 days. Patient states he has not had similar issues in his lower legs such as the ankles and feet but has had swelling intermittently in his left knee. He states that the right side was a bit worse than the left. He denies any warmth, redness or other skin changes. He denies any fevers or chills. He has had a mild cough which he states is worsened when he lays flat. He has felt short of breath intermittently and states that for the last several months he has had shortness of breath with exertion. He does state that he gets low back pain and he is unsure if he becomes anxious about the pain which makes him short of breath or if he is truly short of breath. He denies any chest pain, neck pain or upper back pain with these episodes. Patient has had some nausea, denies any vomiting. He has had some constipation with no bowel movement for several days. He is a known diabetic on metformin as well as insulin, Invokana. Patient states he takes allopurinol, atorvastatin and lisinopril. He denies any known cardiac disease or history. No prior strokes. He states he has had a cholecystectomy but denies any other surgical history. His only allergies are to a topical cream, no tobacco, no alcohol, no illicit. His primary care is Dr. Mcrae at [facility] in [place]. Related Data Home Medications Medication Instructions Recorded Confirmed esomeprazole magnesium [Nexium] 20 mg PO DAILY 06/09/19 12/12/19 insulin aspart U-100 [Novolog 6 unit SUBCUT TID 06/09/19 12/12/19 U-100 Insulin aspart] lisinopril 5 mg PO DAILY 06/09/19 12/12/19 metformin 1,000 mg PO BID 06/09/19 12/12/19 naproxen 500 mg PO BID PRN 06/09/19 12/12/19 Previous Rx's Medication Instructions Recorded Lantus U-100 Insulin 26 unit SUBCUT BID #0 ml 12/04/19 docusate sodium 100 mg PO BID #20 cap 12/04/19 oxycodone 5 mg PO Q4-6H PRN #30 tab 12/04/19 furosemide [Lasix] 40 mg PO DAILY #3 tab 04/02/20 prednisone 20 mg PO DAILY #3 tab 04/02/20 Allergies Allergy/AdvReac Type Severity Reaction Status Date / Time allopurinol AdvReac Diarrhea Verified 04/02/20 11:01 Review of Systems Review of Systems ROS Unobtainable: All systems reviewed & are unremarkable except as noted in HPI and below Patient History Medical History (Updated 04/02/20 @ 11:54 by Dinora Braden DO) Acid reflux Diabetes type 2, uncontrolled Fibromyalgia Gastric ulcer Gout History of head injury HTN (hypertension) Surgical History History of brain shunt Family History Father Morbid obesity Diabetes mellitus Mother Cancer Heart disease Social History household members: friend(s) Smoking Status: Never smoker Smoking Status: Never smoker alcohol intake frequency: holidays/special occasions only Substance Use Type: does not use Exam Narrative Exam Narrative: GENERAL: Alert and oriented x three, obese male in mild distress. HEENT: Head normocephalic, atraumatic, EOMI, pupils reactive, face symmetric, moist mucous membranes NECK: Supple, full range of motion CARDIOVASCULAR: Regular rate and rhythm without murmurs, rubs or gallops. RESPIRATORY: Breath sounds equal bilaterally, no wheezes, no crackles, rales or rhonchi. No tachypnea or accessory muscle use. ABDOMEN: Soft, nontender. Normoactive bowel sounds all 4 quadrants. No guarding or rebound, rigidity, no mass : No CVA tenderness EXTREMITIES: Normal range of motion, no clubbing. Patient has mild edema bilateral lower extremities. Nonpitting. No warmth, erythema or skin changes noted. Patient does not have any asymmetry in swelling or size of his lower extremities. Neurovascularly intact. 2+ pulses bilaterally. NEUROLOGICAL: Cranial nerves II through XII grossly intact. Moving all extremities SKIN: Warm, dry, no petechiae, no rashes or lesions. Initial Vital Signs Initial Vital Signs: Vital Signs Temperature 97.9 F 04/02/20 10:55 Pulse Rate 108 H 04/02/20 10:55 Respiratory Rate 24 04/02/20 10:55 Blood Pressure 128/84 04/02/20 10:55 Pulse Oximetry 97 04/02/20 10:55 Scores HEART Score Heart Score history: Slightly Suspicious Heart Score EKG: Normal Heart Score Age: 45-64 years old Heart Score risk factors: 1-2 risk factors Heart Score troponin: < or = to normal limit Heart Score Total: 2 Course Orders Ordered: ED Orders 04/02/20 10:59 XR chest 2V Stat EKG-12 Lead Stat Measure peak expiratory flow ONCE RT Consult Eval and Treat Now 04/02/20 11:17 Complete Blood Count AUTO DIFF Stat Comprehensive Metabolic Panel Stat Lactate (Lactic Acid) Stat NT-proBNP (BNP-Adult 18+) Stat 04/02/20 11:52 Troponin & CK Cardiac Panel Stat 04/02/20 11:55 COVID19 Stat 04/02/20 12:47 US periph venous low extrem lt Stat Vital Signs Vital signs: Vital Signs - 8 hr 04/02/20 11:30 04/02/20 12:00 04/02/20 12:30 Pulse Rate 96 H 90 90 Respiratory Rate 18 20 22 Blood Pressure 117/70 106/68 113/71 Pulse Oximetry 98 97 96 04/02/20 13:00 04/02/20 13:53 Pulse Rate 88 83 Respiratory Rate 22 23 Blood Pressure 128/82 113/74 Pulse Oximetry 97 97 MDM - SOB/Dyspnea Lab Data Attestation: I reviewed the patient's lab results. Result diagrams: 04/02/20 11:17 04/02/20 11:17 Labs: Lab Results 04/02/20 04/02/20 04/02/20 Range/Units 11:17 11:17 11:17 WBC 10.5 (4.5-11.0) X10^3/uL RBC 5.12 (4.5-5.9) X10^6/uL Hgb 14.4 (13.5-17.5) g/dL Hct 44.9 (41-53) % MCV 87.6 (80-100) fL MCH 28.0 (26-34) PG MCHC 32.0 (30-36) % RDW 14.8 (11.6-14.8) % Plt Count 421 H (150-400) X10^3/uL Neut % (Auto) 75.8 H (50-75) % Lymph % (Auto) 12.8 L (25-40) % Mower % (Auto) 7.8 (3-14) % Eos % (Auto) 2.6 (2-4) % Baso % (Auto) 1.0 (0-2) % Neut # (Auto) 8000 H (5853-1645) /uL Lymph # (Auto) 1400 (4894-1275) /uL Mower # (Auto) 800 (0-900) /uL Eos # (Auto) 300 (0-450) /uL Baso # (Auto) 100 (0-100) /uL Sodium 139 (137-145) mmol/L Potassium 4.5 (3.4-5.1) mmol/L Chloride 105 (98-107) mmol/L Carbon Dioxide 27 (22-32) mmol/L BUN 26 H (9-20) mg/dL Creatinine 1.42 H (0.66-1.25) mg/dL Estimated GFR 52.8 L (>60) mL/min BUN/Creatinine Ratio 18.3 (6-22) Glucose 166 H (70-100) mg/dL Lactate 1.1 (0.7-2.1) mmol/L Calcium 9.6 (8.4-10.2) mg/dL Total Bilirubin 0.8 (0.2-1.3) mg/dL AST 31 (17-59) IU/L ALT 23 (<50) IU/L Alkaline Phosphatase 144 H (38-126) U/L Total Creatine Kinase (55-170) U/L CK-MB (CK-2) CK-MB (CK-2) Rel Index Troponin I (0.01-0.034) ng/mL NT-Pro-B Natriuret Pep 87 (<125) pg/mL Total Protein 8.8 H (6.3-8.2) g/dL Albumin 4.3 (3.5-5.0) g/dL Globulin 4.5 H (1.7-4.1) g/dL Albumin/Globulin Ratio 1.0 (1.0-2.8) COVID-19 PCR (Negative) 04/02/20 04/02/20 Range/Units 11:52 11:55 WBC (4.5-11.0) X10^3/uL RBC (4.5-5.9) X10^6/uL Hgb (13.5-17.5) g/dL Hct (41-53) % MCV (80-100) fL MCH (26-34) PG MCHC (30-36) % RDW (11.6-14.8) % Plt Count (150-400) X10^3/uL Neut % (Auto) (50-75) % Lymph % (Auto) (25-40) % Mower % (Auto) (3-14) % Eos % (Auto) (2-4) % Baso % (Auto) (0-2) % Neut # (Auto) (3079-6670) /uL Lymph # (Auto) (2607-8371) /uL Mower # (Auto) (0-900) /uL Eos # (Auto) (0-450) /uL Baso # (Auto) (0-100) /uL Sodium (137-145) mmol/L Potassium (3.4-5.1) mmol/L Chloride (98-107) mmol/L Carbon Dioxide (22-32) mmol/L BUN (9-20) mg/dL Creatinine (0.66-1.25) mg/dL Estimated GFR (>60) mL/min BUN/Creatinine Ratio (6-22) Glucose (70-100) mg/dL Lactate (0.7-2.1) mmol/L Calcium (8.4-10.2) mg/dL Total Bilirubin (0.2-1.3) mg/dL AST (17-59) IU/L ALT (<50) IU/L Alkaline Phosphatase (38-126) U/L Total Creatine Kinase 81 (55-170) U/L CK-MB (CK-2) TNP CK-MB (CK-2) Rel Index TNP Troponin I < 0.012 (0.01-0.034) ng/mL NT-Pro-B Natriuret Pep (<125) pg/mL Total Protein (6.3-8.2) g/dL Albumin (3.5-5.0) g/dL Globulin (1.7-4.1) g/dL Albumin/Globulin Ratio (1.0-2.8) COVID-19 PCR Negative (Negative) Imaging Data Chest x-ray: Radiologist's Impression: [address] [id number] ReportSigned Patient: Chong Aponte#: [id number]: 1970Acct:[id number]/Sex: 49 / MDate of Service: 04/02/20Loc: EDAccession Number: [id number] Procedure: XR chest 2V Ordering Provider: Dinora Braden D.O. PROCEDURE: XR CHEST 2V INDICATIONS: shortness of breath TECHNIQUE: 2 views of the chest were acquired. COMPARISON: None. FINDINGS: Surgical changes and devices: None. Lungs and pleura: Lungs are clear. No pneumothorax. There is mild blunting of the left costophrenic angle laterally likely representing pleural thickening. The posterior costophrenic angles appear preserved. Mediastinum: Mediastinal contours are normal. Heart size is normal. Bones and chest wall: No suspicious bony abnormalities. Soft tissues appear unremarkable. IMPRESSION: 1. No definite acute cardiopulmonary disease. 2. Mild blunting of the left lateral costophrenic angle likely represents pleural thickening. Dictated by: Aron Subramanian M.D. on 04/02/2020 at 11:19 Approved by: Aron Subramanian M.D. on 04/02/2020 at 11:22 US - DVT: Radiologist's Impression: [address] [id number] ReportSigned Patient: Chong Aponte#: [id number]: 1970Acct:[id number]/Sex: 49 / MDate of Service: 04/02/20Loc: EDAccession Number: [id number] Procedure: US periph venous low extrem lt Ordering Provider: Dinora Braden D.O. PROCEDURE: US PERIPH VENOUS LOW EXTREM LT INDICATIONS: LEFT CALF PAIN RADIATING TO KNEE TECHNIQUE: Real-time imaging, as well as color and pulse Doppler interrogation, were performed of the lower extremity deep veins from the inguinal ligament to the popliteal fossa. COMPARISON: None. FINDINGS: The common femoral, femoral and popliteal veins are normally compressible, and free of intraluminal thrombus. Color and pulse Doppler demonstrate normal p hasic intraluminal flow. There is normal augmentation response to distal compression maneuver. IMPRESSION: No DVT in the left lower extremity. Dictated by: Nataliia Crenshaw M.D. on 04/02/2020 at 13:29 Approved by: Nataliia Crenshaw M.D. on 04/02/2020 at 13:30 ECG Data Attestation: I personally reviewed and interpreted this ECG as follows: Prior ECG tracings: available for review Interpretation: Normal sinus rhythm rate of 98, NM interval of 138, QRS 86 and QTC of [address] elevation is per except in 1 beat of V4. Patient has prior EKG from 12/01/19 which appears similar in ST segments. MDM Narrative Medical decision making narrative: This is a 49 year old male who comes with swelling in bilateral lower extremities x2 days. Patient states that he has not had similar symptoms in the past. He does have diabetes, hypertension he is unaware if he has any dyslipidemia. He does not have any known coronary artery disease. He has had some intermittent shortness of breath with exertion but de nies chest pain or pressure and he has had some mild orthopnea. Labs showed elevation in platelets but otherwise normal CBC, patient does have a left shift. Patient has chronic kidney disease which is at baseline, no major electrolyte abnormalities. Glucose is 166 with negative troponin and BNP. Acute cardiopulmonary disease but some mild blunting of the left costophrenic angle likely representing some pleural thickening. Patient has sinus rhythm on his EKG with no acute ST changes. Discussed with patient would like to start him on a diuretic for a short period of time to see if this improves his symptoms he does not appear to be in CHF but does have some mild chest x-ray changes and w ith his complaint of shortness of breath with exertion discussed that he would likely benefit from stress testing as he does have risk factors. He does not by labs or history appear to have ACS or unstable angina at this time. Patient discussed that he did have some left calf pain that has since moved into his posterior knee and is throbbing in sensation so ultrasound DVT was ordered and is negative. Patient does have a history of gout in his knee and cannot take colchicine secondary to renal dysfunction and has had some improvement with steroids. Discharge Plan Departure Patient Disposition: Home Clinical Impression: Bilateral edema of lower extremity Instructions: DI for Peripheral Edema -- Bilateral Activity Restrictions/Additional Instructions: Follow up with your physician in the next week for recheck. Your imaging shows some mild thickening of the pleura but no other major lab or imaging abnormalities. Your chronic kidney disease appears stable. Up for recheck and discussing with your physician you may benefit from stress testing and an ECHO as you get short of breath with ambulation. Take diuretic once daily until gone. Prescription sent to [facility] in [place]. Return to the ER for fevers, new or worsening shortness of breath, lightheadedness or passing out, new chest pain or pressure, diaphoresis, worsening swelling in her extremities, persistent vomiting or other new or concerning symptoms. Prescriptions: New furosemide [Lasix] 40 mg tablet 40 mg PO DAILY Qty: 3 RF: 0 prednisone 20 mg tablet 20 mg PO DAILY Qty: 3 RF: 0 No Action metformin 1,000 mg Tablet 1,000 mg PO BID RF: 0 lisinopril 5 mg Tablet 5 mg PO DAILY RF: 0 esomeprazole magnesium [Nexium] 20 mg Capsule,Delayed Release(Dr/Ec) 20 mg PO DAILY RF: 0 naproxen 500 mg tablet 500 mg PO BID PRN (Reason: Pain (Scale Score 1-3)) RF: 0 insulin aspart U-100 [Novolog U-100 Insulin aspart] 100 unit/mL Solution 6 unit SUBCUT TID RF: 0 oxycodone 5 mg tablet 5 mg PO Q4-6H PRN (Reason: post operative pain) Qty: 30 RF: 0 docusate sodium 100 mg capsule 100 mg PO BID Qty: 20 RF: 0 Lantus U-100 Insulin 100 unit/mL Solution 26 unit SUBCUT BID Qty: 0 RF: 0 Referrals: Anjali Mcrae PA-C [Primary Care Provider] -
[2020-04-02 11:37] LABS: Alanine Aminotransferase 23 IU/L (<50); Albumin 4.3 g/dL (3.5-5.0); Alkaline Phosphatase 144 U/L (38-126); Aspartate Aminotransferase 31 IU/L (17-59); BUN Creatinine Ratio 18.3 (6-22); Bilirubin Total 0.8 mg/dL (0.2-1.3); Blood Urea Nitrogen 26 mg/dL (9-20); Calcium 9.6 mg/dL (8.4-10.2); Carbon Dioxide 27 mmol/L (22-32); Chloride 105 mmol/L (98-107); Estimated Glomerular Filt Rate 52.8 mL/min (>60); Globulin 4.5 g/dL (1.7-4.1); Glucose 166 mg/dL (70-100); HEMOLYSIS < 15 (0-50); Lactate (Lactic Acid) 1.1 mmol/L (0.7-2.1); Potassium 4.5 mmol/L (3.4-5.1); Sodium 139 mmol/L (137-145); Total Protein 8.8 g/dL (6.3-8.2)
[2020-04-02 11:46] LABS: NT-proBNP (BNP-Adult 18+) 87 pg/mL (<125)
[2020-04-02 12:00] VITALS: BP 106/68; PULSE 90; RESP 20; O2SAT 97
[2020-04-02 12:00] LABS: Creatine Kinase 81 U/L (55-170)
[2020-04-02 12:12] LABS: Troponin I < 0.012 ng/mL (0.01-0.034)
[2020-04-02 12:19] LABS: COVID19 -Nasal RAPID Negative (Negative)
[2020-04-02 12:30] VITALS: BP 113/71; PULSE 90; RESP 22; O2SAT 96
--- NOTE | 2020-04-02 12:47 | DI.US.S_ITS ---
PROCEDURE: US PERIPH VENOUS LOW EXTREM LT INDICATIONS: LEFT CALF PAIN RADIATING TO KNEE TECHNIQUE: Real-time imaging, as well as color and pulse Doppler interrogation, were performed of the lower extremity deep veins from the inguinal ligament to the popliteal fossa. COMPARISON: None. FINDINGS: The common femoral, femoral and popliteal veins are normally compressible, and free of intraluminal thrombus. Color and pulse Doppler demonstrate normal phasic intraluminal flow. There is normal augmentation response to distal compression maneuver. IMPRESSION: No DVT in the left lower extremity. Dictated by: Nataliia Crenshaw M.D. on 04/02/2020 at 13:29 Approved by: Nataliia Crenshaw M.D. on 04/02/2020 at 13:30
[2020-04-02 13:00] VITALS: BP 128/82; PULSE 88; RESP 22; O2SAT 97
[2020-04-02 13:53] VITALS: BP 113/74; PULSE 83; RESP 23; O2SAT 97
== END 2020-04-02 13:54 | disposition home or self-care (01) ==
PROVIDERS: Emergency Provider Emergency Medicine; PCP Physician Assistant
DX: R60.0 Localized edema (principal); R05 Cough; I11.0 Hypertensive heart disease with heart failure; N18.9 Chronic kidney disease, unspecified; R06.02 Shortness of breath; K59.00 Constipation, unspecified; M54.5 Low back pain; E11.65 Type 2 diabetes mellitus with hyperglycemia; Z79.4 Long term (current) use of insulin; E66.9 Obesity, unspecified; Z68.39 Body mass index [BMI] 39.0-39.9, adult; Z20.828 Contact with and (suspected) exposure to other viral communicable diseases
CPT/HCPCS: 36415; 71046; 80053; 82550; 83605; 83880; 84484; 85025; 87635; 93005; 93010; 93971; 99284

== ENCOUNTER 2021-07-17 15:22 | Inpatient (IN) | payer OTHER, MEDICAID, SELFPAY ==
[2019-12-01 04:23] VITALS: BMI 42.0
[2021-07-17] VITALS (10 sets, daily range): BP systolic 90–142; BP diastolic 62–81; PULSE 86–120; RESP 18–21; TEMP 37.1–38.1; O2SAT 94–98; BMI 41.0
--- NOTE | 2021-07-17 | DI.RAD.S_ITS ---
PROCEDURE: XR CHEST 1V INDICATIONS: dyspnea, cough TECHNIQUE: One view of the chest was acquired. COMPARISON: [facility], CR, XR CHEST 2V, 04/02/2020, 11:03. FINDINGS: Surgical changes and devices: None. Lungs and pleura: Lungs are clear. No pleural effusions or pneumothorax. Mediastinum: Mediastinal contours appear normal. Heart size is normal. Bones and chest wall: No suspicious bony lesions. Overlying soft tissues appear unremarkable. IMPRESSION: No acute cardiopulmonary abnormality. Dictated by: Armando Diehl M.D. on 07/17/2021 at 18:23 Approved by: Armando Diehl M.D. on 07/17/2021 at 18:23
--- NOTE | 2021-07-17 15:38 | ED.WOUNDLAC ---
HPI - Wound/Laceration General Chief Complaint: Wound/Laceration Stated Complaint: Injured left foot Time Seen by Provider: 07/17/21 15:31 Source: patient and family Mode of arrival: Family Vehicle Limitations: no limitations History of Present Illness HPI narrative: This is a 51-year-old insulin-dependent diabetic diagnosed in 2009, patient is on Lantus, Humalog, metformin, lisinopril, atorvastatin daily. Patient states he has had a wound on the bottom his foot for the past year. It developed after having bone surgery. The wound has been open and then will callus over and then open up again. 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 Patient has been afebrile before today. He has had pain at the wound itself but in the last 24 hours has developed pain radiating up his leg and into his thigh. Patient states it is painful to walk on. He does have neuropathy so he has decreased sensation in the wound itself. He is afebrile in the department no chest pain or pressure. Occasional shortness of breath. He denies any nausea or vomiting. He denies any diarrhea, constipation or urinary symptoms. Has not appreciate any warmth, erythema or redness of the leg or foot. Patient has had MRSA on the opposite leg in the past. Has seen wound care for his left foot before but not recently. He just moved back from [place] recently and reestablished with a primary care physician who ordered x-ray as well as screening exams based on patient's age but these have not been completed. Patient presents today because of increasing pain over the last 24 hours. He denies any prior surgeries. No tobacco, occasional alcohol, no illicit. Related Data Home Medications Medication Instructions Recorded Confirmed esomeprazole magnesium 20 mg 20 mg PO DAILY 06/09/19 12/12/19 capsule,delayed release (Nexium) insulin aspart U-100 100 unit/mL 6 unit SUBCUT TID 06/09/19 12/12/19 subcutaneous solution (Novolog U-100 Insulin aspart) lisinopril 5 mg tablet 5 mg PO DAILY 06/09/19 12/12/19 metformin 1,000 mg tablet 1,000 mg PO BID 06/09/19 12/12/19 naproxen 500 mg tablet 500 mg PO BID PRN 06/09/19 12/12/19 Previous Rx's Medication Instructions Recorded docusate sodium 100 mg capsule 100 mg PO BID #20 cap 12/04/19 insulin glargine 100 unit/mL 26 unit (0.26 mL) SUBCUT BID #0 ml 12/04/19 subcutaneous solution (Lantus U-100 Insulin) oxycodone 5 mg tablet 5 mg PO Q4-6H PRN #30 tab 12/04/19 furosemide 40 mg tablet (Lasix) 40 mg PO DAILY #3 tab 04/02/20 prednisone 20 mg tablet 20 mg PO DAILY #3 tab 04/02/20 Allergies Allergy/AdvReac Type Severity Reaction Status Date / Time allopurinol AdvReac Diarrhea Verified 07/17/21 15:31 Review of Systems Review of Systems ROS Unobtainable: All systems reviewed & are unremarkable except as noted in HPI and below Patient History Medical History (Updated 07/17/21 @ 17:06 by Dinora Braden DO) Acid reflux Diabetes type 2, uncontrolled Fibromyalgia Gastric ulcer Gout History of head injury HTN (hypertension) Surgical History History of brain shunt Family History Father Morbid obesity Diabetes mellitus Mother Cancer Heart disease Social History household members: friend(s) Smoking Status: Never smoker Smoking Status: Never smoker alcohol intake frequency: holidays/special occasions only Substance Use Type: does not use Exam Narrative Exam Narrative: GENERAL: Alert and oriented x three, male in mild distress. HEENT: Head normocephalic, atraumatic, EOMI, pupils reactive, face symmetric, moist mucous membranes NECK: Supple, full range of motion CARDIOVASCULAR: Tachycardic but Regular rate and rhythm without murmurs, rubs or gallops. No JVD. No swelling bilateral lower extremities. RESPIRATORY: Breath sounds equal bilaterally, no wheezes rales or rhonchi. ABDOMEN: Soft, nontender. Normoactive bowel sounds all 4 quadrants. No guarding or rebound, rigidity, no mass : No CVA tenderness EXTREMITIES: Normal range of motion. Patient has a wound over the proximal interphalangeal joint on the pad of the foot that is open draining serosanguineous fluid, may able to insert a Q-tip proximally a 0.5 cm. There is foul odor, may able to visualize subcutaneous tissue and there is a small amount of whitish discoloration along the edge as well. Patient is nontender to palpation or probe. He does have sensation to touch but decreased in comparison to his upper extremities. Cap refills less than 2 seconds in all 5 toes. There is no warmth or erythema appreciated. Neurovascularly intact NEUROLOGICAL: Cranial nerves II through XII grossly intact. Moving all extremities SKIN: Warm, dry, no petechiae, no rashes or lesions other than noted above. Initial Vital Signs Initial Vital Signs: Vital Signs Temperature 100.4 F H 07/17/21 15:29 Pulse Rate 120 H 07/17/21 15:29 Respiratory Rate 18 07/17/21 15:29 Blood Pressure 140/81 07/17/21 15:29 Pulse Oximetry 98 07/17/21 15:29 Course Orders Ordered: ED Orders 07/17/21 15:31 EKG-12 Lead Stat 07/17/21 15:40 CRP [C-Reactive Protein Quant] Stat Complete Blood Count AUTO DIFF Stat Comprehensive Metabolic Panel Stat ESR [Erythrocyte Sedimentation Rate] Stat Lactate (Lactic Acid) Stat Lipase Stat Procalcitonin Stat 07/17/21 15:50 Covid-19 + FLU A/B + RSV - PCR Stat 07/17/21 15:57 XR foot LT min 3V Stat 07/17/21 15:59 Wound Culture and Gram Stain Stat 07/17/21 16:09 Blood Culture Stat 07/17/21 17:33 periph venous low extrem lt Urgent Vancomycin HCl/Dextrose (Vancomycin) 2,000 mg in 400 mls @ 200 mls/hr IV NOW ONE Stop: 07/17/21 17:58 Last Admin: 07/17/21 16:25 Dose: 200 mls/hr Documented by: Lactated Ringer's (Lactated Ringers) 2,397 mls @ 799 mls/hr 30 ml/kg infuse over 3 hr (2397 ml) IV NOW ONE Stop: 07/17/21 19:00 Last Infusion: 07/17/21 16:37 Dose: 300 mls/hr Documented by: Ondansetron HCl (Ondansetron 4 Mg/2 Ml Inj) 4 mg IV Q6HR PRN PRN Reason: Nausea And Vomiting Discontinued Medications Acetaminophen (Acetaminophen 325 Mg Tablet) 650 mg PO NOW ONE Stop: 07/17/21 16:28 Last Admin: 07/17/21 16:42 Dose: Not Given Documented by: Acetaminophen (Acetaminophen 325 Mg Tablet) 975 mg PO NOW ONE Stop: 07/17/21 16:36 Last Admin: 07/17/21 16:41 Dose: 975 mg Documented by: Sodium Chloride (Normal Saline 0.9%) 1,000 mls @ 1,000 mls/hr IV BOLUS ONE Stop: 07/17/21 16:30 Last Admin: 07/17/21 16:02 Dose: Not Given Documented by: Piperacillin Sod/Tazobactam (Sod 4.5 gm/ Sodium Chloride) 100 mls @ 200 mls/hr IV NOW ONE Stop: 07/17/21 16:00 Morphine Sulfate (Morphine 4 Mg/Ml Inj) 4 mg IV NOW ONE Stop: 07/17/21 16:22 Last Admin: 07/17/21 16:36 Dose: Not Given Documented by: Reevaluation(s) Reevaluation #1: Patient defers any narcotics. Unable to give toradol second to renal function. Patient findings discussed. Consultations Consultation #1: Dr. Uribe, hospitalist Vital Signs Vital signs: Vital Signs - 8 hr 07/17/21 15:29 07/17/21 15:53 07/17/21 16:00 Temperature 100.4 F H Pulse Rate 120 H 114 H 111 H Respiratory Rate 18 21 18 Blood Pressure 140/81 142/78 H Pulse Oximetry 98 98 98 07/17/21 16:30 07/17/21 17:00 Temperature 100.6 F H Pulse Rate 109 H 108 H Respiratory Rate 20 20 Blood Pressure 132/79 132/74 Pulse Oximetry 98 98 MDM - Wound/Laceration Lab Data Result diagrams: 07/17/21 15:40 07/17/21 15:40 Labs: Lab Results 07/17/21 07/17/21 07/17/21 Range/Units 15:40 15:40 15:40 WBC 13.5 H (4.5-11.0) X10^3/uL RBC 5.36 (4.5-5.9) X10^6/uL Hgb 16.2 (13.5-17.5) g/dL Hct 48.0 (41-53) % MCV 89.6 (80-100) fL MCH 30.3 (26-34) PG MCHC 33.8 (30-36) % RDW 14.0 (11.6-14.8) % Plt Count 299 (150-400) X10^3/uL Neut % (Auto) 86.0 H (50-75) % Lymph % (Auto) 6.0 L (25-40) % [place] % (Auto) 5.3 (3-14) % Eos % (Auto) 2.1 (2-4) % Baso % (Auto) 0.6 (0-2) % Neut # (Auto) 21942 H (6507-5909) /uL Lymph # (Auto) 800 L (4433-1856) /uL [place] # (Auto) 700 (0-900) /uL Eos # (Auto) 300 (0-450) /uL Baso # (Auto) 100 (0-100) /uL ESR (0-15) MM/HR Sodium 139 (137-145) mmol/L Potassium 4.5 (3.4-5.1) mmol/L Chloride 106 (98-107) mmol/L Carbon Dioxide 23 (22-32) mmol/L BUN 26 H (9-20) mg/dL Creatinine 1.68 H (0.66-1.25) mg/dL Estimated GFR 43.1 L (>60) mL/min BUN/Creatinine Ratio 15.5 (6-22) Glucose 195 H (70-100) mg/dL Lactate 1.7 (0.7-2.1) mmol/L Calcium 9.0 (8.4-10.2) mg/dL Total Bilirubin 0.9 (0.2-1.3) mg/dL AST 26 (17-59) IU/L ALT 18 (<50) IU/L Alkaline Phosphatase 90 (38-126) U/L C-Reactive Protein (<1.0) mg/dL Total Protein 8.8 H (6.3-8.2) g/dL Albumin 4.4 (3.5-5.0) g/dL Globulin 4.4 H (1.7-4.1) g/dL Albumin/Globulin Ratio 1.0 (1.0-2.8) Lipase 215 (23-300) U/L Procalcitonin 0.09 (<0.5) ng/mL SARS-CoV-2 (PCR) (Negative) Influenza A (RT-PCR) (NEGATIVE) Influenza B (RT-PCR) (NEGATIVE) RSV (PCR) (Negative) 07/17/21 07/17/21 07/17/21 Range/Units 15:40 15:40 15:50 WBC (4.5-11.0) X10^3/uL RBC (4.5-5.9) X10^6/uL Hgb (13.5-17.5) g/dL Hct (41-53) % MCV (80-100) fL MCH (26-34) PG MCHC (30-36) % RDW (11.6-14.8) % Plt Count (150-400) X10^3/uL Neut % (Auto) (50-75) % Lymph % (Auto) (25-40) % [place] % (Auto) (3-14) % Eos % (Auto) (2-4) % Baso % (Auto) (0-2) % Neut # (Auto) (4521-0038) /uL Lymph # (Auto) (1122-8916) /uL [place] # (Auto) (0-900) /uL Eos # (Auto) (0-450) /uL Baso # (Auto) (0-100) /uL ESR 18 H (0-15) MM/HR Sodium (137-145) mmol/L Potassium (3.4-5.1) mmol/L Chloride (98-107) mmol/L Carbon Dioxide (22-32) mmol/L BUN (9-20) mg/dL Creatinine (0.66-1.25) mg/dL Estimated GFR (>60) mL/min BUN/Creatinine Ratio (6-22) Glucose (70-100) mg/dL Lactate (0.7-2.1) mmol/L Calcium (8.4-10.2) mg/dL Total Bilirubin (0.2-1.3) mg/dL AST (17-59) IU/L ALT (<50) IU/L Alkaline Phosphatase (38-126) U/L C-Reactive Protein 2.1 H (<1.0) mg/dL Total Protein (6.3-8.2) g/dL Albumin (3.5-5.0) g/dL Globulin (1.7-4.1) g/dL Albumin/Globulin Ratio (1.0-2.8) Lipase (23-300) U/L Procalcitonin (<0.5) ng/mL SARS-CoV-2 (PCR) Negative (Negative) Influenza A (RT-PCR) Flu a negative (NEGATIVE) Influenza B (RT-PCR) Flu b negative (NEGATIVE) RSV (PCR) Negative (Negative) Imaging Data Extremity x-ray #1: Radiologist's Impression: [address] [address] XRay Report Signed Patient: Aron Aponte MR#: [id number] : 1970 Acct:[id number] Age/Sex: 51 / M Date of Service: 07/17/21 Loc: ED Accession Number: [id number] ?? Procedure: XR foot LT min 3V Ordering Provider: Dinora Braden D.O. PROCEDURE:? XR FOOT LT MIN 3V ? INDICATIONS:? 5th PIP diabetic wound vs osteo ? TECHNIQUE:? 3 views of the foot were acquired.? ? COMPARISON:? [facility], CR, XR FOOT LT MIN 3V, 06/09/2019, 15:01. ? FINDINGS:? ? Bones:? No fractures or dislocations.? No suspicious bony lesions.? No lytic lesions.? Posterior and plantar calcaneal spur, small ? Soft tissues:? No tibiotalar joint effusion.? Achilles tendon appears normal.? Fifth toe soft tissue swelling noted.? Suggestion of plantar soft tissue ulcer ? ? IMPRESSION:? ? Fifth toe soft tissue swelling without evidence of osseous erosion or lytic lesion ? ? ? Approved by: Sukh Baez M.D. on 07/17/2021 at 16:00? ECG Data Attestation: I personally reviewed and interpreted this ECG as follows: Prior ECG tracings: available for review Interpretation: Sinus tachycardia rate of 111, MS 148 QRS of 92 and QTC of 428, no acute ST elevation or depression noted. Patient has prior EKG from 04/02/2020 no acute changes appreciated. MDM Narrative Medical decision making narrative: This is a 51-year-old male comes emergency department with possibly chronic infected diabetic foot ulcer versus osteomyelitis patient does meet septic criteria his heart rate is 120 with a temperature of a 100.4? F in the department. Patient has had a long-standing wound which has had increasing signs of infection over time and increasing pain in his foot and lower extremity. There is foul odor present. Patient had 30 cc/kilos fluid bolus initiated, IV antibiotics with wound culture obtained, x-ray for initial screening for osteomyelitis as well as CBC, ESR, CRP, lactate and cultures. Patient's labs show leukocytosis, elevated ESR and CRP. Patient has known chronic kidney disease GFR appears to range between 39 and 52 but typically close to patient's current level. Lactate and procalcitonin are negative. Blood cultures are pending. X-ray does not show obvious osteomyelitis. Discussed with hospitalist, Dr. Uribe who accepts but does request dvt US. US ordered in department but Dr. Uribe okay with patient going upstairs to get dvt US. Discharge Plan Departure Patient Disposition: Admitted As Inpatient Clinical Impression: Diabetic infection of left foot, Sepsis Admit Date/Time: 07/17/21 17:38 Admit Provider: Nuno Uribe
--- NOTE | 2021-07-17 15:57 | DI.RAD.S_ITS ---
PROCEDURE: XR FOOT LT MIN 3V INDICATIONS: 5th PIP diabetic wound vs osteo TECHNIQUE: 3 views of the foot were acquired. COMPARISON: [facility], CR, XR FOOT LT MIN 3V, 06/09/2019, 15:01. FINDINGS: Bones: No fractures or dislocations. No suspicious bony lesions. No lytic lesions. Posterior and plantar calcaneal spur, small Soft tissues: No tibiotalar joint effusion. Achilles tendon appears normal. Fifth toe soft tissue swelling noted. Suggestion of plantar soft tissue ulcer IMPRESSION: Fifth toe soft tissue swelling without evidence of osseous erosion or lytic lesion Approved by: Sukh Baez M.D. on 07/17/2021 at 16:00
[2021-07-17 16:02] LABS: Add Manual Diff / Slide Review NO; Basophils Absolute Auto 100 /uL (0-100); Basophils Percent Auto 0.6 % (0-2); Eosinophils Absolute Auto 300 /uL (0-450); Eosinophils Percent Auto 2.1 % (2-4); Hemoglobin 16.2 g/dL (13.5-17.5); Lymphocytes Absolute Auto 800 /uL (1100-4500); Mean Corpuscular HGB Conc 33.8 % (30-36); Mean Corpuscular Hemoglobin 30.3 PG (26-34); Mean Corpuscular Volume 89.6 fL (80-100); Monocytes Absolute Auto 700 /uL (0-900); Monocytes Percent Auto 5.3 % (3-14); Neutrophils Absolute Auto 11600 /uL (1500-7000); Platelet Count 299 X10^3/uL (150-400); Red Blood Cell Count 5.36 X10^6/uL (4.5-5.9); White Blood Cell Count 13.5 X10^3/uL (4.5-11.0)
[2021-07-17] MEDS: LACTATED RINGERS 2,397 ML 799 ML IV (16:05)
[2021-07-17 16:06] LABS: Alanine Aminotransferase 18 IU/L (<50); Albumin 4.4 g/dL (3.5-5.0); Alkaline Phosphatase 90 U/L (38-126); Aspartate Aminotransferase 26 IU/L (17-59); BUN Creatinine Ratio 15.5 (6-22); Bilirubin Total 0.9 mg/dL (0.2-1.3); Blood Urea Nitrogen 26 mg/dL (9-20); Carbon Dioxide 23 mmol/L (22-32); Chloride 106 mmol/L (98-107); Estimated Glomerular Filt Rate 43.1 mL/min (>60); Globulin 4.4 g/dL (1.7-4.1); Glucose 195 mg/dL (70-100); HEMOLYSIS < 15 (0-50); Lactate (Lactic Acid) 1.7 mmol/L (0.7-2.1); Lipase 215 U/L (23-300); Potassium 4.5 mmol/L (3.4-5.1); Sodium 139 mmol/L (137-145); Total Protein 8.8 g/dL (6.3-8.2)
[2021-07-17 16:17] LABS: C-Reactive Protein Quant 2.1 mg/dL (<1.0)
[2021-07-17 16:22] LABS: Procalcitonin 0.09 ng/mL (<0.5)
[2021-07-17] MEDS: VANCOMYCIN 2,000 MG/400 ML PIGGYBACK 200 MG IV (16:25)
[2021-07-17 16:36] LABS: Erythrocyte Sedimentation Rate 18 MM/HR (0-15)
[2021-07-17] MEDS: ACETAMINOPHEN 325 MG TABLET 975 MG PO (16:41)
[2021-07-17 17:27] LABS: Influenza A - CEPHEID Flu A NEGATIVE (NEGATIVE); Influenza B - CEPHEID Flu B NEGATIVE (NEGATIVE); Respiratory Syncytial Virus Negative (Negative)
[2021-07-17 17:31] LABS: COVID-19 CEPHEID PCR (VTM/NP) Negative (Negative)
--- NOTE | 2021-07-17 17:33 | DI.US.S_ITS ---
PROCEDURE: [facility] VENOUS LOW EXTREM LT INDICATIONS: left leg pain, diabetic ulcer TECHNIQUE: Real-time imaging, as well as color and pulse Doppler interrogation, were performed of the lower extremity deep veins from the inguinal ligament to the popliteal fossa. COMPARISON: [facility], [facility] VENOUS LOW EXTREM LT, 04/02/2020, 13:05. FINDINGS: The common femoral, femoral and popliteal veins are normally compressible, and free of intraluminal thrombus. Color and pulse Doppler demonstrate normal phasic intraluminal flow. There is normal augmentation response to distal compression maneuver. IMPRESSION: No DVT in the left lower extremity. Dictated by: Armando Diehl M.D. on 07/17/2021 at 18:40 Approved by: Armando Diehl M.D. on 07/17/2021 at 18:40
--- NOTE | 2021-07-17 17:49 | P.HP_ITS ---
History of Present Illness History of Present Illness Date Patient Seen: 07/17/21 Time Patient Seen: 17:15 Chief complaint: Injured left foot Narrative: Patient is a 51 yo male with history of insulin-requiring type 2 diabetes with neuropathy, hypertension, GERD presents with complaint of acute left foot pain. Patient states he has been dealing with an ulcer on the bottom of his foot for the past 6 months. He states that it scabs over but opens back up. 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 He has been on 3 courses of oral antibiotics for it during this time. He states that the foot became much more painful today, throbbing where he could not bear weight on it, with new pain going up the left leg. He has not noticed any new drainage or redness. He does have neuropathy with decreased sensation in the area. When presented to the ED he was febrile and tachycardic with heart rate of 120 but normal blood pressure and O2 sats. X-ray showed 5th toe soft tissue swelling without evidence of osteo. WBC was mildly elevated 13.5 with slight left shift, creatinine 1.68 in line with prior values, glucose 195, CRP 2.1. COVID is negative. Patient states he has also been experiencing dyspnea on exertion and has had a cough for the past 3 months. He denies exertional or other chest pain. Patient states PCP thought it could be related to acid reflux. Patient recently saw his PCP Dr. Cornelia Badillo for diabetes follow-up. He states his hemoglobin A1c was 10.1 which was a significant improvement from prior value of 16. He is on Lantus 30 units b.i.d. and Humulin 12-15 units before meals in addition to oral medications. Family history is positive for type 2 diabetes in numerous family members including parents and siblings. No family history of heart disease. Patient is not a smoker or heavy alcohol user. Patient History Medical History (Updated 07/17/21 @ 17:06 by Dinora Braden DO) Acid reflux Diabetes type 2, uncontrolled Fibromyalgia Gastric ulcer Gout History of head injury HTN (hypertension) Surgical History History of brain shunt Family & Social History Family History Father Morbid obesity Diabetes mellitus Mother Cancer Heart disease Social History: household members friend(s) Safety & Behavioral: Feels Safe in Current Yes Environment Been Physically Hurt or No Threatened By a Person Tobacco & Substance use: Smoking Status Never smoker alcohol intake frequency holiday/special occasion Substance Use Type does not use Meds Home Medications and Allergies Home Medications Medication Instructions Recorded Confirmed Type esomeprazole magnesium 20 mg 20 mg PO DAILY 06/09/19 12/12/19 History capsule,delayed release (Nexium) insulin aspart U-100 100 unit/mL 6 unit SUBCUT TID 06/09/19 12/12/19 History subcutaneous solution (Novolog U-100 Insulin aspart) lisinopril 5 mg tablet 5 mg PO DAILY 06/09/19 12/12/19 History metformin 1,000 mg tablet 1,000 mg PO BID 06/09/19 12/12/19 History naproxen 500 mg tablet 500 mg PO BID PRN 06/09/19 12/12/19 History docusate sodium 100 mg capsule 100 mg PO BID #20 cap 12/04/19 12/12/19 Rx insulin glargine 100 unit/mL 26 unit (0.26 mL) SUBCUT BID #0 ml 12/04/19 12/12/19 Rx subcutaneous solution (Lantus U-100 Insulin) oxycodone 5 mg tablet 5 mg PO Q4-6H PRN #30 tab 12/04/19 12/12/19 Rx furosemide 40 mg tablet (Lasix) 40 mg PO DAILY #3 tab 04/02/20 Rx prednisone 20 mg tablet 20 mg PO DAILY #3 tab 04/02/20 Rx Allergies Allergy/AdvReac Type Severity Reaction Status Date / Time allopurinol AdvReac Diarrhea Verified 07/17/21 15:31 Review of Systems Review of Systems Narrative: Complete 10 point ROS negative other than noted above. Exam Vital Signs (past 8 hours): - 07/17/21 15:29 07/17/21 15:53 07/17/21 16:00 Temperature 100.4 F H Pulse Rate 120 H 114 H 111 H Respiratory Rate 18 21 18 Blood Pressure 140/81 142/78 H Pulse Oximetry 98 98 98 07/17/21 16:30 07/17/21 17:00 Temperature 100.6 F H Pulse Rate 109 H 108 H Respiratory Rate 20 20 Blood Pressure 132/79 132/74 Pulse Oximetry 98 98 Oxygen Delivery Method Room Air Narrative Exam Narrative: General: Alert cooperative male in no acute distress HEENT: Nontraumatic, pupils equal, anicteric, EOMI Oropharynx: Unremarkable Neck: No lymphadenopathy Lungs: Clear to auscultation Heart: Normal S1 and S2, regular rate and rhythm, without murmur Abdomen: Obese, nontender, no HSM Extremities: The left leg is diffusely swollen from lower calf to upper thigh without obvious redness. He has some tenderness on the inner thigh. On the left plantar distal 5th metatarsal there is an open 2 cm wound with foul odor and slight serous drainage. Underlying bone is easily palpable. There is no fluctuance or redness surrounding the wound. There is intact light touch sens ation on the feet. Neurological: Well oriented, normal affect and speech Objective Labs Result Diagrams: 07/17/21 15:40 07/17/21 15:40 Labs: Laboratory Results - last 24 hr 07/17/21 07/17/21 07/17/21 15:40 15:40 15:40 WBC 13.5 H RBC 5.36 Hgb 16.2 Hct 48.0 MCV 89.6 MCH 30.3 MCHC 33.8 RDW 14.0 Plt Count 299 Neut % (Auto) 86.0 H Lymph % (Auto) 6.0 L [place] % (Auto) 5.3 Eos % (Auto) 2.1 Baso % (Auto) 0.6 Neut # (Auto) 58835 H Lymph # (Auto) 800 L [place] # (Auto) 700 Eos # (Auto) 300 Baso # (Auto) 100 ESR Sodium 139 Potassium 4.5 Chloride 106 Carbon Dioxide 23 BUN 26 H Creatinine 1.68 H Estimated GFR 43.1 L BUN/Creatinine Ratio 15.5 Glucose 195 H Lactate 1.7 Calcium 9.0 Total Bilirubin 0.9 AST 26 ALT 18 Alkaline Phosphatase 90 C-Reactive Protein Total Protein 8.8 H Albumin 4.4 Globulin 4.4 H Albumin/Globulin Ratio 1.0 Lipase 215 Procalcitonin 0.09 SARS-CoV-2 (PCR) Influenza A (RT-PCR) Influenza B (RT-PCR) RSV (PCR) 07/17/21 07/17/21 07/17/21 15:40 15:40 15:50 WBC RBC Hgb Hct MCV MCH MCHC RDW Plt Count Neut % (Auto) Lymph % (Auto) [place] % (Auto) Eos % (Auto) Baso % (Auto) Neut # (Auto) Lymph # (Auto) [place] # (Auto) Eos # (Auto) Baso # (Auto) ESR 18 H Sodium Potassium Chloride Carbon Dioxide BUN Creatinine Estimated GFR BUN/Creatinine Ratio Glucose Lactate Calcium Total Bilirubin AST ALT Alkaline Phosphatase C-Reactive Protein 2.1 H Total Protein Albumin Globulin Albumin/Globulin Ratio Lipase Procalcitonin SARS-CoV-2 (PCR) Negative Influenza A (RT-PCR) Flu a negative Influenza B (RT-PCR) Flu b negative RSV (PCR) Negative Assessment & Plan Assessment & Plan narrative: 1. Chronic left foot diabetic ulcer with acute bacterial infection -patient is febrile, tachycardic with elevated WBC, without acute end-organ dysfunction, normal lactate -blood and wound cultures obtained in the ED -continue Zosyn and vancomycin -MR to rule out osteo -ortho consult, Dr. Livier Diaz to see patient in a.m. -NPO after midnight 2. Left leg swelling -likely due to infection -venous duplex ultrasound to rule out DVT 3. Type 2 diabetes insulin requiring with poor control -continue patient's Lantus 30 units b.i.d. and short-acting insulin 15 units with meals -continue oral medication 4. Chronic kidney disease stage 3 -admit creatinine 1.68 in line with prior values 5. Hypertension, hyperlipidemia -continue routine medications 6. Complaints of chronic cough and dyspnea on exertion -chest x-ray, EKG 7. GERD -continue PPI per home routine DVT prophylaxis: Lovenox Time Spent With Patient Critical Care time: I spent a total of [] minutes of critical care time on this patient's care today; this time is exclusive of procedural time.
[2021-07-17 18:03] LABS: Bacteria Urine None Seen; Culture Indicated Urine Cult Not Indicated; RBC Urine 0-1/HPF (0-5/HPF); Squamous Epithelial Cell Urine None Seen (0-5/HPF); WBC Urine 0-1/HPF (0-5/HPF)
--- NOTE | 2021-07-17 18:33 | DI.MRI.S_ITS ---
PROCEDURE: MR FOOT LT WO/W CON INDICATIONS: Pain, r/o left foot osteo TECHNIQUE: Noncontrast sagittal T1 spin echo and T2 fast spin echo with fat saturation, long-axis T1 spin echo and T2 fast spin echo with fat saturation; short-axis T1 spin echo, proton density fast spin echo, and T2 fast spin echo with fat saturation through the forefoot. Post-contrast short axis, long axis, and sagittal T1 spin echo with fat saturation through the forefoot. COMPARISON: [facility], CR, XR FOOT LT MIN 3V, 07/17/2021, 16:12. FINDINGS: Image quality: Excellent. Bones and joints: In the head of the 5th metatarsal, there is marrow edema and slight enhancement with surrounding soft tissue edema suspicious for osteomyelitis. Overlying soft tissue thickening edema present without evidence of focal abscess. Soft tissues: Diffuse soft tissue edema noted.. The visualized plantar foot muscles demonstrate normal signal and bulk. Visualized flexor and extensor tendons appear intact, without tenosynovitis. The distal insertions of the peroneus brevis and longus tendons appear intact. The principal Lisfranc ligament appears intact. No soft tissue ganglion cysts or bursal fluid collections. Sagittal images demonstrate no evidence for plantar plate tears. IMPRESSION: 1. Marrow edema and enhancement in the head of the 5th metatarsal consistent with focal early osteomyelitis 2. Generalized soft tissue edema in the forefoot Approved by: Sukh Baez M.D. on 07/18/2021 at 8:56
--- NOTE | 2021-07-17 19:38 | PC.NURSE ---
Patient admited around 1800 to room 205. He has a callus that is not healing and is opening up with foul odor for the last 6 months. He only wants to take tylenol for pain, and no narcotics. Patient is suppose to possibly go for an i&d maybe tomorrow to clean wound out. He is diabetic and does his own insulin at home. Patient is resting comfortably, vanco infused and patient will start zosyn. Girlfriend will be his support person.
[2021-07-17] MEDS: INSULIN GLARGINE 100 UNIT/ML 3ML PEN 30 UNIT SUBCUT (21:48)
[2021-07-17] MEDS: INSULIN LISPRO 100 UNIT/ML 3ML VIAL SUBCUT (21:48)
[2021-07-17] MEDS: PIPERACILLIN/TAZO 4.5 GM in SODIUM CHLORIDE 0.9% 100 ML 25 ML IV (21:50)
[2021-07-18] VITALS (17 sets, daily range): BP systolic 101–140; BP diastolic 59–87; PULSE 77–94; RESP 11–20; TEMP 36.2–37.5; O2SAT 94–100; BMI 41.0
[2021-07-18] MEDS: LACTATED RINGERS 1,000 ML 125 ML IV ×2 (00:58→10:08)
[2021-07-18] MEDS: PIPERACILLIN/TAZO 4.5 GM in SODIUM CHLORIDE 0.9% 100 ML 25 ML IV ×3 (05:22→22:18)
[2021-07-18 05:32] LABS: Add Manual Diff / Slide Review NO; Basophils Absolute Auto 100 /uL (0-100); Basophils Percent Auto 0.5 % (0-2); Eosinophils Absolute Auto 300 /uL (0-450); Eosinophils Percent Auto 2.3 % (2-4); Hematocrit 43.2 % (41-53); Hemoglobin 14.5 g/dL (13.5-17.5); Lymphocytes Absolute Auto 1600 /uL (1100-4500); Lymphocytes Percent Auto 12.1 % (25-40); Mean Corpuscular HGB Conc 33.6 % (30-36); Mean Corpuscular Hemoglobin 30.1 PG (26-34); Mean Corpuscular Volume 89.7 fL (80-100); Monocytes Absolute Auto 1000 /uL (0-900); Monocytes Percent Auto 7.6 % (3-14); Neutrophils Absolute Auto 10000 /uL (1500-7000); Neutrophils Percent Auto 77.5 % (50-75); Platelet Count 254 X10^3/uL (150-400); Red Blood Cell Count 4.82 X10^6/uL (4.5-5.9); Red Cell Distribution Width 13.6 % (11.6-14.8); White Blood Cell Count 12.9 X10^3/uL (4.5-11.0)
[2021-07-18 05:39] LABS: BUN Creatinine Ratio 14.7 (6-22); Blood Urea Nitrogen 24 mg/dL (9-20); Calcium 8.4 mg/dL (8.4-10.2); Carbon Dioxide 21 mmol/L (22-32); Chloride 110 mmol/L (98-107); Estimated Glomerular Filt Rate 44.7 mL/min (>60); Glucose 102 mg/dL (70-100); HEMOLYSIS < 15 (0-50); Potassium 4.1 mmol/L (3.4-5.1); Sodium 138 mmol/L (137-145)
--- NOTE | 2021-07-18 07:29 | PC.NURSE ---
Zosyn scheduled at 1930 was rescheduled by pharmacist, LR bolus order from ER had been completed at previous shift and beg of the awake overnight counselor.
--- NOTE | 2021-07-18 11:06 | PM.HP.1 ---
History of Present Illness History of Present Illness Date Patient Seen: 07/18/21 Time Patient Seen: 09:30 Chief complaint: Injured left foot Narrative: This is a 51-year-old gentleman with a history of diabetes and neuropathy who previously has been treated through Dr. Santoyo with the wound clinic for a chronic left foot ulcers. He notes that it is it has been getting a little worse recently. He had increased pain in fevers and came to the emergency room. He seen his primary care practitioner who gave him oral antibiotics but he says that did not they did not send it to the pharmacy. They also recommended that he see Podiatry or a email production specialist but he was not sure the referral went through. He has had previous I&D of his left foot and then wound care treatment. He notes his sugars have been reasonably well controlled with a maximum of about 200. He does have some chronic numbness in his foot. 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 Patient History Medical History Acid reflux Diabetes type 2, uncontrolled Fibromyalgia Gastric ulcer Gout History of head injury HTN (hypertension) Surgical History History of brain shunt Family & Social History Family History Father Morbid obesity Diabetes mellitus Mother Cancer Heart disease Social History: household members friend(s) Safety & Behavioral: Feels Safe in Current Yes Environment Been Physically Hurt or No Threatened By a Person Suicidal Ideation Description None Suicide Plan Description No Plan Tobacco & Substance use: Smoking Status Never smoker alcohol intake frequency holiday/special occasion Substance Use Type does not use Meds Home Medications and Allergies Home Medications Medication Instructions Recorded Confirmed Type esomeprazole magnesium 20 mg 20 mg PO DAILY 06/09/19 07/17/21 History capsule,delayed release (Nexium) insulin aspart U-100 100 unit/mL 15 unit SUBCUT TID 06/09/19 07/17/21 History subcutaneous solution (Novolog U-100 Insulin aspart) lisinopril 5 mg tablet 5 mg PO DAILY 06/09/19 07/17/21 History allopurinol 100 mg tablet 100 mg PO QAM 07/17/21 07/17/21 History atorvastatin 20 mg tablet 20 mg PO QAM 07/17/21 07/17/21 History canagliflozin 300 mg tablet 300 mg PO QAM 07/17/21 07/17/21 History (Invokana) insulin glargine 100 unit/mL 30 unit SUBCUT BID 07/17/21 07/17/21 History subcutaneous solution (Lantus U-100 Insulin) Allergies Allergy/AdvReac Type Severity Reaction Status Date / Time allopurinol AdvReac Diarrhea Verified 07/17/21 15:31 Review of Systems Review of Systems Narrative: Increased pain some mild fevers, denies shortness of breath, some increased swelling in the left leg but no severe calf pain, Exam Vital Signs (past 8 hours): - 07/18/21 04:13 07/18/21 08:00 07/18/21 10:30 Temperature 98.8 F 98.1 F 98.7 F Pulse Rate 86 89 87 Respiratory Rate 16 16 16 Blood Pressure 121/63 103/59 L 124/87 Pulse Oximetry 96 96 97 Oxygen Delivery Method Room Air Oxygen Flow Rate 0 Narrative Exam Narrative: HEENT is benign, lungs are clear cor regular rate and rhythm abdomen soft and benign, examination of the left lower extremity shows an open wound under the 5th metatarsal head, it is mildly fluctuant, there is a foul odor, he does not have significant cellulitis extending proximally but he is tender over the distal foot on the lateral side and in the 4th web space, there is mild fluctuance, the toe appears viable, there is decreased sensation in bilateral feet in a stocking distribution Objective Labs Result Diagrams: 07/18/21 05:20 07/18/21 05:20 Labs: Laboratory Results - last 24 hr 07/17/21 07/17/21 07/17/21 15:40 15:40 15:40 WBC 13.5 H RBC 5.36 Hgb 16.2 Hct 48.0 MCV 89.6 MCH 30.3 MCHC 33.8 RDW 14.0 Plt Count 299 Neut % (Auto) 86.0 H Lymph % (Auto) 6.0 L [place] % (Auto) 5.3 Eos % (Auto) 2.1 Baso % (Auto) 0.6 Neut # (Auto) 37598 H Lymph # (Auto) 800 L [place] # (Auto) 700 Eos # (Auto) 300 Baso # (Auto) 100 ESR Sodium 139 Potassium 4.5 Chloride 106 Carbon Dioxide 23 BUN 26 H Creatinine 1.68 H Estimated GFR 43.1 L BUN/Creatinine Ratio 15.5 Glucose 195 H Lactate 1.7 Calcium 9.0 Total Bilirubin 0.9 AST 26 ALT 18 Alkaline Phosphatase 90 C-Reactive Protein Total Protein 8.8 H Albumin 4.4 Globulin 4.4 H Albumin/Globulin Ratio 1.0 Lipase 215 Procalcitonin 0.09 Urine RBC Urine WBC Ur Squamous Epith Cells Urine Bacteria Ur Culture Indicated? SARS-CoV-2 (PCR) Influenza A (RT-PCR) Influenza B (RT-PCR) RSV (PCR) 07/17/21 07/17/21 07/17/21 15:40 15:40 15:50 WBC RBC Hgb Hct MCV MCH MCHC RDW Plt Count Neut % (Auto) Lymph % (Auto) [place] % (Auto) Eos % (Auto) Baso % (Auto) Neut # (Auto) Lymph # (Auto) [place] # (Auto) Eos # (Auto) Baso # (Auto) ESR 18 H Sodium Potassium Chloride Carbon Dioxide BUN Creatinine Estimated GFR BUN/Creatinine Ratio Glucose Lactate Calcium Total Bilirubin AST ALT Alkaline Phosphatase C-Reactive Protein 2.1 H Total Protein Albumin Globulin Albumin/Globulin Ratio Lipase Procalcitonin Urine RBC Urine WBC Ur Squamous Epith Cells Urine Bacteria Ur Culture Indicated? SARS-CoV-2 (PCR) Negative Influenza A (RT-PCR) Flu a negative Influenza B (RT-PCR) Flu b negative RSV (PCR) Negative 07/17/21 07/18/21 07/18/21 17:40 05:20 05:20 WBC 12.9 H RBC 4.82 Hgb 14.5 Hct 43.2 MCV 89.7 MCH 30.1 MCHC 33.6 RDW 13.6 Plt Count 254 Neut % (Auto) 77.5 H Lymph % (Auto) 12.1 L [place] % (Auto) 7.6 Eos % (Auto) 2.3 Baso % (Auto) 0.5 Neut # (Auto) 36382 H Lymph # (Auto) 1600 [place] # (Auto) 1000 H Eos # (Auto) 300 Baso # (Auto) 100 ESR Sodium 138 Potassium 4.1 Chloride 110 H Carbon Dioxide 21 L BUN 24 H Creatinine 1.63 H Estimated GFR 44.7 L BUN/Creatinine Ratio 14.7 Glucose 102 H Lactate Calcium 8.4 Total Bilirubin AST ALT Alkaline Phosphatase C-Reactive Protein Total Protein Albumin Globulin Albumin/Globulin Ratio Lipase Procalcitonin Urine RBC 0-1/hpf Urine WBC 0-1/hpf Ur Squamous Epith Cells None seen Urine Bacteria None seen Ur Culture Indicated? Cult not indicated SARS-CoV-2 (PCR) Influenza A (RT-PCR) Influenza B (RT-PCR) RSV (PCR) MRI scan left foot shows bony edema and changes in the 5th metatarsal head and neck consistent with probable osteomyelitis, there is a soft tissue wound and an abscess on the lateral aspect of his foot with the soft tissue defect and abscess. Assessment & Plan Assessment and plan (1) Diabetic infection of left foot: Status: Acute (2) Sepsis: Status: Acute (3) CKD (chronic kidney disease): Status: Acute (4) Morbid obesity with BMI of 40.0-44.9, adult: Status: Acute (5) Diabetes mellitus, insulin dependent (IDDM), controlled: Status: Chronic Plan Recommended irrigation debridement of his left foot with possible a possible 5th metatarsal head resection. The procedure alternatives risks benefits and complications was discussed in detail. He understands and agrees. His long-term concerns regarding diabetic foot ulcers risks for additional infections wound healing issues and long-term chronic problems requiring shoe modification and limited and restricted weight-bearing was discussed in detail. Serious nature of the problem including risk for amputation or loss of his toe and or foot and leg was discussed in detail. He clearly has failed conservative treatment and has an acute infection with an abscess and infection. Will work on getting him scheduled on an urgent basis. Time Spent With Patient Critical Care time: I spent a total of [] minutes of critical care time on this patient's care today; this time is exclusive of procedural time.
[2021-07-18] MEDS: METOCLOPRAMIDE 10 MG/2 ML INJ IV (11:14)
[2021-07-18] MEDS: FAMOTIDINE 20 MG/2 ML VIAL IV (11:14)
[2021-07-18] MEDS: LACTATED RINGERS 1,000 ML 42 ML IV (11:14)
--- NOTE | 2021-07-18 11:14 | PC.NURSE ---
Day shift - Pt left unit at 1055 for surgery, w/OR staff
--- NOTE | 2021-07-18 11:17 | PM.OP.1 ---
Operative Date/Time/Diagnoses Date of procedure: 07/18/21 Time of procedure: 11:30 Pre-op diagnosis: Left foot diabetic foot ulcer. With probable osteomyelitis of the 5th metatarsal head Post-op diagnosis: same Procedure & Clinicians Procedure: Left foot irrigation and debridement with excisional debridement of subcutaneous tissue soft tissue and necrotic tendon, biopsy left 5th metatarsal head, Same procedure as scheduled: Yes Indications: This is a 51-year-old diabetic with neuropathy who presented with a chronic foot ulcer with acute worsening with sepsis and worsening infection. He is brought to the operating room on an urgent basis for irrigation and debridement is needed. Surgeon: Livier Diaz Click Yes if Unassisted: Yes Anesthesia Type: General Operative Notes Findings: Obvious infection, moderate necrotic tissue on the plantar aspect of the foot which extended down to the 5th metatarsal MTP capsule, no obvious rent in the capsule, no obvious distention of the capsule, moderate necrotic tissue extending laterally and onto the dorsum of the foot, superficial and deep cultures sent and bone biopsy sent. Closure Type: non-primary (Packed with Nu Gauze) Specimen(s): other (Superficial culture from in the wound deep, deep tissue culture, bone biopsy from the 5th metatarsal head) Estimated Blood Loss (mL): 50 Blood products transfused: none Procedure in detail: Patient brought the operating room and underwent the induction of general anesthesia. His less left lower extremity prepped draped in sterile fashion. Time-out was performed. He was on preoperative antibiotics and had already been on antibiotics and thus they were continued on his schedule. His left leg was prepped sterilely. Tourniquet was applied. Skin incision was made dissection was carried out through skin and subcutaneous tissues. There was moderate bleeding and the toe appeared viable and the tourniquet was briefly elevated. Purulent material was encountered. Cultures of the pus and superficial subcutaneous cultures were sent. There was moderate necrotic tissue on the plantar aspect of the foot. I made both the plantar and the dorsal incision as there was a pointing abscess on the dorsum of the foot in addition to the plantar aspect of the foot. A rongeur was used debris to debride necrotic tissue there was moderate black necrotic tissue. Subcutaneous tissue and some tendinous material was carefully debrided. Careful attention was directed at checking for tracking. There did not appear to be substantial tracking proximally at least not proximal to about the mid metatarsal region on the 5th metatarsal. The wound was then meticulously irrigated with normal saline as soon as all the necrotic tissue had been removed. Dissection was then carried out down to the 5th metatarsal head and MTP joint. There did not appear to be a significant rent in the MTP capsule. Sharp incision with a clean knife was made on the metatarsal neck region and a deep bone biopsy was taken. Three total cultures were sent. The wound was meticulously irrigated with normal saline. Marcaine without epinephrine was injected for local anesthesia. The wound was packed with Nu Gauze. The wound was dressed sterilely. Complications: none Post-operative Condition: stable Disposition: Acute Care Plan for aftercare: Continue IV antibiotics. Check cultures, remove packing this week and begin dressing changes in about 48 hours. Consultation to wound clinic. Long-term see Podiatry or Foot Service as he will likely require shoe modification and may require additional procedures.
--- NOTE | 2021-07-18 11:34 | SUR.HOLD ---
To the OR, voided 700 ml dark yellow urine; VS and glucose were don't just prior to leaving his IP room
--- NOTE | 2021-07-18 12:14 | SUR.OPER ---
Supine on padded OR bed, head on gel donut, arms secured on padded arm boards at <90 degrees abduction, legs uncrossed, safety belt at abdomen, tape over blanket over lower right leg. Bump applied under Left hip. Directed and approved by surgeon
[2021-07-18] MEDS: BUPIVACAINE 0.5% (PF) VIAL 10 ML INJ (12:45)
[2021-07-18] MEDS: ONDANSETRON 4 MG/2 ML INJ IV (12:55)
--- NOTE | 2021-07-18 13:22 | P.PN_ITS ---
Subjective Subjective Date Patient Seen: 07/18/21 Interval history: 51-year-old male with uncontrolled diabetes with neuropathy, CKD presenting with infected left foot diabetic ulcer. MRI shows likely early osteomyelitis in left 5th metatarsal head. He had OR I & D today with Dr. Livier Diaz. Exam Vital Signs (past 8 hours): - 07/18/21 08:00 07/18/21 10:30 07/18/21 12:45 Temperature 98.1 F 98.7 F 99.5 F Pulse Rate 89 87 82 Respiratory Rate 16 16 13 Blood Pressure 103/59 L 124/87 123/79 Pulse Oximetry 96 97 96 07/18/21 12:50 07/18/21 12:55 07/18/21 13:00 Temperature Pulse Rate 87 81 78 Respiratory Rate 17 18 11 L Blood Pressure 114/82 135/83 127/77 Pulse Oximetry 95 94 94 07/18/21 13:16 Temperature 98.5 F Pulse Rate 77 Respiratory Rate 13 Blood Pressure 132/81 Pulse Oximetry 96 Oxygen Delivery Method Room Air Oxygen Flow Rate 0 Narrative Exam Narrative: General: Alert and pleasant cooperative male appearing comfortable Extremities: Left leg mildly swollen, there is open wound with necrosis on plantar distal left 5th metatarsal, no erythema, no significant drainage Objective Labs Result Diagrams: 07/18/21 05:20 07/18/21 05:20 Labs: Laboratory Results - last 24 hr 07/17/21 07/17/21 07/17/21 15:40 15:40 15:40 WBC 13.5 H RBC 5.36 Hgb 16.2 Hct 48.0 MCV 89.6 MCH 30.3 MCHC 33.8 RDW 14.0 Plt Count 299 Neut % (Auto) 86.0 H Lymph % (Auto) 6.0 L [place] % (Auto) 5.3 Eos % (Auto) 2.1 Baso % (Auto) 0.6 Neut # (Auto) 25688 H Lymph # (Auto) 800 L [place] # (Auto) 700 Eos # (Auto) 300 Baso # (Auto) 100 ESR Sodium 139 Potassium 4.5 Chloride 106 Carbon Dioxide 23 BUN 26 H Creatinine 1.68 H Estimated GFR 43.1 L BUN/Creatinine Ratio 15.5 Glucose 195 H Lactate 1.7 Calcium 9.0 Total Bilirubin 0.9 AST 26 ALT 18 Alkaline Phosphatase 90 C-Reactive Protein Total Protein 8.8 H Albumin 4.4 Globulin 4.4 H Albumin/Globulin Ratio 1.0 Lipase 215 Procalcitonin 0.09 Urine RBC Urine WBC Ur Squamous Epith Cells Urine Bacteria Ur Culture Indicated? SARS-CoV-2 (PCR) Influenza A (RT-PCR) Influenza B (RT-PCR) RSV (PCR) 07/17/21 07/17/21 07/17/21 15:40 15:40 15:50 WBC RBC Hgb Hct MCV MCH MCHC RDW Plt Count Neut % (Auto) Lymph % (Auto) [place] % (Auto) Eos % (Auto) Baso % (Auto) Neut # (Auto) Lymph # (Auto) [place] # (Auto) Eos # (Auto) Baso # (Auto) ESR 18 H Sodium Potassium Chloride Carbon Dioxide BUN Creatinine Estimated GFR BUN/Creatinine Ratio Glucose Lactate Calcium Total Bilirubin AST ALT Alkaline Phosphatase C-Reactive Protein 2.1 H Total Protein Albumin Globulin Albumin/Globulin Ratio Lipase Procalcitonin Urine RBC Urine WBC Ur Squamous Epith Cells Urine Bacteria Ur Culture Indicated? SARS-CoV-2 (PCR) Negative Influenza A (RT-PCR) Flu a negative Influenza B (RT-PCR) Flu b negative RSV (PCR) Negative 07/17/21 07/18/21 07/18/21 17:40 05:20 05:20 WBC 12.9 H RBC 4.82 Hgb 14.5 Hct 43.2 MCV 89.7 MCH 30.1 MCHC 33.6 RDW 13.6 Plt Count 254 Neut % (Auto) 77.5 H Lymph % (Auto) 12.1 L [place] % (Auto) 7.6 Eos % (Auto) 2.3 Baso % (Auto) 0.5 Neut # (Auto) 49383 H Lymph # (Auto) 1600 [place] # (Auto) 1000 H Eos # (Auto) 300 Baso # (Auto) 100 ESR Sodium 138 Potassium 4.1 Chloride 110 H Carbon Dioxide 21 L BUN 24 H Creatinine 1.63 H Estimated GFR 44.7 L BUN/Creatinine Ratio 14.7 Glucose 102 H Lactate Calcium 8.4 Total Bilirubin AST ALT Alkaline Phosphatase C-Reactive Protein Total Protein Albumin Globulin Albumin/Globulin Ratio Lipase Procalcitonin Urine RBC 0-1/hpf Urine WBC 0-1/hpf Ur Squamous Epith Cells None seen Urine Bacteria None seen Ur Culture Indicated? Cult not indicated SARS-CoV-2 (PCR) Influenza A (RT-PCR) Influenza B (RT-PCR) RSV (PCR) [facility] Medical History Acid reflux Diabetes type 2, uncontrolled Fibromyalgia Gastric ulcer Gout History of head injury HTN (hypertension) Surgical History History of brain shunt Family History Father Morbid obesity Diabetes mellitus Mother Cancer Heart disease Social History household members: friend(s) Smoking Status: Never smoker Assessment & Plan Assessment & Plan narrative: 1. 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 Consultation to wound clinic.? Long-term see Podiatry or Foot Service as he will likely require shoe modification and may require additional procedures. -PICC line Monday for home IV antibiotic 2. Left leg swelling -venous duplex ultrasound was negative for DVT 3. Type 2 diabetes insulin requiring with poor control -recent outpatient A1c 10.1, which was significant improvement from prior values -continue patient's Lantus 30 units b.i.d. and short-acting insulin 15 units with meals -also on Invokana at home -continue patient's atorvastatin 4. Chronic kidney disease stage 3 -admit creatinine 1.68 in line with prior values 5. Hypertension, hyperlipidemia -continue lisinopril 5 mg q.d. per home routine 6. Complaints of chronic cough and dyspnea on exertion -chest x-ray normal, EKG sinus tachycardia without ischemic changes -follow-up with PCP 7.? GERD -continue PPI per home routine DVT prophylaxis: Enoxaparin Time Spent With Patient Critical Care time: I spent a total of [] minutes of critical care time on this patient's care today; this time is exclusive of procedural time.
--- NOTE | 2021-07-18 13:29 | SUR.PHASEI ---
Denies pain other than irritation/cough related to ETT. Denies nausea, tolerating fluids and ice chips well. Taking patient back to his room. Awake, oriented, VSS
--- NOTE | 2021-07-18 13:41 | SUR.PHASEI ---
Delay in transfer due to inability to process transfer of orders. AC Coordinator was able to do it.
--- NOTE | 2021-07-18 13:52 | SUR.PHASEI ---
Patient to the room, denies nausea, hand-off given prior to this note.
[2021-07-18] MEDS: VANCOMYCIN 2,000 MG/400 ML PIGGYBACK 200 MG IV (13:59)
--- NOTE | 2021-07-18 15:31 | CM.DANOTE ---
DCP/Assessment: Reviewed chart. Patient is a 51yr old male admitted with left food ulcer. PCP listed is Anjali Mcrae. Primary payor is 1)PW 2)Medicaid. Reviewed chart. Attempted to meet with patient however, patient off floor for left foot I&D. Spoke with Dr. Diaz whom reports that she is unsure of patient d/c needs at this time. It is highly possible patient will need IV abx and wound care? P: CM team following closely for anticipated d/c planning needs. [facility] Discharge Planning/Care Management CM Discharge Assessment Start: 07/18/21 15:26 Freq: Status: Active Protocol: Document 07/18/21 15:26 [facility] (Rec: 07/18/21 15:31 [facility] [id number]) Discharge Planning Assessment Assigned Health Education Assistant HEDY Sheikh Contact Information Kathy Rivers (friend) # [phone] Advance Directives? No Advance Directives on File No History Provided By Medical Record Household Members friend(s) Independent with ADL's Yes: Per EMR Is patient alert and oriented? Yes: Per EMR Comment Unknown at this time. Patient in surgery at the time of initial CM visit. Comment D/C needs pending. Patient underwent I&D of left foot today. Cultures currenlty pending. Transportation Arrangement TBD Referrals Initiated Other Additional Comment Pending medical plan of care. Review Status In Process Next Review Type Continued Stay Review
[2021-07-18] MEDS: ATORVASTATIN 20 MG TABLET PO (20:50)
[2021-07-18] MEDS: ACETAMINOPHEN 325 MG TABLET 650 MG PO (20:50)
[2021-07-19 03:36] VITALS: BP 113/71; PULSE 74; RESP 18; TEMP 36.3; O2SAT 97
[2021-07-19] MEDS: PIPERACILLIN/TAZO 4.5 GM in SODIUM CHLORIDE 0.9% 100 ML 25 ML IV ×3 (05:49→21:08)
[2021-07-19 06:01] LABS: Hematocrit 44.1 % (41-53); Hemoglobin 14.8 g/dL (13.5-17.5); Mean Corpuscular HGB Conc 33.5 % (30-36); Mean Corpuscular Volume 89.3 fL (80-100); Platelet Count 256 X10^3/uL (150-400); Red Blood Cell Count 4.94 X10^6/uL (4.5-5.9); White Blood Cell Count 10.8 X10^3/uL (4.5-11.0)
[2021-07-19 06:09] LABS: BUN Creatinine Ratio 13.2 (6-22); Blood Urea Nitrogen 23 mg/dL (9-20); Calcium 8.7 mg/dL (8.4-10.2); Carbon Dioxide 22 mmol/L (22-32); Chloride 107 mmol/L (98-107); Estimated Glomerular Filt Rate 41.4 mL/min (>60); Glucose 104 mg/dL (70-100); HEMOLYSIS < 15 (0-50); Potassium 4.2 mmol/L (3.4-5.1); Sodium 138 mmol/L (137-145)
--- NOTE | 2021-07-19 07:45 | PM.PNPO.1 ---
Subjective Subjective Date Patient Seen: 07/19/21 Time Patient Seen: 07:45 Interval history: Patient is complaining of no left foot pain. He has a history of peripheral neuropathy in bilateral feet. He is complaining of some night sweats and feeling warm. His night sweats and chills have resolved since yesterday morning. He has seen Dr. 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 He is also complaining of some vague shortness of breath and chest pain this morning. There is no incentive spirometer at his bedside. Exam Vital Signs (past 8 hours): - 07/19/21 03:36 Temperature 97.4 F L Pulse Rate 74 Respiratory Rate 18 Blood Pressure 113/71 Pulse Oximetry 97 Oxygen Delivery Method Room Air Oxygen Flow Rate 0 Narrative Exam Narrative: Pleasant 51-year-old male, resting comfortably in bed, no acute distress. Able to speak in full sentences without difficulty. Dressing is clean, dry, intact. Bilateral lower extremity: Motor functions are grossly intact, sensation is decreased bilaterally, calves are soft and nontender palpation. Objective Labs Result Diagrams: 07/19/21 05:47 07/19/21 05:47 Labs: Laboratory Results - last 24 hr 07/19/21 07/19/21 05:47 05:47 WBC 10.8 RBC 4.94 Hgb 14.8 Hct 44.1 MCV 89.3 MCH 30.0 MCHC 33.5 RDW 14.0 Plt Count 256 Sodium 138 Potassium 4.2 Chloride 107 Carbon Dioxide 22 BUN 23 H Creatinine 1.74 H Estimated GFR 41.4 L BUN/Creatinine Ratio 13.2 Glucose 104 H Calcium 8.7 PFSH Medical History Acid reflux Diabetes type 2, uncontrolled Fibromyalgia Gastric ulcer Gout History of head injury HTN (hypertension) Surgical History History of brain shunt Family History Father Morbid obesity Diabetes mellitus Mother Cancer Heart disease Social History household members: friend(s) Smoking Status: Never smoker Assessment & Plan Post-op Postoperative Procedures: Procedures Operation Date: 07/18/21 11:30 Actual Procedure Side Surgeon p Incision and Drainage Wound/Extremity, biopsy Livier Diaz MD Postoperative day: 1 Postoperative status narrative: Status post left 5th toe I&D/biopsy Postoperative plan narrative: -Continue IV antibiotics: pipercillin/tazo. -Check cultures. Left toe deep tissue demonstrates 3+ g positive cocci and few white blood cells. Otherwise still pending. -remove packing this week and begin dressing changes in about 48 hours. -Consultation to wound clinic. Patient has seen Dr. Cerna in the past and will likely need to follow-up as an outpatient. -Long-term see Podiatry or Foot Service as he will likely require shoe modification and may require additional procedures. Patient has seen a restaurant shift supervisor in [place] previously. -will check with Dr. Diaz about his weight-bearing status and Lovenox for DVT prophylaxis -Hospitalist informed about patient's chest pain/shortness of breath. We will also have his nurse give him an incentive spirometer this morning.
[2021-07-19] MEDS: PANTOPRAZOLE DR 20 MG TABLET PO (07:55)
[2021-07-19 08:00] VITALS: BP 119/76; PULSE 78; RESP 16; TEMP 36.3; O2SAT 97
[2021-07-19 09:05] VITALS: BP 119/76; PULSE 78
[2021-07-19] MEDS: ENOXAPARIN 40 MG/0.4 ML SYRINGE SUBCUT ×2 (09:05→21:09)
[2021-07-19] MEDS: lisinopriL 5 MG TABLET PO (09:05)
[2021-07-19] MEDS: allopurinoL 100 MG TABLET PO (09:05)
[2021-07-19] MEDS: ACETAMINOPHEN 325 MG TABLET 650 MG PO (09:07)
[2021-07-19] MEDS: INSULIN GLARGINE 100 UNIT/ML 3ML PEN 30 UNIT SUBCUT ×2 (09:21→21:07)
--- NOTE | 2021-07-19 10:01 | DI.RAD.S_ITS ---
PROCEDURE: XR CHEST FOR PICC 1V INDICATIONS: line placement COMPARISON: [facility], CR, XR CHEST 1V, 07/17/2021, 18:04. FINDINGS: PICC was placed by the intravenous therapy team from the left side. Fluoroscopic spot film demonstrates the tip of PICC projecting to the area of proximal SVC. IMPRESSION: Tip of PICC projects to the area of proximal SVC. Dictated by: Joan Contreras M.D. on 07/19/2021 at 10:20 Approved by: Joan Contreras M.D. on 07/19/2021 at 10:20
--- NOTE | 2021-07-19 10:12 | PT-IP ANOTE ---
Addendum entered and electronically signed by Sara Medina PT 07/19/21 10:29: Dr. Diaz called RN to update WB status to: 200 pounds PWB LLE with post op shoe. Original Note: Received PT orders and reviewed the chart. Weightbearing orders stated PWB. Called ortho to clarify. Unable to reach Dr. Diaz who is in surgery all day. Spoke with Toshia Hoang PA-C, who gave verbal order for PWB through heel only. PT updated WB order on EMR. Attempted to meet with pt who was unavailable due to PICC placement/bedside procedure. Will follow up later today.
--- NOTE | 2021-07-19 10:37 | DI.RAD.S_ITS ---
PROCEDURE: XR CHEST 1V INDICATIONS: sob TECHNIQUE: One view of the chest was acquired. COMPARISON: [facility], [place], XR CHEST 1V, 07/17/2021, 18:04. [facility], [place], XR CHEST FOR PICC 1V, 07/19/2021, 10:05. FINDINGS: Surgical changes and devices: Left PICC redemonstrated with tip projecting over the superior vena cava. Lungs and pleura: Lungs are clear. No pleural effusions or pneumothorax. Mediastinum: Mediastinal contours appear normal. Heart size is normal. Bones and chest wall: No suspicious bony lesions. Overlying soft tissues appear unremarkable. IMPRESSION: Stable left PICC. No acute cardiopulmonary abnormality. Dictated by: Lowell Huynh M.D. on 07/19/2021 at 11:06 Approved by: Lowell Huynh M.D. on 07/19/2021 at 11:08
--- NOTE | 2021-07-19 11:08 | PT.IIE ---
Current Diagnoses Sepsis, unspecified organism (07/17/21) Type 2 diabetes mellitus with other skin complications (07/17/21) Type 2 diabetes mellitus without complications (07/17/21) Morbid (severe) obesity due to excess calories (07/17/21) Local infection of the skin and subcutaneous tissue, unspecified (07/17/21) Chronic kidney disease, unspecified (07/17/21) Body mass index [BMI] 40.0-44.9, adult (07/17/21) penitentiary (current) use of insulin (07/17/21) Surgery Performed Operation Date: 07/18/21 11:30 Actual Procedures p Incision and Drainage Wound/Extremity, biopsy - Livier Diaz MD Medical History (Last Reviewed 07/19/21 @ 07:47 by Toshia Hoang PA-C) Acid reflux Diabetes type 2, uncontrolled Fibromyalgia Gastric ulcer Gout History of head injury HTN (hypertension) Physical Therapy Inpatient Evaluation/Re-Eval M1 PT/OT-IP Prior Functional Status Start: 07/19/21 08:38 Freq: NEEDED Status: Active Protocol: Document 07/19/21 11:08 AW (Rec: 07/19/21 11:23 AW [id number]) Medical Review Prior Functional Status Medical History Reviewed Yes Communication No known deficits Mobility and Gait Pt is independently mobile at baseline. 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 Activities of Daily Living and IADL's Indpendent. Pt is an active independent driver. Prior Functional Level (Other details) PMH includes DM2 (A1C 10.1) and morbid obesity. Pt has had a left foot wound in various stages of healing for several months. Social History Household Members significant other Living Arrangements Apartment/Condo Number of Floors (Floors) One Floor Number of Stairs To Enter/Railing? Pt lives in a 1st floor apartment. There are 3 PHYLICIA with bilateral rails at the back entrance. Home Environment High Toilet,Walk in Shower Home Equipment Hand Held Shower Employment Status Deputy Sheriff Generalist/Bailiff Employed Additional Social History Comment Pt lives with his fianceeKathy, who just started a new full-time job and will not be able to take time off to assist. M2 PT-IP Current Condition Start: 07/19/21 08:38 Freq: NEEDED Status: Active Protocol: Document 07/19/21 11:08 AW (Rec: 07/19/21 11:48 AW [id number]) Physical Therapy Current Condition Current Condition Evaluation Date 07/19/21 Treatment Diagnosis L foot ulcer s/p I&D; difficulty in walking Onset Date 07/18/21 M3 PT-IP Subjective Start: 07/19/21 08:38 Freq: NEEDED Status: Active Protocol: Document 07/19/21 11:08 AW (Rec: 07/19/21 11:48 AW [id number]) Subjective Physical Therapy Visit Type Type Initial Evaluation Visit Start Time 09:26 Visit Stop Time 11:08 Total Visit Minutes 38 Notes Split visits [id number] and [id number]. Needed time to clarify weightbearing status. PICC line placed between visits. Physical Therapy Visit Comments Patient Comments Pt is willing to participate with PT Patient Goals Return home with assist from [place]. Therapy Pain Assessment Pain When Pain Assessed During Mobility Pain Present Pain Present Denied Pain M4 PT-IP Mobility and Gait Start: 07/19/21 08:38 Freq: NEEDED Status: Active Protocol: Document 07/19/21 11:08 AW (Rec: 07/19/21 11:48 AW [id number]) PT-Bed Mobility Assessment Supine to Sit Supine to Sit Standby Assistance Scooting Scooting to Edge of Bed Standby Assistance PT-Transfer Assessment Sit to and From Stand Sit to and from Stand Standby Assistance,Use of Upper Extremities Equipment Transfer Assistive Device Gait Belt,Front Wheeled Walker ,Axillary Crutches Orthotic/Prosthetic Devices or Brace: Yes Transfers Transfer Destination Bed,Chair Transfer Technique ambulated with FWW or axillary crutches Transfer Ability Level of Assist Standby Assistance,Contact Guard Assistance Comments Mobility Comments Pt was lying in bed as PT arrived. Educated pt on 200# PWB LLE in offloading shoe and need for an assistive device to offweight the LLE. PT instructed pt to don the offloading shoe. Pt sat up on the left side of the bed and stood SBA. With post-op shoe and FWW, pt ambulated around the room SBA with min cues to keep weight on left heel and not tip foward onto toes. He ambulated into the hallway and returned to sit EOB SBA. PT left to get crutches. Pt stood from the bed with axillary crutches SBA and walked into the hallway a total of 80 feet . He responded well to cues for postural stability and hip extension. He demonstrated good balance with crutches. On return to the room, pt transferred to the chair and completed another sit <> stand SBA with good attention to WB restriction. Pt was left with legs elevated, call light in hand, and tray table in reach. Pt agreed to use the call light for all mobility needs. Gait Assessment Gait Gait Assistance Required: Standby Assistance Distance (Feet) 80 Able to Maintain Weight Bearing Status Yes During Gait Assistive Devices Assistive Device Gait Belt,Front Wheeled Walker ,Axillary Crutches Orthotic/Prosthetic Devices or Brace: Yes Gait Deviations General Gait Pattern Antalgic,Decreased Stride Length,Decreased Feet Clearance,Flexed Trunk,Step-to Gait,Wide Based Gait Factors Limiting Gait Function Factors Limiting Gait Function Decreased Sensation,Limited Range of Motion Comments Gait Comments Pt was stable with offloading shoe, FWW, and axillary crutches. Balance was good with both devices and pt expressed preference for crutches. Stair Climbing Assessment Comments Stair Climbing Comments Not assessed. Pt will need to complete stair training prior to discharge. PT-Balance Assessment Sitting Balance and Reactions Static Sitting Balance Ability Normal Dynamic Sitting Balance Ability Normal Standing Balance and Reactions Static Standing Balance Ability Good Dynamic Standing Balance Ability Good Device Used axillary crutches M5 PT-IP Objective Assessments Start: 07/19/21 08:38 Freq: NEEDED Status: Active Protocol: Document 07/19/21 11:08 AW (Rec: 07/19/21 11:48 AW [id number]) Orientation Orientation/Cognition Level of Alertness Alert Orientation Name,Day of Week,Place, Situation Language Function Ability No Deficits Noted Safety Awareness Understands Safety Issues Memory Description No Deficits Noted Gross Range of Motion Upper Extremity ROM Assessment Within Functional Limits Lower Extremity ROM Assessment Within Functional Limits Strength Lower Extremity Strength Assessment Within Functional Limits Sensation Assessment Sensation Gross Sensation Right LE Impaired,Left LE Impaired Light Touch Impaired Proprioception (Position) Impaired Comments Sensation Comments Peripheral neuropathy affects sensation in bilateral feet. Pt reports normal sensation above bilateral malleoli. M6 PT-IP Treatment Start: 07/19/21 08:38 Freq: NEEDED Status: Active Protocol: Document 07/19/21 11:08 AW (Rec: 07/19/21 11:23 AW [id number]) Physical Therapy Treatment Education Education Provided Weight Bearing Status,Safety Brace Education [place],Patient Equipment Issued Equipment Type and Company PT dispensed XL post op/ forefoot offloading shoe from [employer] per ortho orders. Other Treatments Other Treatment Performed Educated pt extensively on weightbearing status and the need to offload LLE during stance phase. M7 PT-IP Assessment and Plan Start: 07/19/21 08:38 Freq: NEEDED Status: Active Protocol: Document 07/19/21 11:08 AW (Rec: 07/19/21 11:48 AW [id number]) PT Summary Assessment and Plan Potential Rehabilitation Potential Good Status of Condition at Evaluation Evolving Summary Impairments Pain,Balance,Sensation, Transfers,Gait Assessment Summary Aron is a 51yo man seen for PT evaluation on POD1 following I&D left foot with evidence of osteomyelitis. He had a PICC line placed this AM . He is independent in all regards at baseline. On assessment, he understood his weightbearing restriction (200 # PWB LLE with post-op shoe) and was steady with FWW and with axillary crutches. Pt will most likely be safe to discharge home with assist once medically stable but would benefit from continued acute PT to progress gait training with crutches. He will also need to complete stair training. Goals Bed Mobility Goal Independent Transfer Goal Independent,Crutches Gait Goal Independent,Crutches Gait Distance 200 Other Goals - up/down 3 steps with B axillary crutches or single crutch and unilateral rail SBA Days to Meet Goals 3 Frequency of Treatment Frequency Of Treatment Once a Day Treatment Plan Physical Therapy Treatment Plan Bed Mobility Training,Transfer Training,Gait Training, Therapeutic Exercise,Balance Retraining,Post Op Education, Discharge Planning,Hot or Cold Pack,Neuromuscular Re-ed Other Recommendations and Next Treatment continue gait training with Focus crutches; stair training Weight Bearing Status Weight Bearing Status Partial Weight Bearing Allowed Weight Bearing Amount (enter % 200# PWB LLE in post-op/ or #) (%) forefoot-offloading shoe Recommendations To Nursing Amount of Assist Needed Standby Assistance,1 Person Assist Discharge Recommendations PT Discharge Recommendations Home with Assistance Equipment Needed for Home Before axillary crutches Discharge Transportation Needs at Discharge Private Vehicle
[2021-07-19 11:11] LABS: Troponin I < 0.012 ng/mL (0.01-0.034)
[2021-07-19 12:00] VITALS: BP 110/75; PULSE 86; RESP 16; TEMP 36.2; O2SAT 94
[2021-07-19] MEDS: VANCOMYCIN 2,000 MG/400 ML PIGGYBACK 200 MG IV (12:30)
[2021-07-19 13:32] LABS: Troponin I < 0.012 ng/mL (0.01-0.034)
--- NOTE | 2021-07-19 13:45 | PM.PN.1 ---
Subjective Subjective Date Patient Seen: 07/19/21 Time Patient Seen: 08:00 Interval history: This morning he had mild chest tightness and shortness of breath. EKG showed no acute process. Chest xray showed no acute process. His symptoms improved with incentive spirometry. Exam Vital Signs (past 8 hours): - 07/19/21 08:00 07/19/21 09:05 07/19/21 12:00 Temperature 97.3 F L 97.2 F L Pulse Rate 78 78 86 Respiratory Rate 16 16 Blood Pressure 119/76 119/76 110/75 Pulse Oximetry 97 94 Oxygen Delivery Method Room Air Oxygen Flow Rate 0 Narrative Exam Narrative: General:?no acute distress CV: regular rate and rhythm, no murmurs PULM: clear bilaterally Extremities:?left foot bandaged Objective Labs Result Diagrams: 07/19/21 05:47 07/19/21 05:47 Labs: Laboratory Results - last 24 hr 07/19/21 07/19/21 07/19/21 05:47 05:47 05:47 WBC 10.8 RBC 4.94 Hgb 14.8 Hct 44.1 MCV 89.3 MCH 30.0 MCHC 33.5 RDW 14.0 Plt Count 256 Sodium 138 Potassium 4.2 Chloride 107 Carbon Dioxide 22 BUN 23 H Creatinine 1.74 H Estimated GFR 41.4 L BUN/Creatinine Ratio 13.2 Glucose 104 H Calcium 8.7 Troponin I < 0.012 07/19/21 12:05 WBC RBC Hgb Hct MCV MCH MCHC RDW Plt Count Sodium Potassium Chloride Carbon Dioxide BUN Creatinine Estimated GFR BUN/Creatinine Ratio Glucose Calcium Troponin I < 0.012 [facility] Medical History Acid reflux Diabetes type 2, uncontrolled Fibromyalgia Gastric ulcer Gout History of head injury HTN (hypertension) Surgical History History of brain shunt Family History Father Morbid obesity Diabetes mellitus Mother Cancer Heart disease Social History household members: significant other Smoking Status: Never smoker Assessment & Plan Assessment & Plan narrative: 1. 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 Consultation to wound clinic.? Long-term see Podiatry or Foot Service as he will likely require shoe modification and may require additional procedures. -PICC line Monday for home IV antibiotic 2. Left leg swelling -venous duplex ultrasound was negative for DVT 3. Type 2 diabetes insulin requiring with poor control -recent outpatient A1c 10.1, which was significant improvement from prior values -continue patient's Lantus 30 units b.i.d. and short-acting insulin 15 units with meals -also on Invokana at home -continue patient's atorvastatin 4. Chronic kidney disease stage 3 -admit creatinine 1.68 in line with prior values 5. Hypertension, hyperlipidemia -continue lisinopril 5 mg q.d. per home routine 6. Complaints of chronic cough and dyspnea on exertion -chest x-ray normal, EKG sinus tachycardia without ischemic changes -improved with incentive spirometry 7.? GERD -continue PPI per home routine Time Spent With Patient Critical Care time: I spent a total of [] minutes of critical care time on this patient's care today; this time is exclusive of procedural time.
[2021-07-19 15:00] VITALS: BP 122/82; PULSE 73; RESP 16; TEMP 36.4; O2SAT 98
--- NOTE | 2021-07-19 16:13 | CM.DPC ---
DCP/continued: Reviewed chart. Met with patient explained CM/SW role. Patient very pleasant 51yr old male. It is anticipated that patient will need IV abx upon d/c PICC line placed today. Currently awaiting cultures to determine abx and course. Patient reports that if he only needs IV abx 1x per day he would like to come here as outpatient. If patient needs more than 1x per day he is agreeable to home health. Patient currently living [place] his inificant [place]ul[place] [address] [place] [id number]. Notified patient that [facility] would check in with provider's tomorrow to determine if he will need to have IV abx at home or at outpatient infusion clinic. If home needed, [facility] will need to be coordinated. Patient also will need a pair of crutches at time of d/c. P: Home when stable with IV abx. Following closely. BASIL
[2021-07-19 20:00] VITALS: BP 121/76; PULSE 77; RESP 18; TEMP 36.7; O2SAT 97
[2021-07-19] MEDS: ATORVASTATIN 20 MG TABLET PO (21:09)
[2021-07-19 22:59] LABS: Influenza A - CEPHEID Flu A NEGATIVE (NEGATIVE); Influenza B - CEPHEID Flu B NEGATIVE (NEGATIVE); Respiratory Syncytial Virus Negative (Negative)
[2021-07-19 23:03] LABS: COVID-19 CEPHEID PCR (VTM/NP) Negative (Negative)
[2021-07-20] MEDS: PIPERACILLIN/TAZO 4.5 GM in SODIUM CHLORIDE 0.9% 100 ML 25 ML IV ×3 (05:30→22:04)
[2021-07-20 08:00] VITALS: BP 119/78; PULSE 75; RESP 18; TEMP 36.6; O2SAT 96
[2021-07-20 09:18] VITALS: BP 119/78; PULSE 75
[2021-07-20] MEDS: lisinopriL 5 MG TABLET PO (09:18)
[2021-07-20] MEDS: allopurinoL 100 MG TABLET PO (09:18)
[2021-07-20] MEDS: PANTOPRAZOLE DR 20 MG TABLET PO (09:18)
[2021-07-20] MEDS: ENOXAPARIN 40 MG/0.4 ML SYRINGE SUBCUT ×2 (09:19→22:04)
[2021-07-20] MEDS: INSULIN GLARGINE 100 UNIT/ML 3ML PEN 30 UNIT SUBCUT ×2 (09:20→22:04)
[2021-07-20 11:00] VITALS: BP 104/68; PULSE 77; RESP 18; TEMP 36.6; O2SAT 97
[2021-07-20] MEDS: VANCOMYCIN TROUGH 1 REQUEST MISC (11:30)
--- NOTE | 2021-07-20 11:58 | PT.IPTN ---
Current Diagnoses Sepsis, unspecified organism (07/17/21) Type 2 diabetes mellitus with other skin complications (07/17/21) Type 2 diabetes mellitus without complications (07/17/21) Morbid (severe) obesity due to excess calories (07/17/21) Local infection of the skin and subcutaneous tissue, unspecified (07/17/21) Chronic kidney disease, unspecified (07/17/21) Body mass index [BMI] 40.0-44.9, adult (07/17/21) longterm (current) use of insulin (07/17/21) Surgery Performed Operation Date: 07/18/21 11:30 Actual Procedures p Incision and Drainage Wound/Extremity, biopsy - Livier Diaz MD Physical Therapy Treatment Note M2 PT-IP Current Condition Start: 07/19/21 08:38 Freq: NEEDED Status: Active Protocol: Document 07/19/21 11:08 AW (Rec: 07/19/21 11:48 AW [id number]) Physical Therapy Current Condition Current Condition Evaluation Date 07/19/21 Treatment Diagnosis L foot ulcer s/p I&D; difficulty in walking Onset Date 07/18/21 M3 PT-IP Subjective Start: 07/19/21 08:38 Freq: NEEDED Status: Active Protocol: Document 07/20/21 11:41 KS (Rec: 07/20/21 12:34 KS [id number]) Subjective Physical Therapy Visit Type Type Treatment Note Visit Start Time 11:41 Visit Stop Time 11:58 Total Visit Minutes 17 Number of PATHOLOGY LAB TECHNICIAN Visits 1 Physical Therapy Visit Comments Patient Comments Pt is willing to participate with PT Patient Goals Return home with assist from [facility]. M4 PT-IP Mobility and Gait Start: 07/19/21 08:38 Freq: NEEDED Status: Active Protocol: Document 07/20/21 11:41 KS (Rec: 07/20/21 12:34 KS [id number]) PT-Bed Mobility Assessment Supine to Sit Supine to Sit Standby Assistance Scooting Scooting to Edge of Bed Standby Assistance PT-Transfer Assessment Sit to and From Stand Sit to and from Stand Standby Assistance,Use of Upper Extremities Equipment Transfer Assistive Device Gait Belt,Axillary Crutches Orthotic/Prosthetic Devices or Brace: Yes Transfers Transfer Destination Bed,Chair Transfer Technique ambulated with axillary crutches Transfer Ability Level of Assist Standby Assistance,Contact Guard Assistance Comments Mobility Comments Pt in bed upon arrival and agreeable to PT. SBA for sup<> Sit and scooting EOB as well as sit<>stand w/ crutches. Pt then ambulated ~120 ft to practice stairs w/ axillary crutches and CGA and then ascended/descended 3 steps w/ crutches and GA and cues for sequencing. Pt had no LOB or difficulty completing steps. He ambulated additional 120 ft back to room and initially sat EOB but then transferred to chair SBA. Pt left in chair w/ all needs in reach. Gait Assessment Gait Gait Assistance Required: Standby Assistance,Contact Guard Assist Distance (Feet) 250 Able to Maintain Weight Bearing Status Yes During Gait Assistive Devices Assistive Device Gait Belt,Axillary Crutches Orthotic/Prosthetic Devices or Brace: Yes Gait Deviations General Gait Pattern Antalgic,Decreased Stride Length,Decreased Feet Clearance,Flexed Trunk,Step-to Gait,Wide Based Gait Comments Gait Comments Pt was stable with offloading shoe and axillary crutches. Stair Climbing Assessment Evaluation Level of Assist On Stairs Contact Guard Assistance,1 Person Assistance Devices Stair Climbing Assistive Devices Axillary Crutches Technique/Endurance Stair Climbing Direction Ascend and Descend Stair Climbing Technique Step to Step Number of Steps Climbed 3 Stair Climbing Set # Repetitions (reps) 1 Comments Stair Climbing Comments Pt able to ascend/descend 3 steps w/ bilateral axillary crutches and step to pattern CGA and cues for sequencing. Pt states he feels able to complete steps leading into home. PT-Balance Assessment Sitting Balance and Reactions Static Sitting Balance Ability Normal Dynamic Sitting Balance Ability Normal Standing Balance and Reactions Static Standing Balance Ability Good Dynamic Standing Balance Ability Good Device Used axillary crutches M5 PT-IP Objective Assessments Start: 07/19/21 08:38 Freq: NEEDED Status: Active Protocol: Document 07/19/21 11:08 AW (Rec: 07/19/21 11:48 AW [id number]) Orientation Orientation/Cognition Level of Alertness Alert Orientation Name,Day of Week,Place, Situation Language Function Ability No Deficits Noted Safety Awareness Understands Safety Issues Memory Description No Deficits Noted Gross Range of Motion Upper Extremity ROM Assessment Within Functional Limits Lower Extremity ROM Assessment Within Functional Limits Strength Lower Extremity Strength Assessment Within Functional Limits Sensation Assessment Sensation Gross Sensation Right LE Impaired,Left LE Impaired Light Touch Impaired Proprioception (Position) Impaired Comments Sensation Comments Peripheral neuropathy affects sensation in bilateral feet. Pt reports normal sensation above bilateral malleoli. M6 PT-IP Treatment Start: 07/19/21 08:38 Freq: NEEDED Status: Active Protocol: Document 07/20/21 11:41 KS (Rec: 07/20/21 12:34 KS [id number]) Physical Therapy Treatment Education Education Provided Weight Bearing Status,Safety Brace Education [place],Patient Other Treatments Other Treatment Performed Educated pt extensively on weightbearing status and the need to offload LLE during stance phase. M7 PT-IP Assessment and Plan Start: 07/19/21 08:38 Freq: NEEDED Status: Active Protocol: Document 07/20/21 11:41 KS (Rec: 07/20/21 12:34 KS [id number]) PT Summary Assessment and Plan Potential Rehabilitation Potential Good Status of Condition at Evaluation Evolving Summary Impairments Pain,Balance,Sensation, Transfers,Gait Assessment Summary Pt required SBA to CGA throughout treatment todat. Good use of axillary crutches w/o LOB for ambulation and stair training. In total he ambulated ~250 ft and ascended /descended 3 steps w/ CGA and crutches w/ cues for sequencing of legs and crutches. He feels he will be able to manage steps at home. He will benefit from continued acute rehab but anticipate pt safe to d/c home when medically stable. Goals Bed Mobility Goal Independent Transfer Goal Independent,Crutches Gait Goal Independent,Crutches Gait Distance 200 Other Goals - up/down 3 steps with B axillary crutches or single crutch and unilateral rail SBA Days to Meet Goals 3 Frequency of Treatment Frequency Of Treatment Once a Day Treatment Plan Physical Therapy Treatment Plan Bed Mobility Training,Transfer Training,Gait Training, Therapeutic Exercise,Balance Retraining,Post Op Education, Discharge Planning,Hot or Cold Pack,Neuromuscular Re-ed Other Recommendations and Next Treatment continue gait training with Focus crutches; stair training Weight Bearing Status Weight Bearing Status Partial Weight Bearing Allowed Weight Bearing Amount (enter % 200# PWB LLE in post-op/ or #) (%) forefoot-offloading shoe Recommendations To Nursing Amount of Assist Needed Standby Assistance,1 Person Assist Discharge Recommendations PT Discharge Recommendations Home with Assistance Equipment Needed for Home Before axillary crutches Discharge Transportation Needs at Discharge Private Vehicle
[2021-07-20 12:24] LABS: Vancomycin Trough 11.1 ug/mL (10-20)
[2021-07-20] MEDS: INSULIN LISPRO 100 UNIT/ML 3ML VIAL SUBCUT (12:54)
[2021-07-20] MEDS: VANCOMYCIN 2,000 MG/400 ML PIGGYBACK 200 MG IV (13:00)
--- NOTE | 2021-07-20 13:35 | PM.PN.1 ---
Subjective Subjective Date Patient Seen: 07/20/21 Time Patient Seen: 08:00 Interval history: He has had a little discomfort with deep breathing. Otherwise he feels well. Exam Vital Signs (past 8 hours): - 07/20/21 08:00 07/20/21 09:18 07/20/21 11:00 Temperature 97.8 F 97.8 F Pulse Rate 75 75 77 Respiratory Rate 18 18 Blood Pressure 119/78 119/78 104/68 Pulse Oximetry 96 97 Oxygen Delivery Method Room Air Oxygen Flow Rate 0 Narrative Exam Narrative: General:?no acute distress CV: regular rate and rhythm, no murmurs PULM: clear bilaterally Extremities:?left foot bandaged Objective Labs Result Diagrams: 07/19/21 05:47 07/19/21 05:47 Labs: Laboratory Results - last 24 hr 07/19/21 07/20/21 21:45 11:20 Vancomycin Trough 11.1 SARS-CoV-2 (PCR) Negative Influenza A (RT-PCR) Flu a negative Influenza B (RT-PCR) Flu b negative RSV (PCR) Negative [facility] Medical History Acid reflux Diabetes type 2, uncontrolled Fibromyalgia Gastric ulcer Gout History of head injury HTN (hypertension) Surgical History History of brain shunt Family History Father Morbid obesity Diabetes mellitus Mother Cancer Heart disease Social History household members: significant other Smoking Status: Never smoker Assessment & Plan Assessment & Plan narrative: 1. 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 Consultation to wound clinic.? Long-term see Podiatry or Foot Service as he will likely require shoe modification and may require additional procedures. -PICC line 2. Left leg swelling -venous duplex ultrasound was negative for DVT 3. Type 2 diabetes insulin requiring with poor control -recent outpatient A1c 10.1, which was significant improvement from prior values -continue patient's Lantus 30 units b.i.d. and short-acting insulin 15 units with meals -also on Invokana at home -continue patient's atorvastatin 4. Chronic kidney disease stage 3 -admit creatinine 1.68 in line with prior values 5. Hypertension, hyperlipidemia -continue lisinopril 5 mg q.d. per home routine 6. Complaints of chronic cough and dyspnea on exertion -chest x-ray normal, EKG sinus tachycardia without ischemic changes -improved with incentive spirometry 7.? GERD -continue PPI per home routine Time Spent With Patient Critical Care time: I spent a total of [] minutes of critical care time on this patient's care today; this time is exclusive of procedural time.
--- NOTE | 2021-07-20 16:01 | CM.DANOTE ---
DCP/continued: Reviewed chart. Spoke with provider this AM whom indicates that we are waiting for cultures to determine IV abx. ADVERTISING ASSOCIATE placed call to Lori at wound care clinic to get patient enrolled. Lori believes that they can get him in as outpatient by the end of this week. Lori ext# is [phone] and she will need to be called prior to d/c to get appointment time. Patient prefers to go outpatient for IV abx and hopeful that he can do daily IV abx at [facility]. Otherwise, patient will need to have IV abx arranged through [facility]. ADVERTISING ASSOCIATE still did not know this afternoon about IV abx so referral faxed only to [facility] to review. P: ADVERTISING ASSOCIATE to follow up in AM on whether or not patient will need IV abx at home vs. outpatient. HEDY Sheikh
[2021-07-20] MEDS: VANCOMYCIN PEAK 1 REQUEST MISC (16:20)
--- NOTE | 2021-07-20 16:45 | DIET.CONS ---
Dietary Consultation Note Admission Date: 07/17/2021 17:38 Assessment: 51 y/o M with PMH of IDDM treated for chronic left foot DM ulcer. Aron has seen diabetes educators in the past. Home regimen of DM meds includes glargine 30u BID, 300mg Canagliflozen, and 15u aspart TID. Since admit he has been on glargine 30u BID and no lispro. BG have been well managed with most between 80-149mg/dL. Currently on a CCD x 60g per meal. Endorses moving to [place] six months ago. While there he reports a 30# weight gain, primarily from decrease in activity and increase in eating out and sugared beverages. reports 1.5 years ago a HgA1c of 8.4%. Recent HgA1c up to 10.1%. High carb intake and inc in wt likely contributing to inc in BG. Aron is very receptive to DM ed. He seems well aware of how BG have impacted his foot health. Also well aware of lifestyle habits that have impacted his HgA1c. He would certainly benefit from further support via OP DSME. Ht: 185.42 cm Wt: 141.067 kg BMI: 41.0 Last BM: 07/14/21 (07/18/21 11:30) MNA: 14 Baudilio Score: 18 Diet: 07/18/21 Lunch Carbohydrate Consistent Diet Diet Modifications: Carbohydrate level: Large (4 CHO) Nutrition Percent Meal Consumed 100% 07/20/21 13:35 Percent Meal Consumed 100% 07/20/21 09:00 Percent Meal Consumed 100% 07/19/21 13:00 Percent Meal Consumed 100% 07/19/21 09:00 Percent Meal Consumed 100% 07/18/21 18:48 Labs: RBC 4.94 X10^6/uL (4.5-5.9) 07/19/21 05:47 Hgb 14.8 g/dL (13.5-17.5) 07/19/21 05:47 Hct 44.1 % (41-53) 07/19/21 05:47 Creatinine 1.74 mg/dL (0.66-1.25) H 07/19/21 05:47 Lactate 1.7 mmol/L (0.7-2.1) 07/17/21 15:40 Nutrition Diagnosis: Excessive CHO intake r/t eating out frequency and beverage choices aeb pt report, HgA1c 10.1%, and regulated BG now with 60g meals. Interventions: Diabetes and wound medical nutrition therapy; Freddy BID to promote healing ; provided OP DSME resources and wound nutrition handout. EER: 100-115g PRO Monitoring/Evaluations: RD follow-up in 3-5 days or prn Electronically Signed by: Karen Neely 07/20/21 16:45 Clinical Dietitian [address] [id number]
[2021-07-20 17:12] LABS: Vancomycin Peak 37.1 ug/mL (20-40)
--- NOTE | 2021-07-20 18:59 | P.PN_ITS ---
Subjective Subjective Date Patient Seen: 07/20/21 Time Patient Seen: 17:00 Exam Vital Signs (past 8 hours): - 07/20/21 11:00 Temperature 97.8 F Pulse Rate 77 Respiratory Rate 18 Blood Pressure 104/68 Pulse Oximetry 97 Oxygen Delivery Method Room Air Oxygen Flow Rate 0 Narrative Exam Narrative: His foot has some bleeding at the base through the wound. There was no sign ificant pus, external significant proximal erythema, as moderate numbness on the plantar aspect of his foot, his toe appears viable, his calf is soft his packing is removed without difficulty Objective Labs Result Diagrams: 07/19/21 05:47 07/19/21 05:47 Labs: Laboratory Results - last 24 hr 07/19/21 07/20/21 07/20/21 21:45 11:20 16:20 Vancomycin Peak 37.1 Vancomycin Trough 11.1 SARS-CoV-2 (PCR) Negative Influenza A (RT-PCR) Flu a negative Influenza B (RT-PCR) Flu b negative RSV (PCR) Negative PFSH Medical History Acid reflux Diabetes type 2, uncontrolled Fibromyalgia Gastric ulcer Gout History of head injury HTN (hypertension) Surgical History History of brain shunt Family History Father Morbid obesity Diabetes mellitus Mother Cancer Heart disease Social History household members: significant other Smoking Status: Never smoker Assessment & Plan Post-op Postoperative Procedures: Procedures Operation Date: 07/18/21 11:30 Actual Procedure Side Surgeon p Incision and Drainage Wound/Extremity, biopsy Livier Diaz MD Postoperative day: 2 Postoperative status: doing well Postoperative status narrative: Improving clinically. Cultures are still pending. They are presumptively growing a bacillus. Sensitivities are pending. Postoperative plan narrative: He needs to continue on antibiotics. I told him we should keep him here until tomorrow. He will be discharged on antibiotics and will follow up in the [facility]ound Clinic and are not in our office. He has an appropriate shoe which puts the majority of the weight on his heel. He will continue IV antibiotics pending culture results tomorrow.
[2021-07-20 20:00] VITALS: BP 110/60; PULSE 85; RESP 18; TEMP 36.9; O2SAT 98
[2021-07-20] MEDS: ATORVASTATIN 20 MG TABLET PO (22:04)
--- NOTE | 2021-07-20 22:56 | RT ---
pt wants to sleep with nasal canula instead of hospital cpap , Rt to follow
[2021-07-20 23:40] VITALS: O2SAT 98
[2021-07-21] MEDS: PIPERACILLIN/TAZO 4.5 GM in SODIUM CHLORIDE 0.9% 100 ML 25 ML IV (05:50)
[2021-07-21] MEDS: PANTOPRAZOLE DR 20 MG TABLET PO (05:50)
[2021-07-21 08:00] VITALS: BP 109/65; PULSE 70; RESP 16; TEMP 32.2; O2SAT 97
[2021-07-21] MEDS: allopurinoL 100 MG TABLET PO (08:10)
[2021-07-21] MEDS: ENOXAPARIN 40 MG/0.4 ML SYRINGE SUBCUT (08:10)
[2021-07-21] MEDS: lisinopriL 5 MG TABLET PO (08:10)
--- NOTE | 2021-07-21 08:25 | PM.PNPO.1 ---
Subjective Subjective Date Patient Seen: 07/21/21 Time Patient Seen: 08:25 Interval history: Sitting up in bed, comfortable, would like to go home. Exam Vital Signs (past 8 hours): Oxygen Delivery Method Nasal Cannula Oxygen Flow Rate 1 Narrative Exam Narrative: Able to wiggle toes. Sensation to light touch intact in left great toe and medial aspect of left forefoot, decreased in lateral forefoot. Calves soft, compressible, nontender. Cultures showed Strep mitis/oralis and Corynebacterium amycolatum; sensitivities returned as well. Objective Labs Result Diagrams: 07/19/21 05:47 07/19/21 05:47 Labs: Laboratory Results - last 24 hr 07/20/21 07/20/21 11:20 16:20 Vancomycin Peak 37.1 Vancomycin Trough 11.1 PFSH Medical History Acid reflux Diabetes type 2, uncontrolled Fibromyalgia Gastric ulcer Gout History of head injury HTN (hypertension) Surgical History History of brain shunt Family History Father Morbid obesity Diabetes mellitus Mother Cancer Heart disease Social History household members: significant other Smoking Status: Never smoker Assessment & Plan Post-op Postoperative Procedures: Procedures Operation Date: 07/18/21 11:30 Actual Procedure Side Surgeon p Incision and Drainage Wound/Extremity, biopsy Livier Diaz MD Postoperative day: 3 Postoperative status narrative: Discharge with antibiotics per hospitalist service. Follow up with wound care for treatment of foot; further follow up with orthopedic surgery not indicated at this time.
[2021-07-21] MEDS: INSULIN GLARGINE 100 UNIT/ML 3ML PEN 30 UNIT SUBCUT (08:35)
--- NOTE | 2021-07-21 09:46 | PT-IP ANOTE ---
Attempted to see pt at 9:46, pt refused therapy stating he has no further needs and feels comfortable to perform steps getting into home. Dispensed crutches for home use.
[2021-07-21] MEDS: VANCOMYCIN 1,000 MG/200 ML PIGGYBACK 200 MG IV (10:45)
[2021-07-21 11:08] LABS: Estimated Glomerular Filt Rate 38.8 mL/min (>60)
--- NOTE | 2021-07-21 14:29 | CM.DPNOTE ---
Faxed referral packet to [facility] per Alana and received fax conf. Yuni Flores CM Assist.
--- NOTE | 2021-07-21 15:00 | PC.NURSE ---
Day shift: Pt left unit via WC at approx 1500. Pt's spouse is driving him home. [facility] set up by CM. He has all personal belongings. Paperwork signed and all questions answered. Foot in specil boot and TERRY wrapped. This appears to remain CDI. Pt had no c/o pain today.
--- NOTE | 2021-07-21 15:03 | CM.DPNOTE ---
DC Note Patient cleared for DC today; needs to DC w/ 6 weeks IV abx- Vanco Q12, dosing has been 1,000 mg in [address] Archer has ordered labs drawn/trough two times weekly which need to be sent to [facility] for follow up Patient has been scheduled for outpatient wound care at wound care clinic, appt scheduled for next Monday Patient aware and agreeable to plan and asks that [facility] be contacted to establish home infusion Placed call to Vladislav/[facility] who worked on referral throughout the day; states he can schedule an RN to complete teaching with patient tomorrow at current home address: [place], [address] Archer and w/patient who agree that patient can DC home this afternoon, patient may miss one dose between now and when [facility] follows up tomorrow. PICC line in place. Faxed PICC insertion note, Trough and Abx order to [facility]. Patient requests Home health to assist in wound care dressing changes because he cannot reach the bottom of his foot and his fiance cannot tolerate seeing or smelling blood or wound. [facility], provided choice list and patient requests [facility] so referral was faxed to [facility] for [facility] RN/wound care Plan: DC home w/fiance this afternoon, [facility] for IV abx, [facility] RN and wound care clinic for foot dressing changes and PICC line dressing changes, close outpatient f/u w/ [facility] and PCP HEDY Causey
--- NOTE | 2021-07-21 20:51 | P.DS_ITS ---
History of Present Illness History of Present Illness Chief complaint: Injured left foot Narrative: Per admitting provider: Patient is a 51 yo male with history of insulin-requiring type 2 diabetes with neuropathy, hypertension, GERD presents with complaint of acute left foot pain.? Patient states he has been dealing with an ulcer on the bottom of his foot for the past 6 months.? He states that it scabs over but opens back up.? 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 He has been on 3 courses of oral antibiotics for it during this time.? He states that the foot became much more painful today, throbbing where he could not bear weight on it, with new pain going up the left leg.? He has not noticed any new drainage or redness.? He does have neuropathy with decreased sensation in the area.? When presented to the ED he was febrile and tachycardic with heart rate of 120 but normal blood pressure and O2 sats.? X -ray showed 5th toe soft tissue swelling without evidence of osteo.? WBC was mildly elevated 13.5 with slight left shift, creatinine 1.68 in line with prior values, glucose 195, CRP 2.1.? COVID is negative. Patient states he has also been experiencing dyspnea on exertion and has had a cough for the past 3 months.? He denies exertional or other chest pain.? Patient states PCP thought it could be related to acid reflux. Patient recently saw his PCP Dr. Cornelia Badillo for diabetes follow-up.? He states his hemoglobin A1c was 10.1 which was a significant improvement from prior value of 16.? He is on Lantus 30 units b.i.d. and Humulin 12-15 units before meals in addition to oral medications. Family history is positive for type 2 diabetes in numerous family members including parents and siblings.? No family history of heart disease.? Patient is not a smoker or heavy alcohol user. Discharge Providers Provider Date of admission: 07/17/21 17:38 Discharge Date: 07/21/21 Primary care physician: Anjali Mcrae PA-C Consults: 07/17/21 18:34 Consult to Physician Routine Comment: Consulting Provider: Livier Diaz Reason for consultation: left foot ulcer Has provider been notified: Yes 07/18/21 13:21 Consult to Dietitian, Adult Routine Comment: Reason For Exam: uncontolled diabetes, sev obesity 07/18/21 13:40 Consult to Discharge Planning Routine Comment: Consult to Physical Therapy Evaluate & Treat Comment: Physician Instructions: Evaluate and Treat Consult to Respiratory Therapy Evaluate & Treat Comment: Physician Instructions: Evaluate and treat 07/18/21 21:01 Consult to Respiratory Therapy Evaluate & Treat Comment: Pt requesting CPAP Physician Instructions: Evaluate and treat 07/21/21 10:41 Consult to Physical Therapy Evaluate & Treat Comment: Physician Instructions: Crutches for home use 07/21/21 14:09 Consult to Home Health Routine Comment: Reason For Exam: Home Health RN to assist w/wound care Discharge provider: Victor Hugo Archer MD Summary Hospital Course Discharge Diagnosis: 1. 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 Type 2 Diabetes on insulin 3. CKD stage 3 4. Hypertension 5. Chronic cough 6. GERD Hospital Course: Mr. Aponte was admitted with fever and elevated white count. MRI showed osteomyelitis of his left 5th metatarsal. He did go to [facility] with [facility]opedic surgery. Cultures showed strep mitis, prevotella, and corynebacterium. He was initially on vanc/zosyn. PICC was placed. Discussed with ID who recommended six weeks of antibiotics with vancomycin and flagyl. He will be referred to ID clinic at [facility]. He is referred urgently to wound care on discharge. He should follow closely with his PCP. Exam Vital Signs (past 8 hours): Oxygen Delivery Method Nasal Cannula Oxygen Flow Rate 0 Narrative Exam Narrative: General:?no acute distress CV: regular rate and rhythm, no murmurs PULM: clear bilaterally Extremities:?left foot bandaged Objective Labs Result Diagrams: 07/19/21 05:47 07/21/21 10:50 Labs: Laboratory Results - last 24 hr 07/21/21 10:50 Creatinine 1.84 H Estimated GFR 38.8 L [facility] Medical History Acid reflux Diabetes type 2, uncontrolled Fibromyalgia Gastric ulcer Gout History of head injury HTN (hypertension) Surgical History History of brain shunt Family History Father Morbid obesity Diabetes mellitus Mother Cancer Heart disease Social History household members: significant other Smoking Status: Never smoker Discharge Plan Discharge Plan Patient Disposition: Home Health Service Provider Discharge Comment: Mr. Aponte was admitted with an infection in his bone. He had multiple different bacteria growing, so will need to be on two antibiotics for six weeks. He will be referred to infectious disease specialist at [facility], call [phone] to setup an appointment. He should follow up with wound care clinic. He should take aspirin for six weeks after his surgery. He should follow up with his PCP within 1 week. He can put up to 200lbs on his foot. He will need laboratory draws every 2 weeks with CBC with diff, CMP, vanco trough done Monday and and faxed to ID clinic at [phone]. Discharge orders & Medications Prescriptions: New metronidazole 500 mg tablet 500 mg PO Q8H Qty: 63 0RF vancomycin 1,000 mg recon soln 2,000 mg IV DAILY Qty: 30 0RF aspirin 81 mg tablet,chewable 81 mg PO BID Qty: 84 0RF Continued lisinopril 5 mg Tablet 5 mg PO DAILY 0RF esomeprazole magnesium [Nexium] 20 mg Capsule,Delayed Release(Dr/Ec) 20 mg PO DAILY 0RF insulin aspart U-100 [Novolog U-100 Insulin aspart] 100 unit/mL Solution 15 unit SUBCUT TID 0RF Rx Instructions: take 12-15 unitis Prior to meal atorvastatin 20 mg tablet 20 mg PO QAM 0RF allopurinol 100 mg tablet 100 mg PO QAM 0RF Invokana 300 mg tablet 300 mg PO QAM 0RF Lantus U-100 Insulin 100 unit/mL solution 30 unit SUBCUT BID 0RF Rx Instructions: Am dose and HS Follow up/Referrals: [facility] [Provider Group] (follow up within 2 weeks, osteomyelitis of 5th metatarsal on vancomycin and flagyl) Anjali Mcrae PA-C [Primary Care Provider] - Rao Cerna MD [Physician] - (foot wound) Diet/Activity/Treatments Diet: Carb-consistent/Diabetic Visit Report/Discharge Packet Instructions: How to Prevent Falls, How to Change a Wet to Dry Wound Dressing, DI for Incision and Drainage of a Joint, DI for Incision and Drainage, [facility]: Wound Care Stand Alone Forms: Surgery Discharge Discharge Data Primary Care Provider: Anjali Mcrae
== END 2021-07-21 15:01 | disposition home health service (06) | DRG 951 ==
LOC: ED 16:00 → AC 17:33
PROVIDERS: Internal Medicine; Nurse Practitioner Family; Orthopaedic Surgery; Admitting Provider Internal Medicine; Emergency Provider Emergency Medicine; PCP Physician Assistant; Referring Provider Emergency Medicine; Visit Provider Internal Medicine
PROC: 0LBW0ZZ Excision of Left Foot Tendon, Open Approach (ICD-10-PCS; principal; 2021-07-18 11:30)
DX: E11.52 Type 2 diabetes mellitus with diabetic peripheral angiopathy with gangrene (principal); E11.621 Type 2 diabetes mellitus with foot ulcer; E11.69 Type 2 diabetes mellitus with other specified complication; I96 Gangrene, not elsewhere classified; M86.8X7 Other osteomyelitis, ankle and foot; L97.522 Non-pressure chronic ulcer of other part of left foot with fat layer exposed; L02.612 Cutaneous abscess of left foot; I12.9 Hypertensive chronic kidney disease with stage 1 through stage 4 chronic kidney disease, or unspecified chronic kidney disease; E11.22 Type 2 diabetes mellitus with diabetic chronic kidney disease; N18.30 Chronic kidney disease, stage 3 unspecified; E66.01 Morbid (severe) obesity due to excess calories; B95.4 Other streptococcus as the cause of diseases classified elsewhere; B96.89 Other specified bacterial agents as the cause of diseases classified elsewhere; E78.5 Hyperlipidemia, unspecified; K21.9 Gastro-esophageal reflux disease without esophagitis; R05.3 Chronic cough; R06.09 Other forms of dyspnea; E11.65 Type 2 diabetes mellitus with hyperglycemia; M10.9 Gout, unspecified; Z79.4 Long term (current) use of insulin; Z20.822 Contact with and (suspected) exposure to COVID-19; Z68.41 Body mass index [BMI] 40.0-44.9, adult; Z79.84 Long term (current) use of oral hypoglycemic drugs
CPT/HCPCS: 0241U; 36415; 36569; 36592; 71045; 73630; 73720; 80048; 80053; 80202; 81003; 81015; 82565; 82962; 83605; 83690; 84145; 84484; 85025; 85027; 85651; 86140; 87040; 87070; 87075; 87077; 87186; 87205; 93005; 93010; 93971; 94660; 94760; 96365; 96366; 97116; 97162; 97530; 99284; A9579; J0330; J1650; J1815; J2250; J2270; J2405; J2543; J2704; J2765; J3010

== ENCOUNTER → 2021-07-27 13:59 | Outpatient (CLI) | payer OTHER, MEDICAID, SELFPAY ==
[2021-07-17 20:04] VITALS: BMI 41.0
== END ==
PROVIDERS: PCP Physician Assistant; Referring Provider Orthopaedic Surgery; Visit Provider Family Medicine
DX: T81.89XA Other complications of procedures, not elsewhere classified, initial encounter (principal); S91.302A Unspecified open wound, left foot, initial encounter; L84 Corns and callosities; E11.69 Type 2 diabetes mellitus with other specified complication; M86.172 Other acute osteomyelitis, left ankle and foot; E11.40 Type 2 diabetes mellitus with diabetic neuropathy, unspecified; Z79.2 Long term (current) use of antibiotics; Z79.4 Long term (current) use of insulin; Z79.84 Long term (current) use of oral hypoglycemic drugs
CPT/HCPCS: 11042; 99213; 99214

== ENCOUNTER → 2021-08-04 10:47 | Outpatient (CLI) | payer OTHER, MEDICAID, SELFPAY ==
[2021-07-17 20:04] VITALS: BMI 41.0
== END ==
PROVIDERS: PCP Physician Assistant; Referring Provider Physician Assistant; Visit Provider Family Medicine
DX: T81.89XA Other complications of procedures, not elsewhere classified, initial encounter (principal); S91.302A Unspecified open wound, left foot, initial encounter; E11.69 Type 2 diabetes mellitus with other specified complication; M86.172 Other acute osteomyelitis, left ankle and foot; E11.40 Type 2 diabetes mellitus with diabetic neuropathy, unspecified; Z79.2 Long term (current) use of antibiotics
CPT/HCPCS: 11042; 11043; 87070; 87075; 87077; 87147; 87186; 87205; 97605; 99214

== ENCOUNTER → 2021-08-10 09:02 | Outpatient (CLI) | payer OTHER, MEDICAID, SELFPAY ==
[2021-07-17 20:04] VITALS: BMI 41.0
== END ==
PROVIDERS: PCP Physician Assistant; Referring Provider Physician Assistant; Visit Provider Family Medicine
DX: T81.89XA Other complications of procedures, not elsewhere classified, initial encounter (principal); S91.302A Unspecified open wound, left foot, initial encounter; E11.69 Type 2 diabetes mellitus with other specified complication; M86.172 Other acute osteomyelitis, left ankle and foot; E11.40 Type 2 diabetes mellitus with diabetic neuropathy, unspecified; Z79.2 Long term (current) use of antibiotics
CPT/HCPCS: 11043; 97605

== ENCOUNTER → 2021-08-17 09:31 | Outpatient (CLI) | payer OTHER, MEDICAID, SELFPAY ==
[2021-07-17 20:04] VITALS: BMI 41.0
== END ==
PROVIDERS: PCP Physician Assistant; Referring Provider Physician Assistant; Visit Provider Family Medicine
DX: T81.89XA Other complications of procedures, not elsewhere classified, initial encounter (principal); S91.302A Unspecified open wound, left foot, initial encounter; E11.69 Type 2 diabetes mellitus with other specified complication; M86.172 Other acute osteomyelitis, left ankle and foot; E11.40 Type 2 diabetes mellitus with diabetic neuropathy, unspecified; Z79.2 Long term (current) use of antibiotics
CPT/HCPCS: 15275; 97605; Q4110

== ENCOUNTER → 2021-08-24 15:25 | Outpatient (CLI) | payer OTHER, MEDICAID, SELFPAY ==
[2021-07-17 20:04] VITALS: BMI 41.0
== END ==
PROVIDERS: PCP Physician Assistant; Referring Provider Physician Assistant; Visit Provider Family Medicine
DX: E11.621 Type 2 diabetes mellitus with foot ulcer (principal); L97.523 Non-pressure chronic ulcer of other part of left foot with necrosis of muscle; E11.69 Type 2 diabetes mellitus with other specified complication; M86.172 Other acute osteomyelitis, left ankle and foot; E11.40 Type 2 diabetes mellitus with diabetic neuropathy, unspecified; Z79.2 Long term (current) use of antibiotics; Z79.4 Long term (current) use of insulin; Z79.84 Long term (current) use of oral hypoglycemic drugs
CPT/HCPCS: 11043; 97605; 99213

== ENCOUNTER → 2021-08-31 09:43 | Outpatient (CLI) | payer OTHER, MEDICAID, SELFPAY ==
[2021-07-17 20:04] VITALS: BMI 41.0
== END ==
PROVIDERS: PCP Physician Assistant; Referring Provider Physician Assistant; Visit Provider Family Medicine
DX: E11.621 Type 2 diabetes mellitus with foot ulcer (principal); L97.423 Non-pressure chronic ulcer of left heel and midfoot with necrosis of muscle; E11.40 Type 2 diabetes mellitus with diabetic neuropathy, unspecified; E11.69 Type 2 diabetes mellitus with other specified complication; M86.172 Other acute osteomyelitis, left ankle and foot; Z79.4 Long term (current) use of insulin; Z79.84 Long term (current) use of oral hypoglycemic drugs
CPT/HCPCS: 11043; 97605

== ENCOUNTER → 2021-09-07 08:50 | Outpatient (CLI) | payer OTHER, MEDICAID, SELFPAY ==
[2021-07-17 20:04] VITALS: BMI 41.0
== END ==
PROVIDERS: PCP Physician Assistant; Referring Provider Physician Assistant; Visit Provider Family Medicine
DX: E11.621 Type 2 diabetes mellitus with foot ulcer (principal); L97.422 Non-pressure chronic ulcer of left heel and midfoot with fat layer exposed; E11.40 Type 2 diabetes mellitus with diabetic neuropathy, unspecified; E11.69 Type 2 diabetes mellitus with other specified complication; M86.172 Other acute osteomyelitis, left ankle and foot
CPT/HCPCS: 15275; Q4110

== ENCOUNTER → 2021-09-14 09:02 | Outpatient (CLI) | payer OTHER, MEDICAID, SELFPAY ==
[2021-07-17 20:04] VITALS: BMI 41.0
== END ==
PROVIDERS: PCP Physician Assistant; Referring Provider Physician Assistant; Visit Provider Family Medicine
DX: E11.621 Type 2 diabetes mellitus with foot ulcer (principal); L97.522 Non-pressure chronic ulcer of other part of left foot with fat layer exposed; E11.40 Type 2 diabetes mellitus with diabetic neuropathy, unspecified; E11.628 Type 2 diabetes mellitus with other skin complications; L08.9 Local infection of the skin and subcutaneous tissue, unspecified; G47.30 Sleep apnea, unspecified; Z79.4 Long term (current) use of insulin; Z79.84 Long term (current) use of oral hypoglycemic drugs
CPT/HCPCS: 11043; 36415; 86140; 99214

== ENCOUNTER → 2021-09-14 09:56 | Outpatient (CLI) | payer OTHER, MEDICAID, SELFPAY ==
[2021-07-17 20:04] VITALS: BMI 41.0
[2021-09-14 12:31] LABS: C-Reactive Protein Quant 1.2 mg/dL (<1.0)
== END ==
PROVIDERS: PCP Physician Assistant; Referring Provider Family Medicine; Visit Provider Family Medicine
DX: L08.9 Local infection of the skin and subcutaneous tissue, unspecified (principal)
CPT/HCPCS: 36415; 86140

== ENCOUNTER → 2021-09-21 09:36 | Outpatient (CLI) | payer OTHER, MEDICAID, SELFPAY ==
[2021-07-17 20:04] VITALS: BMI 41.0
== END ==
PROVIDERS: PCP Physician Assistant; Referring Provider Physician Assistant; Visit Provider Family Medicine
DX: E11.621 Type 2 diabetes mellitus with foot ulcer (principal); L97.424 Non-pressure chronic ulcer of left heel and midfoot with necrosis of bone; L08.9 Local infection of the skin and subcutaneous tissue, unspecified; R60.0 Localized edema; E11.69 Type 2 diabetes mellitus with other specified complication; M86.672 Other chronic osteomyelitis, left ankle and foot; R79.82 Elevated C-reactive protein (CRP); E11.40 Type 2 diabetes mellitus with diabetic neuropathy, unspecified; E11.51 Type 2 diabetes mellitus with diabetic peripheral angiopathy without gangrene; Z79.4 Long term (current) use of insulin; Z79.84 Long term (current) use of oral hypoglycemic drugs
CPT/HCPCS: 11044; 36415; 80053; 83036; 84134; 85025; 85651; 86140; 87070; 87075; 87077; 87147; 87186; 87205; 93922; 99213; 99214

== ENCOUNTER → 2021-09-21 10:49 | Outpatient (CLI) | payer OTHER, MEDICAID, SELFPAY ==
[2021-07-17 20:04] VITALS: BMI 41.0
[2021-09-21 12:29] LABS: Add Manual Diff / Slide Review NO; Basophils Absolute Auto 100 /uL (0-100); Basophils Percent Auto 1.2 % (0-2); Eosinophils Absolute Auto 400 /uL (0-450); Eosinophils Percent Auto 5.1 % (2-4); Hematocrit 48.8 % (41-53); Hemoglobin 16.1 g/dL (13.5-17.5); Lymphocytes Absolute Auto 1300 /uL (1100-4500); Lymphocytes Percent Auto 16.4 % (25-40); Mean Corpuscular Hemoglobin 29.7 PG (26-34); Monocytes Absolute Auto 700 /uL (0-900); Monocytes Percent Auto 8.2 % (3-14); Neutrophils Absolute Auto 5600 /uL (1500-7000); Neutrophils Percent Auto 69.1 % (50-75); Platelet Count 308 X10^3/uL (150-400); Red Blood Cell Count 5.43 X10^6/uL (4.5-5.9); Red Cell Distribution Width 14.4 % (11.6-14.8)
[2021-09-21 12:34] LABS: Hemoglobin A1C% w Est Avg Glu 8.1 % (4.0-6.0)
[2021-09-21 12:49] LABS: Alanine Aminotransferase 36 IU/L (<50); Albumin 4.3 g/dL (3.5-5.0); Albumin Globulin Ratio 1.1 (1.0-2.8); Alkaline Phosphatase 149 U/L (38-126); Aspartate Aminotransferase 34 IU/L (17-59); BUN Creatinine Ratio 18.6 (6-22); Bilirubin Total 0.6 mg/dL (0.2-1.3); Blood Urea Nitrogen 32 mg/dL (9-20); Calcium 9.5 mg/dL (8.4-10.2); Carbon Dioxide 21 mmol/L (22-32); Chloride 104 mmol/L (98-107); Estimated Glomerular Filt Rate 47 mL/min (>60); Glucose 155 mg/dL (70-100); HEMOLYSIS < 15 (0-50); Potassium 5.1 mmol/L (3.4-5.1); Sodium 138 mmol/L (137-145); Total Protein 8.3 g/dL (6.3-8.2)
[2021-09-21 12:54] LABS: Prealbumin 17.3 mg/dL (17.6-36.0)
[2021-09-21 12:56] LABS: Erythrocyte Sedimentation Rate 8 MM/HR (0-15)
== END ==
PROVIDERS: PCP Physician Assistant; Referring Provider Family Medicine; Visit Provider Family Medicine
DX: L08.9 Local infection of the skin and subcutaneous tissue, unspecified (principal); E11.621 Type 2 diabetes mellitus with foot ulcer
CPT/HCPCS: 36415; 80053; 83036; 84134; 85025; 85651; 86140

== ENCOUNTER → 2021-09-28 08:46 | Outpatient (CLI) | payer OTHER, MEDICAID, SELFPAY ==
[2021-07-17 20:04] VITALS: BMI 41.0
== END ==
PROVIDERS: PCP Physician Assistant; Referring Provider Physician Assistant; Visit Provider Family Medicine
DX: E11.621 Type 2 diabetes mellitus with foot ulcer (principal); L97.424 Non-pressure chronic ulcer of left heel and midfoot with necrosis of bone; R60.0 Localized edema; E11.69 Type 2 diabetes mellitus with other specified complication; M86.672 Other chronic osteomyelitis, left ankle and foot; B95.61 Methicillin susceptible Staphylococcus aureus infection as the cause of diseases classified elsewhere; B95.7 Other staphylococcus as the cause of diseases classified elsewhere; R79.82 Elevated C-reactive protein (CRP); E11.40 Type 2 diabetes mellitus with diabetic neuropathy, unspecified
CPT/HCPCS: 11042; 99214

== ENCOUNTER → 2021-09-28 09:48 | Outpatient (CLI) | payer OTHER, MEDICAID, SELFPAY ==
[2021-07-17 20:04] VITALS: BMI 41.0
[2021-09-28 10:51] LABS: Add Manual Diff / Slide Review NO; Basophils Absolute Auto 100 /uL (0-100); Basophils Percent Auto 1.2 % (0-2); Eosinophils Absolute Auto 300 /uL (0-450); Eosinophils Percent Auto 3.1 % (2-4); Hematocrit 47.4 % (41-53); Lymphocytes Absolute Auto 1800 /uL (1100-4500); Lymphocytes Percent Auto 16.1 % (25-40); Mean Corpuscular HGB Conc 33.7 % (30-36); Mean Corpuscular Volume 89.1 fL (80-100); Monocytes Absolute Auto 700 /uL (0-900); Monocytes Percent Auto 6.6 % (3-14); Neutrophils Absolute Auto 8000 /uL (1500-7000); Platelet Count 410 X10^3/uL (150-400); Red Blood Cell Count 5.32 X10^6/uL (4.5-5.9); Red Cell Distribution Width 14.3 % (11.6-14.8)
[2021-09-28 11:20] LABS: C-Reactive Protein Quant 1.5 mg/dL (<1.0)
== END ==
PROVIDERS: PCP Physician Assistant; Referring Provider Family Medicine; Visit Provider Family Medicine
DX: L08.9 Local infection of the skin and subcutaneous tissue, unspecified (principal)
CPT/HCPCS: 36415; 85025; 86140

== ENCOUNTER → 2021-10-06 09:06 | Outpatient (CLI) | payer OTHER, MEDICAID, SELFPAY ==
[2021-07-17 20:04] VITALS: BMI 41.0
== END ==
PROVIDERS: PCP Physician Assistant; Referring Provider Physician Assistant; Visit Provider Family Medicine
DX: E11.621 Type 2 diabetes mellitus with foot ulcer (principal); L97.524 Non-pressure chronic ulcer of other part of left foot with necrosis of bone; M86.672 Other chronic osteomyelitis, left ankle and foot; R79.82 Elevated C-reactive protein (CRP)
CPT/HCPCS: 99183; G0277

== ENCOUNTER → 2021-10-07 09:56 | Outpatient (CLI) | payer OTHER, MEDICAID, SELFPAY ==
[2021-07-17 20:04] VITALS: BMI 41.0
== END ==
PROVIDERS: PCP Physician Assistant; Referring Provider Physician Assistant; Visit Provider Family Medicine
DX: E11.621 Type 2 diabetes mellitus with foot ulcer (principal); L97.524 Non-pressure chronic ulcer of other part of left foot with necrosis of bone; M86.672 Other chronic osteomyelitis, left ankle and foot; R79.82 Elevated C-reactive protein (CRP); L08.9 Local infection of the skin and subcutaneous tissue, unspecified
CPT/HCPCS: 36415; 80053; 85025; 86140; 99183; 99213; 99214; G0277

== ENCOUNTER → 2021-10-07 11:47 | Outpatient (CLI) | payer OTHER, MEDICAID, SELFPAY ==
[2021-07-17 20:04] VITALS: BMI 41.0
[2021-10-07 12:45] LABS: Add Manual Diff / Slide Review NO; Basophils Absolute Auto 100 /uL (0-100); Eosinophils Absolute Auto 300 /uL (0-450); Eosinophils Percent Auto 4.3 % (2-4); Hematocrit 48.4 % (41-53); Hemoglobin 15.9 g/dL (13.5-17.5); Lymphocytes Absolute Auto 1800 /uL (1100-4500); Lymphocytes Percent Auto 24.2 % (25-40); Mean Corpuscular HGB Conc 32.7 % (30-36); Mean Corpuscular Hemoglobin 29.4 PG (26-34); Mean Corpuscular Volume 89.7 fL (80-100); Monocytes Absolute Auto 600 /uL (0-900); Monocytes Percent Auto 7.6 % (3-14); Neutrophils Absolute Auto 4600 /uL (1500-7000); Neutrophils Percent Auto 62.9 % (50-75); Platelet Count 363 X10^3/uL (150-400); Red Cell Distribution Width 14.5 % (11.6-14.8); White Blood Cell Count 7.3 X10^3/uL (4.5-11.0)
[2021-10-07 13:12] LABS: Alanine Aminotransferase 20 IU/L (<50); Albumin 4.2 g/dL (3.5-5.0); Alkaline Phosphatase 84 U/L (38-126); Aspartate Aminotransferase 28 IU/L (17-59); BUN Creatinine Ratio 19.5 (6-22); Bilirubin Total 0.5 mg/dL (0.2-1.3); Blood Urea Nitrogen 32 mg/dL (9-20); C-Reactive Protein Quant 0.5 mg/dL (<1.0); Calcium 9.4 mg/dL (8.4-10.2); Carbon Dioxide 23 mmol/L (22-32); Chloride 106 mmol/L (98-107); Estimated Glomerular Filt Rate 50 mL/min (>60); Globulin 4.1 g/dL (1.7-4.1); Glucose 173 mg/dL (70-100); HEMOLYSIS < 15 (0-50); Potassium 4.8 mmol/L (3.4-5.1); Sodium 140 mmol/L (137-145); Total Protein 8.3 g/dL (6.3-8.2)
== END ==
PROVIDERS: PCP Physician Assistant; Referring Provider Family Medicine; Visit Provider Family Medicine
DX: L08.9 Local infection of the skin and subcutaneous tissue, unspecified (principal); E11.621 Type 2 diabetes mellitus with foot ulcer
CPT/HCPCS: 36415; 80053; 85025; 86140

== ENCOUNTER → 2021-10-08 08:46 | Outpatient (CLI) | payer OTHER, MEDICAID, SELFPAY ==
[2021-07-17 20:04] VITALS: BMI 41.0
== END ==
PROVIDERS: PCP Physician Assistant; Referring Provider Physician Assistant; Visit Provider Nurse Practitioner Family
DX: E11.621 Type 2 diabetes mellitus with foot ulcer (principal); L97.524 Non-pressure chronic ulcer of other part of left foot with necrosis of bone; M86.672 Other chronic osteomyelitis, left ankle and foot; R79.82 Elevated C-reactive protein (CRP)
CPT/HCPCS: 99183; G0277

== ENCOUNTER → 2021-10-11 08:41 | Outpatient (CLI) | payer OTHER, MEDICAID, SELFPAY ==
[2021-07-17 20:04] VITALS: BMI 41.0
== END ==
PROVIDERS: PCP Physician Assistant; Referring Provider Physician Assistant; Visit Provider Family Medicine
DX: E11.621 Type 2 diabetes mellitus with foot ulcer (principal); L97.524 Non-pressure chronic ulcer of other part of left foot with necrosis of bone; M86.672 Other chronic osteomyelitis, left ankle and foot; R79.82 Elevated C-reactive protein (CRP); L97.424 Non-pressure chronic ulcer of left heel and midfoot with necrosis of bone
CPT/HCPCS: 99183; 99212; G0277

== ENCOUNTER → 2021-10-12 09:15 | Outpatient (CLI) | payer OTHER, MEDICAID, SELFPAY ==
[2021-07-17 20:04] VITALS: BMI 41.0
== END ==
PROVIDERS: PCP Physician Assistant; Referring Provider Physician Assistant; Visit Provider Family Medicine
DX: E11.621 Type 2 diabetes mellitus with foot ulcer (principal); L97.524 Non-pressure chronic ulcer of other part of left foot with necrosis of bone; M86.672 Other chronic osteomyelitis, left ankle and foot; R79.82 Elevated C-reactive protein (CRP)
CPT/HCPCS: 99183; G0277

== ENCOUNTER → 2021-10-13 10:38 | Outpatient (CLI) | payer OTHER, MEDICAID, SELFPAY ==
[2021-07-17 20:04] VITALS: BMI 41.0
== END ==
PROVIDERS: PCP Physician Assistant; Referring Provider Physician Assistant; Visit Provider Family Medicine
DX: E11.621 Type 2 diabetes mellitus with foot ulcer (principal); L97.524 Non-pressure chronic ulcer of other part of left foot with necrosis of bone; M86.672 Other chronic osteomyelitis, left ankle and foot; R79.82 Elevated C-reactive protein (CRP)
CPT/HCPCS: 15275; 36415; 80053; 85025; 86140; 99183; 99214; G0277; Q4110

== ENCOUNTER → 2021-10-13 11:38 | Outpatient (CLI) | payer OTHER, MEDICAID, SELFPAY ==
[2021-07-17 20:04] VITALS: BMI 41.0
[2021-10-13 12:37] LABS: Add Manual Diff / Slide Review NO; Basophils Absolute Auto 100 /uL (0-100); Basophils Percent Auto 0.9 % (0-2); Eosinophils Absolute Auto 400 /uL (0-450); Hematocrit 47.1 % (41-53); Hemoglobin 15.8 g/dL (13.5-17.5); Lymphocytes Absolute Auto 1800 /uL (1100-4500); Lymphocytes Percent Auto 24.5 % (25-40); Mean Corpuscular HGB Conc 33.6 % (30-36); Mean Corpuscular Volume 89.4 fL (80-100); Monocytes Absolute Auto 600 /uL (0-900); Monocytes Percent Auto 7.6 % (3-14); Neutrophils Absolute Auto 4600 /uL (1500-7000); Platelet Count 274 X10^3/uL (150-400); Red Blood Cell Count 5.27 X10^6/uL (4.5-5.9); Red Cell Distribution Width 14.6 % (11.6-14.8); White Blood Cell Count 7.5 X10^3/uL (4.5-11.0)
[2021-10-13 13:17] LABS: Alanine Aminotransferase 20 IU/L (<50); Albumin 4.4 g/dL (3.5-5.0); Alkaline Phosphatase 78 U/L (38-126); Aspartate Aminotransferase 28 IU/L (17-59); BUN Creatinine Ratio 19.4 (6-22); Bilirubin Total 0.6 mg/dL (0.2-1.3); Blood Urea Nitrogen 34 mg/dL (9-20); C-Reactive Protein Quant < 0.5 mg/dL (<1.0); Calcium 9.1 mg/dL (8.4-10.2); Carbon Dioxide 25 mmol/L (22-32); Chloride 106 mmol/L (98-107); Estimated Glomerular Filt Rate 46 mL/min (>60); Globulin 4.5 g/dL (1.7-4.1); Glucose 161 mg/dL (70-100); HEMOLYSIS < 15 (0-50); Potassium 4.6 mmol/L (3.4-5.1); Sodium 139 mmol/L (137-145); Total Protein 8.9 g/dL (6.3-8.2)
== END ==
PROVIDERS: PCP Physician Assistant; Referring Provider Family Medicine; Visit Provider Family Medicine
DX: E11.621 Type 2 diabetes mellitus with foot ulcer (principal); M86.672 Other chronic osteomyelitis, left ankle and foot
CPT/HCPCS: 36415; 80053; 85025; 86140

== ENCOUNTER → 2021-10-14 09:18 | Outpatient (CLI) | payer OTHER, MEDICAID, SELFPAY ==
[2021-07-17 20:04] VITALS: BMI 41.0
== END ==
PROVIDERS: PCP Physician Assistant; Referring Provider Physician Assistant; Visit Provider Family Medicine
DX: E11.621 Type 2 diabetes mellitus with foot ulcer (principal); L97.524 Non-pressure chronic ulcer of other part of left foot with necrosis of bone; M86.672 Other chronic osteomyelitis, left ankle and foot; R79.82 Elevated C-reactive protein (CRP)
CPT/HCPCS: 99183; G0277

== ENCOUNTER → 2021-10-15 14:16 | Outpatient (CLI) | payer OTHER, MEDICAID, SELFPAY ==
[2021-07-17 20:04] VITALS: BMI 41.0
== END ==
PROVIDERS: PCP Physician Assistant; Referring Provider Physician Assistant; Visit Provider Nurse Practitioner Family
DX: E11.621 Type 2 diabetes mellitus with foot ulcer (principal); L97.524 Non-pressure chronic ulcer of other part of left foot with necrosis of bone; M86.672 Other chronic osteomyelitis, left ankle and foot; R79.82 Elevated C-reactive protein (CRP)
CPT/HCPCS: 99183; 99213; G0277

== ENCOUNTER → 2021-10-27 08:47 | Outpatient (CLI) | payer OTHER, MEDICAID, SELFPAY ==
[2021-07-17 20:04] VITALS: BMI 41.0
== END ==
PROVIDERS: PCP Physician Assistant; Referring Provider Physician Assistant; Visit Provider Family Medicine
DX: E11.621 Type 2 diabetes mellitus with foot ulcer (principal); L97.524 Non-pressure chronic ulcer of other part of left foot with necrosis of bone; M86.672 Other chronic osteomyelitis, left ankle and foot; R79.82 Elevated C-reactive protein (CRP)
CPT/HCPCS: 11042; 36415; 80053; 85025; 85651; 86140; 99183; 99213; 99214; G0277

== ENCOUNTER → 2021-10-27 12:22 | Outpatient (CLI) | payer OTHER, MEDICAID, SELFPAY ==
[2021-07-17 20:04] VITALS: BMI 41.0
[2021-10-27 13:02] LABS: Add Manual Diff / Slide Review NO; Basophils Absolute Auto 100 /uL (0-100); Eosinophils Absolute Auto 300 /uL (0-450); Eosinophils Percent Auto 5.8 % (2-4); Hematocrit 47.3 % (41-53); Hemoglobin 15.8 g/dL (13.5-17.5); Lymphocytes Absolute Auto 1300 /uL (1100-4500); Lymphocytes Percent Auto 22.5 % (25-40); Mean Corpuscular HGB Conc 33.3 % (30-36); Mean Corpuscular Hemoglobin 29.6 PG (26-34); Mean Corpuscular Volume 88.7 fL (80-100); Monocytes Absolute Auto 600 /uL (0-900); Monocytes Percent Auto 10.2 % (3-14); Neutrophils Absolute Auto 3500 /uL (1500-7000); Neutrophils Percent Auto 60.5 % (50-75); Platelet Count 264 X10^3/uL (150-400); Red Blood Cell Count 5.33 X10^6/uL (4.5-5.9); Red Cell Distribution Width 14.6 % (11.6-14.8); White Blood Cell Count 5.8 X10^3/uL (4.5-11.0)
[2021-10-27 13:18] LABS: Alanine Aminotransferase 19 IU/L (<50); Albumin 3.9 g/dL (3.5-5.0); Alkaline Phosphatase 88 U/L (38-126); Aspartate Aminotransferase 31 IU/L (17-59); BUN Creatinine Ratio 17.9 (6-22); Bilirubin Total 0.6 mg/dL (0.2-1.3); Blood Urea Nitrogen 29 mg/dL (9-20); Calcium 8.6 mg/dL (8.4-10.2); Carbon Dioxide 24 mmol/L (22-32); Chloride 106 mmol/L (98-107); Estimated Glomerular Filt Rate 51 mL/min (>60); Globulin 3.8 g/dL (1.7-4.1); Glucose 194 mg/dL (70-100); HEMOLYSIS < 15 (0-50); Potassium 4.9 mmol/L (3.4-5.1); Sodium 140 mmol/L (137-145); Total Protein 7.7 g/dL (6.3-8.2)
[2021-10-27 13:28] LABS: Erythrocyte Sedimentation Rate 17 MM/HR (0-15)
[2021-10-27 21:40] LABS: C-Reactive Protein Quant 0.8 mg/dL (<1.0)
== END ==
PROVIDERS: PCP Physician Assistant; Referring Provider Family Medicine; Visit Provider Family Medicine
DX: E11.621 Type 2 diabetes mellitus with foot ulcer (principal)
CPT/HCPCS: 36415; 80053; 85025; 85651; 86140

== ENCOUNTER → 2021-11-03 08:42 | Outpatient (CLI) | payer OTHER, MEDICAID, SELFPAY ==
[2021-07-17 20:04] VITALS: BMI 41.0
== END ==
PROVIDERS: PCP Physician Assistant; Referring Provider Orthopaedic Surgery; Visit Provider Family Medicine
DX: E11.621 Type 2 diabetes mellitus with foot ulcer (principal); L97.522 Non-pressure chronic ulcer of other part of left foot with fat layer exposed; M86.672 Other chronic osteomyelitis, left ankle and foot; Z79.2 Long term (current) use of antibiotics; T70.0XXA Otitic barotrauma, initial encounter
CPT/HCPCS: 11042; 99183; 99214; G0277

== ENCOUNTER → 2021-11-05 10:06 | Outpatient (CLI) | payer OTHER, MEDICAID, SELFPAY ==
[2021-07-17 20:04] VITALS: BMI 41.0
[2021-11-05 11:17] LABS: Add Manual Diff / Slide Review NO; Basophils Absolute Auto 100 /uL (0-100); Basophils Percent Auto 1.4 % (0-2); Eosinophils Absolute Auto 300 /uL (0-450); Eosinophils Percent Auto 4.3 % (2-4); Hematocrit 48.1 % (41-53); Lymphocytes Absolute Auto 1300 /uL (1100-4500); Lymphocytes Percent Auto 21.8 % (25-40); Mean Corpuscular HGB Conc 33.3 % (30-36); Mean Corpuscular Hemoglobin 29.7 PG (26-34); Mean Corpuscular Volume 89.1 fL (80-100); Monocytes Absolute Auto 500 /uL (0-900); Monocytes Percent Auto 8.8 % (3-14); Neutrophils Absolute Auto 3700 /uL (1500-7000); Neutrophils Percent Auto 63.7 % (50-75); Platelet Count 354 X10^3/uL (150-400); Red Blood Cell Count 5.39 X10^6/uL (4.5-5.9); Red Cell Distribution Width 14.9 % (11.6-14.8); White Blood Cell Count 5.8 X10^3/uL (4.5-11.0)
[2021-11-05 11:29] LABS: Alanine Aminotransferase 25 IU/L (<50); Albumin 4.4 g/dL (3.5-5.0); Alkaline Phosphatase 79 U/L (38-126); Aspartate Aminotransferase 30 IU/L (17-59); BUN Creatinine Ratio 13.7 (6-22); Bilirubin Total 0.8 mg/dL (0.2-1.3); Blood Urea Nitrogen 21 mg/dL (9-20); C-Reactive Protein Quant < 0.5 mg/dL (<1.0); Calcium 9.4 mg/dL (8.4-10.2); Carbon Dioxide 27 mmol/L (22-32); Chloride 105 mmol/L (98-107); Estimated Glomerular Filt Rate 54 mL/min (>60); Globulin 4.2 g/dL (1.7-4.1); Glucose 207 mg/dL (70-100); HEMOLYSIS < 15 (0-50); Potassium 5.2 mmol/L (3.4-5.1); Sodium 140 mmol/L (137-145); Total Protein 8.6 g/dL (6.3-8.2)
== END ==
PROVIDERS: Referring Provider Family Medicine; Visit Provider Family Medicine
DX: Z79.2 Long term (current) use of antibiotics (principal)
CPT/HCPCS: 36415; 80053; 85025; 86140

== ENCOUNTER → 2021-11-05 13:22 | Outpatient (CLI) | payer OTHER, MEDICAID, SELFPAY ==
[2021-07-17 20:04] VITALS: BMI 41.0
== END ==
PROVIDERS: Visit Provider Family Medicine
DX: E11.621 Type 2 diabetes mellitus with foot ulcer (principal); L97.522 Non-pressure chronic ulcer of other part of left foot with fat layer exposed; Z79.2 Long term (current) use of antibiotics
CPT/HCPCS: 36415; 80053; 85025; 86140; 99212

== ENCOUNTER → 2021-11-08 09:01 | Outpatient (CLI) | payer OTHER, MEDICAID, SELFPAY ==
[2021-07-17 20:04] VITALS: BMI 41.0
== END ==
PROVIDERS: Visit Provider Family Medicine
DX: E11.621 Type 2 diabetes mellitus with foot ulcer (principal); L97.522 Non-pressure chronic ulcer of other part of left foot with fat layer exposed; M86.672 Other chronic osteomyelitis, left ankle and foot; Z79.2 Long term (current) use of antibiotics; T70.0XXA Otitic barotrauma, initial encounter; L97.422 Non-pressure chronic ulcer of left heel and midfoot with fat layer exposed
CPT/HCPCS: 99183; 99212; G0277

== ENCOUNTER → 2021-11-09 08:49 | Outpatient (CLI) | payer OTHER, MEDICAID, SELFPAY ==
[2021-07-17 20:04] VITALS: BMI 41.0
== END ==
PROVIDERS: Visit Provider Family Medicine
DX: E11.621 Type 2 diabetes mellitus with foot ulcer (principal); L97.522 Non-pressure chronic ulcer of other part of left foot with fat layer exposed; M86.672 Other chronic osteomyelitis, left ankle and foot; Z79.2 Long term (current) use of antibiotics; T70.0XXA Otitic barotrauma, initial encounter
CPT/HCPCS: 99183; G0277

== ENCOUNTER → 2021-11-12 10:38 | Outpatient (CLI) | payer OTHER, MEDICAID, SELFPAY ==
[2021-07-17 20:04] VITALS: BMI 41.0
== END ==
PROVIDERS: Visit Provider Nurse Practitioner Family
DX: E11.621 Type 2 diabetes mellitus with foot ulcer (principal); L97.422 Non-pressure chronic ulcer of left heel and midfoot with fat layer exposed
CPT/HCPCS: 99213

== ENCOUNTER → 2021-11-15 08:55 | Outpatient (CLI) | payer OTHER, MEDICAID, SELFPAY ==
[2021-07-17 20:04] VITALS: BMI 41.0
== END ==
PROVIDERS: Visit Provider Family Medicine
DX: E11.621 Type 2 diabetes mellitus with foot ulcer (principal); L97.522 Non-pressure chronic ulcer of other part of left foot with fat layer exposed; M86.672 Other chronic osteomyelitis, left ankle and foot; Z79.2 Long term (current) use of antibiotics; T70.0XXA Otitic barotrauma, initial encounter
CPT/HCPCS: 99183; G0277

== ENCOUNTER → 2021-11-16 09:22 | Outpatient (CLI) | payer OTHER, MEDICAID, SELFPAY ==
[2021-07-17 20:04] VITALS: BMI 41.0
== END ==
PROVIDERS: Visit Provider Family Medicine
DX: E11.621 Type 2 diabetes mellitus with foot ulcer (principal); L97.522 Non-pressure chronic ulcer of other part of left foot with fat layer exposed; M86.672 Other chronic osteomyelitis, left ankle and foot; Z79.2 Long term (current) use of antibiotics; T70.0XXA Otitic barotrauma, initial encounter
CPT/HCPCS: 99183; G0277

== ENCOUNTER → 2021-11-17 09:03 | Outpatient (CLI) | payer OTHER, MEDICAID, SELFPAY ==
[2021-07-17 20:04] VITALS: BMI 41.0
== END ==
PROVIDERS: Visit Provider Family Medicine
DX: E11.621 Type 2 diabetes mellitus with foot ulcer (principal); L97.522 Non-pressure chronic ulcer of other part of left foot with fat layer exposed; M86.672 Other chronic osteomyelitis, left ankle and foot; Z79.2 Long term (current) use of antibiotics; T70.0XXA Otitic barotrauma, initial encounter; E87.5 Hyperkalemia; E11.40 Type 2 diabetes mellitus with diabetic neuropathy, unspecified
CPT/HCPCS: 15275; 99183; 99214; G0277; Q4110

== ENCOUNTER → 2021-11-18 09:05 | Outpatient (CLI) | payer OTHER, MEDICAID, SELFPAY ==
[2021-07-17 20:04] VITALS: BMI 41.0
== END ==
PROVIDERS: Visit Provider Family Medicine
DX: E11.621 Type 2 diabetes mellitus with foot ulcer (principal); L97.522 Non-pressure chronic ulcer of other part of left foot with fat layer exposed; M86.672 Other chronic osteomyelitis, left ankle and foot; Z79.2 Long term (current) use of antibiotics; T70.0XXA Otitic barotrauma, initial encounter
CPT/HCPCS: 99183; G0277

== ENCOUNTER → 2021-11-19 08:47 | Outpatient (CLI) | payer OTHER, MEDICAID, SELFPAY ==
[2021-07-17 20:04] VITALS: BMI 41.0
== END ==
PROVIDERS: Referring Provider Orthopaedic Surgery; Visit Provider Family Medicine
DX: E11.621 Type 2 diabetes mellitus with foot ulcer (principal); L97.522 Non-pressure chronic ulcer of other part of left foot with fat layer exposed; M86.672 Other chronic osteomyelitis, left ankle and foot; Z79.2 Long term (current) use of antibiotics; T70.0XXA Otitic barotrauma, initial encounter
CPT/HCPCS: 99183; G0277

== ENCOUNTER → 2021-11-22 10:14 | Outpatient (CLI) | payer OTHER, MEDICAID, SELFPAY ==
[2021-07-17 20:04] VITALS: BMI 41.0
== END ==
PROVIDERS: Visit Provider Family Medicine
DX: E11.621 Type 2 diabetes mellitus with foot ulcer (principal); L97.522 Non-pressure chronic ulcer of other part of left foot with fat layer exposed; M86.672 Other chronic osteomyelitis, left ankle and foot; Z79.2 Long term (current) use of antibiotics; T70.0XXA Otitic barotrauma, initial encounter
CPT/HCPCS: 99183; G0277

== ENCOUNTER → 2021-11-23 11:07 | Outpatient (CLI) | payer OTHER, MEDICAID, SELFPAY ==
[2021-07-17 20:04] VITALS: BMI 41.0
== END ==
PROVIDERS: Visit Provider Family Medicine
DX: E11.621 Type 2 diabetes mellitus with foot ulcer (principal); L97.522 Non-pressure chronic ulcer of other part of left foot with fat layer exposed; M86.672 Other chronic osteomyelitis, left ankle and foot; Z79.2 Long term (current) use of antibiotics; T70.0XXA Otitic barotrauma, initial encounter
CPT/HCPCS: 11042; 99183; 99212; 99214; G0277

== ENCOUNTER → 2021-11-25 08:30 | Outpatient (CLI) | payer OTHER, MEDICAID, SELFPAY ==
[2021-07-17 20:04] VITALS: BMI 41.0
== END ==
PROVIDERS: Visit Provider Family Medicine
DX: E11.621 Type 2 diabetes mellitus with foot ulcer (principal); L97.522 Non-pressure chronic ulcer of other part of left foot with fat layer exposed; M86.672 Other chronic osteomyelitis, left ankle and foot; Z79.2 Long term (current) use of antibiotics; T70.0XXA Otitic barotrauma, initial encounter
CPT/HCPCS: 99183; G0277

== ENCOUNTER → 2021-11-26 08:50 | Outpatient (CLI) | payer OTHER, MEDICAID, SELFPAY ==
[2021-07-17 20:04] VITALS: BMI 41.0
== END ==
PROVIDERS: Visit Provider Nurse Practitioner Family
DX: E11.621 Type 2 diabetes mellitus with foot ulcer (principal); L97.522 Non-pressure chronic ulcer of other part of left foot with fat layer exposed; M86.672 Other chronic osteomyelitis, left ankle and foot; Z79.2 Long term (current) use of antibiotics; T70.0XXA Otitic barotrauma, initial encounter
CPT/HCPCS: 99183; G0277

== ENCOUNTER → 2021-11-29 08:42 | Outpatient (CLI) | payer OTHER, MEDICAID, SELFPAY ==
[2021-07-17 20:04] VITALS: BMI 41.0
== END ==
PROVIDERS: Visit Provider Family Medicine
DX: E11.621 Type 2 diabetes mellitus with foot ulcer (principal); L97.522 Non-pressure chronic ulcer of other part of left foot with fat layer exposed; M86.672 Other chronic osteomyelitis, left ankle and foot; Z79.2 Long term (current) use of antibiotics; T70.0XXA Otitic barotrauma, initial encounter
CPT/HCPCS: 99183; G0277

== ENCOUNTER → 2021-12-01 09:12 | Outpatient (CLI) | payer OTHER, MEDICAID, SELFPAY ==
[2021-07-17 20:04] VITALS: BMI 41.0
== END ==
PROVIDERS: Visit Provider Family Medicine
DX: E11.621 Type 2 diabetes mellitus with foot ulcer (principal); L97.522 Non-pressure chronic ulcer of other part of left foot with fat layer exposed; M86.672 Other chronic osteomyelitis, left ankle and foot; T70.0XXA Otitic barotrauma, initial encounter; Z79.2 Long term (current) use of antibiotics
CPT/HCPCS: 99183; G0277

== ENCOUNTER → 2021-12-02 09:01 | Outpatient (CLI) | payer OTHER, MEDICAID, SELFPAY ==
[2021-07-17 20:04] VITALS: BMI 41.0
== END ==
PROVIDERS: Visit Provider Family Medicine
DX: E11.621 Type 2 diabetes mellitus with foot ulcer (principal); L97.522 Non-pressure chronic ulcer of other part of left foot with fat layer exposed; E11.40 Type 2 diabetes mellitus with diabetic neuropathy, unspecified; R60.0 Localized edema
CPT/HCPCS: 11042; 99183; G0277

== ENCOUNTER → 2021-12-06 08:42 | Outpatient (CLI) | payer OTHER, MEDICAID, SELFPAY ==
[2021-07-17 20:04] VITALS: BMI 41.0
== END ==
PROVIDERS: Visit Provider Family Medicine
DX: E11.621 Type 2 diabetes mellitus with foot ulcer (principal); L97.522 Non-pressure chronic ulcer of other part of left foot with fat layer exposed; L08.9 Local infection of the skin and subcutaneous tissue, unspecified
CPT/HCPCS: 36415; 80053; 85025; 85651; 86140; 99183; G0277

== ENCOUNTER → 2021-12-06 11:26 | Outpatient (CLI) | payer OTHER, MEDICAID, SELFPAY ==
[2021-07-17 20:04] VITALS: BMI 41.0
[2021-12-06 11:55] LABS: Add Manual Diff / Slide Review NO; Basophils Absolute Auto 100 /uL (0-100); Eosinophils Absolute Auto 300 /uL (0-450); Eosinophils Percent Auto 3.9 % (2-4); Hematocrit 48.7 % (41-53); Hemoglobin 16.4 g/dL (13.5-17.5); Lymphocytes Absolute Auto 1700 /uL (1100-4500); Lymphocytes Percent Auto 21.4 % (25-40); Mean Corpuscular HGB Conc 33.7 % (30-36); Mean Corpuscular Hemoglobin 30.2 PG (26-34); Mean Corpuscular Volume 89.6 fL (80-100); Monocytes Absolute Auto 600 /uL (0-900); Monocytes Percent Auto 7.3 % (3-14); Neutrophils Absolute Auto 5200 /uL (1500-7000); Neutrophils Percent Auto 66.4 % (50-75); Platelet Count 249 X10^3/uL (150-400); Red Blood Cell Count 5.44 X10^6/uL (4.5-5.9); White Blood Cell Count 7.8 X10^3/uL (4.5-11.0)
[2021-12-06 12:11] LABS: Alanine Aminotransferase 29 IU/L (<50); Albumin 4.4 g/dL (3.5-5.0); Alkaline Phosphatase 74 U/L (38-126); Aspartate Aminotransferase 31 IU/L (17-59); Bilirubin Total 0.5 mg/dL (0.2-1.3); Blood Urea Nitrogen 28 mg/dL (9-20); C-Reactive Protein Quant 0.5 mg/dL (<1.0); Calcium 9.3 mg/dL (8.4-10.2); Carbon Dioxide 23 mmol/L (22-32); Chloride 106 mmol/L (98-107); Estimated Glomerular Filt Rate 50 mL/min (>60); Globulin 4.3 g/dL (1.7-4.1); Glucose 212 mg/dL (70-100); HEMOLYSIS < 15 (0-50); Potassium 4.6 mmol/L (3.4-5.1); Sodium 138 mmol/L (137-145); Total Protein 8.7 g/dL (6.3-8.2)
[2021-12-06 12:18] LABS: Erythrocyte Sedimentation Rate 14 MM/HR (0-15)
== END ==
PROVIDERS: Referring Provider Family Medicine; Visit Provider Family Medicine
DX: E11.621 Type 2 diabetes mellitus with foot ulcer (principal); L08.9 Local infection of the skin and subcutaneous tissue, unspecified
CPT/HCPCS: 36415; 80053; 85025; 85651; 86140

== ENCOUNTER → 2021-12-07 09:54 | Outpatient (CLI) | payer OTHER, MEDICAID, SELFPAY ==
[2021-07-17 20:04] VITALS: BMI 41.0
== END ==
PROVIDERS: Visit Provider Family Medicine
DX: E11.621 Type 2 diabetes mellitus with foot ulcer (principal); L97.522 Non-pressure chronic ulcer of other part of left foot with fat layer exposed
CPT/HCPCS: 99183; G0277

== ENCOUNTER → 2021-12-09 11:01 | Outpatient (CLI) | payer OTHER, MEDICAID, SELFPAY ==
[2021-07-17 20:04] VITALS: BMI 41.0
== END ==
PROVIDERS: Visit Provider Family Medicine
DX: E11.621 Type 2 diabetes mellitus with foot ulcer (principal); L97.522 Non-pressure chronic ulcer of other part of left foot with fat layer exposed; E87.5 Hyperkalemia; E11.40 Type 2 diabetes mellitus with diabetic neuropathy, unspecified
CPT/HCPCS: 15275; 99183; 99213; G0277; Q4110

== ENCOUNTER → 2021-12-16 14:32 | Outpatient (CLI) | payer OTHER, MEDICAID, SELFPAY ==
[2021-07-17 20:04] VITALS: BMI 41.0
== END ==
PROVIDERS: Visit Provider Family Medicine
DX: E11.621 Type 2 diabetes mellitus with foot ulcer (principal); L97.522 Non-pressure chronic ulcer of other part of left foot with fat layer exposed; R60.0 Localized edema
CPT/HCPCS: 99212

== ENCOUNTER → 2021-12-21 08:49 | Outpatient (CLI) | payer OTHER, MEDICAID, SELFPAY ==
[2021-07-17 20:04] VITALS: BMI 41.0
== END ==
PROVIDERS: Visit Provider Family Medicine
DX: E11.621 Type 2 diabetes mellitus with foot ulcer (principal); L97.522 Non-pressure chronic ulcer of other part of left foot with fat layer exposed; E87.5 Hyperkalemia
CPT/HCPCS: 99183; G0277

== ENCOUNTER → 2021-12-22 09:24 | Outpatient (CLI) | payer OTHER, MEDICAID, SELFPAY ==
[2021-07-17 20:04] VITALS: BMI 41.0
== END ==
PROVIDERS: Visit Provider Family Medicine
DX: E11.621 Type 2 diabetes mellitus with foot ulcer (principal); L97.522 Non-pressure chronic ulcer of other part of left foot with fat layer exposed; E87.5 Hyperkalemia
CPT/HCPCS: 99183; G0277

== ENCOUNTER → 2021-12-24 11:03 | Outpatient (CLI) | payer OTHER, MEDICAID, SELFPAY ==
[2021-07-17 20:04] VITALS: BMI 41.0
== END ==
PROVIDERS: Visit Provider Family Medicine
DX: E11.621 Type 2 diabetes mellitus with foot ulcer (principal); L97.522 Non-pressure chronic ulcer of other part of left foot with fat layer exposed; R60.0 Localized edema
CPT/HCPCS: 99213

== ENCOUNTER → 2021-12-27 09:06 | Outpatient (CLI) | payer OTHER, MEDICAID, SELFPAY ==
[2021-07-17 20:04] VITALS: BMI 41.0
== END ==
PROVIDERS: Visit Provider Family Medicine
DX: E11.621 Type 2 diabetes mellitus with foot ulcer (principal); L97.522 Non-pressure chronic ulcer of other part of left foot with fat layer exposed; E87.5 Hyperkalemia
CPT/HCPCS: 99183; G0277

== ENCOUNTER → 2021-12-28 09:04 | Outpatient (CLI) | payer OTHER, MEDICAID, SELFPAY ==
[2021-07-17 20:04] VITALS: BMI 41.0
== END ==
PROVIDERS: Visit Provider Family Medicine
DX: E11.621 Type 2 diabetes mellitus with foot ulcer (principal); L97.522 Non-pressure chronic ulcer of other part of left foot with fat layer exposed; E87.5 Hyperkalemia
CPT/HCPCS: 15275; 99183; G0277; Q4110

== ENCOUNTER → 2022-01-03 09:02 | Outpatient (CLI) | payer OTHER, MEDICAID, SELFPAY ==
[2021-07-17 20:04] VITALS: BMI 41.0
== END ==
PROVIDERS: Visit Provider Family Medicine
DX: E11.621 Type 2 diabetes mellitus with foot ulcer (principal); L97.522 Non-pressure chronic ulcer of other part of left foot with fat layer exposed
CPT/HCPCS: 99183; G0277

== ENCOUNTER → 2022-01-04 08:31 | Outpatient (CLI) | payer OTHER, MEDICAID, SELFPAY ==
[2021-07-17 20:04] VITALS: BMI 41.0
== END ==
PROVIDERS: Visit Provider Family Medicine
DX: E11.621 Type 2 diabetes mellitus with foot ulcer (principal); L97.522 Non-pressure chronic ulcer of other part of left foot with fat layer exposed; E11.40 Type 2 diabetes mellitus with diabetic neuropathy, unspecified; R60.0 Localized edema
CPT/HCPCS: 11042; 99183; G0277

== ENCOUNTER → 2022-01-06 08:53 | Outpatient (CLI) | payer OTHER, MEDICAID, SELFPAY ==
[2021-07-17 20:04] VITALS: BMI 41.0
== END ==
PROVIDERS: Visit Provider Family Medicine
DX: E11.621 Type 2 diabetes mellitus with foot ulcer (principal); L97.522 Non-pressure chronic ulcer of other part of left foot with fat layer exposed
CPT/HCPCS: 99183; G0277

== ENCOUNTER → 2022-01-10 08:59 | Outpatient (CLI) | payer OTHER, MEDICAID, SELFPAY ==
[2021-07-17 20:04] VITALS: BMI 41.0
== END ==
PROVIDERS: Visit Provider Family Medicine
DX: E11.621 Type 2 diabetes mellitus with foot ulcer (principal); L97.522 Non-pressure chronic ulcer of other part of left foot with fat layer exposed
CPT/HCPCS: 99183; G0277

== ENCOUNTER → 2022-01-11 08:39 | Outpatient (CLI) | payer OTHER, MEDICAID, SELFPAY ==
[2021-07-17 20:04] VITALS: BMI 41.0
== END ==
PROVIDERS: Visit Provider Family Medicine
DX: E11.621 Type 2 diabetes mellitus with foot ulcer (principal); L97.522 Non-pressure chronic ulcer of other part of left foot with fat layer exposed; E11.40 Type 2 diabetes mellitus with diabetic neuropathy, unspecified; R60.0 Localized edema
CPT/HCPCS: 11042; 99183; 99213; G0277

== ENCOUNTER → 2022-01-13 08:46 | Outpatient (CLI) | payer OTHER, MEDICAID, SELFPAY ==
[2021-07-17 20:04] VITALS: BMI 41.0
== END ==
PROVIDERS: Visit Provider Family Medicine
DX: E11.621 Type 2 diabetes mellitus with foot ulcer (principal); L97.522 Non-pressure chronic ulcer of other part of left foot with fat layer exposed
CPT/HCPCS: 99183; G0277

== ENCOUNTER → 2022-01-17 08:32 | Outpatient (CLI) | payer OTHER, MEDICAID, SELFPAY ==
[2021-07-17 20:04] VITALS: BMI 41.0
== END ==
PROVIDERS: Visit Provider Family Medicine
DX: E11.621 Type 2 diabetes mellitus with foot ulcer (principal); L97.522 Non-pressure chronic ulcer of other part of left foot with fat layer exposed; L08.9 Local infection of the skin and subcutaneous tissue, unspecified
CPT/HCPCS: 36415; 80053; 85025; 85651; 86140; 99183; G0277

== ENCOUNTER → 2022-01-17 10:58 | Outpatient (CLI) | payer OTHER, MEDICAID, SELFPAY ==
[2021-07-17 20:04] VITALS: BMI 41.0
[2022-01-17 12:32] LABS: Add Manual Diff / Slide Review NO; Basophils Absolute Auto 100 /uL (0-100); Basophils Percent Auto 0.8 % (0-2); Eosinophils Absolute Auto 300 /uL (0-450); Hematocrit 50.8 % (41-53); Hemoglobin 16.9 g/dL (13.5-17.5); Lymphocytes Absolute Auto 2200 /uL (1100-4500); Lymphocytes Percent Auto 25.6 % (25-40); Mean Corpuscular HGB Conc 33.2 % (30-36); Mean Corpuscular Hemoglobin 30.6 PG (26-34); Monocytes Absolute Auto 500 /uL (0-900); Monocytes Percent Auto 6.3 % (3-14); Neutrophils Absolute Auto 5400 /uL (1500-7000); Neutrophils Percent Auto 63.3 % (50-75); Platelet Count 256 X10^3/uL (150-400); Red Blood Cell Count 5.52 X10^6/uL (4.5-5.9); Red Cell Distribution Width 14.6 % (11.6-14.8); White Blood Cell Count 8.6 X10^3/uL (4.5-11.0)
[2022-01-17 12:44] LABS: Alanine Aminotransferase 20 IU/L (<50); Albumin 4.2 g/dL (3.5-5.0); Albumin Globulin Ratio 1.1 (1.0-2.8); Alkaline Phosphatase 66 U/L (38-126); Aspartate Aminotransferase 28 IU/L (17-59); BUN Creatinine Ratio 15.3 (6-22); Bilirubin Total 0.7 mg/dL (0.2-1.3); Blood Urea Nitrogen 24 mg/dL (9-20); C-Reactive Protein Quant < 0.5 mg/dL (<1.0); Calcium 9.1 mg/dL (8.4-10.2); Carbon Dioxide 27 mmol/L (22-32); Chloride 101 mmol/L (98-107); Erythrocyte Sedimentation Rate 3 MM/HR (0-15); Estimated Glomerular Filt Rate 53 mL/min (>60); Glucose 126 mg/dL (70-100); HEMOLYSIS < 15 (0-50); Potassium 4.1 mmol/L (3.4-5.1); Sodium 138 mmol/L (137-145); Total Protein 8.2 g/dL (6.3-8.2)
== END ==
PROVIDERS: Referring Provider Family Medicine; Visit Provider Family Medicine
DX: L08.9 Local infection of the skin and subcutaneous tissue, unspecified (principal)
CPT/HCPCS: 36415; 80053; 85025; 85651; 86140

== ENCOUNTER → 2022-01-18 08:53 | Outpatient (CLI) | payer OTHER, MEDICAID, SELFPAY ==
[2021-07-17 20:04] VITALS: BMI 41.0
== END ==
PROVIDERS: Visit Provider Family Medicine
DX: E11.621 Type 2 diabetes mellitus with foot ulcer (principal); L97.522 Non-pressure chronic ulcer of other part of left foot with fat layer exposed; E11.40 Type 2 diabetes mellitus with diabetic neuropathy, unspecified; Z49.01 Encounter for fitting and adjustment of extracorporeal dialysis catheter; L08.9 Local infection of the skin and subcutaneous tissue, unspecified
CPT/HCPCS: 11042; 99183; G0277

== ENCOUNTER → 2022-01-25 09:00 | Outpatient (CLI) | payer OTHER, MEDICAID, SELFPAY ==
[2021-07-17 20:04] VITALS: BMI 41.0
== END ==
PROVIDERS: Visit Provider Family Medicine
DX: E11.621 Type 2 diabetes mellitus with foot ulcer (principal); L97.522 Non-pressure chronic ulcer of other part of left foot with fat layer exposed; E11.40 Type 2 diabetes mellitus with diabetic neuropathy, unspecified; R60.0 Localized edema; L08.9 Local infection of the skin and subcutaneous tissue, unspecified; Z79.2 Long term (current) use of antibiotics
CPT/HCPCS: 11042; 99212; 99213

== ENCOUNTER → 2022-02-01 09:54 | Outpatient (CLI) | payer OTHER, MEDICAID, SELFPAY ==
[2021-07-17 20:04] VITALS: BMI 41.0
== END ==
PROVIDERS: Visit Provider Family Medicine
DX: E11.621 Type 2 diabetes mellitus with foot ulcer (principal); L97.522 Non-pressure chronic ulcer of other part of left foot with fat layer exposed; E11.40 Type 2 diabetes mellitus with diabetic neuropathy, unspecified; R60.0 Localized edema
CPT/HCPCS: 11042

== ENCOUNTER → 2022-02-15 08:32 | Outpatient (CLI) | payer OTHER, MEDICAID, SELFPAY ==
[2021-07-17 20:04] VITALS: BMI 41.0
== END ==
PROVIDERS: Referring Provider Orthopaedic Surgery; Visit Provider Family Medicine
DX: E11.621 Type 2 diabetes mellitus with foot ulcer (principal); L97.522 Non-pressure chronic ulcer of other part of left foot with fat layer exposed; E11.40 Type 2 diabetes mellitus with diabetic neuropathy, unspecified; R60.0 Localized edema; Z86.16 Personal history of COVID-19
CPT/HCPCS: 11042

== ENCOUNTER → 2022-02-22 08:34 | Outpatient (CLI) | payer OTHER, MEDICAID, SELFPAY ==
[2021-07-17 20:04] VITALS: BMI 41.0
== END ==
PROVIDERS: Referring Provider Orthopaedic Surgery; Visit Provider Family Medicine
DX: E11.621 Type 2 diabetes mellitus with foot ulcer (principal); L97.522 Non-pressure chronic ulcer of other part of left foot with fat layer exposed; E11.40 Type 2 diabetes mellitus with diabetic neuropathy, unspecified
CPT/HCPCS: 15275; Q4137

== ENCOUNTER → 2022-03-01 08:31 | Outpatient (CLI) | payer OTHER, MEDICAID, SELFPAY ==
[2021-07-17 20:04] VITALS: BMI 41.0
== END ==
PROVIDERS: Referring Provider Orthopaedic Surgery; Visit Provider Surgery
DX: E11.40 Type 2 diabetes mellitus with diabetic neuropathy, unspecified (principal); Z86.31 Personal history of diabetic foot ulcer
CPT/HCPCS: 99213

== ENCOUNTER 2022-03-05 11:20 | Emergency (ER) | payer OTHER, MEDICAID, SELFPAY ==
[2021-07-17 20:04] VITALS: BMI 41.0
[2022-03-05 11:37] VITALS: BP 114/74; PULSE 89; RESP 14; TEMP 36.1; O2SAT 97; BMI 39.4
[2022-03-05 14:10] VITALS: BP 136/100; PULSE 79; O2SAT 97
--- NOTE | 2022-03-05 14:57 | ED.HA ---
HPI - Headache General Chief Complaint: Headache Stated Complaint: something popped behind eye, red eye, pain Time Seen by Provider: 03/05/22 14:56 Source: patient Mode of arrival: Ambulatory Limitations: no limitations History of Present Illness HPI Narrative: This is a 51 year old male with diabetes on Invokana, insulin, Dilshad and statin with complaint of something popping behind his right eye. Patient states he was coughing he felt like something popped and developed redness of the white portion of his eye. He states no vision change. He felt like it was painful to look down but he states that has gone away. He states he can look all around and is no longer painful. Does normally wear glasses or contacts. He does not have them in today. He states his right vision is better than his left. Patient states he has been coughing since he has been recovering from COVID. He denies any other symptoms. Related Data Home Medications Medication Instructions Recorded Confirmed esomeprazole magnesium 20 mg 20 mg PO DAILY heart burn 06/09/19 07/17/21 capsule,delayed release (Nexium) insulin aspart U-100 100 unit/mL 15 unit SUBCUT TID 06/09/19 07/17/21 subcutaneous solution (Novolog U-100 Insulin aspart) lisinopril 5 mg tablet 5 mg PO DAILY 06/09/19 07/17/21 allopurinol 100 mg tablet 100 mg PO QAM 07/17/21 07/17/21 atorvastatin 20 mg tablet 20 mg PO QAM 07/17/21 07/17/21 canagliflozin 300 mg tablet 300 mg PO QAM 07/17/21 07/17/21 (Invokana) insulin glargine 100 unit/mL 30 unit SUBCUT BID 07/17/21 07/17/21 subcutaneous solution (Lantus U-100 Insulin) Previous Rx's Medication Instructions Recorded aspirin 81 mg chewable tablet 81 mg PO BID #84 tabs 07/21/21 levofloxacin 0.5 % eye drops 2 drp EYE-RIGHT Q4H 7 days #5 mL 03/05/22 Allergies Allergy/AdvReac Type Severity Reaction Status Date / Time No Known Drug Allergies Allergy Verified 03/05/22 11:43 Review of Systems Review of Systems ROS Unobtainable: All systems reviewed & are unremarkable except as noted in HPI and below Patient History Medical History (Updated 03/05/22 @ 16:13 by Dinora Braden DO) Acid reflux Diabetes type 2, uncontrolled Fibromyalgia Gastric ulcer Gout History of head injury HTN (hypertension) Surgical History History of brain shunt Family History Father Morbid obesity Diabetes mellitus Mother Cancer Heart disease Social History household members: significant other Smoking Status: Never smoker Smoking Status: Never smoker alcohol intake frequency: holidays/special occasions only Substance Use Type: does not use Exam Narrative Exam Narrative: GEN: well nourished, well appearing male, alert and oriented x 3, patient appears to be in mild distress. HEENT: Atraumatic, pupils are equal round reactive to light, extraocular movements are intact, patient's right sclera is injected Visual acuity: right 20/50, left 20/200 without correction. IOP: Right [default value] mm Hg, Left [default value] mm Hg-we do not have a Nabil-Pen available for pressure check it has broken and not been replaced. General: no globe trauma Eyelids: normal inspection, eyelids everted for exam on right. Conjunctiva/Sclera: Injected on the right, not appreciated on the left Corneas: normal inspection, examined with fluroscein with no uptake on the left, there is some slight punctate injection on the sclera on the right but no uptake, laceration abrasions or ulcerations on the cornea.. EOM: intact, no palsy/entrapment Pupils: PERRL, normal accomadation, pupil normal Anterior Chambers: normal inspection, no hypema Posterior: normal fundoscopic on exam. Nares are clear, TMs are clear with no fluid, there is no conjunctival pallor. Throat is clear without any exudates, erythema, tonsillar enlargement or uvular deviation HEART: Regular rate and rhythm without murmur, clicks, rubs. No carotid bruits, pulses are equal in upper and lower extremities LUNGS:Lungs clear to auscultation, no wheezes, rales, crackles, chest moves symmetrically ABD:bowel sounds normal, soft, non-tender, no guarding, rebound, rigidity, no masses noted, no hepatosplenomegal MSCL: Non-tender, no muscle atrophy, muscles strength 5/5 upper and lower extremities, full range of motion, normal gait NEURO:CN 2-12 intact, sensation normal Initial Vital Signs Initial Vital Signs: Vital Signs Temperature 97.0 F L 03/05/22 11:37 Pulse Rate 89 03/05/22 11:37 Respiratory Rate 14 03/05/22 11:37 Blood Pressure 114/74 03/05/22 11:37 Pulse Oximetry 97 03/05/22 11:37 Oxygen Delivery Method 03/05/22 11:37 Course Orders Ordered: Discontinued Medications Acetaminophen (Acetaminophen 325 Mg Tablet) 650 mg PO NOW ONE Stop: 03/05/22 11:51 Last Admin: 03/05/22 15:31 Dose: 650 mg Documented By: ROMULO Fluorescein Sodium (Fluorescein 1 Mg Strip) 1 mg EYE-LEFT NOW ONE Stop: 03/05/22 15:42 Last Admin: 03/05/22 16:09 Dose: 1 mg Documented By: ROMULO Proparacaine HCl (Proparacaine 0.5% Ophth Mishel) 1 drops EYE-BOTH NOW ONE Stop: 03/05/22 15:42 Last Admin: 03/05/22 16:09 Dose: 2 drop Documented By: ROMULO Vital Signs Vital signs: Vital Signs - 8 hr 03/05/22 11:37 03/05/22 14:10 03/05/22 16:16 Temperature 97.0 F L Pulse Rate 89 79 75 Respiratory Rate 14 Blood Pressure 114/74 136/100 H 138/85 Pulse Oximetry 97 97 97 Oxygen Delivery Method Room Air Room Air MDM - Headache MDM Narrative Medical decision making narrative: This is a 51-year-old male with known diabetes, who wears contacts who states he was coughing felt a pop and felt pain and had redness of the scar of his eye, he may have had subconjunctival hemorrhage but is more generalized redness. Unable to check his pressure do not have the equipment available but he has some punctate uptake throughout the sclera, he does not have pain any longer he has normal extraocular motions eye is not full on examination to pressure. Has normal examination otherwise. He notes air sometimes when he blows his nose on both sides coming out his lacrimal ducts he has not had any trauma or injury recently. 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 Return precautions were discussed. Discharge Plan Departure Patient Disposition: Home Clinical Impression: Conjunctivitis Instructions: DI for Conjunctivitis Activity Restrictions/Additional Instructions: Please follow-up with ophthalmology on Monday. Call for an appointment. I would recommend following up with your ophthalmology team but if you are unable referral is included below. You can call Monday and they will typically see you same day. There appears to be an infection in your right eye, do not use your contacts until cleared by Ophthalmology you can use or glasses. Use antibiotic eye drops as prescribed in the right eye if you develop symptoms in the left you can start using a on the left side as well. Prescription sent to [facility] in [place] on [address] Please return for rapidly worsening symptoms, decreasing or loss of vision, increasing pain, new discharge or other new or concerning changes. Prescriptions: New levofloxacin 0.5 % drops 2 drp EYE-RIGHT Q4H 7 Days Qty: 5 0RF No Action lisinopril 5 mg Tablet 5 mg PO DAILY esomeprazole magnesium [Nexium] 20 mg Capsule,Delayed Release(Dr/Ec) 20 mg PO DAILY insulin aspart U-100 [Novolog U-100 Insulin aspart] 100 unit/mL Solution 15 unit SUBCUT TID Rx Instructions: take 12-15 unitis Prior to meal atorvastatin 20 mg tablet 20 mg PO QAM allopurinol 100 mg tablet 100 mg PO QAM Invokana 300 mg tablet 300 mg PO QAM Lantus U-100 Insulin 100 unit/mL solution 30 unit SUBCUT BID Rx Instructions: Am dose and HS aspirin 81 mg tablet,chewable 81 mg PO BID Qty: 84 0RF Referrals: Candido Lees MD [Physician] - Miscellaneous,DoctorMD [Primary Care Provider] - Visit Report Forms: Patient Portal/API
[2022-03-05] MEDS: ACETAMINOPHEN 325 MG TABLET 650 MG PO (15:31)
[2022-03-05] MEDS: FLUORESCEIN 1 MG STRIP EYE-LEFT (16:09)
[2022-03-05] MEDS: PROPARACAINE 0.5% OPHTH SOL 1 DROPS EYE-BOTH (16:09)
[2022-03-05 16:16] VITALS: BP 138/85; PULSE 75; O2SAT 97
--- NOTE | 2022-03-09 12:32 | PC.NURSE ---
new script sent to [facility] by Dr. Roberts as could not fill at original pharmacy.
== END 2022-03-05 16:32 | disposition home or self-care (01) ==
PROVIDERS: Emergency Provider Emergency Medicine
DX: H10.9 Unspecified conjunctivitis (principal); R05.9 Cough, unspecified; Z86.16 Personal history of COVID-19
CPT/HCPCS: 99282; 99283

== ENCOUNTER → 2022-03-22 08:50 | Outpatient (CLI) | payer OTHER, MEDICAID, SELFPAY ==
[2021-07-17 20:04] VITALS: BMI 41.0
== END ==
PROVIDERS: Referring Provider Orthopaedic Surgery; Visit Provider Surgery
DX: E11.621 Type 2 diabetes mellitus with foot ulcer (principal); L97.522 Non-pressure chronic ulcer of other part of left foot with fat layer exposed; E11.40 Type 2 diabetes mellitus with diabetic neuropathy, unspecified
CPT/HCPCS: 99212; 99213